=== PATIENT | male | born 1970 | race Hispanic/Latino ===

== ENCOUNTER 2017-05-25 06:38 | Emergency (ER) | payer OTHER, SELFPAY ==
[2017-05-25 06:40] VITALS: BP 146/82; PULSE 82; RESP 17; TEMP 36.5; O2SAT 97; BMI 33.8
--- NOTE | 2017-05-25 06:51 | ED.VISSUMM ---
- ER Visit Summary Date of Service: 05/25/17 Chief Complaint: Gout flare up right foot History of Present Illness: The patient is a 46 M 3 of the gout and hypertension. Patient states today he is developed atraumatic pain to his right foot primarily in the MTP joint of his right great toe. Prior history of gout in that area. Denies any trauma. Denies any fever. Denies any other complaints. Physical Examination: Well-appearing middle-age male. Vital signs are stable afebrile. He is in no acute distress. He does not look septic or toxic. HEENT exam unremarkable. Neck nontender no lymphadenopathy. Lungs clear to auscultation bilaterally. Heart regular rate and rhythm no murmur. Abdomen soft nontender. Extremities he is moving all 4. Neurovascular intact. Specifically his right hip, knee and ankle are nontender without swelling and normal range of motion. His right foot at the right great toe metatarsophalangeal joint he is tenderness and mild swelling. There is no signs of infection at this time. There is no lymphangitic streaking. The right foot is neurovascular intact with a strong DP pulse. There are no signs of trauma or puncture wound. No gross bony deformities. Test Results: None Emergency Department Course and Treatment: Patient will be treated as a acute gout flareup with prednisone 40 mg a day. He will be given his first dose in the ER. He did not want anything stronger for pain. Treatment Plan: Prednisone daily 40 mg a day for 10 days or stop when pain resolved. Disposition: Discharged Impression: Acute right great toe pain secondary to acute gout flare up This note was generated with [employer] dictation software. It may contain incorrect words, spelling, and punctuation that were not noted in review of the chart prior to signing ED Disposition - Plan for ED Patient: Chief Complaint: Lower Extremity Injury Referrals: Eddie Hughes [Primary Care Provider] -
--- NOTE | 2017-05-25 06:54 | ED.DEP ---
ED Disposition - Plan for ED Patient: Disposition: Home or Assisted Living Chief Complaint: Lower Extremity Injury Instructions: ED Arthritis Gout Prescriptions: Prednisone [Deltasone] 40 mg PO DAILY 10 Days tab Referrals: Eddie Hughes [Primary Care Provider] - 1 Week if not improving
== END 2017-05-25 07:02 | disposition home or self-care (01) ==
PROVIDERS: Emergency Provider Emergency Medicine
DX: M79.674 Pain in right toe(s) (principal); M10.9 Gout, unspecified; I10 Essential (primary) hypertension; Z79.899 Other long term (current) drug therapy
CPT/HCPCS: 99283

== ENCOUNTER 2017-07-31 17:50 | Inpatient (IN) | payer OTHER, SELFPAY ==
[2017-07-31] VITALS (17 sets, daily range): BP systolic 97–135; BP diastolic 56–75; PULSE 76–97; RESP 14–25; TEMP 36.2–36.7; O2SAT 94–98; BMI 33.6; BMI 33.7; BMI 34.1
--- NOTE | 2017-07-31 18:00 | EKG12_ITS ---
Test Reason : CP Blood Pressure : / mmHG Vent. Rate : 078 BPM Atrial Rate : 078 BPM P-R Int : 122 ms QRS Dur : 128 ms QT Int : 386 ms P-R-T Axes : 045 -14 005 degrees QTc Int : 440 ms Normal sinus rhythm Right bundle branch block Abnormal ECG Confirmed by MAIK ABAD, ZAY ([id number]), assistant film editor CASEY PEDERSON ([id number]) on 08/06/2017 1:42:24 PM Referred By: BARRERA/SHILA Confirmed By:ZAY PLEITEZ MD
[2017-07-31] MEDS: Aspirin 81 MG TAB.CHEW 324 MG PO (18:13)
--- NOTE | 2017-07-31 18:15 | RAD_ITS ---
STUDY: X-RAY CHEST REASON FOR EXAM: Male, 47 years old. Chest pain, neck pain. TECHNIQUE: AP portable upright chest COMPARISON: 06/29/2013 FINDINGS: There is mild background hyperlucency in particular at the apices of the lungs that may reflect the presence of underlying COPD/emphysema. Correlate smoking history. The lungs are otherwise clear. Normal cardiomediastinal silhouette, howard and pleural margins. No acute osseous or upper abdominal process. RAD/Chest 1 View (Portable) IMPRESSION: No acute cardiopulmonary process. Electronically Signed: Jasbir Verdugo, at 18:49 EDT Tel , Service support ,
[2017-07-31 18:20] LABS: Absolute Neutrophil Count 2.7 X10^3/uL (2.0-7.7); Basophil# 0.04 X10^3/uL; Basophil% 0.7 % (0-1); Eosinophil# 0.73 X10^3/uL; Eosinophils% 12.4 % (0-5); Hematocrit 41.6 % (40-54); Hemoglobin 14.4 g/dl (13.0-16.5); Lymphocyte % 32.1 % (19-41); Mean Corp Hgb Conc 34.6 g/gl (32-36); Mean Corpuscular Hgb 30.4 pg (27.0-32.0); Mean Corpuscular Volume 87.9 fL (80-94); Mean Platelet Vol. 9.6 fl (6.2-12.0); Monocyte# 0.55 X10^3/uL; Monocyte% 9.3 % (0-10); Neutrophil # 2.68 X10^3/uL (2.7-7.7); Neutrophil % 45.3 % (47-70); Platelet Count 219 K/mm3 (150-450); RBC Distribution Width CV 13.2 % (11.6-14.6); RBC Distribution Width SD 42.2 fl (35.1-43.9); Red Blood Count 4.73 M/mm3 (4.6-6.2); White Blood Count 5.9 K/mm3 (4.4-11.0)
[2017-07-31 18:21] LABS: POSITIVE COUNT NO; POSITIVE DIFFERENTIAL NO; POSITIVE MORPHOLOGY NO
[2017-07-31 18:39] LABS: Anion Gap 8 (5-15); BUN 16 mg/dL (7-18); BUN/Creat Ratio 15.2 RATIO (10-20); Calcium,Total 8.4 mg/dL (8.5-10.1); Chloride 105 mmol/L (98-107); Creatinine, Serum 1.05 mg/dL (0.70-1.30); EST Glomerular Filtration Rate 81 mL/min (>60); Est Glom Filt Rate - Afr Amer 98 mL/min (>60); Estimated Creatinine Clearance 91.73 ml/min; Glucose 119 mg/dL (74-106); Potassium 3.6 mmol/L (3.5-5.1); Sodium Level 138 mmol/L (136-145)
--- NOTE | 2017-07-31 18:58 | EKG12_ITS ---
Test Reason : REPEAT Blood Pressure : / mmHG Vent. Rate : 083 BPM Atrial Rate : 083 BPM P-R Int : 128 ms QRS Dur : 132 ms QT Int : 402 ms P-R-T Axes : 045 -19 002 degrees QTc Int : 472 ms Normal sinus rhythm Right bundle branch block Abnormal ECG Confirmed by MAIK ABAD, ZAY ([id number]), editor publications CASEY PEDERSON ([id number]) on 08/06/2017 1:42:43 PM Referred By: SHILA Confirmed By:ZAY PLEITEZ MD
--- NOTE | 2017-07-31 18:59 | PCM.HP.STD ---
Problem List (1) Non-STEMI (non-ST elevated myocardial infarction) Status: Acute (2) Obesity (BMI 30.0-34.9) Status: Chronic (3) HTN (hypertension) Status: Chronic Qualifiers: Hypertension type: essential hypertension Qualified Code(s): I10 - Essential (primary) hypertension History of Present Illness Date of Admission: 07/31/17 Chief Complaint: Chest pain The patient is a 47 y/o F w/ PMHx: HTN, Obesity, Gout, Chronic Back Pain, Former Tobacco use who presents to the [facility] ED on 07/31/17 with onset of substernal and midsternal squeezing chest pain with no radiation with associated dyspnea without any nausea, emesis or diaphoresis starting approximately 3:45 in the morning prior to leaving for work at that time rated as a 10 out of 10 with continued discomfort during the day although this steadily lessened but continued and upon ED presentation rated 3 out of 10. Following nitroglycerin series patient noted 1 out of 10 discomfort. In the ED workup included afebrile, heart rate 94, BP 112/56, 97% on room air, unremarkable CBC, BMP with glucose 119, troponin V 0.9, EKG with right bundle branch block, inverted T waves in V3-V4, ST depression V3-V5 with no evidence of elevation, chest x-ray unremarkable. In the ED patient administered Brilinta loading, nitroglycerin sublingual several rounds and eventually transitioned to nitroglycerin drip, aspirin therapy 324 mg p.o. ?1, heparin bolus and drip initiated. Dr. Mcqueen cardiology consulted per ED with plans for a.m. cardiac catheterization. Past Medical History Past Medical History (Chronic Problems): Chronic Problems Obesity (BMI 30.0-34.9) (Chronic) HTN (hypertension) (Chronic) Allergies No Known Allergies Allergy (Verified 07/31/17 17:53) Home Medications: Ambulatory Orders Medication Instructions Recorded Lisinopril/Hydrochlorothiazide 1 tablet PO DAILY 06/13/14 [Zestoretic 12/19.5 Tablet] Allopurinol [Zyloprim] 100 mg PO DAILYCM 11/20/14 Cyclobenzaprine [Flexeril] 10 mg PO TID PRN #20 tab 03/04/17 Surgical History: - - Diverticulitis intervention with resection but unclear region, right knee arthroscopic surgery. Psychiatric History: No pertinent psych hx Lives: Spouse/ Significant Other, With Family Smoking Status: Former smoker - Patient notes quitting tobacco 15 years prior. Tobacco Use: Non-smoker Alcohol: None Drugs: None - *Family History Maternal History Items: Heart Disease Paternal History Items: Diabetes Review of Systems Constitutional: Reports: Fatigue. Denies: Chills, Fever, Weight Change HEENT: Denies: Head Aches, Sinus Congestion, Sinus Drainage Cardiovascular: Reports: Chest Pain, Chest Tightness. Denies: Palpitations Respiratory: Reports: Shortness of Breath, Shortness of breath at rest, Shortness of breath upon exertion. Denies: Cough, Sputum production Gastrointestinal: Denies: Abdominal Pain, Nausea, Vomiting Genitourinary: Denies: Dysuria Musculoskeletal: Reports: Back Pain. Denies: Joint Pain, Joint Tenderness Skin: Denies: Rash, Wounds Neurological: Denies: Numbness, Tingling, Focal weakness Psychiatric: Denies: Anxiety, Depression, Homicidal Ideations, Suicidal Ideations Hematologic/ Lymphatic: Denies: Easy Bruising, Easy Bleeding VTE Information - Inpt Only VTE Present on Admission: No VTE Mechan Device Prophylaxis: SCD's VTE Pharm Prophylaxis ordered?: Yes Patient Problems: Active and Suspected Problems Non-STEMI (non-ST elevated myocardial infarction) (Acute) Subjective: Seated upright in the ED bed, no acute distress, notes currently chest pain has improved and is 1 out of 10. Objective: Physical Examination: General: awake, alert, oriented x 3 and cooperative, seated upright in the ED bed in no apparent distress. Skin: normal color, turgor, no icterus, cyanosis. HEENT: AT/NC, EOMI, PERRLA, MMM, no carotid bruits or JVD noted. Lungs: CTA bilaterally, moderate effort, mild decrease BL bases, no rales, ronchi or wheezing. Heart: Regular rate and rhythm; no gallop, rub audible. Abdomen: soft, obese, NTTP, ND, normal BS, no HSM. Extremities: no cyanosis, clubbing, or edema. Neurological: patient awake, alert, oriented x 3; cognitive function intact; pupils equally reactive to light and accomodation; cranial nerves II-XII grossly normal, moving all 4 extremities, no focal deficits, strength mildly globally decreased secondary to acute presentation. Psychiatric: affect appears normal, no acute evidence of depressive or anxiety feelings. - Physical Exam Vital Signs Temp Pulse Resp BP Pulse Ox 97.1 F L 94 16 112/56 L 97 07/31/17 17:52 07/31/17 18:31 07/31/17 17:52 07/31/17 18:31 07/31/17 18:06 Oxygen Delivery Method Room Air Weight: 234 lb 9.149 oz Body Mass Index (BMI) 33.6 Laboratory Tests Past 24 Hrs 07/31/17 07/31/17 18:02 18:02 WBC 5.9 RBC 4.73 Hgb 14.4 Hct 41.6 MCV 87.9 MCH 30.4 MCHC 34.6 RDW 13.2 RDW Differential 42.2 Plt Count 219 MPV 9.6 Immature Gran % (Auto) 0.200 Neut % (Auto) 45.3 L Lymph % (Auto) 32.1 Roosevelt % (Auto) 9.3 Eos % (Auto) 12.4 H Baso % (Auto) 0.7 Absolute Neuts (auto) 2.7 Absolute Lymphs (auto) 1.90 Total Counted Not Reportable Sodium 138 Potassium 3.6 Chloride 105 Carbon Dioxide 25.0 Anion Gap 8 BUN 16 Creatinine 1.05 Estim Creat Clear Calc 91.73 Est GFR (MDRD) Af Amer 98 Est GFR (MDRD) Non-Af 81 BUN/Creatinine Ratio 15.2 Glucose 119 H Calcium 8.4 L Troponin I 5.900 H* Assessment/Plan Active and Suspected Problems Non-STEMI (non-ST elevated myocardial infarction) (Acute) The patient is a 47 y/o F w/ PMHx: HTN, Obesity, Gout, Chronic Back Pain, Former Tobacco use who presents to the [facility] ED on 07/31/17 with onset of substernal and midsternal squeezing chest pain with no radiation with associated dyspnea without any nausea, emesis or diaphoresis starting approximately 3:45 in the morning prior to leaving for work at that time rated as a 10 out of 10 with continued discomfort during the day although this steadily lessened but continued and upon ED presentation rated 3 out of 10. (1) Chest Pain w/ Acute NSTEMI: EKG in ED w/ right bundle branch block, inverted T waves in V3 and V4, ST depression in V3 through V5, no elevations noted with no comparison, CXR w/ no acute findings. Trop elevated, 5.9. Will admit to ICU, maintain on a monitored bed, continue serial cardiac enzymes and EKGs. Obtain magnesium level upon admission. Continue NG drip and heparin drip w/ bolus administered in the ED. Brillinta bolus administered in the ED. Continue medical management w/ asa, add low dose BB, add high dose statin w/ AM FLP. Cardiology consulted, plan for cardiac catheterization. Maintain NPO after midnight. ASA, NG, morphine. (2) Hyperglycemia: Admission glucose 119, hemoglobin A1c pending. (3) Hypertension: Continue home regimen including lisinopril, HIDA chlorothiazide, add low-dose Coreg, as noted maintained on nitroglycerin drip thus may need to hold oral agents if necessary, PRN hydralazine. (4) Obesity: Weight loss and lifestyle changes encouraged, nutrition consulted for education and teaching. (5) Chronic back discomfort: Patient notes he had been taking muscle relaxants prior but has not been using these recently. 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 (6) Gout: Continue home allopurinol regimen. (7) DVT prophylaxis: SCDs, heparin drip is noted. Code Visit Inpatient E&M: 88180 Init Hosp L3
--- NOTE | 2017-07-31 18:59 | ED.VISSUMM ---
- ER Visit Summary Date of Service: 07/31/17 Chief Complaint: Chest pain History of Present Illness: The patient is a 47 M no cardiac history but a prior history of hypertension and gout. Patient has no cardiac history. He is a non-smoker. He states this morning is getting ready for work he had nonexertional chest tightness. He described it as a squeezing. It has been there all day. Also associated shortness of breath. No history of DVT or PE. No significant risk factors. No hemoptysis. This is not pleuritic. He has had no leg pain or swelling. Physical Examination: Middle-aged male vital signs are stable afebrile. Pulse ox 97% no hypoxia. HEENT exam unremarkable. Neck nontender no JVD. Lungs clear to auscultation bilaterally. Heart regular rate and rhythm no murmur. Rate about 80. Chest wall does have mild reproducible tenderness but is not exactly the same pain as he is having. Abdomen soft nontender. Normal bowel sounds no peritoneal signs. Moving all 4 extremities. Neurovascular intact. Equal symmetrical radial pulse. Neurologic exam normal. Test Results: Chest x-ray no acute abnormality normal cardiac silhouette read by myself the radiologist. EKG sinus rhythm rate is 78 with a right bundle branch block. No old EKG available comparison. He does have inverted T waves in V3 [address] depression. No ST elevation. CBC normal. BMP normal. Troponin V 0.9 consistent with a non-ST elevation NE. Emergency Department Course and Treatment: Chest pain was concerning. He underwent a cardiac workup and has what appears to be a non-ST elevation NE. I spoke to Dr. Manuel Mcqueen of interventional cardiology and Dr. Linder the hospitalist. Patient will be started on heparin bolus and drip. Nitro drip. And p.o. Brilinta. He had already received aspirin in the ER and sublingual nitroglycerin which did improve his pain. A repeat EKG will be obtained. Treatment Plan: Anticoagulation and admission to the ICU. If the patient gets worse he may go to the [facility] sooner but the plan will be to do a cardiac catheterization on him in the morning. Disposition: Admission Impression: Chest pain consistent with a non-ST elevation NE. History of hypertension. Critical care time 30 minutes. This note was generated with [employer] software. It may contain incorrect words, spelling, and punctuation that were not noted in review of the chart prior to signing ED Disposition - Plan for ED Patient: Chief Complaint: Chest Pain Referrals: Eddie Hughes [Primary Care Provider] -
[2017-07-31] MEDS: TICAGRELOR 90 MG TABLET 180 MG PO (19:02)
--- NOTE | 2017-07-31 19:05 | ED.DCSUM_ITS ---
- ER Visit Summary Date of Service: 07/31/17 Chief Complaint: Chest pain History of Present Illness: The patient is a 47 M no cardiac history but a prior history of hypertension and gout. Patient has no cardiac history. He is a non-smoker. He states this morning is getting ready for work he had nonexertional chest tightness. He described it as a squeezing. It has been there all day. Also associated shortness of breath. No history of DVT or PE. No significant risk factors. No hemoptysis. This is not pleuritic. He has had no leg pain or swelling. Physical Examination: Middle-aged male vital signs are stable afebrile. Pulse ox 97% no hypoxia. HEENT exam unremarkable. Neck nontender no JVD. Lungs clear to auscultation bilaterally. Heart regular rate and rhythm no murmur. Rate about 80. Chest wall does have mild reproducible tenderness but is not exactly the same pain as he is having. Abdomen soft nontender. Normal bowel sounds no peritoneal signs. Moving all 4 extremities. Neurovascular intact. Equal symmetrical radial pulse. Neurologic exam normal. Test Results: Chest x-ray no acute abnormality normal cardiac silhouette read by myself the radiologist. EKG sinus rhythm rate is 78 with a right bundle branch block. No old EKG available comparison. He does have inverted T waves in V3 [address] depression. No ST elevation. CBC normal. BMP normal. Troponin V 0.9 consistent with a non-ST elevation KS. Emergency Department Course and Treatment: Chest pain was concerning. He underwent a cardiac workup and has what appears to be a non-ST elevation [place]. I spoke to Dr. Manuel Mcqueen of interventional cardiology and Dr. Linder the hospitalist. Patient will be started on heparin bolus and drip. Nitro drip. And p.o. Brilinta. He had already received aspirin in the ER and sublingual nitroglycerin which did improve his pain. A repeat EKG will be obtained. Treatment Plan: Anticoagulation and admission to the ICU. If the patient gets worse he may go to the [facility] sooner but the plan will be to do a cardiac catheterization on him in the morning. Disposition: Admission Impression: Chest pain consistent with a non-ST elevation KS. History of hypertension. Critical care time 30 minutes. This note was generated with [employer] software. It may contain incorrect words, spelling, and punctuation that were not noted in review of the chart prior to signing ED Disposition - Plan for ED Patient: Chief Complaint: Chest Pain Referrals: Eddei Hughes [Primary Care Provider] -
[2017-07-31] MEDS: HEPARIN/D5w 25,000 UNITS 25,000 UNITS/250 ML IV.SOLN. 15 UNITS IV (19:40)
[2017-07-31] MEDS: Heparin Injection (Vial) 5,000 UNIT/ML VIAL 8000 UNIT IV (20:54)
[2017-07-31] MEDS: CHLORHEXIDINE GLUC 2% CLOTH 1 EACH TOWELETTE TOPICAL (22:00)
[2017-07-31] MEDS: Carvedilol 3.125 MG TABLET PO (22:07)
[2017-07-31] MEDS: 0.9% Normal Saline 1,000 ML 125 ML IV (22:07)
[2017-07-31] MEDS: 0.9% NaCl Peripheral Flush Adult/Peds IV (22:07)
[2017-07-31] MEDS: Atorvastatin Calcium 80 MG Tablet PO (22:07)
[2017-07-31] MEDS: Famotidine 20 MG Tablet PO (22:07)
[2017-07-31 22:13] LABS: M R Staph aureus DNA By PCR Negative (Negative); Probe Check PASS; Specimen Processing Control PASS
[2017-07-31 22:41] LABS: Hemoglobin A1c 5.8 % (4.2-6.3)
[2017-08-01] VITALS (32 sets, daily range): BP systolic 98–150; BP diastolic 7–89; PULSE 68–85; RESP 12–23; TEMP 36.6–36.9; O2SAT 94–99
[2017-08-01] MEDS: 0.9% NaCl Peripheral Flush Adult/Peds IV ×4 (01:30→14:13)
[2017-08-01 01:54] LABS: International Normalized Ratio 1.1; Partial Thromboplast Time 109.1 Seconds (24.1-36.2); Prothrombin Time (Protime)PT. 13.7 SECONDS (11.7-14.9)
[2017-08-01 04:17] LABS: Hematocrit 36.8 % (40-54); Hemoglobin 12.8 g/dl (13.0-16.5); Mean Corp Hgb Conc 34.8 g/gl (32-36); Mean Corpuscular Volume 89.1 fL (80-94); Mean Platelet Vol. 9.7 fl (6.2-12.0); Platelet Count 187 K/mm3 (150-450); RBC Distribution Width CV 13.2 % (11.6-14.6); RBC Distribution Width SD 42.7 fl (35.1-43.9); Red Blood Count 4.13 M/mm3 (4.6-6.2)
[2017-08-01 04:22] LABS: Scan Indicated on CBC? Y/N NO
[2017-08-01 04:30] LABS: Anion Gap 8 (5-15); BUN 14 mg/dL (7-18); BUN/Creat Ratio 15.5 RATIO (10-20); Calcium,Total 7.5 mg/dL (8.5-10.1); Chloride 109 mmol/L (98-107); Cholesterol 135 mg/dL (200); EST Glomerular Filtration Rate 97 mL/min (>60); Est Glom Filt Rate - Afr Amer 117 mL/min (>60); Estimated Creatinine Clearance 107.02 ml/min; Glucose 106 mg/dL (74-106); High Density Lipoprotein 32 mg/dL; Potassium 3.7 mmol/L (3.5-5.1); Sodium Level 142 mmol/L (136-145); Triglycerides 168 mg/dL; Very Low Density Lipoprotein 34 mg/dL (5-40)
--- NOTE | 2017-08-01 05:55 | EKG12_ITS ---
Test Reason : AM EKG Blood Pressure : / mmHG Vent. Rate : 079 BPM Atrial Rate : 079 BPM P-R Int : 132 ms QRS Dur : 126 ms QT Int : 396 ms P-R-T Axes : 053 -11 -53 degrees QTc Int : 454 ms Normal sinus rhythm with sinus arrhythmia Right bundle branch block T wave abnormality, consider lateral ischemia Abnormal ECG Confirmed by MAIK ABAD, ZAY ([id number]), school photograph editor CASEY PEDERSON ([id number]) on 08/28/2017 11:43:23 AM Referred By: LOAN Confirmed By:ZAY PLEITEZ MD
[2017-08-01] MEDS: 0.9% Normal Saline 1,000 ML 125 ML IV (06:02)
[2017-08-01] MEDS: Aspirin 81 MG TAB.CHEW PO (06:02)
[2017-08-01] MEDS: CHLORHEXIDINE GLUC 2% CLOTH 1 EACH TOWELETTE TOPICAL (06:02)
--- NOTE | 2017-08-01 09:23 | CASEMGMT ---
RN CM Assessment completed, see link. DC Plan: home on discharge. Pasquale SCHNEIDERN RN ACM
[2017-08-01 09:48] LABS: Partial Thromboplast Time 54.9 Seconds (24.1-36.2)
[2017-08-01] MEDS: TICAGRELOR 90 MG TABLET PO (11:29)
--- NOTE | 2017-08-01 11:34 | CON.PCM_ITS ---
Problem List (1) Non-STEMI (non-ST elevated myocardial infarction) Status: Acute Reason for Consult Date of Consultation: 08/01/17 History of Present Illness: The patient is a 47 year old M with past medical history significant for hypertension and gout. He presented to the emergency room with complaints of chest pain that started yesterday. This was located in anterior chest. No radiation to the arm neck or jaw. Positive association with dyspnea. No nausea or vomiting or diaphoresis. In the emergency room, he was given nitroglycerin. That resolved his pain. His workup came back with elevated troponin ruling him in for non-ST elevation myocardial infarction. Patient denies any previous cardiac history. Denies any history of angina either at rest or with exertion prior to this episode. No orthopnea or PND. No palpitations. No ankle edema [] Past Medical History Allergies/Adverse Reactions: Allergies No Known Allergies Allergy (Verified 07/31/17 17:53) Home Medications: Ambulatory Orders Medication Instructions Recorded Lisinopril/Hydrochlorothiazide 1 tablet PO DAILY 06/13/14 [Zestoretic 10/12.5 Tablet] Allopurinol [Zyloprim] 100 mg PO DAILYCM 11/20/14 Cyclobenzaprine [Flexeril] 10 mg PO TID PRN #20 tab 03/04/17 Past Medical History (Chronic Problems): Chronic Problems Obesity (BMI 30.0-34.9) (Chronic) HTN (hypertension) (Chronic) Surgical History: - - Diverticulitis intervention with resection but unclear region, right knee arthroscopic surgery. Psychiatric History: No pertinent psych hx - *Family History Paternal History Items: Diabetes Maternal History Items: Heart Disease Lives: Spouse/ Significant Other, With Family Smoking Status: Former smoker - Patient notes quitting tobacco 15 years prior. Tobacco Use: Non-smoker Alcohol: None Drugs: None Review of Systems - Review of Systems General: Denies: Fever, Chills, Weight Loss HEENT: Denies: Head Aches Cardiovascular: Reports: Chest Discomfort at Rest, Shortness of Breath. Denies : Orthopnea, PND, Peripheral Edema, Palpitations, Near Syncope, Syncope Respiratory: Denies: Cough, Hemoptysis Gastrointestinal: Denies: Abdominal Discomfort, Jaundice, Nausea, Emesis, Hematemesis, Melena Muscoloskeletal: Reports: - - History of gout Neurological: Denies: History of TIA, History of CVA Endocrine: Denies: Heat Intolerance, Cold Intolerance, Unexplained Weight Loss Hematologic/ Lymphatic: Denies: Anemia, Easy Brusing, Easy Bleeding Subjectve: Comfortable. No apparent distress Objective: Vital Signs Temp Pulse Resp BP Pulse Ox 98.0 F 76 16 120/53 L 98 08/01/17 07:00 08/01/17 10:00 08/01/17 10:00 08/01/17 10:00 08/01/17 10:00 Oxygen Delivery Method Room Air Weight: 107.7 kg Body Mass Index (BMI) 34.1 Intake and Output for Last 24 Hours 07/30/17 07/31/17 08/01/17 23:59 23:59 23:59 Intake Total 1682 / 1682 Output Total 500 / 500 Balance 1182 / 1182 General: Awake, Alert, Oriented x 3, No Acute Distress HEENT: Atraumatic, Normocephalic Oral: Moist Mucosa Neck: Supple, No JVD Lungs: Clear to auscultation Cardiovascular: Regular Rhythm, Normal S1, Normal S2, No Murmurs, No Rubs Vascular: No Carotid Bruits Abdomen: Bowel Sounds Present, Soft Extremities: No edema Neurological: No Focal Motor or Sensory Deficit Psych/Mental Status: Appropriate 07/31/17 22:05: Magnesium 2.0 07/31/17 22:05: Hemoglobin A1c 5.8 07/31/17 22:05: Troponin I 5.600 H* 08/01/17 01:30: Troponin I 5.160 H* 08/01/17 01:30: APTT 109.1 H* 08/01/17 01:30: PT 13.7, INR 1.1 08/01/17 04:00: WBC 5.0, RBC 4.13 L, Hgb 12.8 L, Hct 36.8 L, MCV 89.1, MCH 31.0 , MCHC 34.8, RDW 13.2, RDW Differential 42.7, Plt Count 187, MPV 9.7 08/01/17 04:00: Sodium 142, Potassium 3.7, Chloride 109 H, Carbon Dioxide 25.0, Anion Gap 8, BUN 14, Creatinine 0.90, Est GFR (MDRD) Af Amer 117, Est GFR (MDRD ) Non-Af 97, BUN/Creatinine Ratio 15.5, Glucose 106, Calcium 7.5 L, Triglycerides 168, Cholesterol 135, LDL Cholesterol 69, VLDL Cholesterol 34, HDL Cholesterol 32 L 08/01/17 08:15: APTT Cancelled 08/01/17 09:00: APTT Cancelled 08/01/17 09:30: APTT 54.9 H Rhythm: Normal sinus rhythm EKG: Normal sinus rhythm. Right bundle branch block. T-wave inversions across anterior precordial leads suggestive of ischemia ECHO: Stress Test: Cardiac Cath: PCI: CT Surgery: Holter monitor: EPS: PPM: CXR: Chest CT Scan: Assessment/Plan 1. Non-ST elevation myocardial infarction. She was offered cardiac catheterization with coronary angiography and possible revascularization. Risks benefits and alternatives were explained. He understands these and wishes to proceed 2. Continue aspirin and Brilinta 3. Lipid management as per internal medicine 4. Hypertension 5. History of gout 6. Further recommendations will follow results of cardiac catheterization
--- NOTE | 2017-08-01 13:04 | CT_ITS ---
STUDY: CTA CHEST REASON FOR EXAM: Male, 47 years old. Chest pain. Elevated troponin. RADIATION DOSAGE (If Supplied By Facility): CTDIvol = ( 18.19 ) mGy, DLP = ( 624.91 ) mGycm TECHNIQUE: The examination was performed with the intravenous administration of 75 ml of Isovue 370 contrast material. Post-processing of the angiographic images was performed, with multiplanar reformation and 3D reconstruction. Individualized dose optimization techniques were used for this CT. COMPARISON: X-ray chest 07/31/2017 FINDINGS: Supraclavicular: Normal. Body wall soft tissues: Normal. Osseous structures: No acute process. Upper abdomen: There is evidence of hepatic steatosis. Limited evaluation. No acute upper abdominal process. Lungs: Mild dependent atelectasis, otherwise normal. Normal airways. Mediastinum: Normal esophagus. Several lymph nodes are present in the mediastinum subcarinal, and in the hwoard bilaterally. The largest in the right hilum is approximately 11 mm. The largest subcarinal short axis XI mm. The largest in the left hilum short axis XII mm. These are nonspecific. Heart: No significant cardiomegaly. No pericardial effusion. Mild coronary cusp secretions are present. The right and left coronary arteries each emerge from the appropriate coronary sinus with right coronary dominance to the PDA. No appendage thrombus. Grossly normal chamber morphology. Aorta: Normal. Pulmonary arteries: Nondilated. No large central pulmonary embolus. Peripheral evaluation is satisfactory through the segmental divisions and into the majority of the proximal subsegmental divisions with no convincing evidence of acute peripheral pulmonary embolus. CT/CTA Chest W/WO Contrast IMPRESSION: There is no evidence of acute pulmonary embolus. No other acute cardiopulmonary process is evident. Several borderline large lymph nodes are present in the mediastinum and howard, chronicity uncertain, nonspecific. There is evidence of hepatic steatosis. Electronically Signed: Jasbir Verdugo, at 14:04 EDT Tel , Service support ,
--- NOTE | 2017-08-01 13:15 | ECHOD_ITS ---
Reason For Study: NSTEMI Procedure This was a 2D Doppler, Color Flow transthoracic echocardiogram. The exam was of fair technical quality due to body habitus. Exam performed portable in ICU/CCU. Left Ventricle Normal LV size. Left ventricular systolic function is normal. The estimated ejection fraction is 60 %. There is evidence of diastolic dysfunction. No regional wall motion abnormalities noted. Right Ventricle Normal RV size. Normal systolic function. Atria Normal left atrium. Normal right atrium. No doppler evidence for ASD. Mitral Valve There is no mitral annular calcification. Normal mitral valve. Trivial mitral valve insufficiency. Tricuspid Valve Normal tricuspid valve. Mild tricuspid valve insufficiency. Right ventricular systolic pressure estimated to be 34 mmHg. Aortic Valve Trisinus/trileaflet aortic valve. Normal aortic valve. Pulmonic Valve The pulmonic valve is not well visualized. Trivial pulmonic valve insufficiency. Great Vessels Normal sized aortic root. Pericardium/Pleural No pericardial effusion. MMode/2D Measurements & Calculations LVIDd: 5.0 cm IVSd: 1.1 cm Ao root diam: 2.8 cm LVIDs: 3.3 cm LVPWd: 1.1 cm RVDd: 4.2 cm FS: 33.9 % LAV(MOD-bp): 51.7 ml LA A4 area: 18.8 cm2 RA A4 area: 12.1 cm2 LAV(MOD-bp) Indexed: 23.2 ml/m2 LAV(MOD-sp2): 46.6 ml LAV(MOD-sp4): 54.2 ml Doppler Measurements & Calculations MV E max timothy: 93.1 cm/sec Lat Peak E' Timothy: 10.1 cm/sec Med Peak E' Timothy: 9.8 cm/sec MV A max timothy: 72.9 cm/sec E/E' lat: 9.2 E/E' med: 9.5 MV E/A: 1.3 Ao V2 max: 168.5 cm/sec LV V1 max: 134.3 cm/sec PA V2 max: 112.7 cm/sec Ao max P.4 mmHg LV V1 max P.2 mmHg Ao V2 mean: 103.4 cm/sec Ao mean P.9 mmHg Ao V2 VTI: 28.7 cm TR max timothy: 277.4 cm/sec TR max P.8 mmHg Interpretation Summary Left ventricular systolic function is normal. The estimated ejection fraction is 60 %. Trivial mitral valve insufficiency. Mild tricuspid valve insufficiency. Trivial pulmonic valve insufficiency. Right ventricular systolic pressure estimated to be 34 mmHg. There is evidence of diastolic dysfunction. Ordering Physician: Godwin Hall Referring Physician: Eddie Hughes Performed By: Kimi Ly, QUAN, RVT
--- NOTE | 2017-08-01 13:22 | CL.D_ITS ---
Patient Name: ANA CAIN Study Date: 08/01/2017 Performing: Godwin Hall MD Ht: 70 inches 178 cm : 1970 Wt: 238.4 lbs 108 kg Age: 47 Gender: male BSA: 2.25 PROCEDURE(S) PERFORMED [id number] CLINICAL PROFILE AND INDICATIONS Heart Failure: None CAD Presentations: Non-STEMI. Symptom onset Date/Time: 05/03/2017 CONCLUSIONS 30% Mid LAD HERMELINDA III flow all major epicardial vessels LVEF 55% Consider vasospastic angina RECOMMENDATIONS Medical therapy Risk factor modification DESCRIPTION OF PROCEDURE The patient arrived to the procedure lab. The risks and benefits of the procedure as well as a full d escription of our services here and current unavailability of surgical backup were fully explained to the patient and/or their significant other prior to the catheterization. The Timeout was completed, verifying the correct patient and procedure. The patient's procedural site was prepped and draped in the usual fashion. Local anesthetic was given subcutaneously to right radial region with Lidocaine 2% . Using a modified Seldinger technique, arterial access was obtained via the right radial artery, a 6 Fr sheath was inserted. Left Coronary Artery selective angiography was performed in multiple views u sing a 6 Fr. 4.0 [place] catheter. Right Coronary Artery selective angiography was then performed in mu ltiple views using a 6 Fr. 3DRC (Jaylen) catheter. Left Ventriculography was performed in SOLARES proje ction using a 5 Fr. Pigtail catheter. LV to AO pullback pressures were then recorded.The arterial she ath was pulled and a TR Band was applied for hemostasis 13cc air CORONARY ANGIOGRAPHY DOMINANCE: Right Dominant LEFT HEART ASSESSMENT Left Ventricular Ejection Fraction: by LV Gram 55 % LVEDP: 20 mmHg LEFT MAIN: Angiographically normal, Angiographically normal LEFT ANTERIOR DECENDING ARTERY: MID LAD: 30% luminal irregularities RIGHT CORONARY ARTERY: Angiographically normal COMPLICATIONS No Complications PROCEDURE MEDICATIONS Fentanyl 50 mcg IV Fentanyl 50 mcg IV Versed 2 mg IV Oxygen: 2 L/min via nasal cannula Heparin given IA 08/01/2017 12:42:14 Nitro glycerin 25mg / 250ml D5W @ 20 mcg/min IV continued from ICU 08/01/2017 11:51:56 Nitro glycerin 25mg / 250ml D5W @ 10 mcg/min decreased rate 08/01/2017 12:06:54 Nitro glycerin 25mg / 250ml D5W @ discontinued 08/01/2017 12:39:33 Verapamil 2.5mg, Ntg 100mcgs, 2000 units of Heparin given IA 08/01/2017 12:42:14 IV Bolus: .9 NaCl 500 ml total 08/01/2017 12:50:49 IV Fluids: .9 NaCl increased to WO ml/hr 08/01/2017 12:50:36 SUMMARY OF HEMODYNAMIC DATA Time AIR REST ECG 11:48:57 AO 95/69 (81) SA 12:43:46 AO 109/70 (89) 12:53:35 LV 115/-3, 21 12:59:43 LV 113/0, 20 12:59:49 LVp 104/14, 22 13:00:55 AOp 97/63 (78) 13:01:00 Signed By Godwin Hall MD On 08/01/2017 13:22:15 Godwin Hall MD
--- NOTE | 2017-08-01 13:30 | PCM.PN.BLA ---
Progress Note Cardiac catheterization done. Coronary angiography revealed only mild disease in the mid left anterior descending artery. HERMELINDA-3 flow was noted in all epicardial vessels. LV systolic function overall normal. Ejection fraction 55%. Patient had elevated troponin. Check CT scan of the chest to rule out PE. Also check 2D echocardiogram with Doppler. If CT scan is negative for PE, then will suspect a vasospastic angina. Start on amlodipine. Stop patient's lisinopril/hydrochlorothiazide
--- NOTE | 2017-08-01 13:34 | PN_ITS ---
Progress Note Cardiac catheterization done. Coronary angiography revealed only mild disease in the mid left anterior descending artery. HERMELINDA-3 flow was noted in all epicardial vessels. LV systolic function overall normal. Ejection fraction 55% . Patient had elevated troponin. Check CT scan of the chest to rule out PE. Also check 2D echocardiogram with Doppler. If CT scan is negative for PE, then will suspect a vasospastic angina. Start on amlodipine. Stop patient's lisinopril/hydrochlorothiazide
[2017-08-01] MEDS: Famotidine 20 MG Tablet PO ×2 (14:06→22:29)
[2017-08-01] MEDS: Allopurinol 100 MG Tablet PO (14:06)
[2017-08-01] MEDS: 0.9% Normal Saline 1,000 ML 100 ML IV (14:12)
--- NOTE | 2017-08-01 15:03 | PCM.PROGNOTE ---
Patient Problems: Active and Suspected Problems Non-STEMI (non-ST elevated myocardial infarction) (Acute) Subjective: He was seen and examined today, I talked with Dr. Cason - the director of home health services today about his care. Patient's catheterization today showed a 30% occlusion in the LAD, a CTA of the chest was obtained which showed no evidence of pulmonary embolism. Cardiology feels the patient should remain on Plavix and aspirin as well as a statin and Norvasc, they recommended that the lisinopril and hydrochlorothiazide be discontinued. The diagnosis is probably vasospastic angina. I went over this with the patient and his family who were present in the room today. Echocardiogram on the patient is pending today - Physical Exam General: Alert, Oriented x3, Cooperative, No apparent distress, Well developed, Well nourished HEENT: Atraumatic, PERRLA, EOMI, Normocephalic Oral: Moist Mucosa Neck: Supple, No JVD, Trachea Midline, Thyroid Normal Size and Texture Lungs: Clear to auscultation, Normal air movement, No rhonchi, No wheeze, No rales Cardiovascular: Regular rate, Regular Rhythm, Normal S1, Normal S2, No murmurs, No Ectopic Activity, PMI Normal, No rub noted, No Gallop Abdomen: Bowel Sounds Present, Soft, Non Tender, Non-Distended, No hernias noted Extremities: No clubbing, No cyanosis, No edema, Capillary Refill Less than 3 Seconds Skin: No rashes, No breakdown Musculoskeletal: No Tenderness to Palpation of Joints or Extremities, No Muscle Wasting Neurological: Cranial nerves II-XII grossly intact, Neuro grossly intact, Muscle tone normal, Sensory exam intact to light touch and pain, Coordination normal Psych/Mental Status: Normal Affect, Appropriate, Alert and oriented to time, place, person, mood and affect Vital Signs Temp Pulse Resp BP Pulse Ox 98.5 F 78 16 135/85 H 98 08/01/17 14:45 08/01/17 14:45 08/01/17 14:45 08/01/17 14:45 08/01/17 14:45 Oxygen Delivery Method Room Air Weight: 107.7 kg Body Mass Index (BMI) 34.1 Intake and Output for Last 24 Hours 07/30/17 07/31/17 08/01/17 23:59 23:59 23:59 Intake Total 1682 / 1682 Output Total 500 / 500 Balance 1182 / 1182 Laboratory Tests Past 24 Hrs 07/31/17 07/31/17 07/31/17 20:30 22:05 22:05 WBC RBC Hgb Hct MCV MCH MCHC RDW RDW Differential Plt Count MPV PT INR APTT Sodium Potassium Chloride Carbon Dioxide Anion Gap BUN Creatinine Estim Creat Clear Calc Est GFR (MDRD) Af Amer Est GFR (MDRD) Non-Af BUN/Creatinine Ratio Glucose Hemoglobin A1c 5.8 Calcium Magnesium 2.0 Troponin I Triglycerides Cholesterol LDL Cholesterol VLDL Cholesterol HDL Cholesterol MRSA (PCR) Negative 07/31/17 08/01/17 08/01/17 22:05 01:30 01:30 WBC RBC Hgb Hct MCV MCH MCHC RDW RDW Differential Plt Count MPV PT INR APTT 109.1 H* Sodium Potassium Chloride Carbon Dioxide Anion Gap BUN Creatinine Estim Creat Clear Calc Est GFR (MDRD) Af Amer Est GFR (MDRD) Non-Af BUN/Creatinine Ratio Glucose Hemoglobin A1c Calcium Magnesium Troponin I 5.600 H* 5.160 H* Triglycerides Cholesterol LDL Cholesterol VLDL Cholesterol HDL Cholesterol MRSA (PCR) 08/01/17 08/01/17 08/01/17 01:30 04:00 04:00 WBC 5.0 RBC 4.13 L Hgb 12.8 L Hct 36.8 L MCV 89.1 MCH 31.0 MCHC 34.8 RDW 13.2 RDW Differential 42.7 Plt Count 187 MPV 9.7 PT 13.7 INR 1.1 APTT Sodium 142 Potassium 3.7 Chloride 109 H Carbon Dioxide 25.0 Anion Gap 8 BUN 14 Creatinine 0.90 Estim Creat Clear Calc 107.02 Est GFR (MDRD) Af Amer 117 Est GFR (MDRD) Non-Af 97 BUN/Creatinine Ratio 15.5 Glucose 106 Hemoglobin A1c Calcium 7.5 L Magnesium Troponin I Triglycerides 168 Cholesterol 135 LDL Cholesterol 69 VLDL Cholesterol 34 HDL Cholesterol 32 L MRSA (PCR) 08/01/17 08/01/17 08/01/17 08:15 09:00 09:30 WBC RBC Hgb Hct MCV MCH MCHC RDW RDW Differential Plt Count MPV PT INR APTT Cancelled Cancelled 54.9 H Sodium Potassium Chloride Carbon Dioxide Anion Gap BUN Creatinine Estim Creat Clear Calc Est GFR (MDRD) Af Amer Est GFR (MDRD) Non-Af BUN/Creatinine Ratio Glucose Hemoglobin A1c Calcium Magnesium Troponin I Triglycerides Cholesterol LDL Cholesterol VLDL Cholesterol HDL Cholesterol MRSA (PCR) Medical Necessity - Tobacco Use Smoking Status: Former smoker - Patient notes quitting tobacco 15 years prior. 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 Code Visit Inpatient E&M: 02693 Subs Hosp L2
--- NOTE | 2017-08-01 15:11 | PN_ITS ---
Patient Problems: Active and Suspected Problems Non-STEMI (non-ST elevated myocardial infarction) (Acute) Subjective: He was seen and examined today, I talked with Dr. Cason - the denture packer today about his care. Patient's catheterization today showed a 30 % occlusion in the LAD, a CTA of the chest was obtained which showed no evidence of pulmonary embolism. Cardiology feels the patient should remain on Plavix and aspirin as well as a statin and Norvasc, they recommended that the lisinopril and hydrochlorothiazide be discontinued. The diagnosis is probably vasospastic angina. I went over this with the patient and his family who were present in the room today. Echocardiogram on the patient is pending today - Physical Exam General: Alert, Oriented x3, Cooperative, No apparent distress, Well developed, Well nourished HEENT: Atraumatic, PERRLA, EOMI, Normocephalic Oral: Moist Mucosa Neck: Supple, No JVD, Trachea Midline, Thyroid Normal Size and Texture Lungs: Clear to auscultation, Normal air movement, No rhonchi, No wheeze, No rales Cardiovascular: Regular rate, Regular Rhythm, Normal S1, Normal S2, No murmurs, No Ectopic Activity, PMI Normal, No rub noted, No Gallop Abdomen: Bowel Sounds Present, Soft, Non Tender, Non-Distended, No hernias noted Extremities: No clubbing, No cyanosis, No edema, Capillary Refill Less than 3 Seconds Skin: No rashes, No breakdown Musculoskeletal: No Tenderness to Palpation of Joints or Extremities, No Muscle Wasting Neurological: Cranial nerves II-XII grossly intact, Neuro grossly intact, Muscle tone normal, Sensory exam intact to light touch and pain, Coordination normal Psych/Mental Status: Normal Affect, Appropriate, Alert and oriented to time, place, person, mood and affect Vital Signs Temp Pulse Resp BP Pulse Ox 98.5 F 78 16 135/85 H 98 08/01/17 14:45 08/01/17 14:45 08/01/17 14:45 08/01/17 14:45 08/01/17 14:45 Oxygen Delivery Method Room Air Weight: 107.7 kg Body Mass Index (BMI) 34.1 Intake and Output for Last 24 Hours 07/30/17 07/31/17 08/01/17 23:59 23:59 23:59 Intake Total 1682 / 1682 Output Total 500 / 500 Balance 1182 / 1182 Laboratory Tests Past 24 Hrs 07/31/17 07/31/17 07/31/17 20:30 22:05 22:05 WBC RBC Hgb Hct MCV MCH MCHC RDW RDW Differential Plt Count MPV PT INR APTT Sodium Potassium Chloride Carbon Dioxide Anion Gap BUN Creatinine Estim Creat Clear Calc Est GFR (MDRD) Af Amer Est GFR (MDRD) Non-Af BUN/Creatinine Ratio Glucose Hemoglobin A1c 5.8 Calcium Magnesium 2.0 Troponin I Triglycerides Cholesterol LDL Cholesterol VLDL Cholesterol HDL Cholesterol MRSA (PCR) Negative 07/31/17 08/01/17 08/01/17 22:05 01:30 01:30 WBC RBC Hgb Hct MCV MCH MCHC RDW RDW Differential Plt Count MPV PT INR APTT 109.1 H* Sodium Potassium Chloride Carbon Dioxide Anion Gap BUN Creatinine Estim Creat Clear Calc Est GFR (MDRD) Af Amer Est GFR (MDRD) Non-Af BUN/Creatinine Ratio Glucose Hemoglobin A1c Calcium Magnesium Troponin I 5.600 H* 5.160 H* Triglycerides Cholesterol LDL Cholesterol VLDL Cholesterol HDL Cholesterol MRSA (PCR) 08/01/17 08/01/17 08/01/17 01:30 04:00 04:00 WBC 5.0 RBC 4.13 L Hgb 12.8 L Hct 36.8 L MCV 89.1 MCH 31.0 MCHC 34.8 RDW 13.2 RDW Differential 42.7 Plt Count 187 MPV 9.7 PT 13.7 INR 1.1 APTT Sodium 142 Potassium 3.7 Chloride 109 H Carbon Dioxide 25.0 Anion Gap 8 BUN 14 Creatinine 0.90 Estim Creat Clear Calc 107.02 Est GFR (MDRD) Af Amer 117 Est GFR (MDRD) Non-Af 97 BUN/Creatinine Ratio 15.5 Glucose 106 Hemoglobin A1c Calcium 7.5 L Magnesium Troponin I Triglycerides 168 Cholesterol 135 LDL Cholesterol 69 VLDL Cholesterol 34 HDL Cholesterol 32 L MRSA (PCR) 08/01/17 08/01/17 08/01/17 08:15 09:00 09:30 WBC RBC Hgb Hct MCV MCH MCHC RDW RDW Differential Plt Count MPV PT INR APTT Cancelled Cancelled 54.9 H Sodium Potassium Chloride Carbon Dioxide Anion Gap BUN Creatinine Estim Creat Clear Calc Est GFR (MDRD) Af Amer Est GFR (MDRD) Non-Af BUN/Creatinine Ratio Glucose Hemoglobin A1c Calcium Magnesium Troponin I Triglycerides Cholesterol LDL Cholesterol VLDL Cholesterol HDL Cholesterol MRSA (PCR) Medical Necessity - Tobacco Use Smoking Status: Former smoker - Patient notes quitting tobacco 15 years prior. 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 Code Visit Inpatient E&M: 29220 Subs Hosp L2
[2017-08-01] MEDS: Atorvastatin Calcium 80 MG Tablet PO (22:29)
[2017-08-02 02:12] VITALS: BP 119/81; PULSE 73; RESP 18; TEMP 36.8; O2SAT 96
[2017-08-02 03:00] VITALS: PULSE 69
[2017-08-02 06:19] LABS: Hematocrit 41.3 % (40-54); Hemoglobin 14.2 g/dl (13.0-16.5); Mean Corp Hgb Conc 34.4 g/gl (32-36); Mean Corpuscular Hgb 30.7 pg (27.0-32.0); Mean Corpuscular Volume 89.2 fL (80-94); Mean Platelet Vol. 10.1 fl (6.2-12.0); Platelet Count 205 K/mm3 (150-450); RBC Distribution Width CV 13.3 % (11.6-14.6); Red Blood Count 4.63 M/mm3 (4.6-6.2); White Blood Count 5.3 K/mm3 (4.4-11.0)
[2017-08-02 06:22] LABS: Scan Indicated on CBC? Y/N NO
[2017-08-02 06:36] LABS: Anion Gap 5 (5-15); BUN 11 mg/dL (7-18); BUN/Creat Ratio 11.8 RATIO (10-20); Calcium,Total 8.3 mg/dL (8.5-10.1); Chloride 112 mmol/L (98-107); Creatinine, Serum 0.94 mg/dL (0.70-1.30); EST Glomerular Filtration Rate 93 mL/min (>60); Est Glom Filt Rate - Afr Amer 112 mL/min (>60); Estimated Creatinine Clearance 102.47 ml/min; Glucose 97 mg/dL (74-106); Potassium 4.1 mmol/L (3.5-5.1); Sodium Level 140 mmol/L (136-145)
[2017-08-02 06:44] VITALS: BP 118/72; PULSE 59; RESP 18; TEMP 36.6; O2SAT 98
[2017-08-02 07:42] VITALS: PULSE 69
[2017-08-02 07:53] VITALS: O2SAT 97
--- NOTE | 2017-08-02 09:15 | PCM.DC ---
- Discharge Diagnoses Current Active Problems: Current Active and Chronic Problems Obesity (BMI 30.0-34.9) (Chronic) Non-STEMI (non-ST elevated myocardial infarction) (Acute) You will use the following diet at home:: Calorie/Carbohydrate Controlled (specify 1200, 1400, etc), Cardiac Discharge Activity: - - Follow post-cath instructions. Call your doctor if your incision/area has: Continuous Slow Oozing, Sudden Increased Bleeding, Increased Pain/ Swelling, Increased Redness, Foul Smelling Discharge, Swelling at the incision site Call your doctor if you observe: Shortness of breath, Dizziness, Fainting spells, Chest pain, Increased palpitations (irregular heartbeat) Additional Instructions: Your chest pain was suspected to be due to vasospastic angina. You will need to call [facility] on 08/05/17 to schedule an appointment for follow-up with one of the weed eradicator. Their number is [phone]. Allergies/Adverse Reactions: Allergies No Known Allergies Allergy (Verified 07/31/17 17:53) Medications to take at Discharge Allopurinol [Zyloprim] 100 mg PO DAILYCM 11/20/14 Cyclobenzaprine [Flexeril] 10 mg PO TID PRN #20 tab 03/04/17 Amlodipine [Norvasc] 5 mg PO DAILY #30 tab 08/02/17 Aspirin [Aspirin, Baby] 81 mg PO DAILY@0800 #30 tab.chew 08/02/17 Atorvastatin Calcium [Lipitor] 80 mg PO QHS #30 tab 08/02/17 Clopidogrel Bisulfate [Plavix] 75 mg PO DAILY #30 tab 08/02/17 Isosorbide Mononitrate [Imdur] 30 mg PO DAILY #30 tab 08/02/17 The following prescriptions were given: Amlodipine [Norvasc] 5 mg PO DAILY #30 tab Aspirin [Aspirin, Baby] 81 mg PO DAILY@0800 #30 tab.chew Atorvastatin Calcium [Lipitor] 80 mg PO QHS #30 tab Clopidogrel Bisulfate [Plavix] 75 mg PO DAILY #30 tab Isosorbide Mononitrate [Imdur] 30 mg PO DAILY #30 tab Primary Care Physician: Eddie Hughes [Primary Care Provider] - Please follow up with your Primary Care Physician in: 1 Week Please Follow Up With: [facility] When: Call Friday for an appointment in 1-2 Weeks. Proposed Discharge Date: 08/02/17
--- NOTE | 2017-08-02 09:19 | DCINST_ITS ---
- Discharge Diagnoses Current Active Problems: Current Active and Chronic Problems Obesity (BMI 30.0-34.9) (Chronic) Non-STEMI (non-ST elevated myocardial infarction) (Acute) You will use the following diet at home:: Calorie/Carbohydrate Controlled ( specify 1200, 1400, etc), Cardiac Discharge Activity: - - Follow post-cath instructions. Call your doctor if your incision/area has: Continuous Slow Oozing, Sudden Increased Bleeding, Increased Pain/ Swelling, Increased Redness, Foul Smelling Discharge, Swelling at the incision site Call your doctor if you observe: Shortness of breath, Dizziness, Fainting spells , Chest pain, Increased palpitations (irregular heartbeat) Additional Instructions: Your chest pain was suspected to be due to vasospastic angina. You will need to call [facility] on 08/05/17 to schedule an appointment for follow-up with one of the licensed audiologist. Their number is [phone]. Allergies/Adverse Reactions: Allergies No Known Allergies Allergy (Verified 07/31/17 17:53) Medications to take at Discharge Allopurinol [Zyloprim] 100 mg PO DAILYCM 11/20/14 Cyclobenzaprine [Flexeril] 10 mg PO TID PRN #20 tab 03/04/17 Amlodipine [Norvasc] 5 mg PO DAILY #30 tab 08/02/17 Aspirin [Aspirin, Baby] 81 mg PO DAILY@0800 #30 tab.chew 08/02/17 Atorvastatin Calcium [Lipitor] 80 mg PO QHS #30 tab 08/02/17 Clopidogrel Bisulfate [Plavix] 75 mg PO DAILY #30 tab 08/02/17 Isosorbide Mononitrate [Imdur] 30 mg PO DAILY #30 tab 08/02/17 The following prescriptions were given: Amlodipine [Norvasc] 5 mg PO DAILY #30 tab Aspirin [Aspirin, Baby] 81 mg PO DAILY@0800 #30 tab.chew Atorvastatin Calcium [Lipitor] 80 mg PO QHS #30 tab Clopidogrel Bisulfate [Plavix] 75 mg PO DAILY #30 tab Isosorbide Mononitrate [Imdur] 30 mg PO DAILY #30 tab Primary Care Physician: Eddie Hughes [Primary Care Provider] - Please follow up with your Primary Care Physician in: 1 Week Please Follow Up With: [facility] When: Call Friday for an appointment in 1-2 Weeks. Proposed Discharge Date: 08/02/17
--- NOTE | 2017-08-02 09:20 | PCM.DC.SUM ---
Discharge Date and Diagnosis Date of Admission: 07/31/17 Date of Discharge: 08/02/17 - Primary Discharge Diagnosis Active and Suspected Problems 1. Non-STEMI 2. Vasospastic angina 3. Nonocclusive coronary artery disease 4. Fatty liver 5. Hypertension - Secondary Discharge Diagnosis Chronic Problems Obesity (BMI 30.0-34.9) (Chronic) HTN (hypertension) (Chronic) Hospital Course and Treatment Imaging Results: Diagnostic Data Chest X-Ray 07/31/17 18:15 IMPRESSION: No acute cardiopulmonary process. Electronically Signed: Jasbir Lucina, at 18:49 EDT Tel , Service support , Chest CTA 08/01/17 13:04 IMPRESSION: There is no evidence of acute pulmonary embolus. No other acute cardiopulmonary process is evident. Several borderline large lymph nodes are present in the mediastinum and howard, chronicity uncertain, nonspecific. There is evidence of hepatic steatosis. Electronically Signed: Jasbir Verdugo, at 14:04 EDT Tel , Service support , Dr. Hall- Cardiology Operations: None Procedures: 2-D Echocardiogram, Cardiac catheterization Summary of Care Provided: The patient is a 47 year old M admitted 07/31/2017 due to chest pain. He has a past medical history of hypertension, gout, obesity, chronic back pain, former tobacco use. Patient found to have non-STEMI. Cardiology consulted. Chest x-ray unremarkable. Patient underwent cardiac catheterization 08/01/2017 which showed nonocclusive coronary disease with 30% mid LAD stenosis. He will continue aspirin, Plavix, statin, Norvasc, Imdur at discharge. His home lisinopril/HCTZ was discontinued. CTA of chest was obtained which showed no evidence of pulmonary embolism. Cardiology suspecting vasospastic angina. Echocardiogram showed an ejection fraction of 60%, RVSP estimated to be 34 mmHg, evidence of diastolic dysfunction. Chest CTA did note evidence of hepatic steatosis. Weight loss was recommended. Patient has a family history of type 2 diabetes. Hemoglobin A1c was checked which was 5.8%. General: Alert, Oriented x3, Cooperative, No apparent distress HEENT: Atraumatic, PERRLA, EOMI, Normocephalic Oral: Moist Mucosa Neck: Supple, No JVD, Trachea Midline, Thyroid Normal Size and Texture Lungs: Clear to auscultation, Normal air movement Cardiovascular: Regular rate, Regular Rhythm, Normal S1, Normal S2, No murmurs Abdomen: Bowel Sounds Present, Soft, Non Tender, Non-Distended, No hernias noted Extremities: No clubbing, No cyanosis, No edema, Capillary Refill Less than 3 Seconds Skin: No rashes, No breakdown Musculoskeletal: No Tenderness to Palpation of Joints or Extremities, No Muscle Wasting Neurological: Cranial nerves II-XII grossly intact, Neuro grossly intact Psych/Mental Status: Normal Affect, Appropriate Patient seen exam prior to discharge. Physical assessment as noted above. Patient denies further chest pain. He is stable for discharge home with follow-up with primary care physician in 1 week and cardiology in 1-2 weeks. This patient was seen by BERNA Penn under the supervision of Dr. Linder. Discharge Diet: Low fat/ Low Cholesterol, 1800 Calorie Control Diet, Carb Control Diet Discharge Activity: - - Follow post-cath instructions. Call your doctor if your incision/area has: Continuous Slow Oozing, Sudden Increased Bleeding, Increased Pain/ Swelling, Increased Redness, Foul Smelling Discharge, Swelling at the incision site Call your doctor if you observe: Shortness of breath, Dizziness, Fainting spells, Chest pain, Increased palpitations (irregular heartbeat) Home Medications: Medications to take at Discharge Allopurinol [Zyloprim] 100 mg PO DAILYCM 11/20/14 Cyclobenzaprine [Flexeril] 10 mg PO TID PRN #20 tab 03/04/17 Amlodipine [Norvasc] 5 mg PO DAILY #30 tab 08/02/17 Aspirin [Aspirin, Baby] 81 mg PO DAILY@0800 #30 tab.chew 08/02/17 Atorvastatin Calcium [Lipitor] 80 mg PO QHS #30 tab 08/02/17 Clopidogrel Bisulfate [Plavix] 75 mg PO DAILY #30 tab 08/02/17 Isosorbide Mononitrate [Imdur] 30 mg PO DAILY #30 tab 08/02/17 Following Prescrptions Were Given to Patient: Amlodipine [Norvasc] 5 mg PO DAILY #30 tab Aspirin [Aspirin, Baby] 81 mg PO DAILY@0800 #30 tab.chew Atorvastatin Calcium [Lipitor] 80 mg PO QHS #30 tab Clopidogrel Bisulfate [Plavix] 75 mg PO DAILY #30 tab Isosorbide Mononitrate [Imdur] 30 mg PO DAILY #30 tab Primary Care Physician: Eddie Hughes [Primary Care Provider] - Please follow up with your Primary Care Physician in: 1 Week Please Follow Up With: [facility] When: Call Friday for an appointment in 1-2 Weeks. Disposition: Home Minutes spent on discharge:: 35 Patient Condition:: Stable Medical Necessity - Tobacco Use Smoking Status: Former smoker - Patient notes quitting tobacco 15 years prior. Tobacco Use: Non-smoker Meaningful Use Info Meaningful Use Diagnoses (Choose all that apply): None applicable
[2017-08-02 09:27] VITALS: BP 137/75; PULSE 72; RESP 15; TEMP 36.8; O2SAT 99
--- NOTE | 2017-08-02 09:27 | DS.PCM_ITS ---
Discharge Date and Diagnosis Date of Admission: 07/31/17 Date of Discharge: 08/02/17 - Primary Discharge Diagnosis Active and Suspected Problems 1. Non-STEMI 2. Vasospastic angina 3. Nonocclusive coronary artery disease 4. Fatty liver 5. Hypertension - Secondary Discharge Diagnosis Chronic Problems Obesity (BMI 30.0-34.9) (Chronic) HTN (hypertension) (Chronic) Hospital Course and Treatment Imaging Results: Diagnostic Data Chest X-Ray 07/31/17 18:15 IMPRESSION: No acute cardiopulmonary process. Electronically Signed: Jasbir Lucina, at 18:49 EDT Tel , Service support , Chest CTA 08/01/17 13:04 IMPRESSION: There is no evidence of acute pulmonary embolus. No other acute cardiopulmonary process is evident. Several borderline large lymph nodes are present in the mediastinum and howard, chronicity uncertain, nonspecific. There is evidence of hepatic steatosis. Electronically Signed: Jasbir Verdugo, at 14:04 EDT Tel , Service support , Dr. Hall- Cardiology Operations: None Procedures: 2-D Echocardiogram, Cardiac catheterization Summary of Care Provided: The patient is a 47 year old M admitted 07/31/2017 due to chest pain. He has a past medical history of hypertension, gout, obesity, chronic back pain, former tobacco use. Patient found to have non-STEMI. Cardiology consulted. Chest x- ray unremarkable. Patient underwent cardiac catheterization 08/01/2017 which showed nonocclusive coronary disease with 30% mid LAD stenosis. He will continue aspirin, Plavix, statin, Norvasc, Imdur at discharge. His home lisinopril/HCTZ was discontinued. CTA of chest was obtained which showed no evidence of pulmonary embolism. Cardiology suspecting vasospastic angina. Echocardiogram showed an ejection fraction of 60%, RVSP estimated to be 34 mmHg , evidence of diastolic dysfunction. Chest CTA did note evidence of hepatic steatosis. Weight loss was recommended. Patient has a family history of type 2 diabetes. Hemoglobin A1c was checked which was 5.8%. General: Alert, Oriented x3, Cooperative, No apparent distress HEENT: Atraumatic, PERRLA, EOMI, Normocephalic Oral: Moist Mucosa Neck: Supple, No JVD, Trachea Midline, Thyroid Normal Size and Texture Lungs: Clear to auscultation, Normal air movement Cardiovascular: Regular rate, Regular Rhythm, Normal S1, Normal S2, No murmurs Abdomen: Bowel Sounds Present, Soft, Non Tender, Non-Distended, No hernias noted Extremities: No clubbing, No cyanosis, No edema, Capillary Refill Less than 3 Seconds Skin: No rashes, No breakdown Musculoskeletal: No Tenderness to Palpation of Joints or Extremities, No Muscle Wasting Neurological: Cranial nerves II-XII grossly intact, Neuro grossly intact Psych/Mental Status: Normal Affect, Appropriate Patient seen exam prior to discharge. Physical assessment as noted above. Patient denies further chest pain. He is stable for discharge home with follow- up with primary care physician in 1 week and cardiology in 1-2 weeks. This patient was seen by BERNA Penn under the supervision of Dr. Linder. Discharge Diet: Low fat/ Low Cholesterol, 1800 Calorie Control Diet, Carb Control Diet Discharge Activity: - - Follow post-cath instructions. Call your doctor if your incision/area has: Continuous Slow Oozing, Sudden Increased Bleeding, Increased Pain/ Swelling, Increased Redness, Foul Smelling Discharge, Swelling at the incision site Call your doctor if you observe: Shortness of breath, Dizziness, Fainting spells , Chest pain, Increased palpitations (irregular heartbeat) Home Medications: Medications to take at Discharge Allopurinol [Zyloprim] 100 mg PO DAILYCM 11/20/14 Cyclobenzaprine [Flexeril] 10 mg PO TID PRN #20 tab 03/04/17 Amlodipine [Norvasc] 5 mg PO DAILY #30 tab 08/02/17 Aspirin [Aspirin, Baby] 81 mg PO DAILY@0800 #30 tab.chew 08/02/17 Atorvastatin Calcium [Lipitor] 80 mg PO QHS #30 tab 08/02/17 Clopidogrel Bisulfate [Plavix] 75 mg PO DAILY #30 tab 08/02/17 Isosorbide Mononitrate [Imdur] 30 mg PO DAILY #30 tab 08/02/17 Following Prescrptions Were Given to Patient: Amlodipine [Norvasc] 5 mg PO DAILY #30 tab Aspirin [Aspirin, Baby] 81 mg PO DAILY@0800 #30 tab.chew Atorvastatin Calcium [Lipitor] 80 mg PO QHS #30 tab Clopidogrel Bisulfate [Plavix] 75 mg PO DAILY #30 tab Isosorbide Mononitrate [Imdur] 30 mg PO DAILY #30 tab Primary Care Physician: Eddie Hughes [Primary Care Provider] - Please follow up with your Primary Care Physician in: 1 Week Please Follow Up With: [facility] When: Call Friday for an appointment in 1-2 Weeks. Disposition: Home Minutes spent on discharge:: 35 Patient Condition:: Stable Medical Necessity - Tobacco Use Smoking Status: Former smoker - Patient notes quitting tobacco 15 years prior. Tobacco Use: Non-smoker Meaningful Use Info Meaningful Use Diagnoses (Choose all that apply): None applicable
[2017-08-02] MEDS: Allopurinol 100 MG Tablet PO (09:45)
[2017-08-02] MEDS: Isosorbide Mononitrate 30 MG Tablet PO (09:45)
[2017-08-02] MEDS: Aspirin 81 MG TAB.CHEW PO (09:45)
[2017-08-02] MEDS: amLODIPine 5 MG Tablet PO (09:45)
[2017-08-02] MEDS: Famotidine 20 MG Tablet PO (09:45)
[2017-08-02] MEDS: Clopidogrel Bisulfate 75 MG Tablet PO (09:46)
== END 2017-08-02 10:15 | disposition home or self-care (01) | DRG 282 ==
LOC: ED 18:36 → ICU 19:15 → PCU 08-01 19:01
PROVIDERS: Internal Medicine; Internal Medicine Cardiovascular Disease; Admitting Provider Family Medicine; Emergency Provider Emergency Medicine; Visit Provider Family Medicine
DX: I21.4 Non-ST elevation (NSTEMI) myocardial infarction (principal); I25.119 Atherosclerotic heart disease of native coronary artery with unspecified angina pectoris; R73.9 Hyperglycemia, unspecified; E66.9 Obesity, unspecified; Z68.33 Body mass index [BMI] 33.0-33.9, adult; Z71.3 Dietary counseling and surveillance; M10.9 Gout, unspecified; I10 Essential (primary) hypertension; K76.0 Fatty (change of) liver, not elsewhere classified; G89.29 Other chronic pain; Z87.891 Personal history of nicotine dependence
CPT/HCPCS: 36415; 71045; 71275; 80048; 80061; 83036; 83735; 84484; 85025; 85027; 85610; 85730; 87641; 93005; 93306; 93458; 97802; 99152; 99153; 99285; J7030; J7040; Q9967; A4216; C1769; C1894

== ENCOUNTER 2017-11-14 00:50 | Emergency (ER) | payer OTHER, SELFPAY ==
[2017-11-14 00:51] VITALS: BP 144/95; PULSE 70; RESP 18; TEMP 35.9; O2SAT 95; BMI 33.7
--- NOTE | 2017-11-14 01:08 | ED.VISSUMM ---
- ER Visit Summary Date of Service: 11/14/17 Chief Complaint: [Left foot pain History of Present Illness: The patient is a 47 M [presents the emergency department complaint of pain in his left foot that started yesterday. Patient denies any trauma. Patient's had similar episodes in the past related to gout flares. Patient does take allopurinol but states he still gets 1 or 2 flares a year. Patient does normally see a oil heater operator for this. Patient's not had any fevers or recent illness.] Physical Examination: [Left foot-patient has tenderness over the second through the fourth MTP joints. There is no erythema or warmth. No soft tissue swelling noted. No ecchymosis or bruising. He is neurovascular intact.] Test Results: [None indicated] Emergency Department Course and Treatment: [Patient was started on prednisone and he will be given a prescription for [place] for pain] Treatment Plan: [Prednisone and [place] for pain.] Disposition: Discharged home in stable condition. Patient advised to follow-up with his oil heater operator within next 5-7 days. [] Impression: [Left foot pain-gouty flare] This note was generated with [employer] dictation software. It may contain incorrect words, spelling, and punctuation that were not noted in review of the chart prior to signing ED Disposition - Plan for ED Patient: Chief Complaint: Lower Extremity Injury Referrals: Eddie Hughes [Primary Care Provider] -
--- NOTE | 2017-11-14 01:09 | ED.DEP ---
ED Disposition - Plan for ED Patient: Chief Complaint: Lower Extremity Injury Instructions: ED Arthritis Gout Prescriptions: Hydrocodone Bitart/Apap 5-325 [[place] 5MG-325MG] 1 tab PO Q4H PRN PRN 2 Days #10 tab PRN Reason: Pain Prednisone [Deltasone] 20 mg PO BID #10 tab Referrals: Eddie Hughes [Primary Care Provider] - Additional Instructions: See your patrol deputy sheriff in 5-7 days
[2017-11-14] MEDS: HYDROcodone Bitartrate/Apap 5/325 Tablet PO (01:26)
[2017-11-14] MEDS: predniSONE 20 MG Tablet 40 MG PO (01:26)
[2017-11-14 01:27] VITALS: PULSE 78; RESP 18
== END 2017-11-14 01:28 | disposition home or self-care (01) ==
PROVIDERS: Emergency Provider Emergency Medicine
DX: M25.572 Pain in left ankle and joints of left foot (principal); M10.9 Gout, unspecified; I25.10 Atherosclerotic heart disease of native coronary artery without angina pectoris; Z87.19 Personal history of other diseases of the digestive system; Z90.49 Acquired absence of other specified parts of digestive tract; Z79.82 Long term (current) use of aspirin; Z79.899 Other long term (current) drug therapy
CPT/HCPCS: 99283

== ENCOUNTER → 2018-02-19 06:55 | Outpatient (CLI) | payer OTHER, SELFPAY ==
[2018-02-19 09:34] LABS: Albumin, Serum 3.7 g/dL (3.2-5.0); Protein, Total 6.9 g/dL (6.4-8.2)
[2018-02-19 09:35] LABS: AST(SGOT) 26 U/L (15-37); Alanine Aminotransfer ALT/SGPT 42 U/L (16-61); Alkaline Phosphatase 79 U/L (45-117); Bilirubin, Direct 0.26 mg/dL (0.00-0.30); Cholesterol 103 mg/dL (200); Globulin 3.2 g/dL (2.2-4.2); High Density Lipoprotein 38 mg/dL; Triglycerides 122 mg/dL; Very Low Density Lipoprotein 24 mg/dL (5-40)
--- OUTSIDE RECORDS SUMMARY | 2018-04-07 00:24 | XMS RPT_ITS ---
:1970 Author Organization OHIP Support Name Relationship Address Phone QUACA Unavailable [address] + [place] [address] OSBALDO CAIN Unavailable [address] + [place] [address] QUACA Unavailable [address] + [place] [address] OSBALDO CAIN Unavailable [address] + [place] [address] QUACA Unavailable [address] + [place] [address] OSBALDO CAIN Unavailable [address] [phone] [place] [address] QUACA Unavailable [address] + [place] [address] OSBALDO CAIN Unavailable [address] + [place] [address] QUACA Unavailable [address] + [place] [address] ROXANA CAININE Unavailable [address] + [place] [address] QUACA Unavailable [address] + [place] [address] PAYTON OSBALDO Unavailable [address] + [place] [address] QUACA Unavailable [address] + [place] [address] ROXANA CAININE Unavailable [address] + [place] [address] QUACA Unavailable [address] + [place] [address] CAIN, OSBALDO Unavailable [address] + [place] [address] QUACA Unavailable [address] + [place] [address] CAIN, OSBALDO Unavailable [address] + [place] [address] QUACA Unavailable [address] + [place] [address] CAIN, OSBALDO Unavailable [address] + [place] [address] QUACA Unavailable [address] + [place] [address] CAIN, OSBALDO Unavailable [address] + [place] [address] Care Team Providers Name Role Phone Jesus, Walton Attending Unavailable Jesus, Walton Referring Unavailable Saul, Eddie Primary Care Unavailable Mynor Deng Attending Unavailable Saul, Eddie Primary Care Unavailable Saul, Eddie Primary Care Unavailable White, Adina Admitting Unavailable White, Adina Attending Unavailable Philip Mcqueen Consulting Unavailable White, Adina Admitting Unavailable White, Adina Attending Unavailable Saul, Eddie Primary Care Unavailable White, Adina Consulting Unavailable White, Adina Admitting Unavailable Godwin Hall Attending Unavailable Saul, Eddie Primary Care Unavailable Philip Mcqueen Consulting Unavailable Terjona, Chucho Consulting Unavailable White, Adina Admitting Unavailable Chucho العراقي Attending Unavailable Saul, Eddie Primary Care Unavailable Philip Mcqueen Consulting Unavailable Terjamilahky, Chucho Consulting Unavailable White, Adina Admitting Unavailable White, Adina Attending Unavailable Saul, Eddie Primary Care Unavailable Philip Mcqueen Consulting Unavailable White, Adina Consulting Unavailable Jesus, Edis Attending Unavailable Saul, Eddie Referring Unavailable Saul, Eddie Primary Care Unavailable Araseli Dill Attending Unavailable Toi Pleitez Attending Unavailable White, Adina Referring Unavailable Saul, Eddie Primary Care Unavailable Ungur, Remus Attending Unavailable Ungur, Remus Referring Unavailable PROBLEMS PROBLEMS DATE TYPE CONDITION / CODE ATTENDING STATUS SOURCE Unknown E78.00 - Pure Jesus, Walton Active [facility] 9 hypercholesterolemia, Community unspecified / Hospital E78.00(ICD-10) Repository Unknown M10.9 - Gout, unspecified Ungur, Remus Active [facility] / M10.9(ICD-10) [facility] Repository Unknown E78.0 - Pure Jesus, Walton Active [facility] 8 hypercholesterolemia / Community E78.0(ICD-10) Hospital Repository Unknown I25.10 - Atherosclerotic Jesus, Walton Active [facility] 8 heart disease of [facility] coronary artery without Hospital angina pectoris / Repository I25.10(ICD-10) Unknown I45.10 - Unspecified Jesus, Edis Active [facility] 8 right bundle-branch block [facility] / I45.10(ICD-10) Hospital Repository Unknown R94.31 - Abnormal [place], Active [facility] 8 electrocardiogram [ECG] [facility] [EKG] / R94.31(ICD-10) Hospital Repository Unknown I21.4 - Non-ST elevation [place], Active [facility] 8 (NSTEMI) myocardial [facility] infarction / Hospital I21.4(ICD-10) Repository Unknown I25.119 - Atherosclerotic [place], Active [facility] 8 heart disease of unga [facility] coronary artery with Hospital unspecified angina Repository pectoris / I25.119(ICD-10) Unknown I10 - Essential (primary) [place], Active [facility] 8 hypertension / [facility] I10(ICD-10) Hospital Repository PROCEDURES PROCEDURES No Procedure Records FoundRESULTS RESULTS LIVER PROFILE Collected: 02/19/2018 Status: F Source: [facility] 7:00 AM [facility] REPOSITORY TYPE CODE TESTS RESULT OUT OF RANGE REFERENCE UNITS LAB L501.1500 6.4-8.2 g/dL Normal T PROT 6.9 LAB L501.1800 3.2-5.0 g/dL Normal ALB 3.7 LAB L501.1950 2.2-4.2 g/dL Normal GLOB 3.2 LAB L501.4100 15-37 U/L Normal AST 26 LAB L501.4305 45-117 U/L Normal ALK P 79 LAB L501.4405 16-61 U/L Normal ALT 42 LAB L501.4600 0.20-1.00 mg/dL High T BILI 1.20 LAB L501.4700 0.00-0.30 mg/dL Normal D BILI 0.26 Performed By: #### L500.3400, L500.4100 #### [facility] [address] [place], [address] LIPID PROFILE Collected: 02/19/2018 Status: F Source: [place] 7:00 AM [facility] REPOSITORY TYPE CODE TESTS RESULT OUT OF RANGE REFERENCE UNITS LAB L501.4900 200 mg/dL Normal CHOL 103 Result Comment: <200 mg/dL Desirable 200-240 mg/dL Borderline >240 mg/dL High Risk LAB L501.5000 mg/dL Normal TRIG 122 Result Comment: The drugs N-Acetylcysteine and Metamizole may falsely depress this assay. Serum Triglycerides Reference Interval Normal <150 mg/dL Borderline high 150 - 199 mg/dL High 200 - 499 mg/dL Very High > or = 500 mg/dL LAB L501.6400 mg/dL Low HDL 38 Result Comment: The drugs N-Acetylcysteine and Metamizole may falsely depress this assay. Reference Range HDL <40 mg/dL Low HDL Cholesterol HDL >or= 60 mg/dL High HDL Cholesterol LAB L501.6500 0-130 mg/dL Normal LDL 41 LAB L501.6600 5-40 mg/dL Normal VLDL 24 Performed By: #### L500.3400, L500.4100 #### [facility] [address] [place], [address] DISCHARGE INSTRUCTION Observed: 11/14/2017 Status: F Source: [place] 1:12 AM [facility] REPOSITORY [facility] Medical Records Department [address] [place] [address] Discharge Instruction 11/14/17 0109 MR#: [id number] Acct: [id number] Name: CAINDEVONTE Rep #: [id number] : 1970 47 From: Zofia Blackmon DO PCP: Eddie Hughes Status: REG ER ED Disposition - Plan for ED Patient: Chief Complaint: Lower Extremity Injury Instructions: ED Arthritis Gout Prescriptions: Hydrocodone Bitart/Apap 5-325 [Dalton 5MG-325MG] 1 tab PO Q4H PRN PRN 2 Days #10 tab PRN Reason: Pain Prednisone [Deltasone] 20 mg PO BID #10 tab Referrals: Eddie Hughes [Primary Care Provider] - Additional Instructions: See your engineer station mainline in 5-7 days What to do if you have Problems For any increased pain, shortness of breath, bleeding, nausea or vomiting, chest pain, or any unexpected problems, contact your Primary Care Provider. Call [facility] ([phone]) or report to the closest Emergency Room. Call 911 if necessary. 11/14/17 0112 <Electronically signed by Zofia Blackmon DO> Date Zofia Blackmon DO Cosigner Signature (If Indicated): Date CC: Eddie Hughes EMERGENCY DEPARTMENT Observed: 11/14/2017 Status: F Source: [place] SUMMARY 1:09 AM [facility] REPOSITORY [facility] Medical Records Department [address] [place] [address] Emergency Department Summary 11/14/17 0108 MR#: [id number] Acct: [id number] Name: DEVONTE CAIN Rep #: [id number] : 1970 47 From: Zofia Blackmon DO PCP: Eddie Hughes Status: REG ER - ER Visit Summary Date of Service: 11/14/17 Chief Complaint: [Left foot pain History of Present Illness: The patient is a 47 M [presents the emergency department complaint of pain in his left foot that started yesterday. Patient denies any trauma. Patient's had similar episodes in the past related to gout flares. Patient does take allopurinol but states he still gets 1 or 2 flares a year. Patient does normally see a engineer station mainline for this. Patient's not had any fevers or recent illness.] Physical Examination: [Left foot-patient has tenderness over the second through the fourth MTP joints. There is no erythema or warmth. No soft tissue swelling noted. No ecchymosis or bruising. He is neurovascular intact.] Test Results: [None indicated] Emergency Department Course and Treatment: [Patient was started on prednisone and he will be given a prescription for Dalton for pain] Treatment Plan: [Prednisone and Dalton for pain.] Disposition: Discharged home in stable condition. Patient advised to follow-up with his engineer station mainline within next 5-7 days. [] Impression: [Left foot pain-gouty flare] This note was generated with [employer] software. It may contain incorrect words, spelling, and punctuation that were not noted in review of the chart prior to signing ED Disposition - Plan for ED Patient: Chief Complaint: Lower Extremity Injury Referrals: Eddie Hughes [Primary Care Provider] - What to do if you have Problems For any increased pain, shortness of breath, bleeding, nausea or vomiting, chest pain, or any unexpected problems, contact your Primary Care Provider. Call [facility] ([phone]) or report to the closest Emergency Room. Call 911 if necessary. 11/14/17 0109 <Electronically signed by Zofia Blackmon DO> Date Zofia Blackmon DO Cosigner Signature (If Indicated): Date CC: Eddie Hughes 12 LEAD ELECTROCARDIOGRAM Observed: 08/28/2017 Status: F Source: [place] 11:43 AM [facility] REPOSITORY [facility] Cardiovascular Services [address] [place] [address] 12 Lead EKG 08/01/17 0451 MR#: [id number] Acct: [id number] Name: DEVONTE CAIN Rep #: [id number] : 1970 47 From: Toi Pleitez MD Attending Dr: Adina Linder Status: DIS IN Ordering Dr: Adina Linder Date: 08/01/17 Location: [facility] Sex: M H Admitted: 07/31/17 Test Reason : AM EKG Blood Pressure : / mmHG Vent. Rate : 079 BPM Atrial Rate : 079 BPM P-R Int : 132 ms QRS Dur : 126 ms QT Int : 396 ms P-R-T Axes : 053 -11 -53 degrees QTc Int : 454 ms Normal sinus rhythm with sinus arrhythmia Right bundle branch block T wave abnormality, consider lateral ischemia Abnormal ECG Confirmed by TOI PLEITEZ MD ([id number]), clinical editor CASEY PEDERSON ([id number]) on 08/28/2017 11:43:23 AM Referred By: LOAN Confirmed By:TOI PLEITEZ MD 08/28/17 1143 Date Toi Pleitez MD CC: Eddie Linder Signed CARDIOLOGY VISIT Observed: 08/20/2017 Status: F Source: [place] REPORT 3:16 PM [facility] REPOSITORY [facility] [address] [place] [address]. [address] [place] [address] OFFICE VISIT Date of Service: 08/20/17 MR#: [id number] Acct: [id number] Name: DEVONTE CAIN Rep #: [id number] : 1970 Provider: Edis Lee MD Age/Sex: 47/M Location: [facility] Status: Signed HPI HPI Chief Complaint: Follow-up posthospitalization. Details: DEVONTE CAIN, is a 47 M who presents to the office today for a posthospitalization follow-up. He is returning for follow-up visit after he presented on 07/31/2017 with substernal mid substernal squeezing chest discomfort with no radiation associated with dyspnea and nausea. He was on his way to work when this happened. An EKG which was done demonstrated inverted T waves in V3 and V4 and V5 with no ST elevation. His troponins were noted to be abnormal at 5.6 with an EKG demonstrating a right bundle branch block. He underwent a cardiac catheterization which demonstrated approximately 30% stenosis in the mid left anterior descending artery. The rest of the vessels did not demonstrate any significant stenosis ejection fraction was 55-60%. Medical therapy was recommended it was felt that this was likely secondary to vasospastic angina. He does not use any tobacco products currently. Since discharge she has had no neck arm or jaw discomfort suggest angina. His physical exam demonstrates clear lung resendez regular rate and rhythm and no pedal edema. 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 Allergies No Known Allergies Allergy (Verified 08/20/17 14:48) Medications Allopurinol [Zyloprim] 100 mg PO DAILYCM 11/20/14 [History Confirmed 07/31/17] Cyclobenzaprine [Flexeril] 10 mg PO TID PRN #20 tab 03/04/17 [Rx Confirmed 07/31/17] amlodipine 5 mg tablet 5 mg PO DAILY #30 tab 08/20/17 [Rx Confirmed 08/20/17] aspirin 81 mg chewable tablet 81 mg PO DAILY@0800 #30 tab.chew 08/20/17 [Rx Confirmed 08/20/17] atorvastatin 80 mg tablet 80 mg PO QHS #30 tab 08/20/17 [Rx Confirmed 08/20/17] clopidogrel 75 mg tablet 75 mg PO DAILY #30 tab 08/20/17 [Rx Confirmed 08/20/17] isosorbide mononitrate ER 30 mg tablet,extended release 24 hr 30 mg PO DAILY #30 tab 08/20/17 [Rx Confirmed 08/20/17] [facility] Medical History Nonocclusive coronary atherosclerosis of unga coronary artery (Chronic) Right bundle branch block (Chronic) Vasospastic angina (Acute) Hypertension (Chronic) Obesity (BMI 30.0-34.9) (Chronic) Non-STEMI (non-ST elevated myocardial infarction) (Acute) Chronic back pain (Chronic) Diverticulitis (Chronic) Fatty liver (Chronic) Gout (Chronic) Surgical History History of bowel resection (Chronic) History of left heart catheterization (Chronic 08/01/17) Family History Mother Heart disease Myocardial infarction [place] at age 35 Social History Smoking Status: Former smoker ROS Const Const: Negative for fatigue, weakness, difficulty sleeping, frequent falls, headache(s) or excessive sweating Eyes Eyes: Negative for loss of peripheral vision, transient loss of vision, blurry vision or double vision ENT ENT: Negative for headache(s), dizziness, Nosebleed/epistaxis or balance problems Cardio Chest Pain: No Edema: None Muscle aches with walking: None Resp Respiratory: Negative for SOB with activity, SOB at rest, SOB orthopnea\SOB lying down or paroxysmal nocturnal dyspnea GI GI: Negative nausea or heartburn : Negative for hematuria Musc Musc: Negative for muscle aches/ myalgia, muscle weakness, joint pain or balance problems Skin Skin: Negative non-healing lesions, unusual bruising or rash Neuro Neuro: Negative for weakness, frequent falls, blurry vision, headache(s), dizziness, lightheadedness, orthostatic symptoms or double vision [place] Hematologic/Lymphatic: Negative for easy bruising Endo Endo: Negative for fatigue, excessive sweating or increased thirst/drinking Psych Psych: Negative for anxiety or depression Allergy Allergy/Immunology: Negative for hives, Negative for rash Cardiology Exam Const Appearance: cooperative, healthy appearing, well developed, well groomed and no acute distress Nutritional Appearance: well nourished and average body habitus Orientation: alert, awake and oriented x3 Head Head: normal to inspection, normocephalic and atraumatic Ears: hearing grossly normal bilaterally and external ears normal Nose: external nose normal, nasal mucous membranes and turbinates normal, nares normal, septum normal, no nasal discharge Face and Sinus: face symmetric Mouth: oral mucosae normal, tongue normal, oropharynx normal and moist mucous membranes Teeth and gingiva: dentition normal Throat: posterior oropharynx normal, tonsils normal and uvula midline Eyes General: appearance normal, both eyes and all related structures Eyelids: eyelids normal Conjunctivae: conjunctivae normal Pupils: PERRL, normal by confrontation and accommodation normal EOM: EOM intact bilaterally Neck Neck: normal visual inspection, trachea midline and no JVD JVD: +5 Carotids: normal carotid upstroke and bounding pulses Chest Chest inspection: normal inspection of the chest, symmetric chest movement and normal respiratory effort Auscultation: Bilateral: Clear to Auscultation Cardio Palpation: normal PMI Rate: regular rate Rhythm: regular rhythm Heart sounds: S1 normal, S2 normal and normal, physiologic split S2; negative rub, gallop or murmur GI GI: normal to inspection, soft, no hepatosplenomegaly and bowel sounds present Neuro General: alert, awake, oriented x3, no focal sensory deficit, gait normal and moves all extremities Skin Skin: no rashes or lesions noted Extremities Pulses: Normal: Right Femoral Pulse, Left Femoral Pulse, Right Dorsalis Pedis Pulse, Left Dorsalis Pedis Pulse, Right Posterior Tibial Pulse, Left Posterior Tibial Pulse, Right Radial Pulse, Left Radial Pulse Lower Extremity Edema: None: Bilateral Musculoskel Musculoskeletal: No joint tenderness Psych Psychological: normal affect Assessment AND Plan 1. Nonocclusive coronary atherosclerosis of unga coronary artery I25.10 Plan He does have a history of coronary artery disease with nonocclusive atherosclerosis. He did sustain a non-ST elevation myocardial infarction likely secondary to plaque rupture. It is possible that there is a vasospastic component. I recommend that he continue on the current medical therapy for at least 6 months and then after that the isosorbide as well as the clopidogrel can be discontinued. He will continue with aspirin as well as a high intensity statin though. His left ventricular ejection fraction is noted to be normal and I would not suggest making any other changes. 2. Pure hypercholesterolemia E78.00; E78.0 Plan He does have evidence of low HDL based on his recent blood work with a total cholesterol 1 and 35 LDL of 69 and HDL of 32. He will continue on the high intensity statin for plaque stabilization. Orders Orders: 3. Right bundle branch block I45.10 Plan He does have a history of a right bundle branch block and we will continue monitoring the above for now. Thank you for allowing me to participate in the care of your patient. 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) Coding Level of Care Code Off vis,est,level 4 Diagnoses Nonocclusive coronary atherosclerosis of unga coronary artery I25.10 Pure hypercholesterolemia E78.00; E78.0 Hyperlipidemia type: pure hypercholesterolemia Right bundle branch block I45.10 Coding Level of Care Code Off vis,est,level 4 Diagnoses Nonocclusive coronary atherosclerosis of unga coronary artery I25.10 Pure hypercholesterolemia E78.00; E78.0 Hyperlipidemia type: pure hypercholesterolemia Right bundle branch block I45.10 08/20/17 1516 <Electronically signed by Edis Lee MD> Date Edis Lee MD Cosigner Signature: Date (if applicable) CC: Eddie Hughes 12 LEAD ELECTROCARDIOGRAM Observed: 08/06/2017 Status: F Source: [place] 1:43 PM [facility] REPOSITORY [facility] Cardiovascular Services [address] [place] [address] 12 Lead EKG 07/31/17 1905 MR#: [id number] Acct: [id number] Name: DEVONTE CAIN Rep #: [id number] : 1970 47 From: Toi Pleitez MD Attending Dr: Adina Linder Status: DIS IN Ordering Dr: Mynor Deng MD Date: 07/31/17 Location: [facility] Sex: M H Admitted: 07/31/17 Test Reason : REPEAT Blood Pressure : / mmHG Vent. Rate : 083 BPM Atrial Rate : 083 BPM P-R Int : 128 ms QRS Dur : 132 ms QT Int : 402 ms P-R-T Axes : 045 -19 002 degrees QTc Int : 472 ms Normal sinus rhythm Right bundle branch block Abnormal ECG Confirmed by MAIK ABAD, TOI ([id number]), clinical editor CASEY PEDERSON ([id number]) on 08/06/2017 1:42:43 PM Referred By: SHILA Confirmed By:TOI PLEITEZ MD 08/06/17 1342 Date Toi Pleitez MD CC: Eddie Hughes; Adina Linder; Mynor Deng MD Signed 12 LEAD ELECTROCARDIOGRAM Observed: 08/06/2017 Status: F Source: [place] 1:42 PM [facility] Cardiovascular Services [address] [place] [address] 12 Lead EKG 07/31/17 1757 MR#: [id number] Acct: [id number] Name: DEVONTE CAIN Rep #: [id number] : 1970 47 From: Toi Pleitez MD Attending Dr: Adina Linder Status: DIS IN Ordering Dr: Mynor Deng MD Date: 07/31/17 Location: [facility] Sex: M H Admitted: 07/31/17 Test Reason : CP Blood Pressure : / mmHG Vent. Rate : 078 BPM Atrial Rate : 078 BPM P-R Int : 122 ms QRS Dur : 128 ms QT Int : 386 ms P-R-T Axes : 045 -14 005 degrees QTc Int : 440 ms Normal sinus rhythm Right bundle branch block Abnormal ECG Confirmed by MAIK ABAD, TOI ([id number]), clinical editor CASEY PEDERSON ([id number]) on 08/06/2017 1:42:24 PM Referred By: BARRERA/SHILA Confirmed By:TOI PLEITEZ MD 08/06/17 1342 Date Toi Pleitez MD CC: Eddie Hughes; Adina Linder; Mynor Deng MD Signed DISCHARGE SUMMARY Observed: 08/02/2017 Status: F Source: [place] 11:24 AM [facility] Medical Records Department [address] [place] [address] Discharge Summary 08/02/17 0920 MR#: [id number] Acct: [id number] Name: DEVONTE CAIN Rep #: [id number] : 1970 47 From: Giovana CORONEL PCP: Eddie Hughes Status: DIS IN Y [id number] ADDENDUM by Adina Linder on 08/02/17 at 1124 Code Visit ATTENDING PHYSICIAN DISCHARGE NOTE: I have seen and examined the patient independently and agree with the assessment, plan, history per Giovana Townsend as noted. Discharge Diagnoses: (1) Chest Pain w/ Acute NSTEMI w/ Vasospastic Angina and Non- occlusive CAD (2) Hyperglycemia, likely stress response, hemoglobin A1c 5.8% (3) Hypertension, Uncontrolled (4) Obesity (5) Chronic back discomfort (6) Gout (7) Fatty Liver Discharge Summary: The patient is a 47 y/o F w/ PMHx: HTN, Obesity, Gout, Chronic Back Pain, Former Tobacco use who presented to the [facility] ED on 07/31/17 with onset of substernal and midsternal squeezing chest pain with no radiation with associated dyspnea without any nausea, emesis or diaphoresis starting approximately 3:45 in the morning prior to leaving for work at that time rated as a 10 out of 10 with continued discomfort during the day although this steadily lessened but continued and upon ED presentation rated 3 out of 10. Following nitroglycerin series patient noted 1 out of 10 discomfort. In the ED workup included afebrile, heart rate 94, BP 112/56, 97% on room air, unremarkable CBC, BMP with glucose 119, troponin V 0.9, EKG with right bundle branch block, inverted T waves in V3-V4, ST depression V3-V5 with no evidence of elevation, chest x-ray unremarkable. In the ED patient administered Brilinta loading, nitroglycerin sublingual several rounds and eventually transitioned to nitroglycerin drip, aspirin therapy 324 mg p.o. 1, heparin bolus and drip initiated. Dr. Mcqueen cardiology consulted per ED with plans for a.m. cardiac catheterization. Patient underwent cardiac catheterization 08/01/2017 which showed nonocclusive coronary disease with 30% mid LAD stenosis. He was maintained on aspirin, Plavix, statin, Norvasc, Imdur with discontinuation of his home lisinopril/HCTZ. CTPA obtained per cardiology recommendation with no acute evidence of PE. ECHO w/ 60%, RVSP estimated to be 34 mmHg, evidence of diastolic dysfunction. Given this findings, Cardiology suspected vasospastic angina. Hemoglobin A1c was obtained during the admission, 5.8%. Patient discharged to home in stable condition with recommended PCP and Cardiology follow-up. Discharge Time: > 35 Minutes DAY OF DISCHARGE PROGRESS NOTE: Subjective: Patient without acute event overnight per self and nursing report. Patient denies fever, chills, nausea, emesis, abdominal pain, chest pain or dyspnea. Patient agreeable to discharge to home. Patient will be discharged with follow- up with primary care physician within 3-5 days in addition to Cardiology. Objective: T 98.3, HR 72, BP 137/75, RR 15, 99% on RA. Physical Examination: General: awake, alert, oriented x 3 and cooperative, seated upright in the bed, NAD. HEENT: AT/NC, EOMI, PERRLA, MMM. Lungs: CTA bilaterally, moderate effort, mild decrease BL bases, no rales, ronchi or wheezing; Heart: Regular rate and rhythm; no gallop, rub audible. Psychiatric: affect appears normal, no acute evidence of depressive or anxiety feelings. Assessment and Plan: Please see hospital summary above. Inpatient E AND M: [id number] Disch Hosp 08/02/17 1124 <Electronically signed by Adina Linder > Date Adina Linder cc: BERNA Townsend; Eddie Hughes; Adina Linder; Eddie Hughes MD * Signed Discharge Date and Diagnosis Date of Admission: 07/31/17 Date of Discharge: 08/02/17 - Primary Discharge Diagnosis Active and Suspected Problems 1. Non-STEMI 2. Vasospastic angina 3. Nonocclusive coronary artery disease 4. Fatty liver 5. Hypertension - Secondary Discharge Diagnosis Chronic Problems Obesity (BMI 30.0-34.9) (Chronic) HTN (hypertension) (Chronic) Hospital Course and Treatment Imaging Results: Diagnostic Data Chest X-Ray 07/31/17 18:15 IMPRESSION: No acute cardiopulmonary process. Electronically Signed: Jasbir Verdugo, at 18:49 EDT Tel , Service support , Chest CTA 08/01/17 13:04 IMPRESSION: There is no evidence of acute pulmonary embolus. No other acute cardiopulmonary process is evident. Several borderline large lymph nodes are present in the mediastinum and howard, chronicity uncertain, nonspecific. There is evidence of hepatic steatosis. Electronically Signed: Jasbir Verdugo, at 14:04 EDT Tel , Service support , Dr. Hall- Cardiology Operations: None Procedures: 2-D Echocardiogram, Cardiac catheterization Summary of Care Provided: The patient is a 47 year old M admitted 07/31/2017 due to chest pain. He has a past medical history of hypertension, gout, obesity, chronic back pain, former tobacco use. Patient found to have non-STEMI. Cardiology consulted. Chest x-ray unremarkable. Patient underwent cardiac catheterization 08/01/2017 which showed nonocclusive coronary disease with 30% mid LAD stenosis. He will continue aspirin, Plavix, statin, Norvasc, Imdur at discharge. His home lisinopril/HCTZ was discontinued. CTA of chest was obtained which showed no evidence of pulmonary embolism. Cardiology suspecting vasospastic angina. Echocardiogram showed an ejection fraction of 60%, RVSP estimated to be 34 mmHg, evidence of diastolic dysfunction. Chest CTA did note evidence of hepatic steatosis. Weight loss was recommended. Patient has a family history of type 2 diabetes. Hemoglobin A1c was checked which was 5.8%. General: Alert, Oriented x3, Cooperative, No apparent distress HEENT: Atraumatic, PERRLA, EOMI, Normocephalic Oral: Moist Mucosa Neck: Supple, No JVD, Trachea Midline, Thyroid Normal Size and Texture Lungs: Clear to auscultation, Normal air movement Cardiovascular: Regular rate, Regular Rhythm, Normal S1, Normal S2, No murmurs Abdomen: Bowel Sounds Present, Soft, Non Tender, Non-Distended, No hernias noted Extremities: No clubbing, No cyanosis, No edema, Capillary Refill Less than 3 Seconds Skin: No rashes, No breakdown Musculoskeletal: No Tenderness to Palpation of Joints or Extremities, No Muscle Wasting Neurological: Cranial nerves II-XII grossly intact, Neuro grossly intact Psych/Mental Status: Normal Affect, Appropriate Patient seen exam prior to discharge. Physical assessment as noted above. Patient denies further chest pain. He is stable for discharge home with follow-up with primary care physician in 1 week and cardiology in 1-2 weeks. This patient was seen by BERNA Penn under the supervision of Dr. Linder. Discharge Diet: Low fat/ Low Cholesterol, 1800 Calorie Control Diet, Carb Control Diet Discharge Activity: - - Follow post-cath instructions. Call your doctor if your incision/area has: Continuous Slow Oozing, Sudden Increased Bleeding, Increased Pain/ Swelling, Increased Redness, Foul Smelling Discharge, Swelling at the incision site Call your doctor if you observe: Shortness of breath, Dizziness, Fainting spells, Chest pain, Increased palpitations (irregular heartbeat) Home Medications: Medications to take at Discharge Allopurinol [Zyloprim] 100 mg PO DAILYCM 11/20/14 Cyclobenzaprine [Flexeril] 10 mg PO TID PRN #20 tab 03/04/17 Amlodipine [Norvasc] 5 mg PO DAILY #30 tab 08/02/17 Aspirin [Aspirin, Baby] 81 mg PO DAILY@0800 #30 tab.chew 08/02/17 Atorvastatin Calcium [Lipitor] 80 mg PO QHS #30 tab 08/02/17 Clopidogrel Bisulfate [Plavix] 75 mg PO DAILY #30 tab 08/02/17 Isosorbide Mononitrate [Imdur] 30 mg PO DAILY #30 tab 08/02/17 Following Prescrptions Were Given to Patient: Amlodipine [Norvasc] 5 mg PO DAILY #30 tab Aspirin [Aspirin, Baby] 81 mg PO DAILY@0800 #30 tab.chew Atorvastatin Calcium [Lipitor] 80 mg PO QHS #30 tab Clopidogrel Bisulfate [Plavix] 75 mg PO DAILY #30 tab Isosorbide Mononitrate [Imdur] 30 mg PO DAILY #30 tab Primary Care Physician: Eddie Hughes [Primary Care Provider] - Please follow up with your Primary Care Physician in: 1 Week Please Follow Up With: [facility] When: Call Friday for an appointment in 1-2 Weeks. Disposition: Home Minutes spent on discharge:: 35 Patient Condition:: Stable Medical Necessity - Tobacco Use Smoking Status: Former smoker - Patient notes quitting tobacco 15 years prior. Tobacco Use: Non-smoker Meaningful Use Info Meaningful Use Diagnoses (Choose all that apply): None applicable 08/02/17927 <Electronically signed by Giovana CORONEL> Date Giovana CORONEL 08/02/171118<Electronically signed by Adina Linder > Cosigner Signature (if applicable): Date Adina Linder CC: BERNA Townsend; Eddie Hughes; Adina Linder; Eddie Hughes MD Signed DISCHARGE INSTRUCTION Observed: 08/02/2017 Status: F Source: [place] 9:20 AM [facility] REPOSITORY [facility] Medical Records Department [address] [place] [address] Instructions for Home/Discharge Instructions 08/02/17 0915 MR#: [id number] Acct: [id number] Name: DEVONTE CAIN Rep #: [id number] : 1970 47 From: Giovana CORONEL PCP: Eddie Hughes Status: ADM IN - Discharge Diagnoses Current Active Problems: Current Active and Chronic Problems Obesity (BMI 30.0-34.9) (Chronic) Non-STEMI (non-ST elevated myocardial infarction) (Acute) You will use the following diet at home:: Calorie/Carbohydrate Controlled (specify 1200, 1400, etc), Cardiac Discharge Activity: - - Follow post-cath instructions. Call your doctor if your incision/area has: Continuous Slow Oozing, Sudden Increased Bleeding, Increased Pain/ Swelling, Increased Redness, Foul Smelling Discharge, Swelling at the incision site Call your doctor if you observe: Shortness of breath, Dizziness, Fainting spells, Chest pain, Increased palpitations (irregular heartbeat) Additional Instructions: Your chest pain was suspected to be due to vasospastic angina. You will need to call [facility] on 08/05/17 to schedule an appointment for follow-up with one of the first coat sander. Their number is [phone]. Allergies/Adverse Reactions: Allergies No Known Allergies Allergy (Verified 07/31/17 17:53) Medications to take at Discharge Allopurinol [Zyloprim] 100 mg PO DAILYCM 11/20/14 Cyclobenzaprine [Flexeril] 10 mg PO TID PRN #20 tab 03/04/17 Amlodipine [Norvasc] 5 mg PO DAILY #30 tab 08/02/17 Aspirin [Aspirin, Baby] 81 mg PO DAILY@0800 #30 tab.chew 08/02/17 Atorvastatin Calcium [Lipitor] 80 mg PO QHS #30 tab 08/02/17 Clopidogrel Bisulfate [Plavix] 75 mg PO DAILY #30 tab 08/02/17 Isosorbide Mononitrate [Imdur] 30 mg PO DAILY #30 tab 08/02/17 The following prescriptions were given: Amlodipine [Norvasc] 5 mg PO DAILY #30 tab Aspirin [Aspirin, Baby] 81 mg PO DAILY@0800 #30 tab.chew Atorvastatin Calcium [Lipitor] 80 mg PO QHS #30 tab Clopidogrel Bisulfate [Plavix] 75 mg PO DAILY #30 tab Isosorbide Mononitrate [Imdur] 30 mg PO DAILY #30 tab Primary Care Physician: Eddie Hughes [Primary Care Provider] - Please follow up with your Primary Care Physician in: 1 Week Please Follow Up With: [facility] When: Call Friday for an appointment in 1-2 Weeks. Proposed Discharge Date: 08/02/17 08/02/17919 <Electronically signed by Giovana CORONEL> Date Giovana CORONEL CC: Eddie Hughes; Philip Mcqueen MD CBC-COMPLETE BLOOD CNT Collected: 08/02/2017 Status: F Source: [place] NO DIFF 5:24 AM [facility] REPOSITORY TYPE CODE TESTS RESULT OUT OF RANGE REFERENCE UNITS LAB L100.1000 4.4-11.0 K/mm3 Normal WBC 5.3 LAB L100.1200 4.6-6.2 M/mm3 Normal RBC 4.63 LAB L100.1300 13.0-16.5 g/dl Normal HGB 14.2 LAB L100.1400 40-54 % Normal HCT 41.3 LAB L100.1500 80-94 fL Normal MCV 89.2 LAB L100.1600 27.0-32.0 pg Normal MCH 30.7 LAB L100.1700 32-36 g/gl Normal MCHC 34.4 LAB L100.1810 11.6-14.6 % Normal RDW CV 13.3 LAB L100.1820 35.1-43.9 fl Normal RDW SD 43.0 LAB L100.1900 150-450 K/mm3 Normal PLT 205 LAB L100.2000 6.2-12.0 fl Normal MPV 10.1 Performed By: #### L100.0500 #### [facility] [address] [facility] [place], [address] BASIC METABOLIC Collected: 08/02/2017 Status: F Source: [place] PROFILE (BMP) 5:24 AM [facility] REPOSITORY TYPE CODE TESTS RESULT OUT OF RANGE REFERENCE UNITS LAB L501.0100 74-106 mg/dL Normal GLU 97 Result Comment: Please note revised GLUCOSE reference range effective 2017. LAB L501.1000 7-18 mg/dL Normal BUN 11 LAB L501.1100 0.70-1.30 mg/dL Normal CREAT,SERUM 0.94 Result Comment: The validity of the calculated GFR AND GFRAA in patients over 70 years has not been determined. Clinical correlation is essential. LAB L501.1110 >60 mL/min Normal EST GFR 93 Result Comment: Non- GFR Calc LAB L501.1115 >60 mL/min Normal EST GFR - AA 112 Result Comment: GFR Calc LAB L501.1255 ml/min Normal Estimated CRCL 102.47 LAB L501.1300 10-20 RATIO BUN/CRE Normal 11.8 LAB L501.2200 8.5-10 mg/dL Low .1 CA 8.3 LAB L501.5300 136-14 mmol/L 5 NA Normal 140 LAB L501.5600 3.5-5. mmol/L 1 K Normal 4.1 LAB L501.5900 98-107 mmol/L High CL 112 LAB L501.6100 21.0-3 mmol/L 2.0 CO2 Normal 23.0 LAB L501.6200 5-15 GAP Normal 5 Performed By: #### L500.2500 #### [facility] [address] [place], [address] ECHOCARDIOGRAM COMPLETE Observed: 08/01/2017 Status: F Source: [place] 5:24 PM [facility] REPOSITORY [facility] Cardiovascular Services [address] [place] [address] Echo Complete 08/01/17 1504 MR#: [id number] Acct: [id number] Name: DEVONTE CAIN Rep #: [id number] : 1970 47 From: Toi Pleitez MD Attending Dr: Chucho العراقي DO Status: ADM IN Ordering Dr: Godwin Hall MD Date: 08/01/17 Location: ICU Sex: M H Admitted: 07/31/17 Reason For Study: NSTEMI Procedure This was a 2D Doppler, Color Flow transthoracic echocardiogram. The exam was of fair technical quality due to body habitus. Exam performed portable in ICU/CCU. Left Ventricle Normal LV size. Left ventricular systolic function is normal. The estimated ejection fraction is 60 %. There is evidence of diastolic dysfunction. No regional wall motion abnormalities noted. Right Ventricle Normal RV size. Normal systolic function. Atria Normal left atrium. Normal right atrium. No doppler evidence for ASD. Mitral Valve There is no mitral annular calcification. Normal mitral valve. Trivial mitral valve insufficiency. Tricuspid Valve Normal tricuspid valve. Mild tricuspid valve insufficiency. Right ventricular systolic pressure estimated to be 34 mmHg. Aortic Valve Trisinus/trileaflet aortic valve. Normal aortic valve. Pulmonic Valve The pulmonic valve is not well visualized. Trivial pulmonic valve insufficiency. Great Vessels Normal sized aortic root. Pericardium/Pleural No pericardial effusion. MMode/2D Measurements AND Calculations LVIDd: 5.0 cm IVSd: 1.1 cm Ao root diam: 2.8 cm LVIDs: 3.3 cm LVPWd: 1.1 cm RVDd: 4.2 cm FS: 33.9 % LAV(MOD-bp): 51.7 ml LA A4 area: 18.8 cm2 RA A4 area: 12.1 cm2 LAV(MOD-bp) Indexed: 23.2 ml/m2 LAV(MOD-sp2): 46.6 ml LAV(MOD-sp4): 54.2 ml Doppler Measurements AND Calculations MV E max timothy: 93.1 cm/sec Lat Peak E' Timothy: 10.1 cm/sec Med Peak E' Timothy: 9.8 cm/sec MV A max timothy: 72.9 cm/sec E/E' lat: 9.2 E/E' med: 9.5 MV E/A: 1.3 Ao V2 max: 168.5 cm/sec LV V1 max: 134.3 cm/sec PA V2 max: 112.7 cm/sec Ao max P.4 mmHg LV V1 max P.2 mmHg Ao V2 mean: 103.4 cm/sec Ao mean P.9 mmHg Ao V2 VTI: 28.7 cm TR max timothy: 277.4 cm/sec TR max P.8 mmHg Interpretation Summary Left ventricular systolic function is normal. The estimated ejection fraction is 60 %. Trivial mitral valve insufficiency. Mild tricuspid valve insufficiency. Trivial pulmonic valve insufficiency. Right ventricular systolic pressure estimated to be 34 mmHg. There is evidence of diastolic dysfunction. Ordering Physician: Godwin Hall Referring Physician: Eddie Hughes Performed By: Kimi Ly, RDCS, RVT 08/01/17 1724 Date Toi Pleitez MD CC: Eddie Hughes; Godwin Hall MD; Chucho العراقي DO Date Dictated: 08/01/17 1504 Date Transcribed: 08/01/171723 Credit Administration Officer: Signed CTA CHEST W/WO Observed: 08/01/2017 Status: F Source: [place] CONTRAST 1:06 PM [facility] REPOSITORY [facility] Imaging Services [address] [place] [address] CTA Chest W/WO Contrast MR#: [id number] Acct: [id number] Name: DEVONTE CAIN Rep #: [id number] : 1970 M 47 From: Jasbir Verdugo MD PCP: Eddie Hughes Status: ADM IN Study: CTA Chest W/WO Contrast Date of Exam: 08/01/17 Exam# [id number] Ordering Dr: Godwin Hall MD STUDY: CTA CHEST REASON FOR EXAM: Male, 47 years old. Chest pain. Elevated troponin. RADIATION DOSAGE (If Supplied By Facility): CTDIvol = ( 18.19 ) mGy, DLP = ( 624.91 ) mGycm TECHNIQUE: The examination was performed with the intravenous administration of 75 ml of Isovue 370 contrast material. Post-processing of the angiographic images was performed, with multiplanar reformation and 3D reconstruction. Individualized dose optimization techniques were used for this CT. COMPARISON: X-ray chest 07/31/2017 FINDINGS: Supraclavicular: Normal. Body wall soft tissues: Normal. Osseous structures: No acute process. Upper abdomen: There is evidence of hepatic steatosis. Limited evaluation. No acute upper abdominal process. Lungs: Mild dependent atelectasis, otherwise normal. Normal airways. Mediastinum: Normal esophagus. Several lymph nodes are present in the mediastinum subcarinal, and in the howard bilaterally. The largest in the right hilum is approximately 11 mm. The largest subcarinal short axis XI mm. The largest in the left hilum short axis XII mm. These are nonspecific. Heart: No significant cardiomegaly. No pericardial effusion. Mild coronary cusp secretions are present. The right and left coronary arteries each emerge from the appropriate coronary sinus with right coronary dominance to the PDA. No appendage thrombus. Grossly normal chamber morphology. Aorta: Normal. Pulmonary arteries: Nondilated. No large central pulmonary embolus. Peripheral evaluation is satisfactory through the segmental divisions and into the majority of the proximal subsegmental divisions with no convincing evidence of acute peripheral pulmonary embolus. CT/CTA Chest W/WO Contrast IMPRESSION: There is no evidence of acute pulmonary embolus. No other acute cardiopulmonary process is evident. Several borderline large lymph nodes are present in the mediastinum and howard, chronicity uncertain, nonspecific. There is evidence of hepatic steatosis. Electronically Signed: Jasbir Verdugo, at 14:04 EDT Tel , Service support , CC: Eddie Hughes; Godwin Hall MD Credit Administration Officer: Signed CONSULTATION Observed: 08/01/2017 Status: F Source: [place] 11:42 AM [facility] Medical Records Department [address] [place] [id number] Consultation 08/01/17 1126 MR#: [id number] Acct: [id number] Name: DEVONTE CAIN Rep #: [id number] : 1970 47 From: Godwin Hall MD PCP: Eddie Hughes Status: ADM IN Y Location: ICU [id number] Problem List (1) Non-STEMI (non-ST elevated myocardial infarction) Status: Acute Reason for Consult Date of Consultation: 08/01/17 History of Present Illness: The patient is a 47 year old M with past medical history significant for hypertension and gout. He presented to the emergency room with complaints of chest pain that started yesterday. This was located in anterior chest. No radiation to the arm neck or jaw. Positive association with dyspnea. No nausea or vomiting or diaphoresis. In the emergency room, he was given nitroglycerin. That resolved his pain. His workup came back with elevated troponin ruling him in for non-ST elevation myocardial infarction. Patient denies any previous cardiac history. Denies any history of angina either at rest or with exertion prior to this episode. No orthopnea or PND. No palpitations. No ankle edema [] Past Medical History Allergies/Adverse Reactions: Allergies No Known Allergies Allergy (Verified 07/31/17 17:53) Home Medications: Ambulatory Orders Medication Instructions Recorded Lisinopril/Hydrochlorothiazide 1 tablet PO DAILY 06/13/14 Past Medical History (Chronic Problems): Chronic Problems Obesity (BMI 30.0-34.9) (Chronic) HTN (hypertension) (Chronic) Surgical History: - - Diverticulitis intervention with resection but unclear region, right knee arthroscopic surgery. Psychiatric History: No pertinent psych hx - *Family History Paternal History Items: Diabetes Maternal History Items: Heart Disease Lives: Spouse/ Significant Other, With Family Smoking Status: Former smoker - Patient notes quitting tobacco 15 years prior. Tobacco Use: Non-smoker Alcohol: None Drugs: None Review of Systems - Review of Systems General: Denies: Fever, Chills, Weight Loss HEENT: Denies: Head Aches Cardiovascular: Reports: Chest Discomfort at Rest, Shortness of Breath. Denies: Orthopnea, PND, Peripheral Edema, Palpitations, Near Syncope, Syncope Respiratory: Denies: Cough, Hemoptysis Gastrointestinal: Denies: Abdominal Discomfort, Jaundice, Nausea, Emesis, Hematemesis, Melena Muscoloskeletal: Reports: - - History of gout Neurological: Denies: History of TIA, History of CVA Endocrine: Denies: Heat Intolerance, Cold Intolerance, Unexplained Weight Loss Hematologic/ Lymphatic: Denies: Anemia, Easy Brusing, Easy Bleeding Subjectve: Comfortable. No apparent distress Objective: Vital Signs Temp Pulse Resp BP Pulse Ox 98.0 F 76 16 120/53 L 98 08/01/17 07:00 08/01/17 10:00 08/01/17 10:00 08/01/17 10:00 08/01/17 10:00 Oxygen Delivery Method Room Air Weight: 107.7 kg Body Mass Index (BMI) 34.1 Intake and Output for Last 24 Hours Intake Total 1682 / 1682 Output Total 500 / 500 Balance 1182 / 1182 General: Awake, Alert, Oriented x 3, No Acute Distress HEENT: Atraumatic, Normocephalic Oral: Moist Mucosa Neck: Supple, No JVD Lungs: Clear to auscultation Cardiovascular: Regular Rhythm, Normal S1, Normal S2, No Murmurs, No Rubs Vascular: No Carotid Bruits Abdomen: Bowel Sounds Present, Soft Extremities: No edema Neurological: No Focal Motor or Sensory Deficit Psych/Mental Status: Appropriate 07/31/17 22:05: Magnesium 2.0 07/31/17 22:05: Hemoglobin A1c 5.8 07/31/17 22:05: Troponin I 5.600 H* 08/01/17 01:30: Troponin I 5.160 H* 08/01/17 01:30: APTT 109.1 H* 08/01/17 01:30: PT 13.7, INR 1.1 08/01/17 04:00: WBC 5.0, RBC 4.13 L, Hgb 12.8 L, Hct 36.8 L, MCV 89.1, MCH 31.0, MCHC 34.8, RDW 13.2, RDW Differential 42.7, Plt Count 187, MPV 9.7 08/01/17 04:00: Sodium 142, Potassium 3.7, Chloride 109 H, Carbon Dioxide 25.0, Anion Gap 8, BUN 14, Creatinine 0.90, Est GFR (MDRD) Af Amer 117, Est GFR (MDRD) Non-Af 97, BUN/Creatinine Ratio 15.5, Glucose 106, Calcium 7.5 L, Triglycerides 168, Cholesterol 135, LDL Cholesterol 69, VLDL Cholesterol 34, HDL Cholesterol 32 L 08/01/17 08:15: APTT Cancelled 08/01/17 09:00: APTT Cancelled 08/01/17 09:30: APTT 54.9 H Rhythm: Normal sinus rhythm EKG: Normal sinus rhythm. Right bundle branch block. T-wave inversions across anterior precordial leads suggestive of ischemia ECHO: Stress Test: Cardiac Cath: PCI: CT Surgery: Holter monitor: EPS: PPM: CXR: Chest CT Scan: Assessment/Plan 1. Non-ST elevation myocardial infarction. She was offered cardiac catheterization with coronary angiography and possible revascularization. Risks benefits and alternatives were explained. He understands these and wishes to proceed 2. Continue aspirin and Brilinta 3. Lipid management as per internal medicine 4. Hypertension 5. History of gout 6. Further recommendations will follow results of cardiac catheterization 08/01/17 1142 <Electronically signed by Godwin Hall MD> Date Godwin Hall MD Cosigner Signature (if applicable): Date CC: Eddie Hughes; Philip Mcqueen MD Signed PARTIAL THROMBOPLAST Collected: 08/01/2017 Status: F Source: [place] TIME 9:30 AM [facility] REPOSITORY TYPE CODE TESTS RESULT OUT OF REFERENCE UNITS RANGE LAB L300.4310 24.1-36.2 Seconds High PTT 54.9 Performed By: #### L300.4310 #### [facility] [address] [place], [address] CBC-COMPLETE BLOOD CNT Collected: 08/01/2017 Status: F Source: [place] NO DIFF 4:00 AM [facility] REPOSITORY TYPE CODE TESTS RESULT OUT OF RANGE REFERENCE UNITS LAB L100.1000 4.4-11.0 K/mm3 Normal WBC 5.0 LAB L100.1200 4.6-6.2 M/mm3 Low RBC 4.13 LAB L100.1300 13.0-16.5 g/dl Low HGB 12.8 LAB L100.1400 40-54 % Low HCT 36.8 LAB L100.1500 80-94 fL Normal MCV 89.1 LAB L100.1600 27.0-32.0 pg Normal MCH 31.0 LAB L100.1700 32-36 g/gl Normal MCHC 34.8 LAB L100.1810 11.6-14.6 % Normal RDW CV 13.2 LAB L100.1820 35.1-43.9 fl Normal RDW SD 42.7 LAB L100.1900 150-450 K/mm3 Normal PLT 187 LAB L100.2000 6.2-12.0 fl Normal MPV 9.7 Performed By: #### L100.0500 #### [facility] [address] [place], [address] BASIC METABOLIC Collected: 08/01/2017 Status: F Source: [place] PROFILE (BMP) 4:00 AM [facility] REPOSITORY TYPE CODE TESTS RESULT OUT OF RANGE REFERENCE UNITS LAB L501.0100 74-106 mg/dL Normal GLU 106 Result Comment: Fasting Glucose result from 100 to 125 mg/dL suggests IMPAIRED HOMEOSTASIS per A.D.A. criteria. Please note revised GLUCOSE reference range effective 2017. LAB L501.1000 7-18 mg/dL Normal BUN 14 LAB L501.1100 0.70-1.30 mg/dL Normal CREAT,SERUM 0.90 Result Comment: The validity of the calculated GFR AND GFRAA in patients over 70 years has not been determined. Clinical correlation is essential. LAB L501.1110 >60 mL/min Normal EST GFR 97 Result Comment: Non- GFR Calc LAB L501.1115 >60 mL/min Normal EST GFR - AA 117 Result Comment: GFR Calc LAB L501.1255 ml/min Normal Estimated CRCL 107.02 LAB L501.1300 10-20 RATIO BUN/CRE Normal 15.5 LAB L501.2200 8.5-10 mg/dL Low .1 CA 7.5 LAB L501.5300 136-14 mmol/L 5 NA Normal 142 LAB L501.5600 3.5-5. mmol/L 1 K Normal 3.7 LAB L501.5900 98-107 mmol/L High CL 109 LAB L501.6100 21.0-3 mmol/L 2.0 CO2 Normal 25.0 LAB L501.6200 5-15 GAP Normal 8 Performed By: #### L500.2500, L500.4100 #### [facility] [address] [place], [place], [address] LIPID PROFILE Collected: 08/01/2017 Status: F Source: [place] 4:00 AM [facility] REPOSITORY TYPE CODE TESTS RESULT OUT OF RANGE REFERENCE UNITS LAB L501.4900 200 mg/dL Normal CHOL 135 Result Comment: <200 mg/dL Desirable 200-240 mg/dL Borderline >240 mg/dL High Risk LAB L501.5000 mg/dL Normal TRIG 168 Result Comment: The drugs N-Acetylcysteine and Metamizole may falsely depress this assay. Serum Triglycerides Reference Interval Normal <150 mg/dL Borderline high 150 - 199 mg/dL High 200 - 499 mg/dL Very High > or = 500 mg/dL LAB L501.6400 mg/dL Low HDL 32 Result Comment: The drugs N-Acetylcysteine and Metamizole may falsely depress this assay. Reference Range HDL <40 mg/dL Low HDL Cholesterol HDL >or= 60 mg/dL High HDL Cholesterol LAB L501.6500 0-130 mg/dL Normal LDL 69 LAB L501.6600 5-40 mg/dL Normal VLDL 34 Performed By: #### L500.2500, L500.4100 #### [facility] [address] [place], [place], [address] PARTIAL THROMBOPLAST Collected: 08/01/2017 Status: F Source: [place] TIME 1:30 AM [facility] REPOSITORY TYPE CODE TESTS RESULT OUT OF REFERENCE UNITS RANGE LAB L300.4310 24.1-36.2 Seconds High alert PTT 109.1 Result Comment: CRITICAL VALUE VERIFIED. CALLED TO ANGELO MOLINA 08/01/17 0154 Deborah Stephenson. RESULTS READ BACK BY SAME . Performed By: #### L300.4310 #### [facility] [address] [address] [place], [place], [address] PROTHROMBIN TIME W/INR Collected: 08/01/2017 Status: F Source: [place] 1:30 AM [facility] REPOSITORY TYPE CODE TESTS RESULT OUT OF RANGE REFERENCE UNITS LAB L300.4150 11.7-14.9 SECONDS Normal PROTIME 13.7 LAB L300.4200 Normal INR 1.1 Performed By: #### L300.3900 #### [facility] [address] [place], [address] TROPONIN-I Collected: 08/01/2017 Status: F Source: [place] 1:30 AM [facility] REPOSITORY Order Comment: 'TROP' Serial specimen #1, #2 or #3: 3 'TROP' Serial specimen #1, #2, #3, or #4: 3 TYPE CODE TESTS RESULT OUT OF RANGE REFERENCE UNITS LAB L501.4010 <0.045 ng/mL High alert 5.160 TROPONIN-I Result Comment: Critical Result(s) Called at: 02:20:31 08/01/2017 by: REINIER LANG TO [facility] ICU TROPONIN-I EXPECTED VALUES <0.045 Negative 0.045 - 0.590 Consistent with Cardiac Damage > OR = 0.600 Critical Value Not every elevated troponin is indicative of [place]. These values should be used with clinical judgement in examining the patient's clinical picture for diagnosis. To establish a diagnosis of KY versus myocardial injury, there must be a demonstrated rise and/or fall in the troponin values, in addition to ischemic symptoms, EKG changes, new regional wall motion abnormality, and/or angiographical evidence. PLEASE NOTE: REFERENCE RANGES EDITED 17 Performed By: #### L501.4010 #### [facility] [address] [facility], [address] EMERGENCY DEPARTMENT Observed: 07/31/2017 Status: F Source: [place] SUMMARY 11:01 PM [facility] REPOSITORY [facility] Medical Records Department [address] [place] [id number] Emergency Department Summary 07/31/17 1859 MR#: [id number] Acct: [id number] Name: DEVONTE CAIN Rep #: [id number] : 1970 47 From: Mynor Deng MD PCP: Eddie Hughes Status: ADM IN - ER Visit Summary Date of Service: 07/31/17 Chief Complaint: Chest pain History of Present Illness: The patient is a 47 M no cardiac history but a prior history of hypertension and gout. Patient has no cardiac history. He is a non-smoker. He states this morning is getting ready for work he had nonexertional chest tightness. He described it as a squeezing. It has been there all day. Also associated shortness of breath. No history of DVT or PE. No significant risk factors. No hemoptysis. This is not pleuritic. He has had no leg pain or swelling. Physical Examination: Middle-aged male vital signs are stable afebrile. Pulse ox 97% no hypoxia. HEENT exam unremarkable. Neck nontender no JVD. Lungs clear to auscultation bilaterally. Heart regular rate and rhythm no murmur. Rate about 80. Chest wall does have mild reproducible tenderness but is not exactly the same pain as he is having. Abdomen soft nontender. Normal bowel sounds no peritoneal signs. Moving all 4 extremities. Neurovascular intact. Equal symmetrical radial pulse. Neurologic exam normal. Test Results: Chest x-ray no acute abnormality normal cardiac silhouette read by myself the radiologist. EKG sinus rhythm rate is 78 with a right bundle branch block. No old EKG available comparison. He does have inverted T waves in V3 [address] depression. No ST elevation. CBC normal. BMP normal. Troponin V 0.9 consistent with a non-ST elevation KY. Emergency Department Course and Treatment: Chest pain was concerning. He underwent a cardiac workup and has what appears to be a non-ST elevation KY. I spoke to Dr. Manuel Mcqueen of interventional cardiology and Dr. Linder the hospitalist. Patient will be started on heparin bolus and drip. Nitro drip. And p.o. Brilinta. He had already received aspirin in the ER and sublingual nitroglycerin which did improve his pain. A repeat EKG will be obtained. Treatment Plan: Anticoagulation and admission to the ICU. If the patient gets worse [facility] but the plan will be to do a cardiac catheterization on him in the morning. Disposition: Admission Impression: Chest pain consistent with a non-ST elevation KY. History of hypertension. Critical care time 30 minutes. This note was generated with CipherMax dictation software. It may contain incorrect words, spelling, and punctuation that were not noted in review of the chart prior to signing ED Disposition - Plan for ED Patient: Chief Complaint: Chest Pain Referrals: Eddie Hughes [Primary Care Provider] - What to do if you have Problems For any increased pain, shortness of breath, bleeding, nausea or vomiting, chest pain, or any unexpected problems, contact your Primary Care Provider. Call [facility] ([phone]) or report to the closest Emergency Room. Call 911 if necessary. 07/31/17 0145 <Electronically signed by Mynor Deng MD> Date Mynor Ramirez Signature (If Indicated): Date CC: Eddie Hughes MAGNESIUM Collected: 07/31/2017 Status: F Source: [place] 10:05 [facility] REPOSITORY TYPE CODE TESTS RESULT OUT OF RANGE REFERENCE UNITS LAB L501.5200 1.6-2.6 mg/dL Normal MG 2.0 Result Comment: Slight Hemolysis, Result may be falsely increased. Performed By: #### L501.5200 #### [facility] [address] [place], [address] HEMOGLOBIN A1C Collected: 07/31/2017 Status: F Source: [place] 10:05 [facility] REPOSITORY TYPE CODE TESTS RESULT OUT OF RANGE REFERENCE UNITS LAB L501.9985 4.2-6.3 % Normal HGB A1C 5.8 Performed By: #### L501.9985 #### [facility] [address] [place], [address] TROPONIN-I Collected: 07/31/2017 Status: F Source: [place] 10:05 [facility] REPOSITORY Order Comment: 'TROP' Serial specimen #1, #2 or #3: 2 'TROP' Serial specimen #1, #2, #3, or #4: 2 TYPE CODE TESTS RESULT OUT OF RANGE REFERENCE UNITS LAB L501.4010 <0.045 ng/mL High alert 5.600 TROPONIN-I Result Comment: CALLED [facility] ICU WITH CRITICAL CTNI BY [facility] 07-31- AT 2247PM READ BACK BY SAME TROPONIN-I EXPECTED VALUES <0.045 Negative 0.045 - 0.590 Consistent with Cardiac Damage > OR = 0.600 Critical Value Not every elevated troponin is indicative of [place]. These values should be used with clinical judgement in examining the patient's clinical picture for diagnosis. To establish a diagnosis of [place] versus myocardial injury, there must be a demonstrated rise and/or fall in the troponin values, in addition to ischemic symptoms, EKG changes, new regional wall motion abnormality, and/or angiographical evidence. PLEASE NOTE: REFERENCE RANGES EDITED 17 Performed By: #### L501.4010 #### [facility] [address] [place], [address] M R STAPH AUREUS Collected: 07/31/2017 Status: F Source: [place] DNA BY PCR 8:30 PM [facility] REPOSITORY TYPE CODE TESTS RESULT OUT OF RANGE REFERENCE UNITS LAB L8200.1100 Negative Normal MRSA Negative RESULT Performed By: #### L8200.1000 #### [facility] [address] [place], [address] HISTORY AND PHYSICAL Observed: 07/31/2017 Status: F Source: [place] EXAM 7:27 PM [facility] REPOSITORY [facility] Medical Records Department [address] [place] [address] History and Physical 07/31/17 1859 MR#: [id number] Acct: [id number] Name: DEVONTE CAIN Rep #: [id number] : 1970 47 From: Adina Linder PCP: Eddie Hughes Status: ADM IN Y Location: ICU [id number] Problem List (1) Non-STEMI (non-ST elevated myocardial infarction) Status: Acute (2) Obesity (BMI 30.0-34.9) Status: Chronic (3) HTN (hypertension) Status: Chronic Qualifiers: Hypertension type: essential hypertension Qualified Code(s): I10 - Essential (primary) hypertension History of Present Illness Date of Admission: 07/31/17 Chief Complaint: Chest pain The patient is a 47 y/o F w/ PMHx: HTN, Obesity, Gout, Chronic Back Pain, Former Tobacco use who presents to the [facility] ED on 07/31/17 with onset of substernal and midsternal squeezing chest pain with no radiation with associated dyspnea without any nausea, emesis or diaphoresis starting approximately 3:45 in the morning prior to leaving for work at that time rated as a 10 out of 10 with continued discomfort during the day although this steadily lessened but continued and upon ED presentation rated 3 out of 10. Following nitroglycerin series patient noted 1 out of 10 discomfort. In the ED workup included afebrile, heart rate 94, BP 112/56, 97% on room air, unremarkable CBC, BMP with glucose 119, troponin V 0.9, EKG with right bundle branch block, inverted T waves in V3-V4, ST depression V3- V5 with no evidence of elevation, chest x-ray unremarkable. In the ED patient administered Brilinta loading, nitroglycerin sublingual several rounds and eventually transitioned to nitroglycerin drip, aspirin therapy 324 mg p.o. 1, heparin bolus and drip initiated. Dr. Mcqueen cardiology consulted per ED with plans for a.m. cardiac catheterization. Past Medical History Past Medical History (Chronic Problems): Chronic Problems Obesity (BMI 30.0-34.9) (Chronic) HTN (hypertension) (Chronic) Allergies No Known Allergies Allergy (Verified 07/31/17 17:53) Home Medications: Ambulatory Orders Medication Instructions Recorded Lisinopril/Hydrochlorothiazide 1 tablet PO DAILY 06/13/14 Surgical History: - - Diverticulitis intervention with resection but unclear region, right knee arthroscopic surgery. Psychiatric History: No pertinent psych hx Lives: Spouse/ Significant Other, With Family Smoking Status: Former smoker - Patient notes quitting tobacco 15 years prior. Tobacco Use: Non-smoker Alcohol: None Drugs: None - *Family History Maternal History Items: Heart Disease Paternal History Items: Diabetes Review of Systems Constitutional: Reports: Fatigue. Denies: Chills, Fever, Weight Change HEENT: Denies: Head Aches, Sinus Congestion, Sinus Drainage Cardiovascular: Reports: Chest Pain, Chest Tightness. Denies: Palpitations Respiratory: Reports: Shortness of Breath, Shortness of breath at rest, Shortness of breath upon exertion. Denies: Cough, Sputum production Gastrointestinal: Denies: Abdominal Pain, Nausea, Vomiting Genitourinary: Denies: Dysuria Musculoskeletal: Reports: Back Pain. Denies: Joint Pain, Joint Tenderness Skin: Denies: Rash, Wounds Neurological: Denies: Numbness, Tingling, Focal weakness Psychiatric: Denies: Anxiety, Depression, Homicidal Ideations, Suicidal Ideations Hematologic/ Lymphatic: Denies: Easy Bruising, Easy Bleeding VTE Information - Inpt Only VTE Present on Admission: No VTE Mechan Device Prophylaxis: SCD's VTE Pharm Prophylaxis ordered?: Yes Patient Problems: Active and Suspected Problems Non-STEMI (non-ST elevated myocardial infarction) (Acute) Subjective: Seated upright in the ED bed, no acute distress, notes currently chest pain has improved and is 1 out of 10. Objective: Physical Examination: General: awake, alert, oriented x 3 and cooperative, seated upright in the ED bed in no apparent distress. Skin: normal color, turgor, no icterus, cyanosis. HEENT: AT/NC, EOMI, PERRLA, MMM, no carotid bruits or JVD noted. Lungs: CTA bilaterally, moderate effort, mild decrease BL bases, no rales, ronchi or wheezing. Heart: Regular rate and rhythm; no gallop, rub audible. Abdomen: soft, obese, NTTP, ND, normal BS, no HSM. Extremities: no cyanosis, clubbing, or edema. Neurological: patient awake, alert, oriented x 3; cognitive function intact; pupils equally reactive to light and accomodation; cranial nerves II-XII grossly normal, moving all 4 extremities, no focal deficits, strength mildly globally decreased secondary to acute presentation. Psychiatric: affect appears normal, no acute evidence of depressive or anxiety feelings. - Physical Exam Vital Signs Temp Pulse Resp BP Pulse Ox 97.1 F L 94 16 112/56 L 97 07/31/17 17:52 07/31/17 18:31 07/31/17 17:52 07/31/17 18:31 07/31/17 18:06 Oxygen Delivery Method Room Air Weight: 234 lb 9.149 oz Body Mass Index (BMI) 33.6 Laboratory Tests Past 24 Hrs WBC 5.9 RBC 4.73 Hgb 14.4 Hct 41.6 MCV 87.9 MCH 30.4 MCHC 34.6 RDW 13.2 RDW Differential 42.2 Assessment/Plan Active and Suspected Problems Non-STEMI (non-ST elevated myocardial infarction) (Acute) The patient is a 47 y/o F w/ PMHx: HTN, Obesity, Gout, Chronic Back Pain, Former Tobacco use who presents to the [facility] ED on 07/31/17 with onset of substernal and midsternal squeezing chest pain with no radiation with associated dyspnea without any nausea, emesis or diaphoresis starting approximately 3:45 in the morning prior to leaving for work at that time rated as a 10 out of 10 with continued discomfort during the day although this steadily lessened but continued and upon ED presentation rated 3 out of 10. (1) Chest Pain w/ Acute NSTEMI: EKG in ED w/ right bundle branch block, inverted T waves in V3 and V4, ST depression in V3 through V5, no elevations noted with no comparison, CXR w/ no acute findings. Trop elevated, 5.9. Will admit to ICU, maintain on a monitored bed, continue serial cardiac enzymes and EKGs. Obtain magnesium level upon admission. Continue NG drip and heparin drip w/ bolus administered in the ED. Brillinta bolus administered in the ED. Continue medical management w/ asa, add low dose BB, add high dose statin w/ AM FLP. Cardiology consulted, plan for cardiac catheterization. Maintain NPO after midnight. ASA, NG, morphine. (2) Hyperglycemia: Admission glucose 119, hemoglobin A1c pending. (3) Hypertension: Continue home regimen including lisinopril, HIDA chlorothiazide, add low-dose Coreg, as noted maintained on nitroglycerin drip thus may need to hold oral agents if necessary, PRN hydralazine. (4) Obesity: Weight loss and lifestyle changes encouraged, nutrition consulted for education and teaching. (5) Chronic back discomfort: Patient notes he had been taking muscle relaxants prior but has not been using these recently. 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 (6) Gout: Continue home allopurinol regimen. (7) DVT prophylaxis: SCDs, heparin drip is noted. Code Visit Inpatient E AND M: 38255 Init Hosp L3 07/31/171926 <Electronically signed by Adina Linder > Date Adina Linder Cosigner Signature: Date (if applicable) CC: Eddie Hughes; Adina Linder Signed CBC W/DIFF, AUTOMATED Collected: 07/31/2017 Status: F Source: [place] 6:02 PM [facility] REPOSITORY TYPE CODE TESTS RESULT OUT OF RANGE REFERENCE UNITS LAB L100.1000 4.4-11.0 K/mm3 Normal WBC 5.9 LAB L100.1200 4.6-6.2 M/mm3 Normal RBC 4.73 LAB L100.1300 13.0-16.5 g/dl Normal HGB 14.4 LAB L100.1400 40-54 % Normal HCT 41.6 LAB L100.1500 80-94 fL Normal MCV 87.9 LAB L100.1600 27.0-32.0 pg Normal MCH 30.4 LAB L100.1700 32-36 g/gl Normal MCHC 34.6 LAB L100.1810 11.6-14.6 % Normal RDW CV 13.2 LAB L100.1820 35.1-43.9 fl Normal RDW SD 42.2 LAB L100.1900 150-450 K/mm3 Normal PLT 219 LAB L100.2000 6.2-12.0 fl Normal MPV 9.6 LAB L100.2100 47-70 % Low NEUT% 45.3 LAB L100.2200 19-41 % Normal LY% 32.1 LAB L100.2300 0-10 % Normal MONO% 9.3 LAB L100.2400 0-5 % High EO% 12.4 LAB L100.2500 0-1 % Normal BASO% 0.7 LAB L100.2550 0.0-0.9 % Normal IM GRAN % 0.200 Result Comment: IG% - Immature Granulocytes (promyelocytes, myelocytes and metamyelocytes) > 1% indicates that a LEFT SHIFT is Present. LAB L100.2620 2.0-7.7 X10 3/uL Normal Absolute Neut 2.7 LAB L100.2720 0.83-4.51 X10 3/ul Normal Absolute Lymph 1.90 Performed By: #### L100.0100 #### [facility] [address] [place], [place], [id number] BASIC METABOLIC Collected: 07/31/2017 Status: F Source: [place] PROFILE (BMP) 6:02 PM [facility] REPOSITORY TYPE CODE TESTS RESULT OUT OF RANGE REFERENCE UNITS LAB L501.0100 74-106 mg/dL High GLU 119 Result Comment: Fasting Glucose result from 100 to 125 mg/dL suggests IMPAIRED HOMEOSTASIS per A.D.A. criteria. Please note revised GLUCOSE reference range effective 2017. LAB L501.1000 7-18 mg/dL Normal BUN 16 LAB L501.1100 0.70-1.30 mg/dL Normal CREAT,SERUM 1.05 Result Comment: The validity of the calculated GFR AND GFRAA in patients over 70 years has not been determined. Clinical correlation is essential. LAB L501.1110 >60 mL/min Normal EST GFR 81 Result Comment: Non- GFR Calc LAB L501.1115 >60 mL/min Normal EST GFR - AA 98 Result Comment: GFR Calc LAB L501.1255 ml/min Normal Estimated CRCL 91.73 LAB L501.1300 10-20 RATIO Normal BUN/CRE 15.2 LAB L501.2200 8.5-10 mg/dL Low .1 CA 8.4 LAB L501.5300 136-14 mmol/L Normal 5 NA 138 Result Comment: CALLED [facility] WITH CRITICAL CTNI BY [facility] 07-31-17 AT 1839PM READ BACK BY SAME LAB L501.5600 3.5-5.1 mmol/L Normal K 3.6 Result Comment: Slight Hemolysis, Result may be falsely increased. LAB L501.5900 98-107 mmol/L Normal CL 105 LAB L501.6100 21.0-32.0 mmol/L Normal CO2 25.0 LAB L501.6200 5-15 Normal 8 GAP Performed By: #### L500.2500, L501.4010 #### [facility] [place], [address] TROPONIN-I Collected: 07/31/2017 Status: F Source: [place] 6:02 PM [facility] REPOSITORY TYPE CODE TESTS RESULT OUT OF RANGE REFERENCE UNITS LAB L501.4010 <0.045 ng/mL High alert 5.900 TROPONIN-I Result Comment: TROPONIN-I EXPECTED VALUES <0.045 Negative 0.045 - 0.590 Consistent with Cardiac Damage > OR = 0.600 Critical Value Not every elevated troponin is indicative of [place]. These values should be used with clinical judgement in examining the patient's clinical picture for diagnosis. To establish a diagnosis of [place] versus myocardial injury, there must be a demonstrated rise and/or fall in the troponin values, in addition to ischemic symptoms, EKG changes, new regional wall motion abnormality, and/or angiographical evidence. PLEASE NOTE: REFERENCE RANGES EDITED 17 Performed By: #### L500.2500, L501.4010 #### [facility] [address] [place], [address] CHEST 1 VIEW Observed: 07/31/2017 Status: F Source: [place] (PORTABLE) 6:01 PM [facility] REPOSITORY [facility] Imaging Services [address] [place] [address] Chest 1 View (Portable) MR#: [id number] Acct: [id number] Name: DEVONTE CAIN Rep #: [id number] : 1970 M 47 From: Jasbir Verdugo MD PCP: Eddie Hughes Status: REG ER Study: Chest 1 View (Portable) Date of Exam: 07/31/17 Exam# [id number] Ordering Dr: Mynor Deng MD STUDY: X-RAY CHEST REASON FOR EXAM: Male, 47 years old. Chest pain, neck pain. TECHNIQUE: AP portable upright chest COMPARISON: 06/29/2013 FINDINGS: There is mild background hyperlucency in particular at the apices of the lungs that may reflect the presence of underlying COPD/emphysema. Correlate smoking history. The lungs are otherwise clear. Normal cardiomediastinal silhouette, howard and pleural margins. No acute osseous or upper abdominal process. RAD/Chest 1 View (Portable) IMPRESSION: No acute cardiopulmonary process. Electronically Signed: Jasbir Verdugo, at 18:49 EDT Tel , Service support , CC: Eddie Hughes; Mynor Deng MD Credit Administration Officer: Signed EMERGENCY DEPARTMENT Observed: 05/25/2017 Status: F Source: [place] SUMMARY 6:59 AM [facility] REPOSITORY [facility] Medical Records Department [address] [place] [address] Emergency Department Summary 05/25/17 0651 MR#: [id number] Acct: [id number] Name: DEVONTE CAIN Rep #: [id number] : 1970 46 From: Mynor Deng MD PCP: Eddie Hughes Status: REG ER - ER Visit Summary Date of Service: 05/25/17 Chief Complaint: Gout flare up right foot History of Present Illness: The patient is a 46 M 3 of the gout and hypertension. Patient states today he is developed atraumatic pain to his right foot primarily in the MTP joint of his right great toe. Prior history of gout in that area. Denies any trauma. Denies any fever. Denies any other complaints. Physical Examination: Well-appearing middle-age male. Vital signs are stable afebrile. He is in no acute distress. He does not look septic or toxic. HEENT exam unremarkable. Neck nontender no lymphadenopathy. Lungs clear to auscultation bilaterally. Heart regular rate and rhythm no murmur. Abdomen soft nontender. Extremities he is moving all 4. Neurovascular intact. Specifically his right hip, knee and ankle are nontender without swelling and normal range of motion. His right foot at the right great toe metatarsophalangeal joint he is tenderness and mild swelling. There is no signs of infection at this time. There is no lymphangitic streaking. The right foot is neurovascular intact with a strong DP pulse. There are no signs of trauma or puncture wound. No gross bony deformities. Test Results: None Emergency Department Course and Treatment: Patient will be treated as a acute gout flareup with prednisone 40 mg a day. He will be given his first dose in the ER. He did not want anything stronger for pain. Treatment Plan: Prednisone daily 40 mg a day for 10 days or stop when pain resolved. Disposition: Discharged Impression: Acute right great toe pain secondary to acute gout flare up This note was generated with CipherMax dictation software. It may contain incorrect words, spelling, and punctuation that were not noted in review of the chart prior to signing ED Disposition - Plan for ED Patient: Chief Complaint: Lower Extremity Injury Referrals: Eddie Hughes [Primary Care Provider] - What to do if you have Problems For any increased pain, shortness of breath, bleeding, nausea or vomiting, chest pain, or any unexpected problems, contact your Primary Care Provider. Call [facility] ([phone]) or report to the closest Emergency Room. Call 911 if necessary. 05/25/17658 <Electronically signed by Mynor Deng MD> Date Mynor Deng MD Cosigner Signature (If Indicated): Date CC: Eddie Hughes DISCHARGE INSTRUCTION Observed: 05/25/2017 Status: F Source: [place] 6:59 AM [facility] REPOSITORY [facility] Medical Records Department [address] [place] [address] Discharge Instruction 05/25/17653 MR#: [id number] Acct: [id number] Name: PAYTONDEVONTE Rep #: [id number] : 1970 46 From: Mynor Deng MD PCP: Eddie Hughes Status: REG ER ED Disposition - Plan for ED Patient: Disposition: Home or Assisted Living Chief Complaint: Lower Extremity Injury Instructions: ED Arthritis Gout Prescriptions: Prednisone [Deltasone] 40 mg PO DAILY 10 Days tab Referrals: Eddie Hughes [Primary Care Provider] - 1 Week if not improving What to do if you have Problems For any increased pain, shortness of breath, bleeding, nausea or vomiting, chest pain, or any unexpected problems, contact your Primary Care Provider. Call [facility] ([phone]) or report to the closest Emergency Room. Call 911 if necessary. 05/25/17658 <Electronically signed by Mynor Deng MD> Date Mynor Deng MD Cosigner Signature (If Indicated): Date CC: Eddie Saul ALLERGIES ALLERGIES DATE TYPE / CODE NAME / CODE REACTION SEVERITY SOURCE 11/14/2017 Drug No Known Unknown [facility] Allergy/4160 Allergies/F00 [facility] [address](SNOMED 1152699(RXNOR Repository CT) M) ENCOUNTERS ENCOUNTERS ADMIT/DISCHARGE ACCOUNT ADMITTING ENCOUNTER LOCATION SOURCE NUMBER CLASS 02/19/2018 [id number] Ambulatory [facility] ing:LAB Repository 11/14/2017/ [id number] Emergency [facility] ing:ED Repository 08/20/2017/ [id number] Ambulatory BMSBuilding:B [facility] 8 9 [facility] Repository 08/19/2017 [id number] Ambulatory BMSBuilding:B [facility] 6 [facility] Repository 08/01/2017/ [id number] Ambulatory BMSBuilding:W [facility] 8 9 [facility] Repository 07/31/2017/ [id number] White, Adina Inpatient Y[facility]any Y[facility] 8 2 [facility] ing:PCURoom: Repository [id number]: 1 07/31/2017 [id number] White, Adina Ambulatory BMSBuilding:B [facility] 8 [facility] Repository 07/31/2017 [id number] White Adina Ambulatory BMSBuilding:W [facility] 6 [facility] Repository 07/31/2017 [id number] White, Adina Ambulatory BMSBuilding:B Yovany 4 [place].[facility] Repository 07/31/2017 [id number] White, Adina Ambulatory BMSBuilding:B Yovany 8 MS.[facility] Repository 05/25/2017/ [id number] Emergency Dozier Dozier [facility] ing:ED Repository PAYERS PAYERS ENCOUNTER GUARANTOR PAYER SUBSCRIBER SOURCE 02/19/2018 DEVONTE Buhcanan Primary DEVONTE Pedroza [id number] SONAM Insurance:[facility] JACK: [facility]: [id number] Medical Center [address]Uko: [id number] Repository e Date:2018-02-19P.O. (HP) ALEXEI HUYNH MD [id number]: 02/19/2018 Secondary NOT GIVENUNK Dozier Insurance:SELF PAY [facility] Number: Effective Repository Date:2018-02-19 11/14/2017 DEVONTE Buchanan Primary DEVONTE Pedroza [id number] [place] P[place] TORRESDOB: Community LNAPT [facility] Number: [id number] Medical Center [address]Mfj: [id number] Repository Date:2017-11-14P.O. () ALEXEI HUYNH MD [id number]: 11/14/2017 Secondary NOT GIVENUNK Yovany Insurance:SELF PAY [facility] Number: Effective Repository Date:2017-11-14 08/20/2017 DEVONTE Buchanan Primary DEVONTE Pedroza [id number] [place] Insurance[place] P[place] TORRESDOB: Community LNAPT [facility] Number: [id number] Medical Center [address]Pqp: [id number] Repository Date:2017-08-06P.O. () ALEXEI HUYNH MD [id number]: 08/20/2017 Secondary NOT GIVENUNK Yovany Insurance:SELF PAY [facility] Number: Effective Repository Date:2017-08-20 08/19/2017 DEVONTE Buchanan Yovany [id number] [place] Insurance[place] P[place] TORRESDOB: Community LNAPT [facility] Number: [id number] Medical Center [address]Neq: [id number] Repository Date:12P.O. (HP) ALEXEI HUYNH MD [id number]: 08/19/2017 Secondary NOT GIVENUNK Yovany Insurance:SELF PAY [facility] Number: Effective Repository Date:2017-08-19 08/01/2017 DEVONTE Buchanan Primary DEVONTE Pedroza [id number] [place] Insurance:[place] PPO TORRESDOB: Community LNAPT [facility] Number: [id number] Medical Center [address]Noa: [id number] Repository Date:2017-07-31P.O. () BOX MD LINO [address]WL: 08/01/2017 Secondary NOT GIVENUNK Yovany Insurance:SELF PAY [facility] Number: Effective Repository Date:2017-08-01 07/31/2017 DEVONTE Pedroza [id number] [place] Insurance[place] P[place] TORRESDOB: Community LNAPT [facility] Number: [id number] Medical Center [address]Xqb: [id number] Repository Date:2017-07-31P.O. () BOX MD LINO [address]84[address]KF: 07/31/2017 Secondary NOT GIVENUNK Dozier Insurance:SELF PAY [facility] Number: Effective Repository Date:2017-07-31 07/31/2017 DEVONTE Buchanan Primary DEVONTE Pedroza [id number] [place] PPO TORRESDOB: Community LNAPT [facility] Number: [id number] Medical Center [address]Jwk: [id number] Repository Date:2017-07-31[address]. () [address] RUSLAN [address]BN: 07/31/2017 Secondary NOT GIVENUNK Dozier Insurance:SELF PAY [facility] Number: Effective Repository Date:2017-07-31 07/31/2017 DEVONTE Hernandezoster [id number] [place] Insurance[place] PPO TORRESDOB: Community LNAPT [facility] Number: [id number] Medical Center [address]Bvr: [id number] Repository Date:2017-07-31P.O. (HP) ALEXEI HUYNH MD [id number]: 07/31/2017 Secondary NOT GIVENUNK Dozier Insurance:SELF [facility] Effective Repository Date:2017-07-31 07/31/2017 DEVONTE Buchanan Primary DEVONTE Pedroza [id number] [place] Insurance:[place] PPO TORRESDOB: Community LNAPT [facility] Number: [id number] Medical Center [address]Vrx: [id number] Repository Date:2017-07-31P.O. (HP) ALEXEI HUYNH MD [id number]: 07/31/2017 Secondary NOT GIVENUNK Dozier Insurance:SELF PAY [facility] Number: Effective Repository Date:2017-07-31 07/31/2017 DEVONTE Buchanan Primary DEVONTE Pedroza [id number] [place] Insurance:[place] PPO TORRESDOB: Community LNAPT [facility] Number: [id number] Medical Center [address]Seb: [id number] Repository Date:2017-07-31P.O. () ALEXEI HUYNH MD [id number]: 07/31/2017 Secondary NOT GIVENUNK Dozier Insurance:SELF PAY [facility] Number: Effective Repository Date:2017-07-31 05/25/2017 Devonte Buchanan Primary Devonte Hernandezoster [id number] [place] Insurance:[place] PPO TorresDOB: [facility] Number: [id number], [place] [id number] Repository [address]Aym: [phone]) Date:2017-05-25P.O. [phone] (HP) ALEXEI HUYNH MD [id number]: 05/25/2017 Secondary NOT GIVENUNK Dozier Insurance:SELF PAY [facility] Number: Effective Repository Date:2017-05-25
== END ==
PROVIDERS: Referring Provider Internal Medicine Cardiovascular Disease; Visit Provider Internal Medicine Cardiovascular Disease
DX: E78.00 Pure hypercholesterolemia, unspecified (principal)
CPT/HCPCS: 36415; 80061; 80076

== ENCOUNTER 2018-08-27 02:09 | Emergency (ER) | payer OTHER, SELFPAY ==
[2018-04-17 12:23] VITALS: BMI 35.9
[2018-08-27 02:10] VITALS: BP 153/94; PULSE 71; RESP 16; TEMP 36.4; O2SAT 97; BMI 35.0
--- NOTE | 2018-08-27 02:22 | ED.VIS.GEN ---
History of Present Illness Chief Complaint: Lower Extremity Injury Informant: Patient Narrative: She stated for the last few days he is noticed he has had some water on his left knee with soreness. Comes in for further evaluation. Thinks he did it doing sit ups. Current severity is mild. No home treatment. Worse with movement. Relieved with rest. 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 Smoking Status: Never smoker Alcohol: None Drugs: None - Family History Paternal Family History: Family History (Last Reviewed 04/17/18 @ 13:11 by Edis Lee MD) Mother Heart disease Myocardial infarction Family History: Reports: Diabetes Maternal Family History: Family History (Last Reviewed 04/17/18 @ 13:11 by Edis Lee MD) Mother Heart disease Myocardial infarction Family History: Reports: Heart Disease Review of Systems General: Denies: Chills, Fever, Sweats Eyes: Denies: Visual changes - bilaterally, Diplopia ENT: Denies: Rhinorrhea, Sore throat Cardiovascular: Denies: Chest pain, Palpitations Respiratory: Denies: Dyspnea, Cough, Dyspnea on exertion Gastrointestinal: Denies: Abdominal pain, Nausea, Vomiting, Diarrhea, Melena, Hematochezia Genitourinary: Denies: Dysuria, Hematuria, Frequency Musculoskeletal: Reports: Extremity Pain. Denies: Back pain Skin: Denies: Rash, Wounds Neurological: Denies: Headache, Weakness, Numbness Physical Exam Vital Signs/Narrative: Vital Signs Temp Pulse Resp BP Pulse Ox 08/27/18 02:10 97.6 F L 71 16 153/94 H 97 General: Well nourished, Well developed, No Acute Distress Head: Normocephalic, Atraumatic Eyes: Perrl, EOMI ENT: Moist mucous membranes, No rhinorrhea Neck: Supple, Nontender Cardiovascular: Regular rate, Regular rhythm, No murmurs Respiratory: No distress, CTA bilaterally, Chest nontender Abdomen: Soft, Nontender, Nondistended, Normal bowel sounds Back: Nontender, Normal Inspection Extremities: No edema, - - Patient has a prepatellar bursitis with inflammation. No redness. Mild fluid in the bursa. Mild tenderness. Negative for: Nontender Skin: Normal color, No rash Neurological: Alert, Oriented x3, Cranial nerves II-XII grossly intact, Normal Strength, Normal Sensation Psychological: Normal affect, Normal Mood Diagnostic/Tx/Re-eval - Medical Decision Making Patient has a prepatellar bursitis. I do not feel is infected. Given ibuprofen and Fabian bandage. Will be given a prescription for meloxicam and will ice and follow-up as an outpatient ED Disposition - Plan for ED Patient: Disposition: Home or Assisted Living Diagnosis: Prepatellar bursitis Instructions: Bursitis Prescriptions: Meloxicam 15 mg PO DAILY #14 tab Prescription Printed Referrals: Eddie Hughes [Primary Care Provider] - Brent Vargas MD [STAFF PHYSICIAN] -
[2018-08-27] MEDS: Ibuprofen 400 MG Tablet 800 MG PO (02:26)
== END 2018-08-27 02:38 | disposition home or self-care (01) ==
LOC: ED 02:35
PROVIDERS: Emergency Provider Emergency Medicine
DX: M70.42 Prepatellar bursitis, left knee (principal); Y93.9 Activity, unspecified; I10 Essential (primary) hypertension; E78.5 Hyperlipidemia, unspecified; I25.118 Atherosclerotic heart disease of native coronary artery with other forms of angina pectoris; E66.9 Obesity, unspecified; I45.10 Unspecified right bundle-branch block; I25.2 Old myocardial infarction; Z87.19 Personal history of other diseases of the digestive system; Z79.82 Long term (current) use of aspirin; Z79.899 Other long term (current) drug therapy
CPT/HCPCS: 99283

== ENCOUNTER → 2018-08-28 | Outpatient (CLI) | payer OTHER, SELFPAY ==
[2018-08-27 02:10] VITALS: BMI 35.0
== END | disposition home or self-care (01) ==
LOC: LABSPEC 16:04
PROVIDERS: Referring Provider Physician Assistant Surgical; Visit Provider Physician Assistant Surgical
DX: Z00.00 Encounter for general adult medical examination without abnormal findings (principal)

== ENCOUNTER → 2018-09-26 | Outpatient (CLI) | payer OTHER, SELFPAY ==
[2018-08-27 02:10] VITALS: BMI 35.0
[2018-09-26 08:03] LABS: Color, Urine Yellow (Yellow); Glucose, Dipstick Normal (Normal); Ketone-Dipstick Negative (Negative); Leukocyte Esterase-Dipstick Negative /ul (Negative); Nitrite-Dipstick Negative (Negative); Occult Blood-Urine Negative /ul (Negative); Protein-Dipstick Negative (Negative); Urine Bilirubin Dipstick Negative (Negative); Urine Clarity Clear (Clear); Urine Urobilinogen Normal (Normal)
[2018-09-26 08:06] LABS: Absolute Neutrophil Count 1.7 X10^3/uL (2.0-7.7); Basophil# 0.06 X10^3/uL; Basophil% 1.5 % (0-1); Eosinophil# 0.27 X10^3/uL; Eosinophils% 6.7 % (0-5); Lymphocyte % 37.3 % (19-41); Mean Corp Hgb Conc 34.1 g/dL (32-36); Mean Corpuscular Hgb 30.1 pg (27.0-32.0); Mean Corpuscular Volume 88.4 fL (80-94); Mean Platelet Vol. 9.8 fl (6.2-12.0); Monocyte# 0.45 X10^3/uL; Monocyte% 11.2 % (0-10); NRBC Flagged by Analyzer 0 % (0-5); Neutrophil # 1.72 X10^3/uL (2.7-7.7); Neutrophil % 42.8 % (47-70); Platelet Count 244 K/mm3 (150-450); RBC Distribution Width CV 13.1 % (11.6-14.6); RBC Distribution Width SD 42.4 fl (35.1-43.9); Red Blood Count 4.98 M/mm3 (4.6-6.2)
[2018-09-26 08:43] LABS: ALB/GLOB Ratio 1.2 RATIO (0.9-2.4); AST(SGOT) 21 U/L (15-37); Alanine Aminotransfer ALT/SGPT 38 U/L (16-61); Albumin, Serum 3.8 g/dL (3.2-5.0); Alkaline Phosphatase 85 U/L (45-117); Anion Gap 5 (5-15); BUN 12 mg/dL (7-18); BUN/Creat Ratio 10.7 RATIO (10-20); Bilirubin, Direct 0.24 mg/dL (0.00-0.30); Calcium,Total 8.6 mg/dL (8.5-10.1); Chloride 106 mmol/L (98-107); Cholesterol 103 mg/dL (200); Creatinine, Serum 1.12 mg/dL (0.70-1.30); EST Glomerular Filtration Rate 75 mL/min (>60); Est Glom Filt Rate - Afr Amer 91 mL/min (>60); Globulin 3.1 g/dL (2.2-4.2); Glucose 102 mg/dL (74-106); High Density Lipoprotein 36 mg/dL; Potassium 3.8 mmol/L (3.5-5.1); Protein, Total 6.9 g/dL (6.4-8.2); Sodium Level 138 mmol/L (136-145); Triglycerides 109 mg/dL; Very Low Density Lipoprotein 22 mg/dL (5-40)
== END | disposition home or self-care (01) ==
PROVIDERS: Internal Medicine Cardiovascular Disease; Referring Provider Family Medicine; Visit Provider Family Medicine
DX: Z00.00 Encounter for general adult medical examination without abnormal findings (principal); I25.10 Atherosclerotic heart disease of native coronary artery without angina pectoris; I10 Essential (primary) hypertension
CPT/HCPCS: 36415; 80053; 80061; 81002; 82248; 85025

== ENCOUNTER → 2019-03-27 07:56 | Outpatient (CLI) | payer OTHER, SELFPAY ==
[2019-03-27 08:51] LABS: AST(SGOT) 22 U/L (15-37); Alanine Aminotransfer ALT/SGPT 46 U/L (16-61); Albumin, Serum 4.3 g/dL (3.2-5.0); Alkaline Phosphatase 90 U/L (45-117); Bilirubin, Direct 0.24 mg/dL (0.00-0.30); Cholesterol 121 mg/dL (200); Globulin 3.6 g/dL (2.2-4.2); High Density Lipoprotein 41 mg/dL; Protein, Total 7.9 g/dL (6.4-8.2); Triglycerides 128 mg/dL; Very Low Density Lipoprotein 26 mg/dL (5-40)
== END ==
PROVIDERS: Referring Provider Family Medicine; Visit Provider Family Medicine
DX: E78.5 Hyperlipidemia, unspecified (principal)
CPT/HCPCS: 36415; 80061; 80076

== ENCOUNTER → 2019-10-09 07:07 | Outpatient (CLI) | payer OTHER, SELFPAY ==
[2019-04-22 09:39] VITALS: BMI 36.4
[2019-10-09 08:16] LABS: Absolute Lymphocyte Count 1.23 X10^3/uL (0.83-4.51); Absolute Neutrophil Count 1.3 X10^3/uL (2.0-7.7); Basophil# 0.05 X10^3/uL; Basophil% 1.5 % (0-1); Eosinophil# 0.21 X10^3/uL; Eosinophils% 6.3 % (0-5); Hemoglobin 13.8 g/dL (13.0-16.5); Lymphocyte # 1.23 X10^3/ul (4.0); Lymphocyte % 36.7 % (19-41); Mean Corp Hgb Conc 32.9 g/dL (32-36); Mean Corpuscular Hgb 30.3 pg (27.0-32.0); Mean Corpuscular Volume 92.3 fL (80-94); Mean Platelet Vol. 9.8 fl (6.2-12.0); Monocyte# 0.55 X10^3/uL; Monocyte% 16.4 % (0-10); NRBC Flagged by Analyzer 0 % (0-5); Neutrophil # 1.29 X10^3/uL (2.7-7.7); Neutrophil % 38.5 % (47-70); Platelet Count 240 K/mm3 (150-450); RBC Distribution Width CV 12.6 % (11.6-14.6); RBC Distribution Width SD 42.3 fl (35.1-43.9); Red Blood Count 4.55 M/mm3 (4.6-6.2); White Blood Count 3.4 K/mm3 (4.4-11.0)
[2019-10-09 08:22] LABS: Color, Urine Yellow (Yellow); Glucose, Dipstick Normal (Normal); Ketone-Dipstick Negative (Negative); Leukocyte Esterase-Dipstick Negative /ul (Negative); Nitrite-Dipstick Negative (Negative); Occult Blood-Urine Negative /ul (Negative); Protein-Dipstick Negative (Negative); Specific Gravity, Urine 1.015 (1.002-1.030); Urine Bilirubin Dipstick Negative (Negative); Urine Clarity Clear (Clear); Urine Urobilinogen 1 mg/dl (Normal)
[2019-10-09 09:21] LABS: AST(SGOT) 27 U/L (15-37); Alanine Aminotransfer ALT/SGPT 49 U/L (16-61); Albumin, Serum 3.7 g/dL (3.2-5.0); Alkaline Phosphatase 104 U/L (45-117); Anion Gap 3 (5-15); BUN 14 mg/dL (7-18); BUN/Creat Ratio 12.4 RATIO (10-20); Calcium,Total 8.2 mg/dL (8.5-10.1); Chloride 109 mmol/L (98-107); Cholesterol 96 mg/dL (200); Creatinine, Serum 1.13 mg/dL (0.70-1.30); EST Glomerular Filtration Rate 74 mL/min (>60); Est Glom Filt Rate - Afr Amer 89 mL/min (>60); Globulin 3.6 g/dL (2.2-4.2); Glucose 105 mg/dL (74-106); High Density Lipoprotein 32 mg/dL; Potassium 4.5 mmol/L (3.5-5.1); Protein, Total 7.3 g/dL (6.4-8.2); Sodium Level 140 mmol/L (136-145); Triglycerides 111 mg/dL; Very Low Density Lipoprotein 22 mg/dL (5-40)
== END ==
PROVIDERS: Referring Provider Family Medicine; Visit Provider Family Medicine
DX: Z00.00 Encounter for general adult medical examination without abnormal findings (principal); E78.5 Hyperlipidemia, unspecified; I10 Essential (primary) hypertension
CPT/HCPCS: 36415; 80053; 80061; 81002; 85025

== ENCOUNTER → 2020-04-29 06:58 | Outpatient (CLI) | payer OTHER, SELFPAY ==
[2020-04-25 07:50] VITALS: BMI 36.7
[2020-04-29 09:02] LABS: AST(SGOT) 23 U/L (15-37); Alanine Aminotransfer ALT/SGPT 43 U/L (16-61); Albumin, Serum 3.9 g/dL (3.2-5.0); Alkaline Phosphatase 88 U/L (45-117); Bilirubin, Direct 0.19 mg/dL (0.00-0.30); Cholesterol 117 mg/dL (200); Globulin 3.7 g/dL (2.2-4.2); High Density Lipoprotein 43 mg/dL; Protein, Total 7.6 g/dL (6.4-8.2); Triglycerides 116 mg/dL; Very Low Density Lipoprotein 23 mg/dL (5-40)
== END ==
PROVIDERS: Referring Provider Internal Medicine Cardiovascular Disease; Visit Provider Internal Medicine Cardiovascular Disease
DX: E78.00 Pure hypercholesterolemia, unspecified (principal)
CPT/HCPCS: 36415; 80061; 80076

== ENCOUNTER 2020-07-21 04:35 | Emergency (ER) | payer OTHER, SELFPAY ==
[2020-04-25 07:50] VITALS: BMI 36.7
[2020-07-21 04:36] VITALS: BP 138/81; PULSE 112; RESP 20; TEMP 37.3; O2SAT 97; BMI 37.1
[2020-07-21 04:38] VITALS: BP 138/81; PULSE 112; RESP 20; TEMP 37.3; O2SAT 97
[2020-07-21 04:42] VITALS: O2SAT 97
--- NOTE | 2020-07-21 05:28 | EDS_ITS ---
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 Tonight he coughed up a small amount of blood. He is healthy except for history of a non-STEMI, he is a non-smoker, he has had no contact with anyone that he knows of with Covid, but he has never had it and he has not been vaccinated. No known sick contacts lately. He denies dyspnea. He feels very fatigued. ROS ROS ED Constitutional Constitutional ED: Reports fatigue and malaise; Denies chills or fever(s) Eyes Eyes: Denies change in vision or diplopia ENT ENT ED: Denies rhinorrhea or sore throat Cardiovascular Cardiovascular: Denies palpitations Respiratory/Chest Respiratory/Chest: Denies dyspnea Gastrointestinal Gastrointestinal: Denies abdominal pain, diarrhea, nausea or vomiting Genitourinary Genitourinary ED: Denies dysuria or hematuria Musculoskeletal Musculoskeletal: Denies back pain or neck pain Integumentary Denies abscess or rash Neurologic Neurologic: Denies headache(s), paresthesias or weakness Psychiatric Psychiatric: Denies anxiety or suicidal thoughts [facility] Medical History (Updated 07/21/20 @ 06:[address] Travis Castellon MD) Chronic back pain Diverticulitis Essential (primary) hypertension Fatty liver Gout Hyperlipidemia Non-STEMI (non-ST elevated myocardial infarction) (07/31/17) Nonocclusive coronary atherosclerosis of [place] coronary artery Obesity (BMI 30.0-34.9) Right bundle branch block Vasospastic angina Home Medications allopurinol 100 mg PO DAILYCM 11/20/14 [History Last Taken 07/31/17] aspirin 81 mg chewable tablet 81 mg PO DAILY@0800 #90 tab 04/22/19 [Rx Last Taken Unknown] amlodipine 5 mg tablet 5 mg PO DAILY #90 tab 04/25/20 [Rx Last Taken Unknown] atorvastatin 80 mg tablet 80 mg PO QHS #90 tab 04/25/20 [Rx Last Taken Unknown] lisinopril 10 mg tablet 10 mg PO DAILY #90 tab 04/25/20 [Rx Last Taken Unknown] Allergy/AdvReac Type Severity Reaction Status Date / Time No Known Allergies Allergy Verified 07/21/20 04:39 Family History Mother Heart disease Myocardial infarction [place] at age 35 Surgical History History of bowel resection History of left heart catheterization (08/01/17) Social History Smoking Status: Never smoker EXAM Physical Exam Const Vital Signs: 07/21/20 04:36 07/21/20 04:38 07/21/20 04:42 Temperature 99.2 F H 99.2 F H Temperature Source Oral Oral Pulse Rate 112 H 112 H Respiratory Rate 20 H 20 H Respiratory Effort Normal Blood Pressure 138/81 H 138/81 H Blood Pressure Mean 100 100 Pulse Ox 97 97 07/21/20 06:05 Temperature 99.2 F H Temperature Source Oral Pulse Rate 112 H Respiratory Rate 20 H Respiratory Effort Blood Pressure 138/81 H Blood Pressure Mean 100 Pulse Ox 97 Positive well nourished and well developed General Appearance ED: well developed and NAD HEENT Reports moist mucous membranes normocephalic and atraumatic Eyes PERRL and EOMs intact bilaterally Neck full ROM and supple Resp normal respiratory effort and clear to auscultation bilaterally Cardio regular rate, regular rhythm and no murmurs Rate: tachycardic GI non-tender and non-distended Auscultation: normoactive bowel sounds Palpation: soft Back/Spine no CVA tenderness General Back: other FROM Extremity normal to inspection and no calf tenderness General Extremety ED: Negative for edema, pulses abnormal or tenderness General Extremity: Negative for edema or pulses abnormal Neuro oriented x3, CN's II-XII intact bilaterally and no sensory deficits noted Sensorium / Orientation: awake and alert Motor Exam: strength 5/5 throughout Skin no rashes or lesions noted and no wounds MDM MDM MDM Narrative Medical decision making narrative: Patient's influenza is negative and his rapid COVID-19 test returned positive. This is consistent with his history, and likely a true positive. He is not hypoxemic, and at this time does not meet criteria for admission or outpatient oxygen treatment but since his BMI is 37, he does potentially meet criteria for outpatient monoclonal antibody infusion. He was advised to isolate, and he was referred to the outpatient infusion clinic. Radiography Chest X-Ray - ED: 1 View, Read by ED Physician and - (Bibasilar interstitial infiltrates) Diagnostic Testing: Radiology Impression Chest X-Ray 07/21/20 05:45 IMPRESSION: Limited nearly nondiagnostic study with artifact. Nonspecific interstitial prominence. Electronically Signed: Arpita Goldberg MD at 6:16 EDT Tel , Service support , Discharge Plan Triage Chief Complaint: Cough ED Provider: Travis Castellon Dx/Rx/DC Orders Clinical Impression: COVID-19 Instructions: Coronavirus Disease 2019 (COVID-19): Caring for Yourself or Others, ED - COVID Monoclonal AB Infusion ... Prescriptions: No Action aspirin 81 mg tablet,chewable 81 mg PO DAILY@0800 Qty: 90 RF: 5 amlodipine 5 mg tablet 5 mg PO DAILY Qty: 90 RF: 5 atorvastatin 80 mg tablet 80 mg PO QHS Qty: 90 RF: 5 lisinopril 10 mg tablet 10 mg PO DAILY Qty: 90 RF: 3 allopurinol 100 MG tablet 100 mg PO DAILYCM RF: 0 Other Ambulatory Orders: COVID: Outpatient Monoclonal Antibody Referral (Routine) Location: None Selected Ordered By: Dr. Travis Castellon Primary Care Provider: Eddie Hughes Referrals: Eddie Hughes [Primary Care Provider] - Activity Restrictions/Additional Instructions: Try to get a pulse oximeter to monitor your oxygen levels at home and make sure that they stay at or above 90%. If they drop below this and you are feeling short of breath, return to the ER. Disposition Disposition: Home, self care Discharge Date/Time: 07/21/20 06:43
--- NOTE | 2020-07-21 05:45 | RAD_ITS ---
STUDY: X-RAY CHEST REASON FOR EXAM: Male, 50 years old. Cough TECHNIQUE: Single AP portable view of the chest. The study is limited. There is a grainy artifactual appearance of the chest. COMPARISON: None. FINDINGS: Allowing for the artifact interstitial markings are mildly prominent. There is no demonstrated pleural abnormality. Normal size heart. Normal mediastinum and howard. Normal visualized pulmonary arteries. Normal visualized aortic arch and descending thoracic aorta. Normal visualized thoracic spine. Normal visualized ribs, clavicles, and shoulders. There is no demonstrated abnormality of the visualized soft tissue structures of the upper abdomen. RAD/Chest 1 View (Portable) IMPRESSION: Limited nearly nondiagnostic study with artifact. Nonspecific interstitial prominence. Electronically Signed: Arpita Goldberg MD at 6:16 EDT Tel , Service support ,
[2020-07-21 06:05] VITALS: BP 138/81; PULSE 112; RESP 20; TEMP 37.3; O2SAT 97
== END 2020-07-21 06:43 | disposition home or self-care (01) ==
PROVIDERS: Emergency Provider Emergency Medicine
DX: U07.1 COVID-19 (principal); I25.2 Old myocardial infarction; G89.29 Other chronic pain; I10 Essential (primary) hypertension; K76.0 Fatty (change of) liver, not elsewhere classified; M10.9 Gout, unspecified; E78.5 Hyperlipidemia, unspecified; E66.9 Obesity, unspecified; Z68.37 Body mass index [BMI] 37.0-37.9, adult; I45.10 Unspecified right bundle-branch block; I25.111 Atherosclerotic heart disease of native coronary artery with angina pectoris with documented spasm; Z87.19 Personal history of other diseases of the digestive system; Z79.82 Long term (current) use of aspirin; Z79.899 Other long term (current) drug therapy
CPT/HCPCS: 71045; 87426; 87804; 99282

== ENCOUNTER 2020-07-25 18:15 | Inpatient (IN) | payer OTHER, SELFPAY ==
[2020-07-25] VITALS (16 sets, daily range): BP systolic 103–155; BP diastolic 58–98; PULSE 70–118; RESP 12–41; TEMP 36–38.3; O2SAT 71–98; BMI 34.4; BMI 35.2
--- NOTE | 2020-07-25 18:52 | EKG12_ITS ---
Test Reason : DYSRHYTHMIA Blood Pressure : / mmHG Vent. Rate : 105 BPM Atrial Rate : 105 BPM P-R Int : 120 ms QRS Dur : 134 ms QT Int : 340 ms P-R-T Axes : 045 030 017 degrees QTc Int : 449 ms Sinus tachycardia Right bundle branch block Abnormal ECG Confirmed by HEATHER ABAD, KEYANA ([id number]), publication editor LEONARDO VIDAL ([id number]) on 07/28/2020 11:33:37 A M Referred By: CL Confirmed By:MICHAEL ROMERO MD
[2020-07-25] MEDS: Ipratropium/Albuterol Sulfate 3 ML AMPUL.NEB INHALATION (18:58)
[2020-07-25] MEDS: Ketorolac 15 MG/ML Vial IV (18:58)
--- NOTE | 2020-07-25 19:03 | ED.RN ---
PT COMES BACK FROM TRIAGE WITH SPO2 SAT 77 ON ROOM AIR. PT SATTING 80 ON 10L NC. 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 PT PLACED ON NONREBREATHER AT 15L NC AND MD AT BEDSIDE. IV INITIATED. PT PLACED ON BI-PAP AND MOVED TO TRAUMA ROOM 2. FAMILY AT BEDSIDE UPDATED ON CARE. PT A+0X3.
[2020-07-25 19:14] LABS: Absolute Neutrophil Count 4.2 X10^3/uL (2.0-7.7); Basophil# 0.02 X10^3/uL; Basophil% 0.4 % (0-1); Hematocrit 43.4 % (40-54); Hemoglobin 14.6 g/dL (13.0-16.5); Lymphocyte % 11.5 % (19-41); Mean Corp Hgb Conc 33.6 g/dL (32-36); Mean Corpuscular Volume 89.3 fL (80-94); Mean Platelet Vol. 9.6 fl (6.2-12.0); Monocyte% 7.6 % (0-10); NRBC Flagged by Analyzer 0 % (0-5); Neutrophil # 4.18 X10^3/uL (2.7-7.7); Neutrophil % 79.7 % (47-70); POSITIVE DIFFERENTIAL YES; Platelet Count 268 K/mm3 (150-450); RBC Distribution Width CV 12.3 % (11.6-14.6); RBC Distribution Width SD 40.5 fl (35.1-43.9); Red Blood Count 4.86 M/mm3 (4.6-6.2); White Blood Count 5.2 K/mm3 (4.4-11.0)
[2020-07-25] MEDS: dexAMETHasone 4 MG/ML Vial 6 MG IV (19:16)
[2020-07-25 19:19] LABS: Differential Indicated SCAN CRITERIA MET
--- NOTE | 2020-07-25 19:28 | RAD_ITS ---
STUDY: X-RAY CHEST REASON FOR EXAM: Male, 50 years old. cough TECHNIQUE: Single AP portable view of the chest. COMPARISON: 07/21/2020. FINDINGS: No pleural effusion. Mild hazy opacities bilaterally, suspicious for pneumonia. Normal size heart. Normal mediastinum and howard. Normal visualized pulmonary arteries. Normal visualized aortic arch and descending thoracic aorta. Normal visualized thoracic spine. Normal visualized ribs, clavicles, and shoulders. There is no demonstrated abnormality of the visualized soft tissue structures of the upper abdomen. RAD/Chest 1 View (Portable) IMPRESSION: Bilateral hazy opacities suspicious for pneumonia. Consider typical and atypical etiologies such as Covid19 pneumonia. Electronically Signed: Polly Salmeron MD at 19:59 EDT Tel , Service support ,
[2020-07-25 19:30] LABS: ALB/GLOB Ratio 0.7 RATIO (0.9-2.4); AST(SGOT) 46 U/L (15-37); Alanine Aminotransfer ALT/SGPT 61 U/L (16-61); Albumin, Serum 3.2 g/dL (3.2-5.0); Alkaline Phosphatase 121 U/L (45-117); Anion Gap 5 (5-15); BUN 16 mg/dL (7-18); BUN/Creat Ratio 12.7 RATIO (10-20); Calcium,Total 8.2 mg/dL (8.5-10.1); Chloride 101 mmol/L (98-107); Creatinine, Serum 1.26 mg/dL (0.70-1.30); EST Glomerular Filtration Rate 65 mL/min (>60); Est Glom Filt Rate - Afr Amer 79 mL/min (>60); Estimated Creatinine Clearance 74.03 ml/min; Globulin 4.4 g/dL (2.2-4.2); Glucose 133 mg/dL (74-106); Lactic Acid 1.4 mmol/L (0.4-1.9); Protein, Total 7.6 g/dL (6.4-8.2); Sodium Level 133 mmol/L (136-145)
[2020-07-25 19:36] LABS: Base Excess -1 mmol/L (-2 to +2); Bicarbonate 22.5 mmol/L (22-26); Blood Gas Specimen Type ART; FI02 90; O2 Delivery Device BiPAP; PO2 62 mmHG (75-100); SITE R Brach; SO2 93 % (95-99); Total Carbon Dioxide 24 mmol/L; pH 7.46 (7.35-7.45)
[2020-07-25 19:37] LABS: D-Dimer Quantitative (DVT/PE) 0.94 FEU/ug/m (0.27-0.49)
--- NOTE | 2020-07-25 19:54 | CT_ITS ---
STUDY: CTA CHEST REASON FOR EXAM: Male, 50 years old. dyspnea RADIATION DOSAGE (If Supplied By Facility): CTDIvol = ( 10.29 ) mGy, DLP = ( 455.45 ) mGycm TECHNIQUE: The examination was performed with the intravenous administration of IV 100mL Isovue-370. Post-processing of the angiographic images was performed, with multiplanar reformation and 3D reconstruction. Individualized dose optimization techniques were used for this CT. COMPARISON: 08/01/2017. FINDINGS: Heart size and pericardium are unremarkable. The aorta is normal in caliber. No aneurysm or dissection. There is no mediastinal mass. Mild mediastinal and bilateral hilar adenopathy. There is no evidence of pulmonary embolus. There is no pleural effusion. Moderate to severe bilateral airspace disease, greatest in the right upper lobe and bilateral lung bases. Ground glass opacities greatest in the upper lobes. Visualized abdomen is unremarkable. There is no osseous abnormality. CT/CTA Chest W/WO Contrast IMPRESSION: 1. No pulmonary embolism or arterial dissection. 2. Multilobar airspace disease and groundglass opacities. Consider typical and atypical etiologies. Findings are nonspecific but imaging features may be seen with Covid19 pneumonia. 3. Mild mediastinal and hilar adenopathy, likely reactive. Electronically Signed: Polly Salmeron MD at 22:49 EDT Tel , Service support ,
[2020-07-25 19:56] LABS: Differential Comment SCANNED
--- NOTE | 2020-07-25 20:22 | HP.PCM.HOS_ITS ---
HPI - General HPI Narrative The patient is a 50 y/o M w/ PMHx: Non-occlusive CAD s/p NSTEMI 2018, HTN, Obesity, Chronic back discomfort, Fatty liver, Gout, Former Tobacco use who presents to the [facility] ED on 07/25/20 with history of onset malaise, fatigue, chills, nausea, occasional emesis (more clear mucus), diarrhea without abdominal pain or cramping, cough and dyspnea starting on 07/16/20 which has steadily worsened prompting ED evaluation. He lives with his and two older children, one of whom has asthma and has had a mild cough now on prednisone therapy. He denies any high fevers, bodyaches, headaches, congestion, sore throat or alteration to sense of taste and smell. Work-up in the ED included T100 0.9, heart rate 117, BP 143/58, respiratory rate 28, 71% on room air initially transitioned to 6 L noted to be 82% eventually transitioned to BiPAP 90% on 90% FiO2, improvement with most recent vital signs included T 99.2, heart rate 95, BP 119/69, respiratory rate 32, 95% on 80% FiO2 BiPAP, CBC with WC 5.2, hemoglobin 14.6, platelet 268 with lymphopenia, D-dimer 0.94, ABG with pH 7.46, O2 saturation 93%, PCO2 32, PO2 62, performed on BiPAP, sodium 133, glucose 133, total bilirubin 1.20, AST/LT 46/61, alk phos 121, troponin less than 0.015, chest x-ray with bilateral hazy opacities, recent SARS Covid rapid antigen + , blood culture x2 pending per ED. in the ED patient ministered Toradol 50 mg IV x1, DuoNeb therapy as well as Decadron 6 mg IV x1, EKG w/ sinus tachycardia with RBBB. Given elevated dimer and acute presentation CTPA ordered per ED physician and pending upon evaluation of patient. [facility] Medical History (Updated 07/25/20 @ 20:[address] Adina Linder MD) Chronic back pain Diverticulitis Essential (primary) hypertension Fatty liver Gout Hyperlipidemia Non-STEMI (non-ST elevated myocardial infarction) (07/31/17) Nonocclusive coronary atherosclerosis of [place] coronary artery Obesity (BMI 30.0-34.9) Right bundle branch block Vasospastic angina Home Medications allopurinol 100 mg PO DAILYCM 11/20/14 [History Last Taken 07/31/17] aspirin 81 mg chewable tablet 81 mg PO DAILY@0800 #90 tab 04/22/19 [Rx Last Taken Unknown] amlodipine 5 mg tablet 5 mg PO DAILY #90 tab 04/25/20 [Rx Last Taken Unknown] atorvastatin 80 mg tablet 80 mg PO QHS #90 tab 04/25/20 [Rx Last Taken Unknown] lisinopril 10 mg tablet 10 mg PO DAILY #90 tab 04/25/20 [Rx Last Taken Unknown] Allergy/AdvReac Type Severity Reaction Status Date / Time No Known Allergies Allergy Verified 07/21/20 04:39 Family History (Updated 07/25/20 @ 20:[address] Adina Linder MD) Mother Heart disease Myocardial infarction [place] at age 35 Father Diabetes Surgical History History of bowel resection History of left heart catheterization (08/01/17) Social History (Updated 07/25/20 @ 20:[address] Adina Linder MD) household members: spouse Smoking Status: Former smoker how long ago did patient quit smoking: Patient quit cigarette tobacco you approximately 17 years prior. alcohol intake: never substance use type: does not use ROS ROS Narrative Admission Review of Systems: CONSTITUTIONAL: No weight loss, + fever, chills, weakness or fatigue. HEENT: Eyes: No visual loss, blurred vision, double vision or yellow sclerae. Ears, Nose, Throat: No hearing loss, sneezing, congestion, runny nose or sore throat. SKIN: No rash or itching, lesions, wounds. CARDIOVASCULAR: No chest pain, chest pressure or chest discomfort, palpitations, edema, orthopnea, syncopal events. RESPIRATORY: + shortness of breath, cough without marked sputum, No wheezing, hemoptysis. GASTROINTESTINAL: + anorexia, nausea, vomiting, diarrhea, No abdominal pain, melena, BRBPR. GENITOURINARY: No dysuria, frequency, urgency or retention. NEUROLOGICAL: No headache, dizziness, syncope, paralysis, ataxia, numbness or tingling in the extremities, focal weakness, change in bowel or bladder control, seizure. MUSCULOSKELETAL: + muscle, back pain, joint pain or stiffness. HEMATOLOGIC: No anemia, bleeding or bruising. LYMPHATICS: No enlarged nodes. No history of splenectomy. PSYCHIATRIC: No history of depression or anxiety. ENDOCRINOLOGIC: No reports of sweating, cold or heat intolerance. No polyuria or polydipsia. ALLERGIES: No history of asthma, hives, eczema or rhinitis. Vital Signs Vital Signs Vital Signs: 07/25/20 18:18 07/25/20 18:21 07/25/20 18:53 Temperature 100.9 F H 100.9 F H Temperature Source Temporal Temporal Pulse Rate 117 H 118 H 103 H Respiratory Rate 28 H 30 H 28 H Respiratory Effort Respiratory Pattern Blood Pressure 143/58 H 143/58 H 155/98 H Blood Pressure Mean 86 86 117 Pulse Ox 71 82 98 Oxygen Delivery Method Room Air Nasal Cannula Bi-pap Oxygen Flow Rate (L/min) 6 Fraction of Inspired Oxygen (FIO2) 90 07/25/20 19:02 07/25/20 19:16 07/25/20 19:20 Temperature 99.5 F H Temperature Source Temporal Pulse Rate 105 H 106 H Respiratory Rate 34 H 32 H Respiratory Effort Short of Breath Labored Accessory Muscle Use Retracting Respiratory Pattern Tachypnea Blood Pressure 149/72 H 149/72 H Blood Pressure Mean 97 97 Pulse Ox 95 93 Oxygen Delivery Method Bi-pap Bi-pap Oxygen Flow Rate (L/min) Fraction of Inspired Oxygen (FIO2) 80 80 07/25/20 19:44 07/25/20 20:13 Temperature 99.5 F H 99.2 F H Temperature Source Temporal Temporal Pulse Rate 97 95 Respiratory Rate 26 H 32 H Respiratory Effort Respiratory Pattern Blood Pressure 149/72 H 119/69 Blood Pressure Mean 97 85 Pulse Ox 95 95 Oxygen Delivery Method Bi-pap Bi-pap Oxygen Flow Rate (L/min) Fraction of Inspired Oxygen (FIO2) 80 Physical Exam Narrative Physical Examination: General: awake, alert, oriented x 3 and cooperative, seated upright in the ED bed, BiPAP in place, evident respiratory distress with increased work of breathing, accessory muscle usage, although improved since initial ED presentation. Skin: normal color, turgor, no icterus, cyanosis. HEENT: AT/NC, EOMI, PERRLA, dry MM, BiPAP in place is noted, no carotid bruits or JVD noted. Lungs: Diminished throughout, increased work of breathing accessory muscle usage, improved since initial ED presentation, BiPAP in place, no rales, ronchi or wheezing. Heart: Tachycardic with regular rhythm; no gallop, rub audible. Abdomen: soft, obese, NTTP, ND, distant mildly hyperactive BS, no HSM. Extremities: no cyanosis, clubbing, or edema. Neurological: patient awake, alert, oriented x 3, cognitive function intact despite acute presentation, improving; pupils equally reactive to light and accommodation, cranial nerves II-XII grossly normal, moving all 4 extremities, no focal deficits, strength severely global decrease secondary to acute presentation. Psychiatric: affect appears ill-appearing, fatigued, respiratory distress is noted although improving, no acute evidence of depressive or anxiety feelings. Lab / Micro Data Result Diagrams: 07/25/20 18:40 07/25/20 18:40 Labs: Laboratory Results - last 24 hr 07/25/20 07/25/20 07/25/20 18:40 18:40 18:40 WBC 5.2 RBC 4.86 Hgb 14.6 Hct 43.4 MCV 89.3 MCH 30.0 MCHC 33.6 RDW Std Deviation 40.5 RDW Coeff of Coleman 12.3 Plt Count 268 MPV 9.6 Immature Gran % (Auto) 0.800 Neut % (Auto) 79.7 H Lymph % (Auto) 11.5 L [place] % (Auto) 7.6 Eos % (Auto) 0.0 Baso % (Auto) 0.4 Absolute Neuts (auto) 4.2 Absolute Lymphs (auto) 0.60 L Nucleated RBC % 0 Differential Comment SCANNED D-Dimer Quant (PE/DVT) 0.94 H* Sodium 133 L Potassium 4.0 Chloride 101 Carbon Dioxide 27.0 Anion Gap 5 BUN 16 Creatinine 1.26 Estim Creat Clear Calc 74.03 Est GFR (MDRD) Af Amer 79 Est GFR (MDRD) Non-Af 65 BUN/Creatinine Ratio 12.7 Glucose 133 H Lactic Acid Calcium 8.2 L Total Bilirubin 1.20 H AST 46 H ALT 61 Alkaline Phosphatase 121 H Troponin I < 0.015 Total Protein 7.6 Albumin 3.2 Globulin 4.4 H Albumin/Globulin Ratio 0.7 L 07/25/20 18:40 WBC RBC Hgb Hct MCV MCH MCHC RDW Std Deviation RDW Coeff of [place] Plt Count MPV Immature Gran % (Auto) Neut % (Auto) Lymph % (Auto) [place] % (Auto) Eos % (Auto) Baso % (Auto) Absolute Neuts (auto) Absolute Lymphs (auto) Nucleated RBC % Differential Comment D-Dimer Quant (PE/DVT) Sodium Potassium Chloride Carbon Dioxide Anion Gap BUN Creatinine Estim Creat Clear Calc Est GFR (MDRD) Af Amer Est GFR (MDRD) Non-Af BUN/Creatinine Ratio Glucose Lactic Acid 1.4 Calcium Total Bilirubin AST ALT Alkaline Phosphatase Troponin I Total Protein Albumin Globulin Albumin/Globulin Ratio ABG Data ABG results: ABG 07/25/20 19:28 Specimen Type ART Sample Site R Brach pH 7.46 H Bicarbonate Actual 22.5 Total CO2 24 Base Excess -1 O2 Saturation 93 L O2 % 90 ABG pCO2 32.0 L ABG pO2 62 L Caesar Test N/A O2 Delivery Device BiPAP Clinical Comments Bipap 14 Radiology Impression Chest X-Ray 07/25/20 19:28 IMPRESSION: Bilateral hazy opacities suspicious for pneumonia. Consider typical and atypical etiologies such as Covid19 pneumonia. Electronically Signed: Polly Salmeron MD at 19:59 EDT Tel , Service support , Assessment & Plan Assessment/Plan (1) Acute respiratory failure with hypoxia: (2) Pneumonia due to COVID-19 virus: (3) Sepsis: QUALIFIERS: Sepsis type: sepsis due to unspecified organism Sepsis acute organ dysfunction status: unspecified Qualified Code(s): A41.9 - Sepsis, unspecified organism PLAN: The patient is a 50 y/o M w/ PMHx: Non-occlusive CAD s/p NSTEMI 2018, HTN, Obesity, Chronic back discomfort, Fatty liver, Gout, Former Tobacco use who presents to the [facility] ED on 07/25/20 with history of onset malaise, fatigue, chills, nausea, occasional emesis (more clear mucus), diarrhea without abdominal pain or cramping, cough and dyspnea starting on 07/16/20 which has jaime adily worsened prompting ED evaluation. 1. Acute Sepsis secondary to Acute Hypoxic Respiratory Failure secondary to Acute Bilateral Pneumonia secondary to Acute Viral Syndrome, COVID-19: Will admit to the ICU COVID unit, will maintain on BIPAP currently with transition to airvo as able and NC oxygen with wean as tolerated to room air, PRN albuterol inhaler, HOB, IS parameters w/ pending sputum cultures, respiratory viral panel and urine antigens, procalcitonin, CRP, CPK, Ferritin, LDH and BNP, will await CTPA ordered per ED, continue supportive care including q 2 hour turning including prone given no prone bed availability and judicious hydration, closely monitor for worsening status for ARDS and multiorgan failure, will consult Infectious disease, will initiate and continue IV decadron x 10 doses, given presentation will also initiate IV remdesivir but defer to discretion of Infectious disease. 2. Elevated LFTs: Patient with total bilirubin 1.20, AST/ALT 46/61, alk phos 121, likely secondary to acute presentation #1, continue trend CMP 3. Hyperglycemia: Admission glucose 133, likely stress response, hemoglobin A1c requested to be cautious. 4. CAD: Patient with history of prior NSTEMI, nonocclusive disease on cardiac catheterization, continue aspirin, statin, lisinopril, amlodipine regimen. Not on beta-marcos therapy. 5. Hypertension: Continue home regimen including lisinopril, amlodipine with hold parameters as needed, PRN hydralazine. 6. Hyperlipidemia: We will continue patient home statin regimen. 7. Obesity: Weight loss and lifestyle changes encouraged. 8. Gout: We will continue patient home allopurinol regimen. 9. DVT prophylaxis: SCDs, Lovenox pending CTPA and if evidence PE will transition to therapeutic regimen. 10. CODE status: Patient does not have healthcare power of title attorney nor living will in place. present for discussions, given acute presentation and respiratory failure with Covid pneumonia, discussed CODE status at length including difference between FULL code, DNR-CCA and DNR-CC status. Following discussions about the differences in these status, requested Full Code status. Patient amenable to airvo and BIPAP usage. Advanced Care Planning Face to Face Time: 16 minutes. Visit Charges Inpatient E&M: 43170 Init Hosp L3 Procedures Hospitalists Procedures: 04389 Advncd Care Plan 30 Min
--- NOTE | 2020-07-25 20:59 | EDS_ITS ---
HPI History of Present Illness Chief Complaint: Shortness of Breath Narrative Narrative: 50-year-old male presents with concern for shortness of breath. Was diagnosed with coronavirus 4 days ago. Started feeling poorly this morning. States that he was very tired and cannot catch his breath. It progressively worsened throughout the day. Denies any chest pain. Admits to fever and cough. Admits to myalgias and weakness. States he has had a dry cough. [facility] Medical History (Updated 07/25/20 @ 21:[address] Emery Saucedo DO) Chronic back pain Diverticulitis Essential (primary) hypertension Fatty liver Gout Hyperlipidemia Non-STEMI (non-ST elevated myocardial infarction) (07/31/17) Nonocclusive coronary atherosclerosis of [place] coronary artery Obesity (BMI 30.0-34.9) Right bundle branch block Vasospastic angina Home Medications allopurinol 100 mg PO DAILYCM 11/20/14 [History Last Taken 07/31/17] aspirin 81 mg chewable tablet 81 mg PO DAILY@0800 #90 tab 04/22/19 [Rx Last Taken Unknown] amlodipine 5 mg tablet 5 mg PO DAILY #90 tab 04/25/20 [Rx Last Taken Unknown] atorvastatin 80 mg tablet 80 mg PO QHS #90 tab 04/25/20 [Rx Last Taken Unknown] lisinopril 10 mg tablet 10 mg PO DAILY #90 tab 04/25/20 [Rx Last Taken Unknown] Allergy/AdvReac Type Severity Reaction Status Date / Time No Known Allergies Allergy Verified 07/21/20 04:39 Family History Mother Heart disease Myocardial infarction [place] at age 35 Father Diabetes Surgical History History of bowel resection History of left heart catheterization (08/01/17) Social History household members: spouse Smoking Status: Former smoker how long ago did patient quit smoking: Patient quit cigarette tobacco you approximately 17 years prior. alcohol intake: never substance use type: does not use ROS ROS ED Constitutional Constitutional ED: Reports fever(s) and sweats; Denies chills Eyes Eyes: Denies blurry vision, change in vision or diplopia ENT ENT ED: Denies rhinorrhea or sore throat Cardiovascular Cardiovascular: Denies chest pain, orthopnea, palpitations or racing heartbeat Respiratory/Chest Respiratory/Chest: Reports cough, dyspnea and dyspnea on exertion; Denies orthopnea or sputum Gastrointestinal Gastrointestinal: Denies abdominal pain, constipation, diarrhea, melena, nausea or vomiting Genitourinary Genitourinary ED: Denies dysuria, hematuria or urinary frequency Musculoskeletal Musculoskeletal: Reports myalgias; Denies arthralgias or neck pain Integumentary Denies rash Neurologic Neurologic: Reports weakness; Denies headache(s) or paresthesias Psychiatric Psychiatric: Denies anxiety or depression Hematologic/Lymphatic Hematologic/Lymphatic: Denies easy bleeding or easy bruising Allergic/Immunologic Allergic/Immunologic ED: Denies mouth swelling or tongue swelling EXAM Physical Exam Const Vital Signs: 07/25/20 18:18 07/25/20 18:21 07/25/20 18:53 Temperature 100.9 F H 100.9 F H Temperature Source Temporal Temporal Pulse Rate 117 H 118 H 103 H Respiratory Rate 28 H 30 H 28 H Respiratory Effort Respiratory Pattern Blood Pressure 143/58 H 143/58 H 155/98 H Blood Pressure Mean 86 86 117 Pulse Ox 71 82 98 Oxygen Delivery Method Room Air Nasal Cannula Bi-pap Oxygen Flow Rate (L/min) 6 Fraction of Inspired Oxygen (FIO2) 90 07/25/20 19:02 07/25/20 19:16 07/25/20 19:20 Temperature 99.5 F H Temperature Source Temporal Pulse Rate 105 H 106 H Respiratory Rate 34 H 32 H Respiratory Effort Short of Breath Labored Accessory Muscle Use Retracting Respiratory Pattern Tachypnea Blood Pressure 149/72 H 149/72 H Blood Pressure Mean 97 97 Pulse Ox 95 93 Oxygen Delivery Method Bi-pap Bi-pap Oxygen Flow Rate (L/min) Fraction of Inspired Oxygen (FIO2) 80 80 07/25/20 19:44 07/25/20 20:13 Temperature 99.5 F H 99.2 F H Temperature Source Temporal Temporal Pulse Rate 97 95 Respiratory Rate 26 H 32 H Respiratory Effort Respiratory Pattern Blood Pressure 149/72 H 119/69 Blood Pressure Mean 97 85 Pulse Ox 95 95 Oxygen Delivery Method Bi-pap Bi-pap Oxygen Flow Rate (L/min) Fraction of Inspired Oxygen (FIO2) 80 Positive well nourished and well developed General Appearance ED: well developed HEENT Reports TM's clear and moist mucous membranes normocephalic and atraumatic Tympanic Membrane ED: Yes TM's clear Eyes PERRL and EOMs intact bilaterally Neck no lymphadenopathy, supple and no JVD Chest Wall inspection of chest normal Resp Resp Narrative: Moderate respiratory distress with coarse breath sounds bilaterally. Cardio S1 normal heart sound, S2 normal heart sound and no murmurs Rate: tachycardic Peripheral Pulses: pulses 2+ throughout GI soft to palpation, non-tender and non-distended Back/Spine no CVA tenderness and no thoracic nor lumbar tenderness Extremity normal to inspection General Extremety ED: Negative for edema or tenderness General Extremity: Negative for edema Neuro oriented x3, CN's II-XII intact bilaterally and no sensory deficits noted Sensorium / Orientation: alert Motor Exam: strength 5/5 throughout Psych mental status grossly normal Skin no rashes or lesions noted Rashes: no rashes MDM MDM MDM Narrative Medical decision making narrative: Patient in moderate respiratory distress upon arrival. 75% on pulse oximetry and my nonrebreather. Patient was transported to a critical care room and placed on BiPAP which did improve his saturations as well as mentation. ABG initially shows hypoxemia. Patient states he is feeling much improved. Chest x-ray shows bilateral hazy opacities. Interpreted by myself. Radiology concurs. Patient does have an elevated D-dimer and CTA will be done. He was given DuoNeb, Decadron. Patient is known coronavirus positive will be admitted for further treatment and evaluation. Admitted to the ICU in stable condition. Lab Data Attestation: I reviewed the patient's lab results. Labs: Laboratory Results - last 24 hr 07/25/20 07/25/20 07/25/20 18:40 18:40 18:40 WBC 5.2 RBC 4.86 Hgb 14.6 Hct 43.4 MCV 89.3 MCH 30.0 MCHC 33.6 RDW Std Deviation 40.5 RDW Coeff of [place] 12.3 Plt Count 268 MPV 9.6 Immature Gran % (Auto) 0.800 Neut % (Auto) 79.7 H Lymph % (Auto) 11.5 L [place] % (Auto) 7.6 Eos % (Auto) 0.0 Baso % (Auto) 0.4 Absolute Neuts (auto) 4.2 Absolute Lymphs (auto) 0.60 L Nucleated RBC % 0 Differential Comment SCANNED D-Dimer Quant (PE/DVT) 0.94 H* Sodium 133 L Potassium 4.0 Chloride 101 Carbon Dioxide 27.0 Anion Gap 5 BUN 16 Creatinine 1.26 Estim Creat Clear Calc 74.03 Est GFR (MDRD) Af Amer 79 Est GFR (MDRD) Non-Af 65 BUN/Creatinine Ratio 12.7 Glucose 133 H Lactic Acid Calcium 8.2 L Total Bilirubin 1.20 H AST 46 H ALT 61 Alkaline Phosphatase 121 H Troponin I < 0.015 Total Protein 7.6 Albumin 3.2 Globulin 4.4 H Albumin/Globulin Ratio 0.7 L 07/25/20 18:40 WBC RBC Hgb Hct MCV MCH MCHC RDW Std Deviation RDW Coeff of [place] Plt Count MPV Immature Gran % (Auto) Neut % (Auto) Lymph % (Auto) [place] % (Auto) Eos % (Auto) Baso % (Auto) Absolute Neuts (auto) Absolute Lymphs (auto) Nucleated RBC % Differential Comment D-Dimer Quant (PE/DVT) Sodium Potassium Chloride Carbon Dioxide Anion Gap BUN Creatinine Estim Creat Clear Calc Est GFR (MDRD) Af Amer Est GFR (MDRD) Non-Af BUN/Creatinine Ratio Glucose Lactic Acid 1.4 Calcium Total Bilirubin AST ALT Alkaline Phosphatase Troponin I Total Protein Albumin Globulin Albumin/Globulin Ratio ABG Data ABG results: ABG 07/25/20 19:28 Specimen Type ART Sample Site R Brach pH 7.46 H Bicarbonate Actual 22.5 Total CO2 24 Base Excess -1 O2 Saturation 93 L O2 % 90 ABG pCO2 32.0 L ABG pO2 62 L Caesar Test N/A O2 Delivery Device BiPAP Clinical Comments Bipap 14 Radiography Chest X-Ray - ED: 1 View, Read by ED Physician and Read by Radiologist Diagnostic Testing: Radiology Impression Chest X-Ray 07/25/20 19:28 IMPRESSION: Bilateral hazy opacities suspicious for pneumonia. Consider typical and atypical etiologies such as Covid19 pneumonia. Electronically Signed: Polly Salmeron MD at 19:59 EDT Tel , Service support , Rhythm Strip Rhythm Strip: Sinus Tach Rate: 105 Ectopy: None EKG Initial EKG: Attestation: I personally reviewed and interpreted this EKG as follows: Interpretation: Sinus Tachycardia and RBBB Comments: 105 bpm. MO interval 120 ms. QTC of [address] changes. Critical Care Time Critical Care Time: Yes Critical care time (excluding procedures): 30-74 minutes (42 minutes), Discussing w/Consultants, Arranging Admission or Transfer and Performing Direct Patient Care at Bedside Discharge Plan Triage Chief Complaint: Shortness of Breath ED Provider: Emery Saucedo Dx/Rx/DC Orders Clinical Impression: COVID-19, Right bundle branch block, Essential (primary) hypertension, Acute respiratory failure with hypoxia, Pneumonia due to COVID-19 virus, Sepsis Primary Care Provider: Eddie Hughes Disposition Disposition: Acute Care Hospital [facility]
[2020-07-25 21:16] LABS: BNP,B-Type NATRIURETIC PEPTIDE 25.7 pg/mL (0-100)
--- NOTE | 2020-07-25 21:16 | NURSING ---
Dr Saucedo aware of pos sepsis but dt covid we are not doing fluids. Report called to ICU and they are aware we need to stop for cta on our way to floor
[2020-07-25 21:25] LABS: Ferritin 759 ng/mL (26-388); LDH 416 U/L (87-241); Magnesium 2.3 mg/dL (1.6-2.6); Phosphorus 2.3 mg/dL (2.5-4.9)
[2020-07-25] MEDS: Atorvastatin Calcium 80 MG Tablet PO (23:52)
[2020-07-25] MEDS: Famotidine 20 MG Tablet PO (23:52)
[2020-07-25] MEDS: Enoxaparin 30 MG/0.3 ML Syringe SC (23:53)
[2020-07-25] MEDS: 0.9% Normal Saline 1,000 ML 100 ML IV (23:54)
[2020-07-25] MEDS: 0.9% Saline Lock 10 ML Syringe IV (23:54)
[2020-07-26] VITALS (31 sets, daily range): BP systolic 98–139; BP diastolic 52–72; PULSE 59–80; RESP 12–44; TEMP 36.1–36.8; O2SAT 89–96
[2020-07-26 04:08] LABS: Absolute Lymphocyte Count 0.41 X10^3/uL (0.83-4.51); Absolute Neutrophil Count 4.6 X10^3/uL (2.0-7.7); Basophil# 0.01 X10^3/uL; Basophil% 0.2 % (0-1); Hematocrit 41.2 % (40-54); Hemoglobin 13.8 g/dL (13.0-16.5); Lymphocyte # 0.41 X10^3/ul (0.83-4.51); Mean Corp Hgb Conc 33.5 g/dL (32-36); Mean Corpuscular Hgb 30.3 pg (27.0-32.0); Mean Corpuscular Volume 90.4 fL (80-94); Mean Platelet Vol. 10.4 fl (6.2-12.0); Monocyte# 0.12 X10^3/uL; Monocyte% 2.3 % (0-10); NRBC Flagged by Analyzer 0 % (0-5); Neutrophil # 4.57 X10^3/uL (2.7-7.7); Neutrophil % 88.7 % (47-70); POSITIVE DIFFERENTIAL YES; Platelet Count 266 K/mm3 (150-450); RBC Distribution Width CV 12.6 % (11.6-14.6); RBC Distribution Width SD 41.6 fl (35.1-43.9); Red Blood Count 4.56 M/mm3 (4.6-6.2); White Blood Count 5.2 K/mm3 (4.4-11.0)
[2020-07-26 04:10] LABS: Differential Indicated SCAN CRITERIA MET
[2020-07-26 04:41] LABS: ALB/GLOB Ratio 0.6 RATIO (0.9-2.4); AST(SGOT) 58 U/L (15-37); Alanine Aminotransfer ALT/SGPT 63 U/L (16-61); Albumin, Serum 2.8 g/dL (3.2-5.0); Alkaline Phosphatase 118 U/L (45-117); Anion Gap 5 (5-15); BUN 19 mg/dL (7-18); Chloride 102 mmol/L (98-107); Creatinine, Serum 1.19 mg/dL (0.70-1.30); EST Glomerular Filtration Rate 69 mL/min (>60); Est Glom Filt Rate - Afr Amer 84 mL/min (>60); Estimated Creatinine Clearance 78.38 ml/min; Globulin 4.4 g/dL (2.2-4.2); Glucose 143 mg/dL (74-106); Potassium 5.1 mmol/L (3.5-5.1); Protein, Total 7.2 g/dL (6.4-8.2); Sodium Level 134 mmol/L (136-145)
--- NOTE | 2020-07-26 05:45 | EX.PCM.CONCC ---
Assessment & Plan Assessment/Plan (1) Acute respiratory failure with hypoxia: (2) COVID-19: PLAN: RECOMMENDATIONS: 1. Continue patient on AVAPS and wean FiO2 to maintain oxygen saturations at or above 90%. 2. Continue remdesivir. Monitor liver and renal function. 3. Continue Decadron to complete 10-day treatment course. 4. Continue Lovenox as ordered. IMPRESSIONS: 1. Acute hypoxemic respiratory failure secondary to COVID-19 pneumonia The patient presented to the hospital with Covid symptoms of approximately 1.5 weeks duration. He does have extensive bilateral groundglass infiltrates on CTA chest. We will plan to continue current supportive measures including noninvasive positive pressure ventilatory support, with a goal to wean FiO2 to maintain oxygen saturations at or above 90%. The patient will be continued on remdesivir. Liver and renal function will be monitored. Continue Decadron to complete 10-day treatment course. Continue Lovenox as ordered. The patient is amenable to intubation, if needed. 2. History of coronary artery disease/hypertension/hyperlipidemia/obesity Complicates care, management, recovery and prognosis. Continue home medications as indicated. TIME: 36 minutes of critical care time, independent of procedures, was spent addressing the patient's acute hypoxemic respiratory failure, COVID-19 pneumonia, review of all data and collaboration with the care team. ([id number]) HPI Consult Data Date of Consult: 07/26/20 HPI Narrative Reason for Consultation: Acute hypoxemic respiratory failure secondary to COVID-19 pneumonia HPI Narrative: The patient is a 50-year-old male, with a history as outlined below, who presented to the emergency department on July 25 with complaints of shortness of breath. The patient had just been evaluated in the emergency department on July 21 with similar complaints and was subsequently found to be positive for coronavirus. The patient was not hypoxemic at that time and did not require inpatient admission. In total, the patient's symptoms have been present now for approximately 1.5 weeks. He denies any loss of taste or smell. He does report the presence of a nonproductive cough. The patient has not yet received his coronavirus vaccination. On presentation to the emergency department, the patient was noted to be febrile tachycardic and tachypneic. Initial laboratory evaluation revealed a normal white blood cell count. Chemistry profile was unremarkable. D-dimer was noted to be 0.94. Lactate was within normal limits. Total bilirubin was increased to 1.2. Procalcitonin was noted to be 0.10. CTA chest revealed no evidence for pulmonary embolism. Bilateral ground glass opacities were noted. The patient eventually had to be started on BiPAP. In addition, he was started on remdesivir and Decadron. The patient was subsequently admitted to the medical intensive care unit for further management. [facility] Medical History Chronic back pain Diverticulitis Essential (primary) hypertension Fatty liver Gout Hyperlipidemia Non-STEMI (non-ST elevated myocardial infarction) (07/31/17) Nonocclusive coronary atherosclerosis of [place] coronary artery Obesity (BMI 30.0-34.9) Right bundle branch block Vasospastic angina Home Medications allopurinol 100 mg PO DAILYCM 11/20/14 [History Last Taken 07/31/17] aspirin 81 mg chewable tablet 81 mg PO DAILY@0800 #90 tab 04/22/19 [Rx Last Taken Unknown] amlodipine 5 mg tablet 5 mg PO DAILY #90 tab 04/25/20 [Rx Last Taken Unknown] atorvastatin 80 mg tablet 80 mg PO QHS #90 tab 04/25/20 [Rx Last Taken Unknown] lisinopril 10 mg tablet 10 mg PO DAILY #90 tab 04/25/20 [Rx Last Taken Unknown] Allergy/AdvReac Type Severity Reaction Status Date / Time No Known Allergies Allergy Verified 07/21/20 04:39 Family History Mother Heart disease Myocardial infarction [place] at age 35 Father Diabetes Surgical History History of bowel resection History of left heart catheterization (08/01/17) Social History household members: spouse Smoking Status: Former smoker how long ago did patient quit smoking: Patient quit cigarette tobacco you approximately 17 years prior. alcohol intake: never substance use type: does not use ROS Constitutional Constitutional: Reports chills, fatigue and fever(s) Eyes Eyes: Denies blurry vision or change in vision ENT HEENT: Denies dizziness, dysphagia, headache(s) or loss taste/smell Cardiovascular Cardiovascular: Denies chest pain or dyspnea Respiratory/Chest Respiratory/Chest: Reports cough and dyspnea; Denies chest tightness Gastrointestinal Gastrointestinal: Denies abdominal pain Genitourinary Genitourinary: Denies difficulty urinating or dysuria Musculoskeletal Musculoskeletal: Denies arthralgias Integumentary Integumentary: Denies lesions, rash or skin ulcer Neurologic Neurologic: Denies abnormal gait, abnormal speech or confusion Psychiatric Psychiatric: Denies anxiety or depression Endocrine Endocrinology: Reports fatigue; Denies polydipsia or polyuria Hematologic/Lymphatic Hematologic/Lymphatic: Denies easy bleeding or easy bruising Physical Exam Const alert and no apparent distress Constitutional Narrative: BiPAP mask currently in place. General Appearance: cooperative HEENT normocephalic and head/scalp atraumatic Eyes PERRL and EOMs intact bilaterally Chest inspection of chest normal Resp Auscultation: diminished lung sounds; Negative for rales, rhonchi or wheezes Cardio regular rate and regular rhythm GI normal to inspection, nondistended, normoactive bowel sounds Extremity no clubbing, cyanosis or edema Skin no rashes or lesions noted Neuro moves all extremities and no focal motor deficits Psych cooperative and affect normal Lab / Micro Data Result Diagrams: 07/26/20 03:40 07/26/20 03:40 Labs: Laboratory Results - last 24 hr 07/25/20 07/25/20 07/25/20 18:40 18:40 18:40 WBC 5.2 RBC 4.86 Hgb 14.6 Hct 43.4 MCV 89.3 MCH 30.0 MCHC 33.6 RDW Std Deviation 40.5 RDW Coeff of Coleman 12.3 Plt Count 268 MPV 9.6 Immature Gran % (Auto) 0.800 Neut % (Auto) 79.7 H Lymph % (Auto) 11.5 L [place] % (Auto) 7.6 Eos % (Auto) 0.0 Baso % (Auto) 0.4 Absolute Neuts (auto) 4.2 Absolute Lymphs (auto) 0.60 L Nucleated RBC % 0 Differential Comment SCANNED D-Dimer Quant (PE/DVT) 0.94 H* Sodium 133 L Potassium 4.0 Chloride 101 Carbon Dioxide 27.0 Anion Gap 5 BUN 16 Creatinine 1.26 Estim Creat Clear Calc 74.03 Est GFR (MDRD) Af Amer 79 Est GFR (MDRD) Non-Af 65 BUN/Creatinine Ratio 12.7 Glucose 133 H Lactic Acid Calcium 8.2 L Phosphorus Magnesium Ferritin Total Bilirubin 1.20 H AST 46 H ALT 61 Alkaline Phosphatase 121 H Lactate Dehydrogenase Troponin I < 0.015 C-React Prot Ext Range B-Natriuretic Peptide Total Protein 7.6 Albumin 3.2 Globulin 4.4 H Albumin/Globulin Ratio 0.7 L Procalcitonin 07/25/20 07/25/20 07/25/20 18:40 18:40 18:40 WBC RBC Hgb Hct MCV MCH MCHC RDW Std Deviation RDW Coeff of [place] Plt Count MPV Immature Gran % (Auto) Neut % (Auto) Lymph % (Auto) [place] % (Auto) Eos % (Auto) Baso % (Auto) Absolute Neuts (auto) Absolute Lymphs (auto) Nucleated RBC % Differential Comment D-Dimer Quant (PE/DVT) Sodium Potassium Chloride Carbon Dioxide Anion Gap BUN Creatinine Estim Creat Clear Calc Est GFR (MDRD) Af Amer Est GFR (MDRD) Non-Af BUN/Creatinine Ratio Glucose Lactic Acid 1.4 Calcium Phosphorus 2.3 L Magnesium 2.3 Ferritin 759 H Total Bilirubin AST ALT Alkaline Phosphatase Lactate Dehydrogenase 416 H Troponin I C-React Prot Ext Range 109.00 H B-Natriuretic Peptide 25.7 Total Protein Albumin Globulin Albumin/Globulin Ratio Procalcitonin 07/25/20 07/26/20 07/26/20 18:40 03:40 03:40 WBC 5.2 RBC 4.56 L Hgb 13.8 Hct 41.2 MCV 90.4 MCH 30.3 MCHC 33.5 RDW Std Deviation 41.6 RDW Coeff of [place] 12.6 Plt Count 266 MPV 10.4 Immature Gran % (Auto) 0.800 Neut % (Auto) 88.7 H Lymph % (Auto) 8.0 L [place] % (Auto) 2.3 Eos % (Auto) 0.0 Baso % (Auto) 0.2 Absolute Neuts (auto) 4.6 Absolute Lymphs (auto) 0.41 L Nucleated RBC % 0 Differential Comment D-Dimer Quant (PE/DVT) Sodium 134 L Potassium 5.1 Chloride 102 Carbon Dioxide 27.0 Anion Gap 5 BUN 19 H Creatinine 1.19 Estim Creat Clear Calc 78.38 Est GFR (MDRD) Af Amer 84 Est GFR (MDRD) Non-Af 69 BUN/Creatinine Ratio 16.0 Glucose 143 H Lactic Acid Calcium 8.0 L Phosphorus Magnesium Ferritin Total Bilirubin 1.00 AST 58 H ALT 63 H Alkaline Phosphatase 118 H Lactate Dehydrogenase Troponin I C-React Prot Ext Range B-Natriuretic Peptide Total Protein 7.2 Albumin 2.8 L Globulin 4.4 H Albumin/Globulin Ratio 0.6 L Procalcitonin 0.10 H Micro: Microbiology 07/26/20 03:40 Legionella Antigen - Final Urine, Clean Catch Streptococcus pneumoniae Antigen (M - Final 07/25/20 21:51 Respiratory Panel (PCR) - Final Mucosa - Nasopharyngeal ABG Data ABG results: ABG 07/25/20 19:28 Specimen Type ART Sample Site R Brach pH 7.46 H Bicarbonate Actual 22.5 Total CO2 24 Base Excess -1 O2 Saturation 93 L O2 % 90 ABG pCO2 32.0 L ABG pO2 62 L Caesar Test N/A O2 Delivery Device BiPAP Clinical Comments Bipap 14 Rhythm Strip Rhythm Strip: Sinus Tach Rate: 105 Ectopy: None Radiology Impression Chest X-Ray 07/25/20 19:28 IMPRESSION: Bilateral hazy opacities suspicious for pneumonia. Consider typical and atypical etiologies such as Covid19 pneumonia. Electronically Signed: Polly Salmeron MD at 19:59 EDT Tel , Service support , Chest CTA 07/25/20 19:54 IMPRESSION: 1. No pulmonary embolism or arterial dissection. 2. Multilobar airspace disease and groundglass opacities. Consider typical and atypical etiologies. Findings are nonspecific but imaging features may be seen with Covid19 pneumonia. 3. Mild mediastinal and hilar adenopathy, likely reactive. Electronically Signed: Polly Salmeron MD at 22:49 EDT Tel , Service support , Charges/Coding Procedures Hospitalists Procedures: [id number] Critial Care 1st Hr
--- NOTE | 2020-07-26 07:22 | PCM.PN.HOSP ---
Subjective Subjective Patient is a 50 male diagnosed with COVID-19 on 07/21/2020 presented to the emergency department on 07/24/2020 with increasing shortness of breath. An assessment of acute hypoxic respiratory failure secondary to SARS-CoV-2 pneumonia admitted to the intensive care unit for further management Objective Data Objective Data Vital Signs: Vital Signs Temp Pulse Resp BP Pulse Ox 97.0 F L 71 34 H 130/67 H 92 07/26/20 03:00 07/26/20 07:00 07/26/20 07:00 07/26/20 07:00 07/26/20 07:00 Oxygen Flow Rate (L/min) 6 Oxygen Delivery Method Bi-pap Weight: 111.5 kg Body Mass Index (BMI) 35.2 Intake & Output: Intake and Output for Last 24 Hours 07/24/20 07/25/20 07/26/20 23:59 23:59 23:59 Intake Total 270 / 270 Output Total 250 / 250 Balance Lab / Micro Data Result Diagrams: 07/26/20 03:40 07/26/20 03:40 Micro: Microbiology 07/26/20 03:40 Urine, Clean Catch Legionella Antigen - Final 07/26/20 03:40 Urine, Clean Catch Streptococcus pneumoniae Antigen (M - Final 07/25/20 21:51 Mucosa - Nasopharyngeal Respiratory Panel (PCR) - Final ABG Data ABG results: ABG 07/25/20 19:28 Specimen Type ART Sample Site R Brach pH 7.46 H Bicarbonate Actual 22.5 Total CO2 24 Base Excess -1 O2 Saturation 93 L O2 % 90 ABG pCO2 32.0 L ABG pO2 62 L Caesar Test N/A O2 Delivery Device BiPAP Clinical Comments Bipap 14 Radiography Diagnostic Testing: Radiology Impression Chest X-Ray 07/25/20 19:28 IMPRESSION: Bilateral hazy opacities suspicious for pneumonia. Consider typical and atypical etiologies such as Covid19 pneumonia. Electronically Signed: Polly Salmeron MD at 19:59 EDT Tel , Service support , Chest CTA 07/25/20 19:54 IMPRESSION: 1. No pulmonary embolism or arterial dissection. 2. Multilobar airspace disease and groundglass opacities. Consider typical and atypical etiologies. Findings are nonspecific but imaging features may be seen with Covid19 pneumonia. 3. Mild mediastinal and hilar adenopathy, likely reactive. Electronically Signed: Polly Salmeron MD at 22:49 EDT Tel , Service support , Rhythm Strip Rhythm Strip: Sinus Tach Rate: 105 Ectopy: None Physical Exam Narrative GENERAL: cooperative; on airvo HEENT: Atraumatic; EYES; Anicteric, Normal Conjunctiva NECK; supple, normal thyroid, RESPIRATORY: Diminished to auscultation CARDIOVASCULAR: Regular S1 S2, GI: soft, normoactive bowel sounds, : No Renal angle tenderness; EXTREMITIES: No edema, no clubbing, MUSCULOSKELETAL: no muscle waisting NEURO: Awake; no lateralizing signs. SKIN: No Rash PSYCH; Flat affect Assessment & Plan Assessment/Plan (1) Sepsis: QUALIFIERS: Sepsis acute organ dysfunction status: unspecified Sepsis type: sepsis due to unspecified organism Qualified Code(s): A41.9 - Sepsis, unspecified organism (2) Pneumonia due to COVID-19 virus: (3) Acute respiratory failure with hypoxia: (4) Hyperlipidemia: (5) Essential (primary) hypertension: PLAN: Patient is a 50 male diagnosed with COVID-19 on 07/21/2020 presented to the emergency department on 07/24/2020 with increasing shortness of breath. An assessment of acute hypoxic respiratory failure secondary to SARS-CoV-2 pneumonia admitted to the intensive care unit for further management 1. Acute hypoxic respiratory failure ?Secondary to SARS-CoV-2 pneumonia; on Airvo 2. Sepsis secondary to SARS-CoV-2 pneumonia - on decadron 3. Hypertension - Blood pressure controlled, home medications continued with dose adjustment as needed 4. Dyslipidemia -Patient is on statin therapy, continued at home dose 5. Morbid obesity - With a BMI of 35.3 patient was counseled on weight reduction 6. Coronary artery disease ?Previous history of non-STEMI currently on medical therapy left heart catheterization did not demonstrate any lesion amenable for PCI 7. Gout ?Patient is on allopurinol 8. DVT Prophylaxis - Lovenox Visit Charges Inpatient E&M: [id number] [facility] L3
[2020-07-26 08:13] LABS: Hemoglobin A1c 5.7 % (3.8-5.6)
[2020-07-26] MEDS: Allopurinol 100 MG Tablet PO (08:34)
[2020-07-26] MEDS: Aspirin 81 MG TAB.CHEW PO (08:35)
[2020-07-26] MEDS: dexAMETHasone 10 MG/ML Vial 6 MG IV (08:36)
[2020-07-26] MEDS: Famotidine 20 MG Tablet PO ×2 (08:36→20:09)
[2020-07-26] MEDS: amLODIPine 5 MG Tablet PO (08:36)
[2020-07-26] MEDS: Lisinopril 10 MG Tablet PO (08:36)
[2020-07-26] MEDS: Enoxaparin 30 MG/0.3 ML Syringe SC ×2 (08:36→20:09)
[2020-07-26] MEDS: 0.9% Saline Lock 10 ML Syringe IV (10:47)
--- NOTE | 2020-07-26 10:54 | CASEMGMT ---
Addendum entered by Samantha Woodward 07/26/20 11:04: Pt screened with [facility] Palliative Care Screening Tool for strata 3, pt did not meet criteria. Original Note: BERT CAMACHO ASSESSMENT +COVID-19. Tested 07/21/20 @ [facility] ED. BERT CAMACHO placed call to pt's room for initial transition planning/care coordination assessment. BERT CAMACHO introduced self and role at [facility]. Pt voices understanding and consents to assessment at this time. Pt is A/O at this time and answers all questions appropriately. Care providers, pharmacy, and demographics verified/updated at this time. PCP:Dr Hughes Specialists: None Preferred Pharmacy: [facility] Retail pharmacy Insurance: [place] [employer] Prescription Benefit: Pt states he is not sure. Living Will/HPOA: States does not have LW or HCPOA . Interested in more information--Provided information to return as an OP to complete once he is out of quarantine. Pt voices understanding. LNOK: , [employer] [facility] Arrangements: Lives w/his and 2 adult children. Independent. He states they have not had any COVID symptoms. Transportation: Pt states drives self and states no transportation concerns at this time. also drives. DME: Denies using any DME and denies needs. Pt currently on Airvo. He does not have home O2. Reviewed list of DME providers consistent with the patient's preferred geographic region and medical needs. Pt states [employer]. HHC/SNF: No history of either. No needs identified. Pt wishes to return home and states has no concerns with going home at time of discharge. CM to follow for home oxygen needs and any discharge planning/needs. Pt voices no concerns/needs at this time. Advised pt to ask for CM if any questions/concerns/needs arise. Voices understanding. PLAN: Home. CM to follow for any O2 needs @ d/c. PT/OT evals pending Fer JJ RN, CM
--- NOTE | 2020-07-26 14:35 | CHAPLAIN ---
Type of Pastoral Visit ___ Initial Visit ___ Follow-up Visit ___ On-call Visit ___ General Patient Visit ___ Spiritual Assessment ___ Family Conference ___ Bereavement ___ Rapid Response ___ Code Blue ___ Other (describe below) Pastoral Care Referral From ___ Patient ___ Family ___ Nurse ___ Physician ___ Reconciliation Clerk ___ Skin Fitter ___ Other (describe below) Sacrament/Intervention ___ Active listening ___ Anointing ___ Evangelical ___ Bereavement ___ Communion ___ Rimma exploration ___ ___ Life review ___ Prayer ___ Reconciliation ___ Sacrament of Sick ___ Supportive presence ___ Wedding ___ Other (describe below) Pastoral Comments unable to see or talk to patient due to isolation and pt is on bi-pap machine
--- NOTE | 2020-07-26 16:49 | CON.PCM.ID_ITS ---
Assessment & Plan Assessment/Plan (1) Acute respiratory failure with hypoxia: (2) COVID-19: PLAN: Sx started 07/16. Quarantine for 20 days, ending 08/05/20. 's test is pending. Plan on 10 days of dex, on remdesivir. CT neg for PE, on bid lovenox with mildly elevated d-dimer. Recommended vaccination once he is past this acute illness but he is firmly against it, will not specify any reason for it. Will follow, thank you HPI Consult Data Date of Consult: 07/26/20 HPI Narrative HPI Narrative: ANA CAIN, is a 50 M who presented with sx starting 07/16 with cough, SOB, not feeling well. No one sick at home. He is unvaccinated. No fever, no chills, no headache, no aches, no n/v/d, no change in taste or smell. Came to ED 07/21, tested (+), came back with worsened hypoxia, admitted on dex and remdesivir, feeling better today. Full ROS performed and neg except as noted above. is asymptomatic, test pending. [facility] Medical History Chronic back pain Diverticulitis Essential (primary) hypertension Fatty liver Gout Hyperlipidemia Non-STEMI (non-ST elevated myocardial infarction) (07/31/17) Nonocclusive coronary atherosclerosis of [place] coronary artery Obesity (BMI 30.0-34.9) Right bundle branch block Vasospastic angina Home Medications allopurinol 100 mg PO DAILYCM 11/20/14 [History Last Taken 07/31/17] aspirin 81 mg chewable tablet 81 mg PO DAILY@0800 #90 tab 04/22/19 [Rx Last Ta juju Unknown] amlodipine 5 mg tablet 5 mg PO DAILY #90 tab 04/25/20 [Rx Last Taken Unknown] atorvastatin 80 mg tablet 80 mg PO QHS #90 tab 04/25/20 [Rx Last Taken Unknown] lisinopril 10 mg tablet 10 mg PO DAILY #90 tab 04/25/20 [Rx Last Taken Unknown] Allergy/AdvReac Type Severity Reaction Status Date / Time No Known Allergies Allergy Verified 07/21/20 04:39 Family History Mother Heart disease Myocardial infarction CT at age 35 Father Diabetes Surgical History History of bowel resection History of left heart catheterization (08/01/17) Social History household members: spouse Smoking Status: Former smoker how long ago did patient quit smoking: Patient quit cigarette tobacco you approximately 17 years prior. alcohol intake: never substance use type: does not use Physical Exam Const alert, oriented x3 and no apparent distress General Appearance: cooperative Neck supple and No nodes Resp Auscultation: diminished lung sounds Cardio regular rate and regular rhythm GI normal to inspection, nondistended, normoactive bowel sounds Extremity no clubbing, cyanosis or edema Skin no rashes or lesions noted Neuro CN's II-XII intact bilaterally Lab / Micro Data Result Diagrams: 07/26/20 03:40 07/26/20 03:40 Labs: Laboratory Results - last 24 hr 07/25/20 07/25/20 07/25/20 18:40 18:40 18:40 WBC 5.2 RBC 4.86 Hgb 14.6 Hct 43.4 MCV 89.3 MCH 30.0 MCHC 33.6 RDW Std Deviation 40.5 RDW Coeff of Coleman 12.3 Plt Count 268 MPV 9.6 Immature Gran % (Auto) 0.800 Neut % (Auto) 79.7 H Lymph % (Auto) 11.5 L [place] % (Auto) 7.6 Eos % (Auto) 0.0 Baso % (Auto) 0.4 Absolute Neuts (auto) 4.2 Absolute Lymphs (auto) 0.60 L Nucleated RBC % 0 Differential Comment SCANNED D-Dimer Quant (PE/DVT) 0.94 H* Sodium 133 L Potassium 4.0 Chloride 101 Carbon Dioxide 27.0 Anion Gap 5 BUN 16 Creatinine 1.26 Estim Creat Clear Calc 74.03 Est GFR (MDRD) Af Amer 79 Est GFR (MDRD) Non-Af 65 BUN/Creatinine Ratio 12.7 Glucose 133 H Hemoglobin A1c Lactic Acid Calcium 8.2 L Phosphorus Magnesium Ferritin Total Bilirubin 1.20 H AST 46 H ALT 61 Alkaline Phosphatase 121 H Lactate Dehydrogenase Troponin I < 0.015 C-React Prot Ext Range B-Natriuretic Peptide Total Protein 7.6 Albumin 3.2 Globulin 4.4 H Albumin/Globulin Ratio 0.7 L Procalcitonin 07/25/20 07/25/20 07/25/20 18:40 18:40 18:40 WBC RBC Hgb Hct MCV MCH MCHC RDW Std Deviation RDW Coeff of [place] Plt Count MPV Immature Gran % (Auto) Neut % (Auto) Lymph % (Auto) [place] % (Auto) Eos % (Auto) Baso % (Auto) Absolute Neuts (auto) Absolute Lymphs (auto) Nucleated RBC % Differential Comment D-Dimer Quant (PE/DVT) Sodium Potassium Chloride Carbon Dioxide Anion Gap BUN Creatinine Estim Creat Clear Calc Est GFR (MDRD) Af Amer Est GFR (MDRD) Non-Af BUN/Creatinine Ratio Glucose Hemoglobin A1c Lactic Acid 1.4 Calcium Phosphorus 2.3 L Magnesium 2.3 Ferritin 759 H Total Bilirubin AST ALT Alkaline Phosphatase Lactate Dehydrogenase 416 H Troponin I C-React Prot Ext Range 109.00 H B-Natriuretic Peptide 25.7 Total Protein Albumin Globulin Albumin/Globulin Ratio Procalcitonin 07/25/20 07/26/20 07/26/20 18:40 03:40 03:40 WBC 5.2 RBC 4.56 L Hgb 13.8 Hct 41.2 MCV 90.4 MCH 30.3 MCHC 33.5 RDW Std Deviation 41.6 RDW Coeff of [place] 12.6 Plt Count 266 MPV 10.4 Immature Gran % (Auto) 0.800 Neut % (Auto) 88.7 H Lymph % (Auto) 8.0 L [place] % (Auto) 2.3 Eos % (Auto) 0.0 Baso % (Auto) 0.2 Absolute Neuts (auto) 4.6 Absolute Lymphs (auto) 0.41 L Nucleated RBC % 0 Differential Comment D-Dimer Quant (PE/DVT) Sodium 134 L Potassium 5.1 Chloride 102 Carbon Dioxide 27.0 Anion Gap 5 BUN 19 H Creatinine 1.19 Estim Creat Clear Calc 78.38 Est GFR (MDRD) Af Amer 84 Est GFR (MDRD) Non-Af 69 BUN/Creatinine Ratio 16.0 Glucose 143 H Hemoglobin A1c Lactic Acid Calcium 8.0 L Phosphorus Magnesium Ferritin Total Bilirubin 1.00 AST 58 H ALT 63 H Alkaline Phosphatase 118 H Lactate Dehydrogenase Troponin I C-React Prot Ext Range B-Natriuretic Peptide Total Protein 7.2 Albumin 2.8 L Globulin 4.4 H Albumin/Globulin Ratio 0.6 L Procalcitonin 0.10 H 07/26/20 03:40 WBC RBC Hgb Hct MCV MCH MCHC RDW Std Deviation RDW Coeff of [place] Plt Count MPV Immature Gran % (Auto) Neut % (Auto) Lymph % (Auto) [place] % (Auto) Eos % (Auto) Baso % (Auto) Absolute Neuts (auto) Absolute Lymphs (auto) Nucleated RBC % Differential Comment D-Dimer Quant (PE/DVT) Sodium Potassium Chloride Carbon Dioxide Anion Gap BUN Creatinine Estim Creat Clear Calc Est GFR (MDRD) Af Amer Est GFR (MDRD) Non-Af BUN/Creatinine Ratio Glucose Hemoglobin A1c 5.7 H Lactic Acid Calcium Phosphorus Magnesium Ferritin Total Bilirubin AST ALT Alkaline Phosphatase Lactate Dehydrogenase Troponin I C-React Prot Ext Range B-Natriuretic Peptide Total Protein Albumin Globulin Albumin/Globulin Ratio Procalcitonin Micro: Microbiology 07/26/20 03:40 Legionella Antigen - Final Urine, Clean Catch Streptococcus pneumoniae Antigen (M - Final 07/25/20 21:51 Respiratory Panel (PCR) - Final Mucosa - Nasopharyngeal ABG Data ABG results: ABG 07/25/20 19:28 Specimen Type ART Sample Site R Brach pH 7.46 H Bicarbonate Actual 22.5 Total CO2 24 Base Excess -1 O2 Saturation 93 L O2 % 90 ABG pCO2 32.0 L ABG pO2 62 L Caesar Test N/A O2 Delivery Device BiPAP Clinical Comments Bipap 14 Rhythm Strip Rhythm Strip: Sinus Tach Rate: 105 Ectopy: None Radiology Impression Chest X-Ray 07/25/20 19:28 IMPRESSION: Bilateral hazy opacities suspicious for pneumonia. Consider typical and atypical etiologies such as Covid19 pneumonia. Electronically Signed: Polly Salmeron MD at 19:59 EDT Tel , Service support , Chest CTA 07/25/20 19:54 IMPRESSION: 1. No pulmonary embolism or arterial dissection. 2. Multilobar airspace disease and groundglass opacities. Consider typical and atypical etiologies. Findings are nonspecific but imaging features may be seen with Covid19 pneumonia. 3. Mild mediastinal and hilar adenopathy, likely reactive. Electronically Signed: Polly Salmeron MD at 22:49 EDT Tel , Service support ,
[2020-07-26] MEDS: Atorvastatin Calcium 80 MG Tablet PO (20:09)
[2020-07-27] VITALS (34 sets, daily range): BP systolic 99–135; BP diastolic 38–73; PULSE 55–71; RESP 12–40; TEMP 36.3–37; O2SAT 88–96
[2020-07-27 04:54] LABS: Hematocrit 40.5 % (40-54); Hemoglobin 13.6 g/dL (13.0-16.5); Mean Corp Hgb Conc 33.6 g/dL (32-36); Mean Corpuscular Hgb 30.3 pg (27.0-32.0); Mean Corpuscular Volume 90.2 fL (80-94); Mean Platelet Vol. 9.8 fl (6.2-12.0); Platelet Count 356 K/mm3 (150-450); RBC Distribution Width CV 12.7 % (11.6-14.6); RBC Distribution Width SD 42.1 fl (35.1-43.9); Red Blood Count 4.49 M/mm3 (4.6-6.2); White Blood Count 12.6 K/mm3 (4.4-11.0)
[2020-07-27 05:29] LABS: ALB/GLOB Ratio 0.7 RATIO (0.9-2.4); AST(SGOT) 42 U/L (15-37); Alanine Aminotransfer ALT/SGPT 69 U/L (16-61); Albumin, Serum 2.8 g/dL (3.2-5.0); Alkaline Phosphatase 115 U/L (45-117); Anion Gap 7 (5-15); BUN 28 mg/dL (7-18); BUN/Creat Ratio 26.9 RATIO (10-20); Calcium,Total 8.2 mg/dL (8.5-10.1); Chloride 105 mmol/L (98-107); Creatinine, Serum 1.04 mg/dL (0.70-1.30); EST Glomerular Filtration Rate 81 mL/min (>60); Est Glom Filt Rate - Afr Amer 98 mL/min (>60); Estimated Creatinine Clearance 89.69 ml/min; Globulin 4.1 g/dL (2.2-4.2); Glucose 122 mg/dL (74-106); Potassium 4.7 mmol/L (3.5-5.1); Protein, Total 6.9 g/dL (6.4-8.2); Sodium Level 137 mmol/L (136-145)
--- NOTE | 2020-07-27 05:38 | PCM.PN.INT ---
Assessment & Plan Assessment/Plan (1) Acute respiratory failure with hypoxia: (2) COVID-19: PLAN: RECOMMENDATIONS: 1. Continue patient on AVAPS and wean FiO2 to maintain oxygen saturations at or above 90%. 2. Attempt to transition the patient from AVAPS to Airvo heated high flow, as tolerated. 3. Continue remdesivir. Monitor liver and renal function. 4. Continue Decadron to complete 10-day treatment course. 5. Continue Lovenox as ordered. IMPRESSIONS: 1. Acute hypoxemic respiratory failure secondary to COVID-19 pneumonia The patient presented to the hospital with Covid symptoms of approximately 1.5 weeks duration. He does have extensive bilateral groundglass infiltrates on CTA chest. We will plan to continue current supportive measures including noninvasive positive pressure ventilatory support, with a goal to wean FiO2 to maintain oxygen saturations at or above 90%. The patient will be continued on remdesivir. Liver and renal function will be monitored. Continue Decadron to complete 10-day treatment course. Continue Lovenox as ordered. The patient is amenable to intubation, if needed. 2. History of coronary artery disease/hypertension/hyperlipidemia/obesity Complicates care, management, recovery and prognosis. Continue home medications as indicated. TIME: 34 minutes of critical care time, independent of procedures, was spent addressing the patient's acute hypoxemic respiratory failure, COVID-19 pneumonia, review of all data and collaboration with the care team. ([id number]) Subjective Subjective The patient was seen and examined at the bedside this morning. Events from the last 24 hours have been reviewed. The patient is currently afebrile, hemodynamically stable and maintaining appropriate oxygen saturations on AVAPS with an FiO2 requirement of 65%. Despite this, the patient remains tachypneic. No overnight changes were noted by the nursing staff. Attempt to wean the patient to heated high flow nasal cannula yesterday was largely unsuccessful. Liver and renal function are stable. The patient remains on remdesivir, Decadron and twice daily Lovenox. Objective Data Objective Data The patient's most recent lab work, culture data and imaging studies have all been personally reviewed. Rapid coronavirus antigen testing was positive on July 21. Vital Signs: Vital Signs Temp Pulse Resp BP Pulse Ox 97.9 F 60 32 H 106/58 L 95 07/27/20 00:00 07/27/20 03:52 07/27/20 03:52 07/27/20 02:00 07/27/20 03:52 Oxygen Flow Rate (L/min) 50 Oxygen Delivery Method Bi-pap Weight: 244 lb 0.827 oz Body Mass Index (BMI) 35.2 Intake & Output: Intake and Output for Last 24 Hours 07/25/20 07/26/20 07/27/20 23:59 23:59 23:59 Intake Total 1870 / 1870 250 / 250 Output Total 1150 / 1150 275 / 275 Balance 720 / 720 -25 / -25 Lab / Micro Data Attestation: I reviewed the patient's lab results. Result Diagrams: 07/27/20 04:40 07/27/20 04:40 Labs: Laboratory Results - last 24 hr 07/26/20 07/27/20 07/27/20 03:40 04:40 04:40 WBC 12.6 H RBC 4.49 L Hgb 13.6 Hct 40.5 MCV 90.2 MCH 30.3 MCHC 33.6 RDW Std Deviation 42.1 RDW Coeff of Coleman 12.7 Plt Count 356 MPV 9.8 Sodium 137 Potassium 4.7 Chloride 105 Carbon Dioxide 25.0 Anion Gap 7 BUN 28 H Creatinine 1.04 Estim Creat Clear Calc 89.69 Est GFR (MDRD) Af Amer 98 Est GFR (MDRD) Non-Af 81 BUN/Creatinine Ratio 26.9 H Glucose 122 H Hemoglobin A1c 5.7 H Calcium 8.2 L Total Bilirubin 0.90 AST 42 H ALT 69 H Alkaline Phosphatase 115 Total Protein 6.9 Albumin 2.8 L Globulin 4.1 Albumin/Globulin Ratio 0.7 L Micro: Microbiology 07/26/20 03:40 Urine, Clean Catch Legionella Antigen - Final 07/26/20 03:40 Urine, Clean Catch Streptococcus pneumoniae Antigen (M - Final 07/25/20 21:51 Mucosa - Nasopharyngeal Respiratory Panel (PCR) - Final Rhythm Strip Rhythm Strip: Sinus Tach Rate: 105 Ectopy: None Physical Exam Const alert and no apparent distress General Appearance: cooperative HEENT normocephalic, head/scalp atraumatic and moist oral mucous membranes Eyes PERRL, EOMs intact bilaterally and conjunctivae normal Neck supple General: trachea midline Chest inspection of chest normal Resp Effort and Inspection: tachypneic Auscultation: diminished lung sounds; Negative for rales, rhonchi or wheezes Cardio regular rate and regular rhythm GI normal to inspection, nondistended, normoactive bowel sounds Extremity no clubbing, cyanosis or edema Skin no rashes or lesions noted Neuro oriented x3, moves all extremities and no focal motor deficits Psych cooperative and affect normal Appearance: well kempt Charges/Coding Procedures Hospitalists Procedures: 09456 Critial Care 1st Hr
--- NOTE | 2020-07-27 07:14 | PCM.PN.HOSP ---
Subjective Subjective Patient seen remains in ICU still on high flow oxygen. Objective Data Objective Data Vital Signs: Vital Signs Temp Pulse Resp BP Pulse Ox 98.1 F 58 L 25 H 121/61 H 95 07/27/20 04:00 07/27/20 06:00 07/27/20 06:00 07/27/20 06:00 07/27/20 06:00 Oxygen Flow Rate (L/min) 50 Oxygen Delivery Method Bi-pap Weight: 110.7 kg Body Mass Index (BMI) 35.2 Intake & Output: Intake and Output for Last 24 Hours 07/25/20 07/26/20 07/27/20 23:59 23:59 23:59 Intake Total 1870 / 1870 250 / 250 Output Total 1150 / 1150 575 / 575 Balance 720 / 720 -325 / -325 Lab / Micro Data Result Diagrams: 07/27/20 04:40 07/27/20 04:40 Labs: Laboratory Results - last 24 hr 07/26/20 07/27/20 07/27/20 03:40 04:40 04:40 WBC 12.6 H RBC 4.49 L Hgb 13.6 Hct 40.5 MCV 90.2 MCH 30.3 MCHC 33.6 RDW Std Deviation 42.1 RDW Coeff of Coleman 12.7 Plt Count 356 MPV 9.8 Sodium 137 Potassium 4.7 Chloride 105 Carbon Dioxide 25.0 Anion Gap 7 BUN 28 H Creatinine 1.04 Estim Creat Clear Calc 89.69 Est GFR (MDRD) Af Amer 98 Est GFR (MDRD) Non-Af 81 BUN/Creatinine Ratio 26.9 H Glucose 122 H Hemoglobin A1c 5.7 H Calcium 8.2 L Total Bilirubin 0.90 AST 42 H ALT 69 H Alkaline Phosphatase 115 Total Protein 6.9 Albumin 2.8 L Globulin 4.1 Albumin/Globulin Ratio 0.7 L Micro: Microbiology 07/26/20 03:40 Urine, Clean Catch Legionella Antigen - Final 07/26/20 03:40 Urine, Clean Catch Streptococcus pneumoniae Antigen (M - Final 07/25/20 21:51 Mucosa - Nasopharyngeal Respiratory Panel (PCR) - Final Rhythm Strip Rhythm Strip: Sinus Tach Rate: 105 Ectopy: None Physical Exam Narrative GENERAL: cooperative; on airvo HEENT: Atraumatic; EYES; Anicteric, Normal Conjunctiva NECK; supple, normal thyroid, RESPIRATORY: Diminished to auscultation CARDIOVASCULAR: Regular S1 S2, GI: soft, normoactive bowel sounds, : No Renal angle tenderness; EXTREMITIES: No edema, no clubbing, MUSCULOSKELETAL: no muscle waisting NEURO: Awake; no lateralizing signs. SKIN: No Rash PSYCH; Flat affect Assessment & Plan Assessment/Plan (1) Sepsis: QUALIFIERS: Sepsis acute organ dysfunction status: unspecified Sepsis type: sepsis due to unspecified organism Qualified Code(s): A41.9 - Sepsis, unspecified organism (2) Pneumonia due to COVID-19 virus: (3) Acute respiratory failure with hypoxia: (4) Hyperlipidemia: (5) Essential (primary) hypertension: PLAN: Patient is a 50 male diagnosed with COVID-19 on 07/21/2020 presented to the emergency department on 07/24/2020 with increasing shortness of breath. An assessment of acute hypoxic respiratory failure secondary to SARS-CoV-2 pneumonia admitted to the intensive care unit for further management 1. Acute hypoxic respiratory failure ?Secondary to SARS-CoV-2 pneumonia; on Airvo -07/27/2020; patient remains on high flow oxygen in addition to his remdesivir as well as Decadron 2. Sepsis secondary to SARS-CoV-2 pneumonia - on decadron 3. Hypertension - Blood pressure controlled, home medications continued with dose adjustment as needed 4. Dyslipidemia -Patient is on statin therapy, continued at home dose 5. Morbid obesity - With a BMI of 35.3 patient was counseled on weight reduction 6. Coronary artery disease ?Previous history of non-STEMI currently on medical therapy left heart catheterization did not demonstrate any lesion amenable for PCI 7. Gout ?Patient is on allopurinol 8. DVT Prophylaxis - Lovenox Visit Charges Inpatient E&M: 45176 Subs Hosp L2
[2020-07-27] MEDS: dexAMETHasone 10 MG/ML Vial 6 MG IV (10:36)
[2020-07-27] MEDS: Allopurinol 100 MG Tablet PO (10:36)
[2020-07-27] MEDS: Lisinopril 10 MG Tablet PO (10:36)
[2020-07-27] MEDS: Famotidine 20 MG Tablet PO ×2 (10:36→20:49)
[2020-07-27] MEDS: amLODIPine 5 MG Tablet PO (10:36)
[2020-07-27] MEDS: Enoxaparin 30 MG/0.3 ML Syringe SC ×2 (10:36→20:50)
[2020-07-27] MEDS: Aspirin 81 MG TAB.CHEW PO (10:36)
[2020-07-27] MEDS: Atorvastatin Calcium 80 MG Tablet PO (20:49)
[2020-07-28] VITALS (29 sets, daily range): BP systolic 109–141; BP diastolic 56–75; PULSE 57–90; RESP 12–38; TEMP 36.3–36.7; O2SAT 90–98
[2020-07-28 04:05] LABS: Hematocrit 40.3 % (40-54); Hemoglobin 13.7 g/dL (13.0-16.5); Mean Corpuscular Hgb 30.8 pg (27.0-32.0); Mean Corpuscular Volume 90.6 fL (80-94); Mean Platelet Vol. 9.8 fl (6.2-12.0); Platelet Count 422 K/mm3 (150-450); RBC Distribution Width CV 12.8 % (11.6-14.6); RBC Distribution Width SD 42.5 fl (35.1-43.9); Red Blood Count 4.45 M/mm3 (4.6-6.2); White Blood Count 12.2 K/mm3 (4.4-11.0)
[2020-07-28 04:24] LABS: ALB/GLOB Ratio 0.8 RATIO (0.9-2.4); AST(SGOT) 32 U/L (15-37); Alanine Aminotransfer ALT/SGPT 62 U/L (16-61); Albumin, Serum 2.9 g/dL (3.2-5.0); Alkaline Phosphatase 107 U/L (45-117); Anion Gap 7 (5-15); BUN 28 mg/dL (7-18); BUN/Creat Ratio 29.4 RATIO (10-20); Chloride 107 mmol/L (98-107); Creatinine, Serum 0.95 mg/dL (0.70-1.30); EST Glomerular Filtration Rate 90 mL/min (>60); Est Glom Filt Rate - Afr Amer 109 mL/min (>60); Estimated Creatinine Clearance 98.19 ml/min; Globulin 3.8 g/dL (2.2-4.2); Glucose 110 mg/dL (74-106); Potassium 4.6 mmol/L (3.5-5.1); Protein, Total 6.7 g/dL (6.4-8.2); Sodium Level 139 mmol/L (136-145)
--- NOTE | 2020-07-28 06:05 | PCM.PN.INT ---
Assessment & Plan Assessment/Plan (1) Acute respiratory failure with hypoxia: (2) COVID-19: PLAN: RECOMMENDATIONS: 1. Continue heated high flow oxygen throughout the day and BiPAP support at night as tolerated. 2. Continue remdesivir. Monitor liver and renal function. 3. Continue Decadron to complete 10-day treatment course. 4. Continue Lovenox as ordered. IMPRESSIONS: 1. Acute hypoxemic respiratory failure secondary to COVID-19 pneumonia The patient presented to the hospital with Covid symptoms of approximately 1.5 weeks duration. He does have extensive bilateral groundglass infiltrates on CTA chest. The patient has been requiring BiPAP, but has been able to be transitioned to heated high flow throughout the day. Plan to continue the aforementioned with a goal to wean FiO2 to maintain oxygen saturations at or above 90%. The patient will be continued on remdesivir. Liver and renal function will be monitored. Continue Decadron to complete 10-day treatment course. Continue Lovenox as ordered. Low threshold for intubation with any further decline in respiratory status. 2. History of coronary artery disease/hypertension/hyperlipidemia/obesity Complicates care, management, recovery and prognosis. Continue home medications as indicated. This note was generated with [employer] dictation software. It may contain incorrect words, spelling, and punctuation that were not noted in checking the note before signing. Subjective Subjective The patient was seen and examined at the bedside this morning. Events from the last 24 hours have been reviewed. The patient is currently afebrile, hemodynamically stable and maintaining appropriate oxygen saturations on BIPAP with an FiO2 requirement of 60%. The patient was able to be maintained on heated high flow throughout the day yesterday and was transitioned to BiPAP for overnight support. Nursing staff does report that the patient has been having diarrhea. Liver and renal function are stable. The patient remains on remdesivir, Decadron and twice daily Lovenox. Objective Data Objective Data The patient's most recent lab work, culture data and imaging studies have all been personally reviewed. Rapid coronavirus antigen testing was positive on July 21. Vital Signs: Vital Signs Temp Pulse Resp BP Pulse Ox 97.4 F L 57 L 24 H 119/65 90 07/28/20 04:00 07/28/20 05:00 07/28/20 05:00 07/28/20 05:00 07/28/20 05:00 Oxygen Flow Rate (L/min) 50 Oxygen Delivery Method Bi-pap Weight: 239 lb 10.279 oz Body Mass Index (BMI) 35.2 Intake & Output: Intake and Output for Last 24 Hours 07/26/20 07/27/20 07/28/20 23:59 23:59 23:59 Intake Total 1870 / 1870 250 / 250 250 / 250 Output Total 1150 / 1150 1625 / 1825 420 / 420 Balance 720 / 720 -1375 / -1575 -170 / -170 Lab / Micro Data Attestation: I reviewed the patient's lab results. Result Diagrams: 07/28/20 03:40 07/28/20 03:40 Labs: Laboratory Results - last 24 hr 07/28/20 07/28/20 03:40 03:40 WBC 12.2 H RBC 4.45 L Hgb 13.7 Hct 40.3 MCV 90.6 MCH 30.8 MCHC 34.0 RDW Std Deviation 42.5 RDW Coeff of Coleman 12.8 Plt Count 422 MPV 9.8 Sodium 139 Potassium 4.6 Chloride 107 Carbon Dioxide 25.0 Anion Gap 7 BUN 28 H Creatinine 0.95 Estim Creat Clear Calc 98.19 Est GFR (MDRD) Af Amer 109 Est GFR (MDRD) Non-Af 90 BUN/Creatinine Ratio 29.4 H Glucose 110 H Calcium 8.0 L Total Bilirubin 1.00 AST 32 ALT 62 H Alkaline Phosphatase 107 Total Protein 6.7 Albumin 2.9 L Globulin 3.8 Albumin/Globulin Ratio 0.8 L Micro: Microbiology 07/26/20 03:40 Urine, Clean Catch Legionella Antigen - Final 07/26/20 03:40 Urine, Clean Catch Streptococcus pneumoniae Antigen (M - Final 07/25/20 21:51 Mucosa - Nasopharyngeal Respiratory Panel (PCR) - Final Rhythm Strip Rhythm Strip: Sinus Tach Rate: 105 Ectopy: None Physical Exam Const alert and oriented x3 Constitutional Narrative: BiPAP mask currently in place. General Appearance: cooperative HEENT normocephalic, head/scalp atraumatic and moist oral mucous membranes Eyes PERRL, EOMs intact bilaterally and conjunctivae normal Neck supple General: trachea midline Resp Effort and Inspection: tachypneic Auscultation: diminished lung sounds; Negative for rales, rhonchi or wheezes Cardio S1 normal heart sound and S2 normal heart sound Rate: bradycardia Heart Sounds: Negative for murmur GI normal to inspection, nondistended, normoactive bowel sounds Extremity no clubbing, cyanosis or edema Skin no rashes or lesions noted Neuro oriented x3, moves all extremities and no focal motor deficits Psych cooperative and affect normal Appearance: well kempt Charges/Coding Visit Charges Inpatient E&M: 05211 Subs Hosp L3
--- NOTE | 2020-07-28 07:42 | PN.HOSP_ITS ---
Subjective Subjective Patient seen remains in ICU alternating between AVAPS and Airvo Objective Data Objective Data Vital Signs: Vital Signs Temp Pulse Resp BP Pulse Ox 97.4 F L 64 21 H 115/67 94 07/28/20 04:00 07/28/20 07:00 07/28/20 07:00 07/28/20 07:00 07/28/20 07:00 Oxygen Flow Rate (L/min) 50 Oxygen Delivery Method Bi-pap Weight: 108.7 kg Body Mass Index (BMI) 35.2 Intake & Output: Intake and Output for Last 24 Hours 07/26/20 07/27/20 07/28/20 23:59 23:59 23:59 Intake Total 1870 / 1870 250 / 250 250 / 250 Output Total 1150 / 1150 1625 / 1825 620 / 620 Balance 720 / 720 -1375 / -1575 -370 / -370 Lab / Micro Data Result Diagrams: 07/28/20 03:40 07/28/20 03:40 Labs: Laboratory Results - last 24 hr 07/28/20 07/28/20 03:40 03:40 WBC 12.2 H RBC 4.45 L Hgb 13.7 Hct 40.3 MCV 90.6 MCH 30.8 MCHC 34.0 RDW Std Deviation 42.5 RDW Coeff of Coleman 12.8 Plt Count 422 MPV 9.8 Sodium 139 Potassium 4.6 Chloride 107 Carbon Dioxide 25.0 Anion Gap 7 BUN 28 H Creatinine 0.95 Estim Creat Clear Calc 98.19 Est GFR (MDRD) Af Amer 109 Est GFR (MDRD) Non-Af 90 BUN/Creatinine Ratio 29.4 H Glucose 110 H Calcium 8.0 L Total Bilirubin 1.00 AST 32 ALT 62 H Alkaline Phosphatase 107 Total Protein 6.7 Albumin 2.9 L Globulin 3.8 Albumin/Globulin Ratio 0.8 L Micro: Microbiology 07/26/20 03:40 Urine, Clean Catch Legionella Antigen - Final 07/26/20 03:40 Urine, Clean Catch Streptococcus pneumoniae Antigen (M - Final 07/25/20 21:51 Mucosa - Nasopharyngeal Respiratory Panel (PCR) - Final Rhythm Strip Rhythm Strip: Sinus Tach Rate: 105 Ectopy: None Physical Exam Narrative GENERAL: cooperative; on airvo HEENT: Atraumatic; EYES; Anicteric, Normal Conjunctiva NECK; supple, normal thyroid, RESPIRATORY: Diminished to auscultation CARDIOVASCULAR: Regular S1 S2, GI: soft, normoactive bowel sounds, : No Renal angle tenderness; EXTREMITIES: No edema, no clubbing, MUSCULOSKELETAL: no muscle waisting NEURO: Awake; no lateralizing signs. SKIN: No Rash PSYCH; Flat affect Assessment & Plan Assessment/Plan (1) Sepsis: QUALIFIERS: Sepsis acute organ dysfunction status: unspecified Sepsis type: sepsis due to unspecified organism Qualified Code(s): A41.9 - Sep sis, unspecified organism (2) Pneumonia due to COVID-19 virus: (3) Acute respiratory failure with hypoxia: (4) Hyperlipidemia: (5) Essential (primary) hypertension: PLAN: Patient is a 50 male diagnosed with COVID-19 on 07/21/2020 presented to the emergency department on 07/24/2020 with increasing shortness of breath. An assessment of acute hypoxic respiratory failure secondary to SARS-CoV-2 pneumonia admitted to the intensive care unit for further management 1. Acute hypoxic respiratory failure ?Secondary to SARS-CoV-2 pneumonia; on Airvo -07/27/2020; patient remains on high flow oxygen in addition to his remdesivir as well as Decadron ?07/28/2020 Patient seen remains in ICU alternating between AVAPS and Airvo 2. Sepsis secondary to SARS-CoV-2 pneumonia - on decadron 3. Hypertension - Blood pressure controlled, home medications continued with dose adjustment as needed 4. Dyslipidemia -Patient is on statin therapy, continued at home dose 5. Morbid obesity - With a BMI of 35.3 patient was counseled on weight reduction 6. Coronary artery disease ?Previous history of non-STEMI currently on medical therapy left heart catheterization did not demonstrate any lesion amenable for PCI 7. Gout ?Patient is on allopurinol 8. DVT Prophylaxis - Lovenox
[2020-07-28] MEDS: Allopurinol 100 MG Tablet PO (09:29)
[2020-07-28] MEDS: amLODIPine 5 MG Tablet PO (09:29)
[2020-07-28] MEDS: Enoxaparin 30 MG/0.3 ML Syringe SC ×2 (09:29→19:58)
[2020-07-28] MEDS: dexAMETHasone 10 MG/ML Vial 6 MG IV (09:29)
[2020-07-28] MEDS: Famotidine 20 MG Tablet PO ×2 (09:30→19:58)
[2020-07-28] MEDS: Aspirin 81 MG TAB.CHEW PO (09:30)
[2020-07-28] MEDS: Lisinopril 10 MG Tablet PO (09:30)
[2020-07-28] MEDS: Linezolid 600 MG Tablet PO ×2 (16:58→19:58)
[2020-07-28] MEDS: guaiFENesin 10 ML UDC (200MG/10ML) PO (19:58)
[2020-07-28] MEDS: Atorvastatin Calcium 80 MG Tablet PO (19:58)
[2020-07-28] MEDS: MELATONIN 3 MG TABLET PO (19:58)
--- NOTE | 2020-07-28 23:08 | CPS ---
Pt refuses bipap at this time, per RN
[2020-07-29] VITALS (35 sets, daily range): BP systolic 103–140; BP diastolic 48–86; PULSE 63–105; RESP 12–36; TEMP 21.1–36.6; O2SAT 90–100
[2020-07-29] MEDS: guaiFENesin 10 ML UDC (200MG/10ML) PO (04:22)
[2020-07-29 05:02] LABS: Hematocrit 42.1 % (40-54); Hemoglobin 14.3 g/dL (13.0-16.5); Mean Corpuscular Hgb 30.6 pg (27.0-32.0); Mean Platelet Vol. 9.6 fl (6.2-12.0); Platelet Count 484 K/mm3 (150-450); RBC Distribution Width CV 12.8 % (11.6-14.6); RBC Distribution Width SD 42.1 fl (35.1-43.9); Red Blood Count 4.68 M/mm3 (4.6-6.2); White Blood Count 9.9 K/mm3 (4.4-11.0)
[2020-07-29 05:28] LABS: ALB/GLOB Ratio 0.7 RATIO (0.9-2.4); AST(SGOT) 35 U/L (15-37); Alanine Aminotransfer ALT/SGPT 68 U/L (16-61); Albumin, Serum 2.9 g/dL (3.2-5.0); Alkaline Phosphatase 110 U/L (45-117); Anion Gap 7 (5-15); BUN 22 mg/dL (7-18); BUN/Creat Ratio 21.6 RATIO (10-20); Calcium,Total 8.1 mg/dL (8.5-10.1); Chloride 106 mmol/L (98-107); Creatinine, Serum 1.02 mg/dL (0.70-1.30); EST Glomerular Filtration Rate 83 mL/min (>60); Est Glom Filt Rate - Afr Amer 100 mL/min (>60); Estimated Creatinine Clearance 91.45 ml/min; Globulin 4.1 g/dL (2.2-4.2); Glucose 110 mg/dL (74-106); Potassium 4.3 mmol/L (3.5-5.1); Sodium Level 137 mmol/L (136-145)
--- NOTE | 2020-07-29 07:08 | PN.HOSP_ITS ---
Subjective Subjective Patient sputum culture so far positive for Nocardia like organism as well as staph aureus Case was discussed with ID patient started on linezolid Objective Data Objective Data Vital Signs: Vital Signs Temp Pulse Resp BP Pulse Ox 97.9 F 93 27 H 140/86 H 92 07/29/20 04:00 07/29/20 07:00 07/29/20 07:00 07/29/20 07:00 07/29/20 07:00 Oxygen Flow Rate (L/min) 50 Oxygen Delivery Method Airvo Weight: 106.9 kg Body Mass Index (BMI) 35.2 Intake & Output: Intake and Output for Last 24 Hours 07/27/20 07/28/20 07/29/20 23:59 23:59 23:59 Intake Total 250 / 250 1040 / 1040 100 / 100 Output Total 1625 / 1825 1420 / 1420 300 / 300 Balance -1375 / -1575 -380 / -380 -200 / -200 Lab / Micro Data Result Diagrams: 07/29/20 04:35 07/29/20 04:35 Labs: Laboratory Results - last 24 hr 07/29/20 07/29/20 04:35 04:35 WBC 9.9 RBC 4.68 Hgb 14.3 Hct 42.1 MCV 90.0 MCH 30.6 MCHC 34.0 RDW Std Deviation 42.1 RDW Coeff of Coleman 12.8 Plt Count 484 H MPV 9.6 Sodium 137 Potassium 4.3 Chloride 106 Carbon Dioxide 24.0 Anion Gap 7 BUN 22 H Creatinine 1.02 Estim Creat Clear Calc 91.45 Est GFR (MDRD) Af Amer 100 Est GFR (MDRD) Non-Af 83 BUN/Creatinine Ratio 21.6 H Glucose 110 H Calcium 8.1 L Total Bilirubin 1.30 H AST 35 ALT 68 H Alkaline Phosphatase 110 Total Protein 7.0 Albumin 2.9 L Globulin 4.1 Albumin/Globulin Ratio 0.7 L Micro: Microbiology 07/27/20 17:00 Sputum, Expectorated/Coughed Gram Stain - Final 07/27/20 17:00 Sputum, Expectorated/Coughed Respiratory Culture - Preliminary Staphylococcus aureus 07/25/20 18:40 Blood Culture (Wb) - Left Wrist Blood Culture - Preliminary No growth in 48 hours. 07/25/20 19:02 Blood Culture (Wb) - Anticubital Left Blood Culture - Preliminary No growth in 48 hours. 07/26/20 03:40 Urine, Clean Catch Legionella Antigen - Final 07/26/20 03:40 Urine, Clean Catch Streptococcus pneumoniae Antigen (M - Final 07/25/20 21:51 Mucosa - Nasopharyngeal Respiratory Panel (PCR) - Final Rhythm Strip Rhythm Strip: Sinus Tach Rate: 105 Ectopy: None Physical Exam Narrative GENERAL: cooperative; on airvo HEENT: Atraumatic; EYES; Anicteric, Normal Conjunctiva NECK; supple, normal thyroid, RESPIRATORY: Diminished to auscultation CARDIOVASCULAR: Regular S1 S2, GI: soft, normoactive bowel sounds, : No Renal angle tenderness; EXTREMITIES: No edema, no clubbing, MUSCULOSKELETAL: no muscle waisting NEURO: Awake; no lateralizing signs. SKIN: No Rash PSYCH; Flat affect Assessment & Plan Assessment/Plan (1) Sepsis: QUALIFIERS: Sepsis acute organ dysfunction status: unspecified Sepsis type: sepsis due to unspecified organism Qualified Code(s): A41.9 - Sepsis, unspecified organism (2) Pneumonia due to COVID-19 virus: (3) Acute respiratory failure with hypoxia: (4) Hyperlipidemia: (5) Essential (primary) hypertension: PLAN: Patient is a 50 male diagnosed with COVID-19 on 07/21/2020 presented to the emergency department on 07/24/2020 with increasing shortness of breath. A n assessment of acute hypoxic respiratory failure secondary to SARS-CoV-2 pneumonia admitted to the intensive care unit for further management 1. Acute hypoxic respiratory failure ?Secondary to SARS-CoV-2 pneumonia; on Airvo -07/27/2020; patient remains on high flow oxygen in addition to his remdesivir as well as Decadron ?07/28/2020 Patient seen remains in ICU alternating between AVAPS and Airvo 2. Sepsis secondary to SARS-CoV-2 pneumonia - on decadron -July 29, 2020; patient has superimposed bacterial infection. Sputum cultures did reveal nocardia-like organism as well as staph aureus. Case discussed with ID Linezolid added to patient's therapy 3. Hypertension - Blood pressure controlled, home medications continued with dose adjustment as needed 4. Dyslipidemia -Patient is on statin therapy, continued at home dose 5. Morbid obesity - With a BMI of 35.3 patient was counseled on weight reduction 6. Coronary artery disease ?Previous history of non-STEMI currently on medical therapy left heart catheterization did not demonstrate any lesion amenable for PCI 7. Gout ?Patient is on allopurinol 8. DVT Prophylaxis - Lovenox Visit Charges Inpatient E&M: 85671 Subs Hosp L2
[2020-07-29] MEDS: Enoxaparin 30 MG/0.3 ML Syringe SC ×2 (08:14→21:14)
[2020-07-29] MEDS: Allopurinol 100 MG Tablet PO (08:15)
[2020-07-29] MEDS: Lisinopril 10 MG Tablet PO (08:15)
[2020-07-29] MEDS: Famotidine 20 MG Tablet PO ×2 (08:15→21:13)
[2020-07-29] MEDS: Linezolid 600 MG Tablet PO ×2 (08:16→21:13)
[2020-07-29] MEDS: amLODIPine 5 MG Tablet PO (08:16)
[2020-07-29] MEDS: Aspirin 81 MG TAB.CHEW PO (08:16)
[2020-07-29] MEDS: dexAMETHasone 10 MG/ML Vial 6 MG IV (08:16)
--- NOTE | 2020-07-29 08:23 | PN.CC_ITS ---
Assessment & Plan Assessment/Plan (1) Acute respiratory failure with hypoxia: (2) COVID-19: PLAN: RECOMMENDATIONS: 1. Continue heated high flow oxygen throughout the day and BiPAP support at night as tolerated. 2. Complete remdesivir. Likely okay to discontinue liver function studies after today 3. Continue Decadron to complete 10-day treatment course. 4. Continue Lovenox as ordered. 5. Clarify culture results IMPRESSIONS: 1. Acute hypoxemic respiratory failure secondary to COVID-19 pneumonia The patient presented to the hospital with Covid symptoms of approximately 1.5 weeks duration. He does have extensive bilateral groundglass infiltrates on CTA chest. The patient has been requiring BiPAP, but has been able to be transitioned to heated high flow throughout the day. Wiley discussion with patient about the potential complications of refusing BiPAP overnight. Plan to continue the aforementioned with a goal to wean FiO2 to maintain oxygen saturations at or above 90%. The patient will be continued on remdesivir. Liver and renal function will be monitored. Continue Decadron to complete 10-day treatment course. Continue Lovenox as ordered. Low threshold for intubation with any further decline in respiratory status. Patient understands of refusal of BiPAP can lead to faster intubation. Patient will be moved to the chair later today. 2. History of coronary artery disease/hypertension/hyperlipidemia/obesity Complicates care, management, recovery and prognosis. Continue home medications as indicated. This note was generated with [employer] dictation software. It may contain incorrect words, spelling, and punctuation that were not noted in checking the note before signing. Subjective Subjective Patient did okay overnight. Nursing reports patient refused BiPAP therapy and was requiring over 90% FiO2 on Airvo to maintain saturations. Patient continues to be marginally motivated. Patient is not reporting any pain. Patient continues to have a cough with minimal exertion and use of incentive spirometer. Objective Data Objective Data Vital Signs: Vital Signs Temp Pulse Resp BP Pulse Ox 36.3 C L 105 H 34 H 131/72 H 91 07/29/20 08:00 07/29/20 08:03 07/29/20 08:03 07/29/20 08:00 07/29/20 08:03 Oxygen Flow Rate (L/min) 55 Oxygen Delivery Method Airvo Weight: 106.9 kg Body Mass Index (BMI) 35.2 Intake & Output: Intake and Output for Last 24 Hours 05/20/21 05/21/21 05/22/21 23:59 23:59 23:59 Intake Total 250 / 250 1040 / 1040 100 / 100 Output Total 1625 / 1825 1420 / 1420 600 / 600 Balance -1375 / -1575 -380 / -380 -500 / -500 Lab / Micro Data Result Diagrams: 07/29/20 04:35 07/29/20 04:35 Labs: Laboratory Results - last 24 hr 07/29/20 07/29/20 04:35 04:35 WBC 9.9 RBC 4.68 Hgb 14.3 Hct 42.1 MCV 90.0 MCH 30.6 MCHC 34.0 RDW Std Deviation 42.1 RDW Coeff of Coleman 12.8 Plt Count 484 H MPV 9.6 Sodium 137 Potassium 4.3 Chloride 106 Carbon Dioxide 24.0 Anion Gap 7 BUN 22 H Creatinine 1.02 Estim Creat Clear Calc 91.45 Est GFR (MDRD) Af Amer 100 Est GFR (MDRD) Non-Af 83 BUN/Creatinine Ratio 21.6 H Glucose 110 H Calcium 8.1 L Total Bilirubin 1.30 H AST 35 ALT 68 H Alkaline Phosphatase 110 Total Protein 7.0 Albumin 2.9 L Globulin 4.1 Albumin/Globulin Ratio 0.7 L Micro: Microbiology 07/27/20 17:00 Sputum, Expectorated/Coughed Gram Stain - Final 07/27/20 17:00 Sputum, Expectorated/Coughed Respiratory Culture - Preliminary Staphylococcus aureus 07/25/20 18:40 Blood Culture (Wb) - Left Wrist Blood Culture - Preliminary No growth in 48 hours. 07/25/20 19:02 Blood Culture (Wb) - Anticubital Left Blood Culture - Preliminary No growth in 48 hours. 07/26/20 03:40 Urine, Clean Catch Legionella Antigen - Final 07/26/20 03:40 Urine, Clean Catch Streptococcus pneumoniae Antigen (M - Final 07/25/20 21:51 Mucosa - Nasopharyngeal Respiratory Panel (PCR) - Final Rhythm Strip Rhythm Strip: Sinus Tach Rate: 105 Ectopy: None Physical Exam Const alert and oriented x3 Constitutional Narrative: Airvo mask currently in place. General Appearance: cooperative HEENT normocephalic, head/scalp atraumatic and moist oral mucous membranes Eyes PERRL, EOMs intact bilaterally and conjunctivae normal Neck supple General: trachea midline Resp Effort and Inspection: tachypneic Auscultation: diminished lung sounds; Negative for rales, rhonchi or wheezes Cardio S1 normal heart sound and S2 normal heart sound Rate: bradycardia Heart Sounds: Negative for murmur GI normal to inspection, nondistended, normoactive bowel sounds Extremity no clubbing, cyanosis or edema Skin no rashes or lesions noted Neuro oriented x3, moves all extremities and no focal motor deficits Psych cooperative and affect normal Appearance: well kempt Charges/Coding Visit Charges Inpatient E&M: 35942 Subs Hosp L3
[2020-07-29] MEDS: 0.9% Saline Lock 10 ML Syringe IV (21:13)
[2020-07-29] MEDS: Atorvastatin Calcium 80 MG Tablet PO (21:13)
[2020-07-30] VITALS (26 sets, daily range): BP systolic 115–141; BP diastolic 57–78; PULSE 61–92; RESP 12–38; TEMP 36.2–37.1; O2SAT 92–100; BMI 33.3
[2020-07-30 04:52] LABS: Hematocrit 41.3 % (40-54); Hemoglobin 13.8 g/dL (13.0-16.5); Mean Corp Hgb Conc 33.4 g/dL (32-36); Mean Corpuscular Hgb 30.3 pg (27.0-32.0); Mean Corpuscular Volume 90.8 fL (80-94); Mean Platelet Vol. 9.2 fl (6.2-12.0); Platelet Count 501 K/mm3 (150-450); RBC Distribution Width CV 12.5 % (11.6-14.6); RBC Distribution Width SD 41.7 fl (35.1-43.9); Red Blood Count 4.55 M/mm3 (4.6-6.2); White Blood Count 16.6 K/mm3 (4.4-11.0)
[2020-07-30 05:09] LABS: ALB/GLOB Ratio 0.6 RATIO (0.9-2.4); AST(SGOT) 27 U/L (15-37); Alanine Aminotransfer ALT/SGPT 64 U/L (16-61); Albumin, Serum 2.8 g/dL (3.2-5.0); Alkaline Phosphatase 108 U/L (45-117); Anion Gap 6 (5-15); BUN 23 mg/dL (7-18); BUN/Creat Ratio 22.1 RATIO (10-20); Calcium,Total 8.2 mg/dL (8.5-10.1); Chloride 106 mmol/L (98-107); Creatinine, Serum 1.04 mg/dL (0.70-1.30); EST Glomerular Filtration Rate 81 mL/min (>60); Est Glom Filt Rate - Afr Amer 98 mL/min (>60); Estimated Creatinine Clearance 89.69 ml/min; Globulin 4.4 g/dL (2.2-4.2); Glucose 120 mg/dL (74-106); Potassium 4.9 mmol/L (3.5-5.1); Protein, Total 7.2 g/dL (6.4-8.2); Sodium Level 137 mmol/L (136-145)
--- NOTE | 2020-07-30 06:29 | PCM.PN.INT ---
Assessment & Plan Assessment/Plan (1) Acute respiratory failure with hypoxia: (2) COVID-19: PLAN: RECOMMENDATIONS: 1. Continue heated high flow oxygen throughout the day and BiPAP support at night as tolerated. 2. Completed remdesivir. Likely okay to discontinue liver function studies after today 3. Continue Decadron to complete 10-day treatment course. 4. Continue Lovenox as ordered. 5. Clarify culture results -lab reporting nocardia may take a week to grow 6. Advance diet as tolerated IMPRESSIONS: 1. Acute hypoxemic respiratory failure secondary to COVID-19 pneumonia The patient presented to the hospital with Covid symptoms of approximately 1.5 weeks duration. He does have extensive bilateral groundglass infiltrates on CTA chest. The patient has been requiring BiPAP, but has been able to be transitioned to heated high flow throughout the day. Wiley discussion with patient about the potential complications of refusing BiPAP overnight. Plan to continue the aforementioned with a goal to wean FiO2 to maintain oxygen saturations at or above 90%. The patient has completed remdesivir. Continue Decadron to complete 10-day treatment course. Continue Lovenox as ordered. Significant improvement over the last 24 hours likely secondary to improved recruitment from patient cooperation. Continue with Decadron. 2. History of coronary artery disease/hypertension/hyperlipidemia/obesity Complicates care, management, recovery and prognosis. Continue home medications as indicated. This note was generated with [employer] dictation software. It may contain incorrect words, spelling, and punctuation that were not noted in checking the note before signing. Subjective Subjective Patient did much better yesterday. Patient was able to get into the chair. Patient did desaturate to 70% and had significant coughing, but over the course of the day was able to improve from 93% FiO2 down to 75% FiO2 on Airvo. Patient did use BiPAP overnight. Patient is denying any pain at this time. Objective Data Objective Data Vital Signs: Vital Signs Temp Pulse Resp BP Pulse Ox 36.7 C 69 26 H 140/62 H 95 07/30/20 00:00 07/30/20 05:00 07/30/20 05:00 07/30/20 05:00 07/30/20 05:00 Oxygen Flow Rate (L/min) 55 Oxygen Delivery Method Bi-pap Weight: 105.3 kg Body Mass Index (BMI) 35.2 Intake & Output: Intake and Output for Last 24 Hours 07/28/20 07/29/20 07/30/20 23:59 23:59 23:59 Intake Total 1040 / 1040 1740 / 1740 Output Total 1420 / 1420 1450 / 1450 Balance -380 / -380 290 / 290 Lab / Micro Data Result Diagrams: 07/30/20 04:30 07/30/20 04:30 Labs: Laboratory Results - last 24 hr 07/30/20 07/30/20 04:30 04:30 WBC 16.6 H RBC 4.55 L Hgb 13.8 Hct 41.3 MCV 90.8 MCH 30.3 MCHC 33.4 RDW Std Deviation 41.7 RDW Coeff of Coleman 12.5 Plt Count 501 H MPV 9.2 Sodium 137 Potassium 4.9 Chloride 106 Carbon Dioxide 25.0 Anion Gap 6 BUN 23 H Creatinine 1.04 Estim Creat Clear Calc 89.69 Est GFR (MDRD) Af Amer 98 Est GFR (MDRD) Non-Af 81 BUN/Creatinine Ratio 22.1 H Glucose 120 H Calcium 8.2 L Total Bilirubin 1.20 H AST 27 ALT 64 H Alkaline Phosphatase 108 Total Protein 7.2 Albumin 2.8 L Globulin 4.4 H Albumin/Globulin Ratio 0.6 L Micro: Microbiology 07/27/20 17:00 Sputum, Expectorated/Coughed Gram Stain - Final 07/27/20 17:00 Sputum, Expectorated/Coughed Respiratory Culture - Preliminary Staphylococcus aureus 07/25/20 18:40 Blood Culture (Wb) - Left Wrist Blood Culture - Preliminary No growth in 48 hours. 07/25/20 19:02 Blood Culture (Wb) - Anticubital Left Blood Culture - Preliminary No growth in 48 hours. 07/26/20 03:40 Urine, Clean Catch Legionella Antigen - Final 07/26/20 03:40 Urine, Clean Catch Streptococcus pneumoniae Antigen (M - Final 07/25/20 21:51 Mucosa - Nasopharyngeal Respiratory Panel (PCR) - Final Rhythm Strip Rhythm Strip: Sinus Tach Rate: 105 Ectopy: None Physical Exam Const alert and oriented x3 Constitutional Narrative: BiPAP mask currently in place. General Appearance: cooperative HEENT normocephalic, head/scalp atraumatic and moist oral mucous membranes Eyes PERRL, EOMs intact bilaterally and conjunctivae normal Neck supple General: trachea midline Resp Effort and Inspection: tachypneic Auscultation: diminished lung sounds; Negative for rales, rhonchi or wheezes Cardio S1 normal heart sound and S2 normal heart sound Rate: bradycardia Heart Sounds: Negative for murmur GI normal to inspection, nondistended, normoactive bowel sounds Extremity no clubbing, cyanosis or edema Skin no rashes or lesions noted Neuro oriented x3, moves all extremities and no focal motor deficits Psych cooperative and affect normal Appearance: well kempt Charges/Coding Visit Charges Inpatient E&M: 85915 Subs Hosp L3
--- NOTE | 2020-07-30 07:10 | PN.HOSP_ITS ---
Subjective Subjective Patient seen in ICU. Tolerated BiPAP during the night. Patient per nursing staff desaturate easily with minimal activity. Did encourage the use of incentive spirometry Objective Data Objective Data Vital Signs: Vital Signs Temp Pulse Resp BP Pulse Ox 98.0 F 69 34 H 140/67 H 96 07/30/20 00:00 07/30/20 07:00 07/30/20 07:00 07/30/20 07:00 07/30/20 07:00 Oxygen Flow Rate (L/min) 55 Oxygen Delivery Method Bi-pap Weight: 105.3 kg Body Mass Index (BMI) 35.2 Intake & Output: Intake and Output for Last 24 Hours 07/28/20 07/29/20 07/30/20 23:59 23:59 23:59 Intake Total 1040 / 1040 1740 / 1740 Output Total 1420 / 1420 1450 / 1450 Balance -380 / -380 290 / 290 Lab / Micro Data Result Diagrams: 07/30/20 04:30 07/30/20 04:30 Labs: Laboratory Results - last 24 hr 07/30/20 07/30/20 04:30 04:30 WBC 16.6 H RBC 4.55 L Hgb 13.8 Hct 41.3 MCV 90.8 MCH 30.3 MCHC 33.4 RDW Std Deviation 41.7 RDW Coeff of Coleman 12.5 Plt Count 501 H MPV 9.2 Sodium 137 Potassium 4.9 Chloride 106 Carbon Dioxide 25.0 Anion Gap 6 BUN 23 H Creatinine 1.04 Estim Creat Clear Calc 89.69 Est GFR (MDRD) Af Amer 98 Est GFR (MDRD) Non-Af 81 BUN/Creatinine Ratio 22.1 H Glucose 120 H Calcium 8.2 L Total Bilirubin 1.20 H AST 27 ALT 64 H Alkaline Phosphatase 108 Total Protein 7.2 Albumin 2.8 L Globulin 4.4 H Albumin/Globulin Ratio 0.6 L Micro: Microbiology 07/27/20 17:00 Sputum, Expectorated/Coughed Gram Stain - Final 07/27/20 17:00 Sputum, Expectorated/Coughed Respiratory Culture - Preliminary Staphylococcus aureus 07/25/20 18:40 Blood Culture (Wb) - Left Wrist Blood Culture - Preliminary No growth in 48 hours. 07/25/20 19:02 Blood Culture (Wb) - Anticubital Left Blood Culture - Preliminary No growth in 48 hours. 07/26/20 03:40 Urine, Clean Catch Legionella Antigen - Final 07/26/20 03:40 Urine, Clean Catch Streptococcus pneumoniae Antigen (M - Final 07/25/20 21:51 Mucosa - Nasopharyngeal Respiratory Panel (PCR) - Final Rhythm Strip Rhythm Strip: Sinus Tach Rate: 105 Ectopy: None Physical Exam Narrative GENERAL: cooperative; on airvo HEENT: Atraumatic; EYES; Anicteric, Normal Conjunctiva NECK; supple, normal thyroid, RESPIRATORY: Diminished to auscultation CARDIOVASCULAR: Regular S1 S2, GI: soft, normoactive bowel sounds, : No Renal angle tenderness; EXTREMITIES: No edema, no clubbing, MUSCULOSKELETAL: no muscle waisting NEURO: Awake; no lateralizing signs. SKIN: No Rash PSYCH; Flat affect Assessment & Plan Assessment/Plan (1) Sepsis: QUALIFIERS: Sepsis acute organ dysfunction status: unspecified Sepsis type: sepsis due to unspecified organism Qualified Code(s): A41.9 - Sepsis, unspecified organism (2) Pneumonia due to COVID-19 virus: (3) Acute respiratory failure with hypoxia: (4) Hyperlipidemia: (5) Essential (primary) hypertension: PLAN: Patient is a 50 male diagnosed with COVID-19 on 07/21/2020 presented to the emergency department on 07/24/2020 with increasing shortness of breath. An assessment of acute hypoxic respiratory failure secondary to SARS-CoV-2 pneumonia admitted to the intensive care unit for further management 1. Acute hypoxic respiratory failure ?Secondary to SARS-CoV-2 pneumonia; on Airvo -07/27/2020; patient remains on high flow oxygen in addition to his remdesivir as well as Decadron ?07/28/2020 Patient seen remains in ICU alternating between AVAPS and Airvo -07/30/2020 Patient seen in ICU. Tolerated BiPAP during the night. Patient per nursing staff desaturate easily with minimal activity. Did encourage the use of incentive spirometry 2. Sepsis secondary to SARS-CoV-2 pneumonia - on decadron -July 29, 2020; patient has superimposed bacterial infection. Sputum cultures did reveal nocardia-like organism as well as staph aureus. Case discussed with ID Linezolid added to patient's therapy 3. Hypertension - Blood pressure controlled, home medications continued with dose adjustment as needed 4. Dyslipidemia -Patient is on statin therapy, continued at home dose 5. Morbid obesity - With a BMI of 35.3 patient was counseled on weight reduction 6. Coronary artery disease ?Previous history of non-STEMI currently on medical therapy left heart c atheterization did not demonstrate any lesion amenable for PCI 7. Gout ?Patient is on allopurinol 8. DVT Prophylaxis - Lovenox Visit Charges Inpatient E&M: 31351 Subs Hosp L2
[2020-07-30] MEDS: Aspirin 81 MG TAB.CHEW PO (09:14)
[2020-07-30] MEDS: Allopurinol 100 MG Tablet PO (09:14)
[2020-07-30] MEDS: Lisinopril 10 MG Tablet PO (09:14)
[2020-07-30] MEDS: Famotidine 20 MG Tablet PO ×2 (09:14→21:05)
[2020-07-30] MEDS: 0.9% Saline Lock 10 ML Syringe IV (09:14)
[2020-07-30] MEDS: Enoxaparin 30 MG/0.3 ML Syringe SC ×2 (09:15→21:05)
[2020-07-30] MEDS: amLODIPine 5 MG Tablet PO (09:15)
[2020-07-30] MEDS: dexAMETHasone 10 MG/ML Vial 6 MG IV (09:15)
[2020-07-30] MEDS: Linezolid 600 MG Tablet PO ×2 (09:16→21:05)
--- NOTE | 2020-07-30 09:45 | PCM.NTREPORT ---
Nutrition Therapy Report - History Current diet / nutrition support order:: regular; ensure clear w/ meals - Anthropometric Measurements Height:: 5 ft 10 in Weight:: 105.3 kg Body Mass Index (BMI):: 33.3 - Relevant Labs Relevant Labs:: WBC 16.6 K/mm3 (4.4-11.0) H 07/30/20 04:30 RBC 4.55 M/mm3 (4.6-6.2) L 07/30/20 04:30 Plt Count 501 K/mm3 (150-450) H 07/30/20 04:30 Neut % (Auto) 88.7 % (47-70) H 07/26/20 03:40 Lymph % (Auto) 8.0 % (19-41) L 07/26/20 03:40 Absolute Lymphs (auto) 0.41 X10^3/uL (0.83-4.51) L 07/26/20 03:40 D-Dimer Quant (PE/DVT) 0.94 FEU/ug/m (0.27-0.49) H* 07/25/20 18:40 Sodium 134 mmol/L (136-145) L 07/26/20 03:40 BUN 23 mg/dL (7-18) H 07/30/20 04:30 BUN/Creatinine Ratio 22.1 RATIO (10-20) H 07/30/20 04:30 Glucose 120 mg/dL (74-106) H 07/30/20 04:30 Hemoglobin A1c 5.7 % (3.8-5.6) H 07/26/20 03:40 Calcium 8.2 mg/dL (8.5-10.1) L 07/30/20 04:30 Phosphorus 2.3 mg/dL (2.5-4.9) L 07/25/20 18:40 Ferritin 759 ng/mL (26-388) H 07/25/20 18:40 Total Bilirubin 1.20 mg/dL (0.20-1.00) H 07/30/20 04:30 AST 42 U/L (15-37) H 07/27/20 04:40 ALT 64 U/L (16-61) H 07/30/20 04:30 Alkaline Phosphatase 118 U/L (45-117) H 07/26/20 03:40 Lactate Dehydrogenase 416 U/L (87-241) H 07/25/20 18:40 C-React Prot Ext Range 109.00 mg/L (0.0-3.0) H 07/25/20 18:40 Albumin 2.8 g/dL (3.2-5.0) L 07/30/20 04:30 Globulin 4.4 g/dL (2.2-4.2) H 07/30/20 04:30 Albumin/Globulin Ratio 0.6 RATIO (0.9-2.4) L 07/30/20 04:30 Procalcitonin 0.10 ng/mL (0.00-0.09) H 07/25/20 18:40 - Assessment Food / Nutrition-Related History:: PO diet advanced yesterday from clear liquids, fair intake reported by nursing staff d/t oxygen status. Nursing states pt is more motivated this date and improving from a resp. standpoint. Noted 5.9kg/5.3% wt loss since admission 07/25/20- significant for acute malnutrition - Nutrition Diagnosis Problem / Etiology / Signs & Symptoms (PES):: severe, acute malnutrition r/t inadequate energy intake d/t COVID-19 as evidenced by unintentional wt loss of 5.9kg/5.3% <1 week, estimated PO intake meeting <50% of nutritional needs x 5 days Evidence of Malnutrition Exists:: Yes Severe Protein Calorie Malnutrition:: Acute Illness - Nutrition Intervention Nutrition Prescription:: 3607-1409 calories/day (22-25 calories/kg IBW). 80-90 g protein/day (0.8g/kg). 2700mL fluid/day (25mL/kg) - Food / Nutrient Delivery Interventions Summary of nutrition intervention:: Will change ONS from Ensure Clear to Ensure Enlive for additional calories/protein if consumed. Nutrition support ordered as / adjusted to:: continue regular diet as tolerated; will change ONS from Ensure Clear to Ensure Enlive. - MNT Monitoring Further MNT monitoring and evaluation required?: Yes MNT Follow-up in:: 3-5 days
[2020-07-30] MEDS: Atorvastatin Calcium 80 MG Tablet PO (21:05)
[2020-07-31] VITALS (16 sets, daily range): BP systolic 113–127; BP diastolic 56–73; PULSE 58–93; RESP 12–35; TEMP 36.2–36.7; O2SAT 91–97
[2020-07-31 05:50] LABS: Anion Gap 8 (5-15); BUN 26 mg/dL (7-18); BUN/Creat Ratio 28.3 RATIO (10-20); Calcium,Total 8.1 mg/dL (8.5-10.1); Chloride 103 mmol/L (98-107); Creatinine, Serum 0.92 mg/dL (0.70-1.30); EST Glomerular Filtration Rate 94 mL/min (>60); Est Glom Filt Rate - Afr Amer 113 mL/min (>60); Estimated Creatinine Clearance 101.39 ml/min; Glucose 118 mg/dL (74-106); Magnesium 2.4 mg/dL (1.6-2.6); Phosphorus 4.1 mg/dL (2.5-4.9); Potassium 4.8 mmol/L (3.5-5.1); Sodium Level 135 mmol/L (136-145)
--- NOTE | 2020-07-31 08:22 | PN.CC_ITS ---
Assessment & Plan Assessment/Plan (1) Acute respiratory failure with hypoxia: (2) COVID-19: PLAN: RECOMMENDATIONS: 1. Continue heated high flow oxygen throughout the day and BiPAP support at night as tolerated. 2. Completed remdesivir. Continue Decadron to complete 10-day treatment co aletha. 3. Possibly attempt nasal cannula later today 4. Continue Lovenox as ordered. 5. Clarify culture results -lab reporting nocardia may take a week to grow 6. Advance diet as tolerated IMPRESSIONS: 1. Acute hypoxemic respiratory failure secondary to COVID-19 pneumonia The patient presented to the hospital with Covid symptoms of approximately 1.5 weeks duration. He does have extensive bilateral groundglass infiltrates on CTA chest. The patient has been requiring BiPAP, but has been able to be transitioned to heated high flow throughout the day. Wiley discussion with patient about the potential complications of refusing BiPAP overnight. Plan to continue the aforementioned with a goal to wean FiO2 to maintain oxygen satur ations at or above 90%. The patient has completed remdesivir. Continue Decadron to complete 10-day treatment course. Continue Lovenox as ordered. Significant improvement over the last 48 hours likely secondary to improved recruitment from patient cooperation. Continue with Decadron. Can discuss discharge planning if patient is able to tolerate 6 L or less with ambulation. 2. History of coronary artery disease/hypertension/hyperlipidemia/obesity Complicates care, management, recovery and prognosis. Continue home medications as indicated. This note was generated with [employer] dictation software. It may contain incorrect words, spelling, and punctuation that were not noted in checking the note before signing. Subjective Subjective Patient did well overnight. No acute issues were reported. Patient subjectively feels improved compared to previous. Patient still coughs with minimal exertion. Objective Data Objective Data Patient much improved on incentive spirometer. Achieved 1500 mL. Vital Signs: Vital Signs Temp Pulse Resp BP Pulse Ox 36.7 C 61 27 H 113/63 95 07/31/20 04:00 07/31/20 07:10 07/31/20 05:19 07/31/20 04:00 07/31/20 05:19 Oxygen Flow Rate (L/min) 55 Oxygen Delivery Method Bi-pap Weight: 106 kg Body Mass Index (BMI) 33.3 Intake & Output: Intake and Output for Last 24 Hours 07/29/20 07/30/2007/31/21 23:59 23:59 23:59 Intake Total 1740 / 1740 900 / 900 150 / 150 Output Total 1450 / 1450 1025 / 1025 325 / 325 Balance 290 / 290 -125 / -125 -175 / -175 Lab / Micro Data Result Diagrams: 07/30/20 04:30 07/31/20 05:10 Labs: Laboratory Results - last 24 hr 07/31/20 05:10 Sodium 135 L Potassium 4.8 Chloride 103 Carbon Dioxide 24.0 Anion Gap 8 BUN 26 H Creatinine 0.92 Estim Creat Clear Calc 101.39 Est GFR (MDRD) Af Amer 113 Est GFR (MDRD) Non-Af 94 BUN/Creatinine Ratio 28.3 H Glucose 118 H Calcium 8.1 L Phosphorus 4.1 Magnesium 2.4 Micro: Microbiology 07/25/20 19:02 Blood Culture (Wb) - Anticubital Left Blood Culture - Final No growth in 5 days. 07/27/20 17:00 Sputum, Expectorated/Coughed Gram Stain - Final 07/27/20 17:00 Sputum, Expectorated/Coughed Respiratory Culture - Final Staphylococcus aureus 07/25/20 18:40 Blood Culture (Wb) - Left Wrist Blood Culture - Final No growth in 5 days. 07/26/20 03:40 Urine, Clean Catch Legionella Antigen - Final 07/26/20 03:40 Urine, Clean Catch Streptococcus pneumoniae Antigen (M - Final 07/25/20 21:51 Mucosa - Nasopharyngeal Respiratory Panel (PCR) - Final Rhythm Strip Rhythm Strip: Sinus Tach Rate: 105 Ectopy: None Physical Exam Const alert and oriented x3 Constitutional Narrative: BiPAP mask currently in place. General Appearance: cooperative HEENT normocephalic, head/scalp atraumatic and moist oral mucous membranes Eyes PERRL, EOMs intact bilaterally and conjunctivae normal Neck supple General: trachea midline Resp Effort and Inspection: tachypneic Auscultation: diminished lung sounds; Negative for rales, rhonchi or wheezes Cardio S1 normal heart sound and S2 normal heart sound Rate: bradycardia Heart Sounds: Negative for murmur GI normal to inspection, nondistended, normoactive bowel sounds Extremity no clubbing, cyanosis or edema Skin no rashes or lesions noted Neuro oriented x3, moves all extremities and no focal motor deficits Psych cooperative and affect normal Appearance: well kempt Charges/Coding Visit Charges Inpatient E&M: 77589 Subs Hosp L3
[2020-07-31] MEDS: Enoxaparin 30 MG/0.3 ML Syringe SC ×2 (08:46→20:24)
[2020-07-31] MEDS: Aspirin 81 MG TAB.CHEW PO (08:47)
[2020-07-31] MEDS: Linezolid 600 MG Tablet PO ×2 (08:47→20:23)
[2020-07-31] MEDS: Famotidine 20 MG Tablet PO ×2 (08:47→20:24)
[2020-07-31] MEDS: amLODIPine 5 MG Tablet PO (08:47)
[2020-07-31] MEDS: Lisinopril 10 MG Tablet PO (08:47)
[2020-07-31] MEDS: dexAMETHasone 10 MG/ML Vial 6 MG IV (08:48)
[2020-07-31] MEDS: Allopurinol 100 MG Tablet PO (08:48)
[2020-07-31] MEDS: 0.9% Saline Lock 10 ML Syringe IV (08:48)
--- NOTE | 2020-07-31 12:58 | PN.HOSP_ITS ---
Subjective Subjective Breathing better, oxygen weaned down to nasal canula. Objective Data Objective Data Vital Signs: Vital Signs Temp Pulse Resp BP Pulse Ox 36.2 C L 93 26 H 120/56 L 92 07/31/20 08:00 07/31/20 11:08 07/31/20 08:00 07/31/20 08:00 07/31/20 08:00 Oxygen Flow Rate (L/min) 15 Oxygen Delivery Method Airvo Weight: 106 kg Body Mass Index (BMI) 33.3 Intake & Output: Intake and Output for Last 24 Hours 07/29/20 07/30/20 07/31/20 23:59 23:59 23:59 Intake Total 1740 / 1740 900 / 900 430 / 430 Output Total 1450 / 1450 1025 / 1025 725 / 725 Balance 290 / 290 -125 / -125 -295 / -295 Lab / Micro Data Result Diagrams: 07/30/20 04:30 07/31/20 05:10 Labs: Laboratory Results - last 24 hr 07/31/20 05:10 Sodium 135 L Potassium 4.8 Chloride 103 Carbon Dioxide 24.0 Anion Gap 8 BUN 26 H Creatinine 0.92 Estim Creat Clear Calc 101.39 Est GFR (MDRD) Af Amer 113 Est GFR (MDRD) Non-Af 94 BUN/Creatinine Ratio 28.3 H Glucose 118 H Calcium 8.1 L Phosphorus 4.1 Magnesium 2.4 Micro: Microbiology 07/25/20 19:02 Blood Culture (Wb) - Anticubital Left Blood Culture - Final No growth in 5 days. 07/27/20 17:00 Sputum, Expectorated/Coughed Gram Stain - Final 07/27/20 17:00 Sputum, Expectorated/Coughed Respiratory Culture - Final Staphylococcus aureus 07/25/20 18:40 Blood Culture (Wb) - Left Wrist Blood Culture - Final No growth in 5 days. 07/26/20 03:40 Urine, Clean Catch Legionella Antigen - Final 07/26/20 03:40 Urine, Clean Catch Streptococcus pneumoniae Antigen (M - Final 07/25/20 21:51 Mucosa - Nasopharyngeal Respiratory Panel (PCR) - Final Rhythm Strip Rhythm Strip: Sinus Tach Rate: 105 Ectopy: None Physical Exam Const alert Constitutional Narrative: up in chair on nasal canula. no respiratory distress. HEENT Head and Scalp: normocephalic Resp normal respiratory effort and clear to auscultation bilaterally Cardio regular rate, regular rhythm, S1 normal heart sound and S2 normal heart sound GI normal to inspection, nondistended, normoactive bowel sounds, non-tender and non-distended Assessment & Plan Assessment/Plan (1) Pneumonia due to COVID-19 virus: (2) Acute respiratory failure with hypoxia: (3) Sepsis: QUALIFIERS: Sepsis type: sepsis due to unspecified organism Sepsis acute organ dysfunction status: unspecified Qualified Code(s): A41.9 - Sepsis, unspecified organism PLAN: 1. acute hypoxic respiratory failure * ongoing * 2/2 COVID-19 and MSSA pneumonia * oxygen slowly being weaned down 2. Acute COVID-19 pneumonia * Onset 07/16/2020, continue quarantine through the * dexamethasone through the * completed remdesivir 3. MSSA pneumonia + GPR * on linezolid * ID following * concern GPR are Nocardia-like 4. Sepsis * POA * improving 5. VTE prophylaxis: LMWH Visit Charges Inpatient E&M: 09990 Subs Hosp L2
--- NOTE | 2020-07-31 14:56 | PCM.PN.ID ---
Physical Exam Narrative Feeling better, breathing improved, no fever, minimal sputum Const alert General Appearance: cooperative Resp normal air movement and clear to auscultation bilaterally Auscultation: diminished lung sounds Cardio regular rate and regular rhythm GI normal to inspection, nondistended, normoactive bowel sounds Skin no rashes or lesions noted ID ID: Route of nutrition/ use of supplements: [] Nutritional Intake: [] IV Site: [] Sykes Catheter: [] Assessment & Plan Assessment/Plan (1) Acute respiratory failure with hypoxia: (2) COVID-19: PLAN: Sx started 07/16. Quarantine for 20 days, ending 08/05/20. Plan on 10 days of dex, completed remdesivir. CT neg for PE, on bid lovenox with mildly elevated d-dimer. Recommended vaccination once he is past this acute illness. Sputum with possible nocardia on gram stain, cx with mssa. On linezolid, improving O2. Will follow
[2020-07-31] MEDS: Atorvastatin Calcium 80 MG Tablet PO (20:24)
[2020-08-01] VITALS (20 sets, daily range): BP systolic 100–134; BP diastolic 57–72; PULSE 56–96; RESP 12–28; TEMP 36.1–36.6; O2SAT 93–96
[2020-08-01 04:59] LABS: Absolute Lymphocyte Count 1.29 X10^3/uL (0.83-4.51); Absolute Neutrophil Count 13.9 X10^3/uL (2.0-7.7); Basophil# 0.03 X10^3/uL; Basophil% 0.2 % (0-1); Eosinophil# 0.07 X10^3/uL; Eosinophils% 0.4 % (0-5); Hematocrit 40.5 % (40-54); Hemoglobin 13.7 g/dL (13.0-16.5); Lymphocyte # 1.29 X10^3/ul (0.83-4.51); Lymphocyte % 7.7 % (19-41); Mean Corp Hgb Conc 33.8 g/dL (32-36); Mean Corpuscular Hgb 30.6 pg (27.0-32.0); Mean Corpuscular Volume 90.4 fL (80-94); Mean Platelet Vol. 9.1 fl (6.2-12.0); Monocyte# 1.02 X10^3/uL; Monocyte% 6.1 % (0-10); NRBC Flagged by Analyzer 0 % (0-5); Neutrophil # 13.93 X10^3/uL (2.7-7.7); Neutrophil % 82.6 % (47-70); Platelet Count 578 K/mm3 (150-450); RBC Distribution Width CV 12.4 % (11.6-14.6); RBC Distribution Width SD 41.2 fl (35.1-43.9); Red Blood Count 4.48 M/mm3 (4.6-6.2); White Blood Count 16.8 K/mm3 (4.4-11.0)
[2020-08-01 05:12] LABS: Anion Gap 5 (5-15); BUN 25 mg/dL (7-18); Calcium,Total 8.1 mg/dL (8.5-10.1); Chloride 103 mmol/L (98-107); Creatinine, Serum 1.04 mg/dL (0.70-1.30); EST Glomerular Filtration Rate 81 mL/min (>60); Est Glom Filt Rate - Afr Amer 98 mL/min (>60); Estimated Creatinine Clearance 89.69 ml/min; Glucose 114 mg/dL (74-106); Magnesium 2.3 mg/dL (1.6-2.6); Potassium 4.7 mmol/L (3.5-5.1); Sodium Level 135 mmol/L (136-145)
--- NOTE | 2020-08-01 07:42 | PN.CC_ITS ---
Assessment & Plan Assessment/Plan (1) Acute respiratory failure with hypoxia: (2) COVID-19: PLAN: RECOMMENDATIONS: 1. Continue low flow oxygen throughout the day as tolerated and BiPAP sup port at night. 2. Completed remdesivir. Continue Decadron to complete 10-day treatment course. 3. Increase activity as tolerated 4. Continue Lovenox as ordered. 5. Clarify culture results -lab reporting nocardia may take a week to grow 6. Potential discharge by end of the week if continues to improve IMPRESSIONS: 1. Acute hypoxemic respiratory failure secondary to COVID-19 pneumonia The patient presented to the hospital with Covid symptoms of approximately 1.5 weeks duration. He does have extensive bilateral groundglass infiltrates on CTA chest. The patient has been requiring BiPAP, but has been able to be transitioned to heated high flow throughout the day. Wiley discussion with patient about the potential complications of refusing BiPAP overnight. Plan to continue the aforementioned with a goal to wean FiO2 to maintain oxygen saturations at or above 90%. The patient has completed remdesivir. Continue Decadron to complete 10-day treatment course. Continue Lovenox as ordered. Patient appears to be fully recruited at this time. Anticipate continued oxygen improvement will be at a slower pace moving forward. Continue with Decadron. Can discuss discharge planning if patient is able to tolerate 6 L or less with ambulation. 2. History of coronary artery disease/hypertension/hyperlipidemia/obesity Complicates care, management, recovery and prognosis. Continue home medications as indicated. This note was generated with [employer] dictation software. It may contain incorrect words, spelling, and punctuation that were not noted in checking the note before signing. Subjective Subjective Patient did well overnight. Patient was able to tolerate nasal cannula at 8 L/min yesterday evening. Patient was compliant with BiPAP overnight. Patient continues to report intermittent coughing, but subjectively feels improved. Objective Data Objective Data Vital Signs: Vital Signs Temp Pulse Resp BP Pulse Ox 36.6 C 63 28 H 109/67 94 08/01/20 04:00 08/01/20 04:55 08/01/20 04:55 08/01/20 04:00 08/01/20 04:55 Oxygen Flow Rate (L/min) 8 Oxygen Delivery Method Bi-pap Weight: 107 kg Body Mass Index (BMI) 33.3 Intake & Output: Intake and Output for Last 24 Hours 07/30/20 07/31/20 08/01/20 23:59 23:59 23:59 Intake Total 900 / 900 730 / 730 240 / 240 Output Total 1025 / 1025 1575 / 1575 550 / 550 Balance -125 / -125 -845 / -845 -310 / -310 Lab / Micro Data Result Diagrams: 08/01/20 04:55 08/01/20 04:55 Labs: Laboratory Results - last 24 hr 08/01/20 08/01/20 04:55 04:55 WBC 16.8 H RBC 4.48 L Hgb 13.7 Hct 40.5 MCV 90.4 MCH 30.6 MCHC 33.8 RDW Std Deviation 41.2 RDW Coeff of Coleman 12.4 Plt Count 578 H MPV 9.1 Immature Gran % (Auto) 3.000 H Neut % (Auto) 82.6 H Lymph % (Auto) 7.7 L [place] % (Auto) 6.1 Eos % (Auto) 0.4 Baso % (Auto) 0.2 Absolute Neuts (auto) 13.9 H Absolute Lymphs (auto) 1.29 Nucleated RBC % 0 Sodium 135 L Potassium 4.7 Chloride 103 Carbon Dioxide 27.0 Anion Gap 5 BUN 25 H Creatinine 1.04 Estim Creat Clear Calc 89.69 Est GFR (MDRD) Af Amer 98 Est GFR (MDRD) Non-Af 81 BUN/Creatinine Ratio 24.0 H Glucose 114 H Calcium 8.1 L Phosphorus 4.0 Magnesium 2.3 Micro: Microbiology 07/25/20 19:02 Blood Culture (Wb) - Anticubital Left Blood Culture - Final No growth in 5 days. 07/27/20 17:00 Sputum, Expectorated/Coughed Gram Stain - Final 07/27/20 17:00 Sputum, Expectorated/Coughed Respiratory Culture - Final Staphylococcus aureus 07/25/20 18:40 Blood Culture (Wb) - Left Wrist Blood Culture - Final No growth in 5 days. 07/26/20 03:40 Urine, Clean Catch Legionella Antigen - Final 07/26/20 03:40 Urine, Clean Catch Streptococcus pneumoniae Antigen (M - Final 07/25/20 21:51 Mucosa - Nasopharyngeal Respiratory Panel (PCR) - Final Rhythm Strip Rhythm Strip: Sinus Tach Rate: 105 Ectopy: None Physical Exam Const alert and oriented x3 Constitutional Narrative: BiPAP mask currently in place. General Appearance: cooperative HEENT normocephalic, head/scalp atraumatic and moist oral mucous membranes Eyes PERRL, EOMs intact bilaterally and conjunctivae normal Neck supple General: trachea midline Resp Effort and Inspection: tachypneic Auscultation: diminished lung sounds; Negative for rales, rhonchi or wheezes Cardio S1 normal heart sound and S2 normal heart sound Rate: bradycardia Heart Sounds: Negative for murmur GI normal to inspection, nondistended, normoactive bowel sounds Extremity no clubbing, cyanosis or edema Skin no rashes or lesions noted Neuro oriented x3, moves all extremities and no focal motor deficits Psych cooperative and affect normal Appearance: well kempt Charges/Coding Visit Charges Inpatient E&M: 95415 Subs Hosp L2
[2020-08-01] MEDS: 0.9% Saline Lock 10 ML Syringe IV ×2 (09:04→20:36)
[2020-08-01] MEDS: dexAMETHasone 10 MG/ML Vial 6 MG IV (09:05)
[2020-08-01] MEDS: Allopurinol 100 MG Tablet PO (09:06)
[2020-08-01] MEDS: Aspirin 81 MG TAB.CHEW PO (09:06)
[2020-08-01] MEDS: Lisinopril 10 MG Tablet PO (09:06)
[2020-08-01] MEDS: Linezolid 600 MG Tablet PO ×2 (09:06→20:36)
[2020-08-01] MEDS: Famotidine 20 MG Tablet PO ×2 (09:06→20:36)
[2020-08-01] MEDS: amLODIPine 5 MG Tablet PO (09:06)
[2020-08-01] MEDS: Enoxaparin 30 MG/0.3 ML Syringe SC ×2 (09:07→20:36)
--- NOTE | 2020-08-01 11:21 | PN.HOSP_ITS ---
Subjective Subjective Breathing well. Is coughing but productive of saliva. Objective Data Objective Data Vital Signs: Vital Signs Temp Pulse Resp BP Pulse Ox 36.3 C L 95 22 H 129/60 H 94 08/01/20 10:00 08/01/20 10:00 08/01/20 10:00 08/01/20 10:00 08/01/20 10:00 Oxygen Flow Rate (L/min) 10 Oxygen Delivery Method Nasal Cannula Weight: 107 kg Body Mass Index (BMI) 33.3 Intake & Output: Intake and Output for Last 24 Hours 07/30/20 07/31/20 08/01/20 23:59 23:59 23:59 Intake Total 900 / 900 730 / 730 240 / 240 Output Total 1025 / 1025 1575 / 1575 1100 / 1100 Balance -125 / -125 -845 / -845 -860 / -860 Lab / Micro Data Attestation: I reviewed the patient's lab results. Result Diagrams: 08/01/20 04:55 08/01/20 04:55 Labs: Laboratory Results - last 24 hr 08/01/20 08/01/20 04:55 04:55 WBC 16.8 H RBC 4.48 L Hgb 13.7 Hct 40.5 MCV 90.4 MCH 30.6 MCHC 33.8 RDW Std Deviation 41.2 RDW Coeff of Coleman 12.4 Plt Count 578 H MPV 9.1 Immature Gran % (Auto) 3.000 H Neut % (Auto) 82.6 H Lymph % (Auto) 7.7 L [place] % (Auto) 6.1 Eos % (Auto) 0.4 Baso % (Auto) 0.2 Absolute Neuts (auto) 13.9 H Absolute Lymphs (auto) 1.29 Nucleated RBC % 0 Sodium 135 L Potassium 4.7 Chloride 103 Carbon Dioxide 27.0 Anion Gap 5 BUN 25 H Creatinine 1.04 Estim Creat Clear Calc 89.69 Est GFR (MDRD) Af Amer 98 Est GFR (MDRD) Non-Af 81 BUN/Creatinine Ratio 24.0 H Glucose 114 H Calcium 8.1 L Phosphorus 4.0 Magnesium 2.3 Micro: Microbiology 07/25/20 19:02 Blood Culture (Wb) - Anticubital Left Blood Culture - Final No growth in 5 days. 07/27/20 17:00 Sputum, Expectorated/Coughed Gram Stain - Final 07/27/20 17:00 Sputum, Expectorated/Coughed Respiratory Culture - Final Staphylococcus aureus 07/25/20 18:40 Blood Culture (Wb) - Left Wrist Blood Culture - Final No growth in 5 days. 07/26/20 03:40 Urine, Clean Catch Legionella Antigen - Final 07/26/20 03:40 Urine, Clean Catch Streptococcus pneumoniae Antigen (M - Final 07/25/20 21:51 Mucosa - Nasopharyngeal Respiratory Panel (PCR) - Final Rhythm Strip Rhythm Strip: Sinus Tach Rate: 105 Ectopy: None Physical Exam Const alert Constitutional Narrative: Up in chair. No respiratory distress. No conversational dyspnea. Exam Limitations: no limitations HEENT Head and Scalp: normocephalic Resp normal respiratory effort and clear to auscultation bilaterally Cardio regular rate, regular rhythm, S1 normal heart sound and S2 normal heart sound GI normal to inspection, nondistended, normoactive bowel sounds, non-tender and non-distended Extremity normal to inspection Neuro Sensorium / Orientation: awake and alert Assessment & Plan Assessment/Plan (1) Pneumonia due to COVID-19 virus: (2) Acute respiratory failure with hypoxia: (3) Sepsis: QUALIFIERS: Sepsis type: sepsis due to unspecified organism Sepsis acute organ dysfunction status: unspecified Qualified Code(s): A41.9 - Sepsis, unspecified organism PLAN: 1. acute hypoxic respiratory failure * ongoing * 2/2 COVID-19 and MSSA pneumonia * oxygen slowly being weaned down 2. Acute COVID-19 pneumonia * Onset 07/16/2020, continue quarantine through the * dexamethasone through the * completed remdesivir 3. MSSA pneumonia + GPR * on linezolid * ID following * concern GPR are Nocardia-like 4. Sepsis * POA * improving 5. VTE prophylaxis: LMWH 6. Disposition: Discussed with patient. Advised of to stated slow progress. Anticipate discharge home with oxygen. Visit Charges Inpatient E&M: 74275 Subs Hosp L2
[2020-08-01] MEDS: Atorvastatin Calcium 80 MG Tablet PO (20:36)
[2020-08-02] VITALS (20 sets, daily range): BP systolic 105–138; BP diastolic 56–78; PULSE 56–97; RESP 12–30; TEMP 36–37.2; O2SAT 92–98
[2020-08-02] MEDS: 0.9% Saline Lock 10 ML Syringe IV (05:18)
[2020-08-02 05:22] LABS: Absolute Lymphocyte Count 1.21 X10^3/uL (0.83-4.51); Absolute Neutrophil Count 13.2 X10^3/uL (2.0-7.7); Basophil# 0.04 X10^3/uL; Basophil% 0.2 % (0-1); Eosinophil# 0.09 X10^3/uL; Eosinophils% 0.6 % (0-5); Hematocrit 41.1 % (40-54); Hemoglobin 13.8 g/dL (13.0-16.5); Lymphocyte # 1.21 X10^3/ul (0.83-4.51); Lymphocyte % 7.5 % (19-41); Mean Corp Hgb Conc 33.6 g/dL (32-36); Mean Corpuscular Hgb 30.2 pg (27.0-32.0); Mean Corpuscular Volume 89.9 fL (80-94); Monocyte# 1.17 X10^3/uL; Monocyte% 7.3 % (0-10); NRBC Flagged by Analyzer 0 % (0-5); Neutrophil # 13.15 X10^3/uL (2.7-7.7); Neutrophil % 81.8 % (47-70); Platelet Count 518 K/mm3 (150-450); RBC Distribution Width CV 12.5 % (11.6-14.6); RBC Distribution Width SD 41.1 fl (35.1-43.9); Red Blood Count 4.57 M/mm3 (4.6-6.2); White Blood Count 16.1 K/mm3 (4.4-11.0)
[2020-08-02 05:37] LABS: Anion Gap 6 (5-15); BUN 20 mg/dL (7-18); BUN/Creat Ratio 23.9 RATIO (10-20); Calcium,Total 7.9 mg/dL (8.5-10.1); Chloride 103 mmol/L (98-107); Creatinine, Serum 0.84 mg/dL (0.70-1.30); EST Glomerular Filtration Rate 104 mL/min (>60); Est Glom Filt Rate - Afr Amer 126 mL/min (>60); Estimated Creatinine Clearance 111.04 ml/min; Glucose 108 mg/dL (74-106); Magnesium 2.1 mg/dL (1.6-2.6); Phosphorus 3.5 mg/dL (2.5-4.9); Potassium 4.5 mmol/L (3.5-5.1); Sodium Level 134 mmol/L (136-145)
--- NOTE | 2020-08-02 06:42 | PCM.PN.INT ---
Assessment & Plan Assessment/Plan (1) Acute respiratory failure with hypoxia: (2) COVID-19: PLAN: RECOMMENDATIONS: 1. Continue low flow oxygen throughout the day as tolerated and BiPAP support at night. 2. Completed remdesivir. Continue Decadron to complete 10-day treatment course. 3. Increase activity as tolerated. Will attempt Lasix challenge today 4. Continue Lovenox as ordered. 5. Clarify culture results -lab reporting nocardia may take a week to grow 6. Potential discharge by end of the week if continues to improve IMPRESSIONS: 1. Acute hypoxemic respiratory failure secondary to COVID-19 pneumonia The patient presented to the hospital with Covid symptoms of approximately 1.5 weeks duration. He does have extensive bilateral groundglass infiltrates on CTA chest. The patient has been requiring BiPAP, but has been able to be transitioned to heated high flow throughout the day. Wiley discussion with patient about the potential complications of refusing BiPAP overnight. Plan to continue the aforementioned with a goal to wean FiO2 to maintain oxygen saturations at or above 90%. The patient has completed remdesivir. Continue Decadron to complete 10-day treatment course. Continue Lovenox as ordered. Patient appears to be fully recruited at this time. Anticipate continued oxygen improvement will be at a slower pace moving forward. We will challenge patient with Lasix today. Can discuss discharge planning if patient is able to tolerate 6 L or less with ambulation. 2. History of coronary artery disease/hypertension/hyperlipidemia/obesity Complicates care, management, recovery and prognosis. Continue home medications as indicated. This note was generated with [employer] dictation software. It may contain incorrect words, spelling, and punctuation that were not noted in checking the note before signing. Subjective Subjective Patient did well overnight. Patient's FiO2 has been decreased on his BiPAP and he is tolerating this well. Patient continues to desaturate significantly with ambulation despite 10 L nasal cannula. Patient denies any pain or nausea at this time. Objective Data Objective Data Vital Signs: Vital Signs Temp Pulse Resp BP Pulse Ox 36.1 C L 66 24 H 125/65 H 95 08/02/20 04:00 08/02/20 05:03 08/02/20 05:03 08/02/20 04:00 08/02/20 05:03 Oxygen Flow Rate (L/min) 10 Oxygen Delivery Method Nasal Cannula Weight: 107.6 kg Body Mass Index (BMI) 33.3 Intake & Output: Intake and Output for Last 24 Hours 07/31/20 08/01/20 08/02/20 23:59 23:59 23:59 Intake Total 730 / 730 240 / 240 300 / 300 Output Total 1575 / 1575 1800 / 1800 400 / 400 Balance -845 / -845 -1560 / -1560 -100 / -100 Lab / Micro Data Result Diagrams: 08/02/20 05:15 08/02/20 05:15 Labs: Laboratory Results - last 24 hr 08/02/20 08/02/20 05:15 05:15 WBC 16.1 H RBC 4.57 L Hgb 13.8 Hct 41.1 MCV 89.9 MCH 30.2 MCHC 33.6 RDW Std Deviation 41.1 RDW Coeff of Coleman 12.5 Plt Count 518 H MPV 9.0 Immature Gran % (Auto) 2.600 H Neut % (Auto) 81.8 H Lymph % (Auto) 7.5 L [place] % (Auto) 7.3 Eos % (Auto) 0.6 Baso % (Auto) 0.2 Absolute Neuts (auto) 13.2 H Absolute Lymphs (auto) 1.21 Nucleated RBC % 0 Sodium 134 L Potassium 4.5 Chloride 103 Carbon Dioxide 25.0 Anion Gap 6 BUN 20 H Creatinine 0.84 Estim Creat Clear Calc 111.04 Est GFR (MDRD) Af Amer 126 Est GFR (MDRD) Non-Af 104 BUN/Creatinine Ratio 23.9 H Glucose 108 H Calcium 7.9 L Phosphorus 3.5 Magnesium 2.1 Micro: Microbiology 07/25/20 19:02 Blood Culture (Wb) - Anticubital Left Blood Culture - Final No growth in 5 days. 07/27/20 17:00 Sputum, Expectorated/Coughed Gram Stain - Final 07/27/20 17:00 Sputum, Expectorated/Coughed Respiratory Culture - Final Staphylococcus aureus 07/25/20 18:40 Blood Culture (Wb) - Left Wrist Blood Culture - Final No growth in 5 days. 07/26/20 03:40 Urine, Clean Catch Legionella Antigen - Final 07/26/20 03:40 Urine, Clean Catch Streptococcus pneumoniae Antigen (M - Final 07/25/20 21:51 Mucosa - Nasopharyngeal Respiratory Panel (PCR) - Final Rhythm Strip Rhythm Strip: Sinus Tach Rate: 105 Ectopy: None Physical Exam Const alert and oriented x3 Constitutional Narrative: BiPAP mask currently in place. General Appearance: cooperative HEENT normocephalic, head/scalp atraumatic and moist oral mucous membranes Eyes PERRL, EOMs intact bilaterally and conjunctivae normal Neck supple General: trachea midline Resp Effort and Inspection: tachypneic Auscultation: diminished lung sounds; Negative for rales, rhonchi or wheezes Cardio S1 normal heart sound and S2 normal heart sound Rate: bradycardia Heart Sounds: Negative for murmur GI normal to inspection, nondistended, normoactive bowel sounds Extremity no clubbing, cyanosis or edema Skin no rashes or lesions noted Neuro oriented x3, moves all extremities and no focal motor deficits Psych cooperative and affect normal Appearance: well kempt Charges/Coding Visit Charges Inpatient E&M: 44372 Subs Hosp L2
[2020-08-02] MEDS: Furosemide 20 MG Tablet PO (07:57)
[2020-08-02] MEDS: Enoxaparin 30 MG/0.3 ML Syringe SC ×2 (09:36→20:39)
[2020-08-02] MEDS: amLODIPine 5 MG Tablet PO (09:36)
[2020-08-02] MEDS: Aspirin 81 MG TAB.CHEW PO (09:36)
[2020-08-02] MEDS: Famotidine 20 MG Tablet PO ×2 (09:36→20:39)
[2020-08-02] MEDS: dexAMETHasone 10 MG/ML Vial 6 MG IV (09:36)
[2020-08-02] MEDS: Allopurinol 100 MG Tablet PO (09:36)
[2020-08-02] MEDS: Lisinopril 10 MG Tablet PO (09:36)
[2020-08-02] MEDS: Linezolid 600 MG Tablet PO ×2 (09:36→20:39)
--- NOTE | 2020-08-02 10:47 | CASEMGMT ---
BERT CAMACHO placed call to pt room to make aware that at this point therapy is recommending additional therapy at dc. Discussed outpt therapy with patient. He states currently he is tired and he would like to think about it. BERT CAMACHO to check back with patient to see if agreeable to this. Pt denied further questions/needs.
--- NOTE | 2020-08-02 11:09 | PN.HOSP_ITS ---
Subjective Subjective Coughing fit this AM. Productive phlegm. Objective Data Objective Data Vital Signs: Vital Signs Temp Pulse Resp BP Pulse Ox 37.2 C 71 20 H 138/78 H 93 08/02/20 07:50 08/02/20 07:52 08/02/20 07:50 08/02/20 07:50 08/02/20 07:50 Oxygen Flow Rate (L/min) 10 Oxygen Delivery Method Bi-pap Weight: 107.6 kg Body Mass Index (BMI) 33.3 Intake & Output: Intake and Output for Last 24 Hours 07/31/20 08/01/20 08/02/20 23:59 23:59 23:59 Intake Total 730 / 730 240 / 240 300 / 300 Output Total 1575 / 1575 1800 / 1800 800 / 800 Balance -845 / -845 -1560 / -1560 -500 / -500 Lab / Micro Data Attestation: I reviewed the patient's lab results. Result Diagrams: 08/02/20 05:15 08/02/20 05:15 Labs: Laboratory Results - last 24 hr 08/02/20 08/02/20 05:15 05:15 WBC 16.1 H RBC 4.57 L Hgb 13.8 Hct 41.1 MCV 89.9 MCH 30.2 MCHC 33.6 RDW Std Deviation 41.1 RDW Coeff of Coleman 12.5 Plt Count 518 H MPV 9.0 Immature Gran % (Auto) 2.600 H Neut % (Auto) 81.8 H Lymph % (Auto) 7.5 L [place] % (Auto) 7.3 Eos % (Auto) 0.6 Baso % (Auto) 0.2 Absolute Neuts (auto) 13.2 H Absolute Lymphs (auto) 1.21 Nucleated RBC % 0 Sodium 134 L Potassium 4.5 Chloride 103 Carbon Dioxide 25.0 Anion Gap 6 BUN 20 H Creatinine 0.84 Estim Creat Clear Calc 111.04 Est GFR (MDRD) Af Amer 126 Est GFR (MDRD) Non-Af 104 BUN/Creatinine Ratio 23.9 H Glucose 108 H Calcium 7.9 L Phosphorus 3.5 Magnesium 2.1 Micro: Microbiology 07/25/20 19:02 Blood Culture (Wb) - Anticubital Left Blood Culture - Final No growth in 5 days. 07/27/20 17:00 Sputum, Expectorated/Coughed Gram Stain - Final 07/27/20 17:00 Sputum, Expectorated/Coughed Respiratory Culture - Final Staphylococcus aureus 07/25/20 18:40 Blood Culture (Wb) - Left Wrist Blood Culture - Final No growth in 5 days. 07/26/20 03:40 Urine, Clean Catch Legionella Antigen - Final 07/26/20 03:40 Urine, Clean Catch Streptococcus pneumoniae Antigen (M - Final 07/25/20 21:51 Mucosa - Nasopharyngeal Respiratory Panel (PCR) - Final Rhythm Strip Rhythm Strip: Sinus Tach Rate: 105 Ectopy: None Physical Exam Narrative coughing fit, sat noted to 59%. Place on BiPAP with 100% FiO2, and improved to 90s. Const alert General Appearance: uncooperative Exam Limitations: no limitations Resp normal respiratory effort and clear to auscultation bilaterally Resp Narrative: coarse breath sounds bilaterally. Cardio regular rate, regular rhythm, S1 normal heart sound and S2 normal heart sound GI normal to inspection, nondistended, normoactive bowel sounds, non-tender and non-distended Assessment & Plan Assessment/Plan (1) Pneumonia due to COVID-19 virus: (2) Acute respiratory failure with hypoxia: (3) Sepsis: QUALIFIERS: Sepsis type: sepsis due to unspecified organism Sepsis acute organ dysfunction status: unspecified Qualified Code(s): A41.9 - Sepsis, unspecified organism PLAN: 1. acute hypoxic respiratory failure * ongoing * 2/2 COVID-19 and MSSA pneumonia * oxygen slowly being weaned down * started on furosemide challenge. 2. Acute COVID-19 pneumonia * Onset 07/16/2020, continue quarantine through the * dexamethasone through the * completed remdesivir 3. MSSA pneumonia + GPR * on linezolid * ID following * concern GPR are Nocardia-like 4. Sepsis * POA * improving 5. VTE prophylaxis: LMWH 6. Disposition: Discussed with patient. Advised of to stated slow progress. A nticipate discharge home with oxygen. Visit Charges Inpatient E&M: 95070 Subs Hosp L2
--- NOTE | 2020-08-02 15:24 | PCM.PN.ID ---
Physical Exam Narrative Feeling better, no fever, some sputum, no n/v/d. Const alert and no apparent distress General Appearance: cooperative Resp clear to auscultation bilaterally Auscultation: diminished lung sounds Cardio regular rate and regular rhythm GI normal to inspection, nondistended, normoactive bowel sounds Skin no rashes or lesions noted ID ID: Route of nutrition/ use of supplements: [] Nutritional Intake: [] IV Site: [] Sykes Catheter: [] Assessment & Plan Assessment/Plan (1) Acute respiratory failure with hypoxia: (2) COVID-19: PLAN: Sx started 07/16. Quarantine for 20 days, ending 08/05/20. Plan on 10 days of dex, completed remdesivir. CT neg for PE, on bid lovenox with mildly elevated d-dimer. Recommended vaccination once he is past this acute illness. Sputum with possible nocardia on gram stain, cx with mssa. On linezolid, improving O2. Linezolid has very good empiric nocardia coverage. Will follow
[2020-08-02] MEDS: guaiFENesin 10 ML UDC (200MG/10ML) PO ×2 (17:12→20:39)
[2020-08-02] MEDS: BENZOCAINE/MENTHOL 1 LOZENGE MUCOUS MEM ×2 (17:12→20:39)
[2020-08-02] MEDS: Atorvastatin Calcium 80 MG Tablet PO (20:39)
[2020-08-02] MEDS: MELATONIN 3 MG TABLET PO (20:39)
[2020-08-03] VITALS (21 sets, daily range): BP systolic 106–124; BP diastolic 42–78; PULSE 58–106; RESP 12–28; TEMP 36.4–37.1; O2SAT 90–95
[2020-08-03 04:54] LABS: Absolute Lymphocyte Count 1.54 X10^3/uL (0.83-4.51); Absolute Neutrophil Count 12.3 X10^3/uL (2.0-7.7); Basophil# 0.04 X10^3/uL; Basophil% 0.3 % (0-1); Eosinophil# 0.09 X10^3/uL; Eosinophils% 0.6 % (0-5); Hematocrit 43.7 % (40-54); Hemoglobin 14.4 g/dL (13.0-16.5); Lymphocyte # 1.54 X10^3/ul (0.83-4.51); Lymphocyte % 9.9 % (19-41); Mean Corpuscular Hgb 29.7 pg (27.0-32.0); Mean Corpuscular Volume 90.1 fL (80-94); Mean Platelet Vol. 9.3 fl (6.2-12.0); Monocyte# 1.15 X10^3/uL; Monocyte% 7.4 % (0-10); NRBC Flagged by Analyzer 0 % (0-5); Neutrophil # 12.32 X10^3/uL (2.7-7.7); Neutrophil % 78.9 % (47-70); Platelet Count 552 K/mm3 (150-450); RBC Distribution Width CV 12.4 % (11.6-14.6); RBC Distribution Width SD 41.1 fl (35.1-43.9); Red Blood Count 4.85 M/mm3 (4.6-6.2); White Blood Count 15.6 K/mm3 (4.4-11.0)
[2020-08-03 05:11] LABS: ALB/GLOB Ratio 0.7 RATIO (0.9-2.4); AST(SGOT) 24 U/L (15-37); Alanine Aminotransfer ALT/SGPT 72 U/L (16-61); Albumin, Serum 2.7 g/dL (3.2-5.0); Alkaline Phosphatase 99 U/L (45-117); Anion Gap 6 (5-15); BUN 22 mg/dL (7-18); BUN/Creat Ratio 23.6 RATIO (10-20); Calcium,Total 8.1 mg/dL (8.5-10.1); Chloride 103 mmol/L (98-107); Creatinine, Serum 0.93 mg/dL (0.70-1.30); EST Glomerular Filtration Rate 92 mL/min (>60); Est Glom Filt Rate - Afr Amer 111 mL/min (>60); Glucose 108 mg/dL (74-106); Potassium 4.9 mmol/L (3.5-5.1); Protein, Total 6.7 g/dL (6.4-8.2); Sodium Level 133 mmol/L (136-145)
--- NOTE | 2020-08-03 07:47 | CPS ---
he goes between nasal O2 and BIPAP
--- NOTE | 2020-08-03 07:55 | PN.CC_ITS ---
Assessment & Plan Assessment/Plan (1) Acute respiratory failure with hypoxia: (2) COVID-19: PLAN: RECOMMENDATIONS: 1. Continue low flow oxygen throughout the day as tolerated and BiPAP sup port at night. 2. Completed remdesivir. Continue Decadron to complete 10-day treatment course. 3. Increase activity as tolerated. Will continue Lasix challenge today 4. Continue Lovenox as ordered. 5. Clarify culture results -lab reporting nocardia may take a week to grow 6. Potential discharge by end of the week if continues to improve IMPRESSIONS: 1. Acute hypoxemic respiratory failure secondary to COVID-19 pneumonia The patient presented to the hospital with Covid symptoms of approximately 1.5 weeks duration. He does have extensive bilateral groundglass infiltrates on CTA chest. The patient has been requiring BiPAP, but has been able to be transitioned to heated high flow throughout the day. Wiley discussion with valeri jones about the potential complications of refusing BiPAP overnight. Plan to continue the aforementioned with a goal to wean FiO2 to maintain oxygen saturations at or above 90%. The patient has completed remdesivir. Continue Decadron to complete 10-day treatment course. Continue Lovenox as ordered. Patient appears to be fully recruited at this time. Anticipate continued oxygen improvement will be at a slower pace moving forward. We will continue to challenge patient with Lasix today. Can discuss discharge planning if patient is able to tolerate 6 L or less with ambulation. 2. History of coronary artery disease/hypertension/hyperlipidemia/obesity Complicates care, management, recovery and prognosis. Continue home medications as indicated. This note was generated with [employer] dictation software. It may contain incorrect words, spelling, and punctuation that were not noted in checking the note before signing. Subjective Subjective Patient did well overnight. Patient is still requiring 10 L/min at rest, but does not desaturate as aggressively with ambulation per nursing. Patient with no complaints this morning. Patient did tolerate BiPAP overnight. Objective Data Objective Data Vital Signs: Vital Signs Temp Pulse Resp BP Pulse Ox 36.6 C 65 28 H 116/64 90 08/03/20 04:00 08/03/20 07:44 08/03/20 07:44 08/03/20 04:00 08/03/20 07:47 Oxygen Flow Rate (L/min) 10 Oxygen Delivery Method Nasal Cannula Weight: 107.6 kg Body Mass Index (BMI) 33.3 Intake & Output: Intake and Output for Last 24 Hours 08/01/20 08/02/20 08/03/20 23:59 23:59 23:59 Intake Total 240 / 240 300 / 500 200 / 200 Output Total 1800 / 1800 950 / 1350 650 / 650 Balance -1560 / -1560 -650 / -850 -450 / -450 Lab / Micro Data Result Diagrams: 08/03/20 04:40 08/03/20 04:40 Labs: Laboratory Results - last 24 hr 08/03/20 08/03/20 04:40 04:40 WBC 15.6 H RBC 4.85 Hgb 14.4 Hct 43.7 MCV 90.1 MCH 29.7 MCHC 33.0 RDW Std Deviation 41.1 RDW Coeff of Coleman 12.4 Plt Count 552 H MPV 9.3 Immature Gran % (Auto) 2.900 H Neut % (Auto) 78.9 H Lymph % (Auto) 9.9 L [place] % (Auto) 7.4 Eos % (Auto) 0.6 Baso % (Auto) 0.3 Absolute Neuts (auto) 12.3 H Absolute Lymphs (auto) 1.54 Nucleated RBC % 0 Sodium 133 L Potassium 4.9 Chloride 103 Carbon Dioxide 24.0 Anion Gap 6 BUN 22 H Creatinine 0.93 Estim Creat Clear Calc 100.30 Est GFR (MDRD) Af Amer 111 Est GFR (MDRD) Non-Af 92 BUN/Creatinine Ratio 23.6 H Glucose 108 H Calcium 8.1 L Total Bilirubin 0.90 AST 24 ALT 72 H Alkaline Phosphatase 99 Total Protein 6.7 Albumin 2.7 L Globulin 4.0 Albumin/Globulin Ratio 0.7 L Micro: Microbiology 07/25/20 19:02 Blood Culture (Wb) - Anticubital Left Blood Culture - Final No growth in 5 days. 07/27/20 17:00 Sputum, Expectorated/Coughed Gram Stain - Final 07/27/20 17:00 Sputum, Expectorated/Coughed Respiratory Culture - Final Staphylococcus aureus 07/25/20 18:40 Blood Culture (Wb) - Left Wrist Blood Culture - Final No growth in 5 days. 07/26/20 03:40 Urine, Clean Catch Legionella Antigen - Final 07/26/20 03:40 Urine, Clean Catch Streptococcus pneumoniae Antigen (M - Final 07/25/20 21:51 Mucosa - Nasopharyngeal Respiratory Panel (PCR) - Final Rhythm Strip Rhythm Strip: Sinus Tach Rate: 105 Ectopy: None Physical Exam Const alert and oriented x3 Constitutional Narrative: BiPAP mask currently in place. General Appearance: cooperative HEENT normocephalic, head/scalp atraumatic and moist oral mucous membranes Eyes PERRL, EOMs intact bilaterally and conjunctivae normal Neck supple General: trachea midline Resp Effort and Inspection: tachypneic Auscultation: diminished lung sounds; Negative for rales, rhonchi or wheezes Cardio S1 normal heart sound and S2 normal heart sound Rate: bradycardia Heart Sounds: Negative for murmur GI normal to inspection, nondistended, normoactive bowel sounds Extremity no clubbing, cyanosis or edema Skin no rashes or lesions noted Neuro oriented x3, moves all extremities and no focal motor deficits Psych cooperative and affect normal Appearance: well kempt Charges/Coding Visit Charges Inpatient E&M: 73903 Subs Hosp L2
[2020-08-03] MEDS: Enoxaparin 30 MG/0.3 ML Syringe SC ×2 (08:39→20:52)
[2020-08-03] MEDS: dexAMETHasone 10 MG/ML Vial 6 MG IV (08:39)
[2020-08-03] MEDS: Allopurinol 100 MG Tablet PO (08:40)
[2020-08-03] MEDS: amLODIPine 5 MG Tablet PO (08:40)
[2020-08-03] MEDS: Linezolid 600 MG Tablet PO ×2 (08:40→20:53)
[2020-08-03] MEDS: Famotidine 20 MG Tablet PO ×2 (08:40→20:54)
[2020-08-03] MEDS: Lisinopril 10 MG Tablet PO (08:40)
[2020-08-03] MEDS: Aspirin 81 MG TAB.CHEW PO (08:40)
[2020-08-03] MEDS: Furosemide 20 MG Tablet PO ×2 (08:52→16:37)
--- NOTE | 2020-08-03 11:28 | PN.HOSP_ITS ---
Subjective Subjective Breathing better. Less coughing. Oxygen weaned down to 4 liters. Objective Data Objective Data Vital Signs: Vital Signs Temp Pulse Resp BP Pulse Ox 36.8 C 98 16 118/62 91 08/03/20 10:00 08/03/20 11:12 08/03/20 10:00 08/03/20 10:00 08/03/20 10:00 Oxygen Flow Rate (L/min) 3 Oxygen Delivery Method Nasal Cannula Weight: 107.6 kg Body Mass Index (BMI) 33.3 Intake & Output: Intake and Output for Last 24 Hours 08/01/20 08/02/20 08/03/20 23:59 23:59 23:59 Intake Total 240 / 240 300 / 500 200 / 200 Output Total 1800 / 1800 950 / 1350 650 / 650 Balance -1560 / -1560 -650 / -850 -450 / -450 Lab / Micro Data Result Diagrams: 08/03/20 04:40 08/03/20 04:40 Labs: Laboratory Results - last 24 hr 08/03/20 08/03/20 04:40 04:40 WBC 15.6 H RBC 4.85 Hgb 14.4 Hct 43.7 MCV 90.1 MCH 29.7 MCHC 33.0 RDW Std Deviation 41.1 RDW Coeff of Coleman 12.4 Plt Count 552 H MPV 9.3 Immature Gran % (Auto) 2.900 H Neut % (Auto) 78.9 H Lymph % (Auto) 9.9 L [place] % (Auto) 7.4 Eos % (Auto) 0.6 Baso % (Auto) 0.3 Absolute Neuts (auto) 12.3 H Absolute Lymphs (auto) 1.54 Nucleated RBC % 0 Sodium 133 L Potassium 4.9 Chloride 103 Carbon Dioxide 24.0 Anion Gap 6 BUN 22 H Creatinine 0.93 Estim Creat Clear Calc 100.30 Est GFR (MDRD) Af Amer 111 Est GFR (MDRD) Non-Af 92 BUN/Creatinine Ratio 23.6 H Glucose 108 H Calcium 8.1 L Total Bilirubin 0.90 AST 24 ALT 72 H Alkaline Phosphatase 99 Total Protein 6.7 Albumin 2.7 L Globulin 4.0 Albumin/Globulin Ratio 0.7 L Micro: Microbiology 07/25/20 19:02 Blood Culture (Wb) - Anticubital Left Blood Culture - Final No growth in 5 days. 07/27/20 17:00 Sputum, Expectorated/Coughed Gram Stain - Final 07/27/20 17:00 Sputum, Expectorated/Coughed Respiratory Culture - Final Staphylococcus aureus 07/25/20 18:40 Blood Culture (Wb) - Left Wrist Blood Culture - Final No growth in 5 days. 07/26/20 03:40 Urine, Clean Catch Legionella Antigen - Final 07/26/20 03:40 Urine, Clean Catch Streptococcus pneumoniae Antigen (M - Final 07/25/20 21:51 Mucosa - Nasopharyngeal Respiratory Panel (PCR) - Final Rhythm Strip Rhythm Strip: Sinus Tach Rate: 105 Ectopy: None Physical Exam Const alert HEENT Head and Scalp: normocephalic Neck no lymphadenopathy Resp normal respiratory effort and clear to auscultation bilaterally Cardio regular rate, regular rhythm, S1 normal heart sound and S2 normal heart sound GI normal to inspection, nondistended, normoactive bowel sounds, non-tender and non-distended Assessment & Plan Assessment/Plan (1) Pneumonia due to COVID-19 virus: (2) Acute respiratory failure with hypoxia: (3) Sepsis: QUALIFIERS: Sepsis type: sepsis due to unspecified organism Sepsis acute organ dysfunction status: unspecified Qualified Code(s): A41.9 - Sepsis, unspecified organism PLAN: 1. acute hypoxic respiratory failure * ongoing, improved today * 2/2 COVID-19 and MSSA pneumonia * oxygen slowly being weaned down * started on furosemide challenge. 2. Acute COVID-19 pneumonia * Onset 07/16/2020, continue quarantine through the * dexamethasone through the * completed remdesivir 3. MSSA pneumonia + GPR * on linezolid * ID following * concern GPR are Nocardia-like 4. Sepsis * POA * improving 5. VTE prophylaxis: LMWH 6. Disposition: Discussed with patient. Advised of to stated slow progress. Anticipate discharge home with oxygen. Visit Charges Inpatient E&M: 85757 Subs Hosp L2
[2020-08-03] MEDS: guaiFENesin 10 ML UDC (200MG/10ML) PO (19:50)
[2020-08-03] MEDS: 0.9% Saline Lock 10 ML Syringe IV (20:50)
[2020-08-03] MEDS: Atorvastatin Calcium 80 MG Tablet PO (20:53)
[2020-08-03] MEDS: MELATONIN 3 MG TABLET PO (20:54)
[2020-08-04] VITALS (16 sets, daily range): BP systolic 90–124; BP diastolic 46–63; PULSE 53–101; RESP 12–30; TEMP 36.4–36.9; O2SAT 3–96
[2020-08-04] MEDS: 0.9% Saline Lock 10 ML Syringe IV ×2 (05:16→09:08)
[2020-08-04 05:22] LABS: Absolute Lymphocyte Count 1.74 X10^3/uL (0.83-4.51); Absolute Neutrophil Count 9.7 X10^3/uL (2.0-7.7); Basophil# 0.03 X10^3/uL; Basophil% 0.2 % (0-1); Eosinophil# 0.19 X10^3/uL; Eosinophils% 1.5 % (0-5); Hematocrit 40.2 % (40-54); Hemoglobin 13.7 g/dL (13.0-16.5); Lymphocyte # 1.74 X10^3/ul (0.83-4.51); Lymphocyte % 13.4 % (19-41); Mean Corp Hgb Conc 34.1 g/dL (32-36); Mean Corpuscular Hgb 30.2 pg (27.0-32.0); Mean Corpuscular Volume 88.5 fL (80-94); Mean Platelet Vol. 9.1 fl (6.2-12.0); Monocyte# 1.04 X10^3/uL; NRBC Flagged by Analyzer 0 % (0-5); Neutrophil # 9.74 X10^3/uL (2.7-7.7); Platelet Count 496 K/mm3 (150-450); RBC Distribution Width CV 12.6 % (11.6-14.6); RBC Distribution Width SD 40.8 fl (35.1-43.9); Red Blood Count 4.54 M/mm3 (4.6-6.2)
[2020-08-04 05:40] LABS: ALB/GLOB Ratio 0.7 RATIO (0.9-2.4); AST(SGOT) 13 U/L (15-37); Alanine Aminotransfer ALT/SGPT 54 U/L (16-61); Albumin, Serum 2.6 g/dL (3.2-5.0); Alkaline Phosphatase 85 U/L (45-117); Anion Gap 7 (5-15); BUN 23 mg/dL (7-18); BUN/Creat Ratio 23.1 RATIO (10-20); Calcium,Total 7.8 mg/dL (8.5-10.1); Chloride 102 mmol/L (98-107); Creatinine, Serum 0.99 mg/dL (0.70-1.30); EST Glomerular Filtration Rate 85 mL/min (>60); Est Glom Filt Rate - Afr Amer 103 mL/min (>60); Estimated Creatinine Clearance 94.22 ml/min; Globulin 3.6 g/dL (2.2-4.2); Glucose 104 mg/dL (74-106); Potassium 4.5 mmol/L (3.5-5.1); Protein, Total 6.2 g/dL (6.4-8.2); Sodium Level 134 mmol/L (136-145)
--- NOTE | 2020-08-04 07:40 | PCM.PN.INT ---
Assessment & Plan Assessment/Plan (1) Acute respiratory failure with hypoxia: (2) COVID-19: PLAN: RECOMMENDATIONS: 1. Continue low flow oxygen throughout the day as tolerated 2. Completed remdesivir and Decadron. No steroids needed to discharge 3. Walking oximetry prior to discharge. Anticipate need for supplemental oxygen 4. Follow-up with nurse practitioner 4 weeks after discharge in our office 5. Potential discharge today if able to tolerate 6 L or less with ambulation 6. No Lasix indicated at discharge IMPRESSIONS: 1. Acute hypoxemic respiratory failure secondary to COVID-19 pneumonia The patient presented to the hospital with Covid symptoms of approximately 1.5 weeks duration. He does have extensive bilateral groundglass infiltrates on CTA chest. The patient has been requiring BiPAP, but has been able to be transitioned to heated high flow throughout the day. Patient should complete both his remdesivir and Decadron courses while in the hospital (last Decadron today). Continue Lovenox as ordered. Patient appears to be fully recruited at this time. Anticipate continued oxygen improvement will be at a slower pace moving forward. Can discuss discharge planning if patient is able to tolerate 6 L or less with ambulation. 2. History of coronary artery disease/hypertension/hyperlipidemia/obesity Complicates care, management, recovery and prognosis. Continue home medications as indicated. This note was generated with [employer] dictation software. It may contain incorrect words, spelling, and punctuation that were not noted in checking the note before signing. Subjective Subjective Patient did well overnight. Patient was compliant with BiPAP therapy. During the day, patient has been requiring 3 to 4 L nasal cannula. Patient continues to report an intermittent dry cough, but otherwise feels subjectively improved compared to previous. Patient does not have supplemental oxygen at home at baseline. Objective Data Objective Data Vital Signs: Vital Signs Temp Pulse Resp BP Pulse Ox 36.9 C 61 22 H 124/63 H 93 08/04/20 04:54 08/04/20 05:28 08/04/20 04:54 08/04/20 04:54 08/04/20 04:54 Oxygen Flow Rate (L/min) 3 Oxygen Delivery Method Bi-pap Weight: 107.6 kg Body Mass Index (BMI) 33.3 Intake & Output: Intake and Output for Last 24 Hours 08/02/20 08/03/20 08/04/20 23:59 23:59 23:59 Intake Total 300 / 500 500 / 500 200 / 200 Output Total 950 / 1350 1725 / 1725 500 / 500 Balance -650 / -850 -1225 / -1225 -300 / -300 Lab / Micro Data Result Diagrams: 08/04/20 04:55 08/04/20 04:55 Labs: Laboratory Results - last 24 hr 08/04/20 08/04/20 04:55 04:55 WBC 13.0 H RBC 4.54 L Hgb 13.7 Hct 40.2 MCV 88.5 MCH 30.2 MCHC 34.1 RDW Std Deviation 40.8 RDW Coeff of Coleman 12.6 Plt Count 496 H MPV 9.1 Immature Gran % (Auto) 1.900 H Neut % (Auto) 75.0 H Lymph % (Auto) 13.4 L [place] % (Auto) 8.0 Eos % (Auto) 1.5 Baso % (Auto) 0.2 Absolute Neuts (auto) 9.7 H Absolute Lymphs (auto) 1.74 Nucleated RBC % 0 Sodium 134 L Potassium 4.5 Chloride 102 Carbon Dioxide 25.0 Anion Gap 7 BUN 23 H Creatinine 0.99 Estim Creat Clear Calc 94.22 Est GFR (MDRD) Af Amer 103 Est GFR (MDRD) Non-Af 85 BUN/Creatinine Ratio 23.1 H Glucose 104 Calcium 7.8 L Total Bilirubin 1.00 AST 13 L ALT 54 Alkaline Phosphatase 85 Total Protein 6.2 L Albumin 2.6 L Globulin 3.6 Albumin/Globulin Ratio 0.7 L Micro: Microbiology 07/25/20 19:02 Blood Culture (Wb) - Anticubital Left Blood Culture - Final No growth in 5 days. 07/27/20 17:00 Sputum, Expectorated/Coughed Gram Stain - Final 07/27/20 17:00 Sputum, Expectorated/Coughed Respiratory Culture - Final Staphylococcus aureus 07/25/20 18:40 Blood Culture (Wb) - Left Wrist Blood Culture - Final No growth in 5 days. 07/26/20 03:40 Urine, Clean Catch Legionella Antigen - Final 07/26/20 03:40 Urine, Clean Catch Streptococcus pneumoniae Antigen (M - Final 07/25/20 21:51 Mucosa - Nasopharyngeal Respiratory Panel (PCR) - Final Rhythm Strip Rhythm Strip: Sinus Tach Rate: 105 Ectopy: None Physical Exam Const alert and oriented x3 Constitutional Narrative: BiPAP mask currently in place. General Appearance: cooperative HEENT normocephalic, head/scalp atraumatic and moist oral mucous membranes Eyes PERRL, EOMs intact bilaterally and conjunctivae normal Neck supple General: trachea midline Resp Effort and Inspection: tachypneic Auscultation: diminished lung sounds; Negative for rales, rhonchi or wheezes Cardio S1 normal heart sound and S2 normal heart sound Rate: bradycardia Heart Sounds: Negative for murmur GI normal to inspection, nondistended, normoactive bowel sounds Extremity no clubbing, cyanosis or edema Skin no rashes or lesions noted Neuro oriented x3, moves all extremities and no focal motor deficits Psych cooperative and affect normal Appearance: well kempt Charges/Coding Visit Charges Inpatient E&M: 01018 Subs Hosp L2
[2020-08-04] MEDS: amLODIPine 5 MG Tablet PO (09:08)
[2020-08-04] MEDS: Enoxaparin 30 MG/0.3 ML Syringe SC ×2 (09:08→21:01)
[2020-08-04] MEDS: Aspirin 81 MG TAB.CHEW PO (09:08)
[2020-08-04] MEDS: Linezolid 600 MG Tablet PO (09:08)
[2020-08-04] MEDS: Famotidine 20 MG Tablet PO ×2 (09:08→21:01)
[2020-08-04] MEDS: Allopurinol 100 MG Tablet PO (09:08)
[2020-08-04] MEDS: Lisinopril 10 MG Tablet PO (09:08)
--- NOTE | 2020-08-04 12:40 | PN.HOSP_ITS ---
Subjective Subjective Breathing better. Ambulated and sats dropped down to 70% on 10l NC. Decreased cough. Objective Data Objective Data Vital Signs: Vital Signs Temp Pulse Resp BP Pulse Ox 36.5 C L 94 26 H 102/57 L 94 08/04/20 12:00 08/04/20 12:00 08/04/20 12:00 08/04/20 12:00 08/04/20 12:00 Oxygen Flow Rate (L/min) [ 70 AMBULATING with Oxygen #1] Oxygen Flow Rate (L/min) [At 90 REST with Oxygen] Oxygen Flow Rate (L/min) [At 0 REST on Room Air] Oxygen Flow Rate (L/min) 3 Oxygen Delivery Method Nasal Cannula Weight: 107.6 kg Body Mass Index (BMI) 33.3 Intake & Output: Intake and Output for Last 24 Hours 08/02/20 08/03/20 08/04/20 23:59 23:59 23:59 Intake Total 300 / 500 500 / 500 200 / 200 Output Total 950 / 1350 1725 / 1725 1000 / 1000 Balance -650 / -850 -1225 / -1225 -800 / -800 Lab / Micro Data Attestation: I reviewed the patient's lab results. Result Diagrams: 08/04/20 04:55 08/04/20 04:55 Labs: Laboratory Results - last 24 hr 08/04/20 08/04/20 04:55 04:55 WBC 13.0 H RBC 4.54 L Hgb 13.7 Hct 40.2 MCV 88.5 MCH 30.2 MCHC 34.1 RDW Std Deviation 40.8 RDW Coeff of Coleman 12.6 Plt Count 496 H MPV 9.1 Immature Gran % (Auto) 1.900 H Neut % (Auto) 75.0 H Lymph % (Auto) 13.4 L [place] % (Auto) 8.0 Eos % (Auto) 1.5 Baso % (Auto) 0.2 Absolute Neuts (auto) 9.7 H Absolute Lymphs (auto) 1.74 Nucleated RBC % 0 Sodium 134 L Potassium 4.5 Chloride 102 Carbon Dioxide 25.0 Anion Gap 7 BUN 23 H Creatinine 0.99 Estim Creat Clear Calc 94.22 Est GFR (MDRD) Af Amer 103 Est GFR (MDRD) Non-Af 85 BUN/Creatinine Ratio 23.1 H Glucose 104 Calcium 7.8 L Total Bilirubin 1.00 AST 13 L ALT 54 Alkaline Phosphatase 85 Total Protein 6.2 L Albumin 2.6 L Globulin 3.6 Albumin/Globulin Ratio 0.7 L Micro: Microbiology 07/25/20 19:02 Blood Culture (Wb) - Anticubital Left Blood Culture - Final No growth in 5 days. 07/27/20 17:00 Sputum, Expectorated/Coughed Gram Stain - Final 07/27/20 17:00 Sputum, Expectorated/Coughed Respiratory Culture - Final Staphylococcus aureus 07/25/20 18:40 Blood Culture (Wb) - Left Wrist Blood Culture - Final No growth in 5 days. 07/26/20 03:40 Urine, Clean Catch Legionella Antigen - Final 07/26/20 03:40 Urine, Clean Catch Streptococcus pneumoniae Antigen (M - Final 07/25/20 21:51 Mucosa - Nasopharyngeal Respiratory Panel (PCR) - Final Rhythm Strip Rhythm Strip: Sinus Tach Rate: 105 Ectopy: None Physical Exam Const alert Constitutional Narrative: up in chair. Resp Resp Narrative: coarse breath sounds bilaterally. Cardio regular rate, S1 normal heart sound and S2 normal heart sound Skin no rashes or lesions noted Neuro Sensorium / Orientation: awake and alert Assessment & Plan Assessment/Plan (1) Pneumonia due to COVID-19 virus: (2) Acute respiratory failure with hypoxia: (3) Sepsis: QUALIFIERS: Sepsis type: sepsis due to unspecified organism Sepsis acute organ dysfunction status: unspecified Qualified Code(s): A41.9 - Sepsis, unspecified organism PLAN: 1. acute hypoxic respiratory failure * ongoing, improved today * 2/2 COVID-19 and MSSA pneumonia * oxygen slowly being weaned down * received furosemide challenge on the * not ready for discharge yet as his pulse ox dropped considerably when ambulated on 10l 2. Acute COVID-19 pneumonia * Onset 07/16/2020, continue quarantine through the * dexamethasone through the * completed remdesivir 3. MSSA pneumonia + GPR * on linezolid * ID following * concern GPR are Nocardia-like 4. Sepsis * POA * improving 5. VTE prophylaxis: LMWH 6. Disposition: Discussed with patient. Advised of to stated slow progress. Anticipate discharge home with oxygen. Visit Charges Inpatient E&M: 97189 Subs Hosp L2
[2020-08-04] MEDS: guaiFENesin 10 ML UDC (200MG/10ML) PO ×2 (15:46→21:01)
--- NOTE | 2020-08-04 16:11 | CASEMGMT ---
TC to pt room to see if pt has thought about additional therapy as it is still being recommended at dc. Pt states he would like to do outpt therapy instead of someone coming to his home. TC to Teresa at pt insurance to assist with in network providers at [employer] [facility], Ext. [phone], left message. Green sheet on chart just in case pt were to dc over w/e with O2.
[2020-08-04] MEDS: Atorvastatin Calcium 80 MG Tablet PO (21:01)
[2020-08-05 02:00] VITALS: BP 102/65; PULSE 75; RESP 20; TEMP 36.9; O2SAT 95
[2020-08-05 02:07] VITALS: RESP 20
[2020-08-05] MEDS: 0.9% Saline Lock 10 ML Syringe IV (02:11)
[2020-08-05] MEDS: Ondansetron 4 MG/2 ML Vial IV (02:11)
[2020-08-05 05:48] VITALS: BP 119/64; PULSE 71; RESP 22; TEMP 36.3; O2SAT 93
--- NOTE | 2020-08-05 06:07 | PCM.PN.INT ---
Assessment & Plan Assessment/Plan (1) Acute respiratory failure with hypoxia: (2) COVID-19: PLAN: RECOMMENDATIONS: 1. Continue to wean supplemental oxygen to maintain saturations at or above 90%. 2. Perform walking oximetry study prior to consideration for discharge home. 3. Encourage incentive spirometer use and mobilize patient as tolerated. 4. Will sign off from a critical care perspective. IMPRESSIONS: 1. Acute hypoxemic respiratory failure secondary to COVID-19 pneumonia The patient presented to the hospital with Covid symptoms of approximately 1.5 weeks duration. The patient did have significant bilateral infiltrates noted on CTA chest. Although the patient initially required noninvasive positive pressure ventilatory support, he has been weaned to supplemental oxygen via nasal cannula. The patient has completed treatment courses of both remdesivir and Decadron. He is stable for discharge home if he is able to ambulate while maintaining appropriate saturations on 6 L/min or less of supplemental oxygen. 2. History of coronary artery disease/hypertension/hyperlipidemia/obesity Complicates care, management, recovery and prognosis. Continue home medications as indicated. This note was generated with [employer] dictation software. It may contain incorrect words, spelling, and punctuation that were not noted in checking the note before signing. Subjective Subjective The patient was seen and examined at the bedside this morning. Events from the last 24 hours have been reviewed. The patient is currently afebrile, hemodynamically stable and maintaining appropriate oxygen saturations on 3 L/min via nasal cannula. The patient has already completed his treatment courses of remdesivir and Decadron. Objective Data Objective Data The patient's most recent lab work, culture data and imaging studies have all been personally reviewed. Rapid coronavirus antigen testing was positive on July 21. Vital Signs: Vital Signs Temp Pulse Resp BP Pulse Ox 97.3 F L 71 22 H 119/64 93 08/05/20 05:48 08/05/20 05:48 08/05/20 05:48 08/05/20 05:48 08/05/20 05:48 Oxygen Flow Rate (L/min) [ 70 AMBULATING with Oxygen #1] Oxygen Flow Rate (L/min) [At 90 REST with Oxygen] Oxygen Flow Rate (L/min) [At 0 REST on Room Air] Oxygen Flow Rate (L/min) 3 Oxygen Delivery Method Nasal Cannula Weight: 237 lb 3.478 oz Body Mass Index (BMI) 33.3 Intake & Output: Intake and Output for Last 24 Hours 08/03/20 08/04/20 08/05/20 23:59 23:59 23:59 Intake Total 500 / 500 1180 / 1180 700 / 700 Output Total 1725 / 1725 1350 / 1350 700 / 700 Balance -1225 / -1225 -170 / -170 0 / 0 Lab / Micro Data Attestation: I reviewed the patient's lab results. Result Diagrams: 08/04/20 04:55 08/04/20 04:55 Micro: Microbiology 07/25/20 19:02 Blood Culture (Wb) - Anticubital Left Blood Culture - Final No growth in 5 days. 07/27/20 17:00 Sputum, Expectorated/Coughed Gram Stain - Final 07/27/20 17:00 Sputum, Expectorated/Coughed Respiratory Culture - Final Staphylococcus aureus 07/25/20 18:40 Blood Culture (Wb) - Left Wrist Blood Culture - Final No growth in 5 days. 07/26/20 03:40 Urine, Clean Catch Legionella Antigen - Final 07/26/20 03:40 Urine, Clean Catch Streptococcus pneumoniae Antigen (M - Final 07/25/20 21:51 Mucosa - Nasopharyngeal Respiratory Panel (PCR) - Final Rhythm Strip Rhythm Strip: Sinus Tach Rate: 105 Ectopy: None Physical Exam Const alert and oriented x3 General Appearance: cooperative HEENT normocephalic, head/scalp atraumatic and moist oral mucous membranes Eyes PERRL, EOMs intact bilaterally and conjunctivae normal Neck supple General: trachea midline Resp Auscultation: diminished lung sounds; Negative for rales, rhonchi or wheezes Cardio regular rate, regular rhythm, S1 normal heart sound and S2 normal heart sound Heart Sounds: Negative for murmur GI normal to inspection, nondistended, normoactive bowel sounds Extremity no clubbing, cyanosis or edema Skin no rashes or lesions noted Neuro oriented x3, moves all extremities and no focal motor deficits Psych cooperative and affect normal Appearance: well kempt Charges/Coding Visit Charges Inpatient E&M: 90725 Subs Hosp L2
[2020-08-05] MEDS: Lisinopril 10 MG Tablet PO (08:49)
[2020-08-05] MEDS: Famotidine 20 MG Tablet PO (08:49)
[2020-08-05] MEDS: Enoxaparin 30 MG/0.3 ML Syringe SC (08:50)
[2020-08-05] MEDS: Allopurinol 100 MG Tablet PO (08:50)
[2020-08-05] MEDS: Aspirin 81 MG TAB.CHEW PO (08:50)
[2020-08-05] MEDS: amLODIPine 5 MG Tablet PO (08:50)
[2020-08-05] MEDS: guaiFENesin 10 ML UDC (200MG/10ML) PO (08:54)
[2020-08-05 10:00] VITALS: RESP 20
[2020-08-05 11:15] VITALS: O2SAT 86; O2SAT 89; O2SAT 92; O2SAT 93
--- NOTE | 2020-08-05 11:21 | CASEMGMT ---
BERT CM faxed referral to [facility] at this time as pt qualifies for home O2.
--- NOTE | 2020-08-05 11:29 | PCM.DC ---
Discharge Instructions Diet Discharge Diet: No restrictions Activity Return to work on:: 08/14/20 (You will need to be off of oxygen before returning to work. You may need to have reduced hours.) Dressing / Incision Call your doctor if you observe: Fever of 101 or Higher and Shortness of breath Follow Up Care Test Results: Test results from this visit will be discussed in further detail at your follow-up appointment, if applicable. Discharge Plan Admission Admit Date/Time: 07/25/20 20:42 Attending Provider: Jluis Nascimento Primary Care Provider: Eddie Hughes Consulting Providers: Pranav Bernard ; Surinder Wallace Instructions Patient Instructions: Coronavirus Disease 2019 (COVID-19): Caring for Yourself or Others Additional Instructions / Restrictions: Self isolate for at least 20 days since symptoms began or the first postive COVID-19 test (07/16/2020-08/06/2020) AND at least one day (24 hours) have passed since resolution of fever without the use of fever-reducing agents AND improvement of symptoms (e.g., cough, shortness of breath) When around people in the same room, wear a face mask. Individuals also in the room should wear a mask. If possible, use a different bathroom and bedroom. Perform adequate hand hygiene. Avoid sharing dishes, glasses, etc. Family members with close contact with you and/or postive for COVID-19 should follow these instructions. Discharge Orders/Prescriptions Prescriptions: New Mucinex 1,200 mg tablet extended release 12hr 1,200 mg PO BID Qty: 14 RF: 0 Continued aspirin 81 mg tablet,chewable 81 mg PO DAILY@0800 Qty: 90 RF: 5 amlodipine 5 mg tablet 5 mg PO DAILY Qty: 90 RF: 5 atorvastatin 80 mg tablet 80 mg PO QHS Qty: 90 RF: 5 lisinopril 10 mg tablet 10 mg PO DAILY Qty: 90 RF: 3 allopurinol 100 MG tablet 100 mg PO DAILYCM RF: 0 Referrals / Follow Up: Eddie Hughes [Primary Care Provider] - Within 1 Week Disposition Disposition (needs filled in before D/C Order can be placed): Home, self care
--- NOTE | 2020-08-05 11:51 | PCM.DC.SUM ---
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 Consulting Provider: Pranav Bernard Reason for Consult: Sepsis, Resp failure, COVID PNA EMERGENT Consult: No Notified: Yes Date Notified:: 07/25/20 Time Notified: 20:40 Method of Notification: cortext 07/28/20 15:35 Consult: Infectious Disease Routine Consulting Provider: Surinder Wallace Reason for Consult: Positive sputum culture for staph and nocardia EMERGENT Consult: No Notified: Yes Date Notified:: 07/28/20 Time Notified: 15:36 Method of Notification: Verbal Reason For Visit: SEPSIS, RESPIRATORY FAILURE, COVID PNA Diagnosis Discharge Diagnosis (1) Acute respiratory failure with hypoxia: Status: Acute Code(s): J96.01 - Acute respiratory failure with hypoxia (2) COVID-19: Status: Acute Code(s): U07.1 - COVID-19 Medications at Discharge Home Medications allopurinol 100 mg PO DAILYCM 11/20/14 aspirin 81 mg chewable tablet 81 mg PO DAILY@0800 #90 tab 04/22/19 amlodipine 5 mg tablet 5 mg PO DAILY #90 tab 04/25/20 atorvastatin 80 mg tablet 80 mg PO QHS #90 tab 04/25/20 lisinopril 10 mg tablet 10 mg PO DAILY #90 tab 04/25/20 guaifenesin [Mucinex] 1,200 mg PO BID #14 tab 08/05/20 Hospital Course Operations None Procedures None Summary of Care Provided Minutes Spent on Discharge: 36 Hospital Course: This is a 42-year-old male presents with shortness of breath. Patient started feeling ill on Mother's Day and then presented on 518 with sepsis, acute hypoxic respiratory failure and acute bilateral pneumonia secondary to COVID-19. Patient was initiated on treatment with dexamethasone as well as remdesivir. Patient did have sputum culture that did show methicillin sensitive staph aureus but there is also concern for a nocardia type species. Patient received 7 days of linezolid. Patient's oxygenation was slow to improve but today patient was ambulated in the room and was stable at rest as well as with activity on 3 L nasal cannula. Patient did drop down to 89% on 3 L with ambulation but was doing much better. Patient is unvaccinated. Patient advised that he and his family get vaccinated. Patient states that his is sick but only had some anosmia. Patient does have 2 adult children at home. Advised all of them to become vaccinated. Patient has 1 more day of quarantine. Patient will require oxygen and will need to remain off of work until he can get off of oxygen. 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 I did advise patient when he does return to work that he is can to be very deconditioned and working 10 hours may be prohibitive for him and advised that he, when he does return to work, do so at reduced hours. For the nocardia, spoke with microbiology and they stated that that has to be sent off for histology and with AFBs. Discussed with about recommendations. She he feels that the linezolid patient did receive during his hospitalization which should be sufficient and no additional antibiotics needed. Physical Exam Narrative Ambulate patient in his room and patient dropped down to 89% on 3 L but patient was not having respiratory distress nor any conversational dyspnea during the encounter. HEENT normocephalic Cardio regular rate, regular rhythm, S1 normal heart sound and S2 normal heart sound Neuro Sensorium / Orientation: awake and alert ABG / Lab / Microbiology Data Attestation: I reviewed the patient's lab results. Result Diagrams: 08/04/20 04:55 08/04/20 04:55 Microbiology: Microbiology 07/25/20 19:02 Blood Culture (Wb) - Anticubital Left Blood Culture - Final No growth in 5 days. 07/27/20 17:00 Sputum, Expectorated/Coughed Gram Stain - Final 07/27/20 17:00 Sputum, Expectorated/Coughed Respiratory Culture - Final Staphylococcus aureus 07/25/20 18:40 Blood Culture (Wb) - Left Wrist Blood Culture - Final No growth in 5 days. 07/26/20 03:40 Urine, Clean Catch Legionella Antigen - Final 07/26/20 03:40 Urine, Clean Catch Streptococcus pneumoniae Antigen (M - Final 07/25/20 21:51 Mucosa - Nasopharyngeal Respiratory Panel (PCR) - Final D/C Instructions Discharge Diet: No restrictions Return to work on: 08/14/20 (You will need to be off of oxygen before returning to work. You may need to have reduced hours.) Call your doctor if you observe: Fever of 101 or Higher and Shortness of breath Meaningful Use Info Meaningful Use Diagnoses (Choose all that apply): None applicable Discharge Plan Admission Admit Date/Time: 07/25/20 20:42 Attending Provider: Jluis Nascimento Primary Care Provider: Eddie Hughes Consulting Providers: Pranav Bernard ; Surinder Wallace Instructions Patient Instructions: Coronavirus Disease 2019 (COVID-19): Caring for Yourself or Others Additional Instructions / Restrictions: Self isolate for at least 20 days since symptoms began or the first postive COVID-19 test (07/16/2020-08/06/2020) AND at least one day (24 hours) have passed since resolution of fever without the use of fever-reducing agents AND improvement of symptoms (e.g., cough, shortness of breath) When around people in the same room, wear a face mask. Individuals also in the room should wear a mask. If possible, use a different bathroom and bedroom. Perform adequate hand hygiene. Avoid sharing dishes, glasses, etc. Family members with close contact with you and/or postive for COVID-19 should follow these instructions. Discharge Orders/Prescriptions Prescriptions: New Mucinex 1,200 mg tablet extended release 12hr 1,200 mg PO BID Qty: 14 RF: 0 Continued aspirin 81 mg tablet,chewable 81 mg PO DAILY@0800 Qty: 90 RF: 5 amlodipine 5 mg tablet 5 mg PO DAILY Qty: 90 RF: 5 atorvastatin 80 mg tablet 80 mg PO QHS Qty: 90 RF: 5 lisinopril 10 mg tablet 10 mg PO DAILY Qty: 90 RF: 3 allopurinol 100 MG tablet 100 mg PO DAILYCM RF: 0 Referrals / Follow Up: Eddie Hughes [Primary Care Provider] - Within 1 Week Disposition Disposition (needs filled in before D/C Order can be placed): Home, self care Visit Charges Inpatient E&M: 28466 Disch Hosp
--- NOTE | 2020-08-08 11:58 | CASEMGMT ---
BERT CAMACHO Discharge Follow Up Phone Call: [place]: Kayley Strata: 4 Call Date: 08.08.20 Discharge Date: 08.05.20 Time of Call: 1147 Duration: <1 min Admitting Dx: Fernandoid BERT CAMACHO attempted to complete follow up phone call after recent hospitalization. No answer. Left vm with call back information to return call. 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 She listed the following companies for pt that are in network for outpt therapy: [facility] [phone], [facility] [phone] and [facility] [phone]. Will give these options to patient once able to make contact by phone.
== END 2020-08-05 12:10 | disposition home or self-care (01) | DRG 871 ==
LOC: ED 19:04 → ICU 20:46
PROVIDERS: Internal Medicine Critical Care Medicine; Internal Medicine Infectious Disease; Admitting Provider Family Medicine; Emergency Provider Emergency Medicine
DX: A41.89 Other specified sepsis (principal); U07.1 COVID-19; J96.01 Acute respiratory failure with hypoxia; J12.82 Pneumonia due to coronavirus disease 2019; J15.211 Pneumonia due to Methicillin susceptible Staphylococcus aureus; R73.9 Hyperglycemia, unspecified; E78.5 Hyperlipidemia, unspecified; G89.29 Other chronic pain; I10 Essential (primary) hypertension; I25.2 Old myocardial infarction; I45.10 Unspecified right bundle-branch block; M10.9 Gout, unspecified; K76.0 Fatty (change of) liver, not elsewhere classified; I25.10 Atherosclerotic heart disease of native coronary artery without angina pectoris; E66.01 Morbid (severe) obesity due to excess calories; Z68.34 Body mass index [BMI] 34.0-34.9, adult; Z87.891 Personal history of nicotine dependence; Z79.82 Long term (current) use of aspirin; Z87.19 Personal history of other diseases of the digestive system; Z79.899 Other long term (current) drug therapy
CPT/HCPCS: 36600; 71045; 71275; 80048; 80053; 82728; 82803; 83036; 83605; 83615; 83735; 83880; 84100; 84145; 84484; 85025; 85027; 85379; 86140; 87040; 87070; 87077; 87186; 87205; 87449; 87633; 93005; 94002; 94003; 94640; 94660; 97110; 97116; 97162; 97166; 97530; 99251; 99285; J7030; J7050; Q9967; A4216; G0463; J2405

== ENCOUNTER → 2020-08-12 07:03 | Outpatient (CLI) | payer OTHER, SELFPAY ==
[2020-07-30 09:48] VITALS: BMI 33.3
[2020-08-12 08:02] LABS: Absolute Lymphocyte Count 1.42 X10^3/uL (0.83-4.51); Absolute Neutrophil Count 3.2 X10^3/uL (2.0-7.7); Basophil# 0.06 X10^3/uL; Basophil% 1.1 % (0-1); Eosinophil# 0.29 X10^3/uL; Eosinophils% 5.1 % (0-5); Hematocrit 41.6 % (40-54); Hemoglobin 13.8 g/dL (13.0-16.5); Lymphocyte # 1.42 X10^3/ul (0.83-4.51); Lymphocyte % 24.9 % (19-41); Mean Corp Hgb Conc 33.2 g/dL (32-36); Mean Corpuscular Hgb 30.1 pg (27.0-32.0); Mean Corpuscular Volume 90.6 fL (80-94); Mean Platelet Vol. 9.6 fl (6.2-12.0); Monocyte# 0.68 X10^3/uL; Monocyte% 11.9 % (0-10); NRBC Flagged by Analyzer 0 % (0-5); Neutrophil # 3.21 X10^3/uL (2.7-7.7); Neutrophil % 56.3 % (47-70); Platelet Count 283 K/mm3 (150-450); RBC Distribution Width CV 13.1 % (11.6-14.6); RBC Distribution Width SD 42.9 fl (35.1-43.9); Red Blood Count 4.59 M/mm3 (4.6-6.2); White Blood Count 5.7 K/mm3 (4.4-11.0)
[2020-08-12 08:31] LABS: Anion Gap 5 (5-15); BUN 11 mg/dL (7-18); BUN/Creat Ratio 12.1 RATIO (10-20); Calcium,Total 8.4 mg/dL (8.5-10.1); Chloride 106 mmol/L (98-107); Creatinine, Serum 0.91 mg/dL (0.70-1.30); EST Glomerular Filtration Rate 95 mL/min (>60); Est Glom Filt Rate - Afr Amer 115 mL/min (>60); Glucose 111 mg/dL (74-106); Potassium 4.2 mmol/L (3.5-5.1); Sodium Level 137 mmol/L (136-145)
== END ==
DX: U07.1 COVID-19 (principal)
CPT/HCPCS: 36415; 80048; 85025

== ENCOUNTER 2020-08-29 21:02 | Emergency (ER) | payer OTHER, SELFPAY ==
[2020-07-30 09:48] VITALS: BMI 33.3
[2020-08-29 21:03] VITALS: BP 145/79; PULSE 97; RESP 18; TEMP 36.3; O2SAT 95; BMI 32.3
[2020-08-29] MEDS: predniSONE 20 MG Tablet 60 MG PO (21:50)
[2020-08-29] MEDS: Ketorolac 15 MG/ML Vial IM (21:51)
[2020-08-29] MEDS: Colchicine 0.6 MG TABLET 1.2 MG PO (22:41)
--- NOTE | 2020-08-29 23:06 | EDS_ITS ---
HPI History of Present Illness Chief Complaint: Lower Extremity Injury Informant: patient Narrative Narrative: 50-year-old male presents with concern for left foot pain. History of gout. Consistent with his gout. States that he is usually treated with prednisone. Is on allopurinol. Denies any fever chills. Denies any trauma. [facility] Medical History (Updated 08/29/20 @ 23:[address] Emery Saucedo DO) Chronic back pain Diverticulitis Essential (primary) hypertension Fatty liver Gout Hyperlipidemia Non-STEMI (non-ST elevated myocardial infarction) (07/31/17) Nonocclusive coronary atherosclerosis of [place] coronary artery Obesity (BMI 30.0-34.9) Right bundle branch block Vasospastic angina Home Medications allopurinol 100 mg PO DAILYCM 11/20/14 [History Last Taken 07/31/17] aspirin 81 mg chewable tablet 81 mg PO DAILY@0800 #90 tab 04/22/19 [Rx Last Taken Unknown] amlodipine 5 mg tablet 5 mg PO DAILY #90 tab 04/25/20 [Rx Last Taken Unknown] atorvastatin 80 mg tablet 80 mg PO QHS #90 tab 04/25/20 [Rx Last Taken Unknown] lisinopril 10 mg tablet 10 mg PO DAILY #90 tab 04/25/20 [Rx Last Taken Unknown] guaifenesin [Mucinex] 1,200 mg PO BID #14 tab 08/05/20 [Rx Last Taken Unknown] prednisone 40 mg PO DAILY 5 Days #10 tab 08/29/20 [Rx Last Taken Unknown] Allergy/AdvReac Type Severity Reaction Status Date / Time No Known Allergies Allergy Verified 08/29/20 21:05 Family History Mother Heart disease Myocardial infarction [place] at age 35 Father Diabetes Surgical History History of bowel resection History of left heart catheterization (08/01/17) Social History household members: spouse Smoking Status: Former smoker how long ago did patient quit smoking: Patient quit cigarette tobacco you approximately 17 years prior. alcohol intake: never substance use type: does not use ROS ROS ED Constitutional Constitutional ED: Denies chills, fever(s) or sweats Eyes Eyes: Denies blurry vision, change in vision or diplopia ENT ENT ED: Denies rhinorrhea or sore throat Cardiovascular Cardiovascular: Denies chest pain, orthopnea, palpitations or racing heartbeat Respiratory/Chest Respiratory/Chest: Denies cough, dyspnea, dyspnea on exertion, orthopnea or sputum Gastrointestinal Gastrointestinal: Denies abdominal pain, constipation, diarrhea, melena, nausea or vomiting Genitourinary Genitourinary ED: Denies dysuria, hematuria or urinary frequency Musculoskeletal Musculoskeletal: Reports arthralgias; Denies myalgias or neck pain Integumentary Denies rash Neurologic Neurologic: Denies headache(s), paresthesias or weakness Psychiatric Psychiatric: Denies anxiety or depression Hematologic/Lymphatic Hematologic/Lymphatic: Denies easy bleeding or easy bruising Allergic/Immunologic Allergic/Immunologic ED: Denies mouth swelling or tongue swelling EXAM Physical Exam Const Vital Signs: 08/29/20 21:03 Temperature 97.4 F L Temperature Source Temporal Pulse Rate 97 Respiratory Rate 18 Blood Pressure 145/79 H Blood Pressure Mean 101 Pulse Ox 95 Oxygen Delivery Method Room Air Positive well nourished and well developed General Appearance ED: well developed HEENT normocephalic and atraumatic Eyes PERRL and EOMs intact bilaterally Neck no lymphadenopathy, supple and no JVD Chest Wall inspection of chest normal Resp normal respiratory effort and clear to auscultation bilaterally Cardio regular rate, S1 normal heart sound, S2 normal heart sound and no murmurs Peripheral Pulses: pulses 2+ throughout GI soft to palpation, non-tender and non-distended Back/Spine no CVA tenderness and no thoracic nor lumbar tenderness Extremity normal to inspection Extremity Narrative: Tenderness to palpation on the dorsum of the left foot. Increasing warmth. Mild erythema. Full range of motion. General Extremety ED: Negative for edema General Extremity: Negative for edema Neuro oriented x3, CN's II-XII intact bilaterally and no sensory deficits noted Sensorium / Orientation: alert Motor Exam: strength 5/5 throughout Psych mental status grossly normal Skin no rashes or lesions noted MDM MDM MDM Narrative Medical decision making narrative: Patient appears well nontoxic. Vital signs within normal limits. Patient given colchicine and Toradol as well as prednisone. Feeling much improved on reevaluation. Patient be given prednisone taper for home. Discharged home in stable condition. Discharge Plan Triage Chief Complaint: Lower Extremity Injury ED Provider: Emery Saucedo Dx/Rx/DC Orders Clinical Impression: Gout attack Instructions: ED Gout Prescriptions: New prednisone 20 mg tablet 40 mg PO DAILY 5 Days Qty: 10 RF: 0 No Action aspirin 81 mg tablet,chewable 81 mg PO DAILY@0800 Qty: 90 RF: 5 amlodipine 5 mg tablet 5 mg PO DAILY Qty: 90 RF: 5 atorvastatin 80 mg tablet 80 mg PO QHS Qty: 90 RF: 5 lisinopril 10 mg tablet 10 mg PO DAILY Qty: 90 RF: 3 allopurinol 100 MG tablet 100 mg PO DAILYCM RF: 0 Mucinex 1,200 mg tablet extended release 12hr 1,200 mg PO BID Qty: 14 RF: 0 Primary Care Provider: Eddie Hughes Referrals: Eddie Hughes [Primary Care Provider] - 2 Days Disposition Disposition: Home, Self Care
== END 2020-08-29 23:19 | disposition home or self-care (01) ==
PROVIDERS: Emergency Provider Emergency Medicine
DX: M10.9 Gout, unspecified (principal); I10 Essential (primary) hypertension; E66.9 Obesity, unspecified; Z68.30 Body mass index [BMI] 30.0-30.9, adult; E78.5 Hyperlipidemia, unspecified; G89.29 Other chronic pain; K76.0 Fatty (change of) liver, not elsewhere classified; I25.10 Atherosclerotic heart disease of native coronary artery without angina pectoris; I25.2 Old myocardial infarction; I45.10 Unspecified right bundle-branch block; Z87.19 Personal history of other diseases of the digestive system; Z79.82 Long term (current) use of aspirin; Z79.899 Other long term (current) drug therapy; Z87.891 Personal history of nicotine dependence
CPT/HCPCS: 96372; 99283

== ENCOUNTER → 2020-11-17 | Outpatient (CLI) | payer OTHER, SELFPAY ==
[2020-11-16 18:26] LABS: Mucous, Urine 0 SEEN /hpf (<or=2+)
[2020-11-16 18:45] LABS: Color, Urine Yellow (Yellow); Glucose, Dipstick Normal (Normal); Ketone-Dipstick Negative (Negative); Leukocyte Esterase-Dipstick 100 /ul (Negative); Nitrite-Dipstick Positive (Negative); Occult Blood-Urine 50 /ul (Negative); Protein-Dipstick Negative (Negative); Specific Gravity, Urine 1.015 (1.002-1.030); Urine Bilirubin Dipstick Negative (Negative); Urine Clarity Cloudy (Clear); Urine Urobilinogen Normal (Normal)
[2020-11-16 19:09] LABS: Bacteria 2+ /hpf (None Seen); Squamous Epithelial Cells - UA 0-5 SEEN /hpf (0-5)
[2020-11-16 19:10] LABS: White Blood Cells 25-50 SEEN /hpf (0-5)
[2020-11-16 19:12] LABS: Red Blood Cells-Urine 10-25 SEEN /hpf (0-5)
== END | disposition home or self-care (01) ==
LOC: LABSPEC 08:27
PROVIDERS: Visit Provider Physician Assistant
DX: R30.0 Dysuria (principal)
CPT/HCPCS: 81001; 87077; 87086; 87088; 87186

== ENCOUNTER 2021-03-06 13:40 | Emergency (ER) | payer OTHER, SELFPAY ==
[2021-03-06 13:41] VITALS: BP 179/98; PULSE 87; RESP 18; TEMP 36.1; O2SAT 98; BMI 35.2
--- NOTE | 2021-03-06 13:55 | RAD_ITS ---
STUDY: X-RAY CHEST REASON FOR EXAM: Male, 50 years old. cough TECHNIQUE: AP COMPARISON: 07/25/2020 FINDINGS: Interstitial more than groundglass opacities predominantly in the lung bases are noted although less conspicuous as compared to the prior study. There is no demonstrated pleural abnormality. Normal size heart. Normal mediastinum and howard. Normal visualized pulmonary arteries. Normal visualized aortic arch and descending thoracic aorta. Normal visualized thoracic spine. Normal visualized ribs, clavicles, and shoulders. There is no demonstrated abnormality of the visualized soft tissue structures of the upper abdomen. RAD/Chest PA and Lateral IMPRESSION: Interstitial and groundglass opacities can be sequela of previous colon pneumonia (fibrotic phase) although acute phase pneumonitis also possible. Electronically Signed: Radu Bran MD ([place]) at 14:09 EST , Service support ,
--- NOTE | 2021-03-06 15:54 | EDS_ITS ---
HPI HPI - URI History of Present Illness Chief Complaint: Cough Informant: patient Onset/Context/Timing Onset: Weeks (3) Context: Sudden Onset Timing: Continuous Quality: Cough with green sputum Location: Chest Worsened by: - (Nothing) Relieved by: - (Nothing) Associated Symptoms Associated Symptoms: Positive for Productive Cough; Negative for Nasal Congestion, Headache, Sinus Pressure, Myalgias, Nausea, Vomiting, Diarrhea, Shortness of Breath, Chest Pain and Hemoptysis Narrative Narrative: Patient presents with cough for the past 3 weeks. Patient states he is coughing up some green sputum. Patient admits to a sore throat. Patient denies any fevers or chills. Patient denies any chest pain. Patient denies any shortness of breath. Patient denies any nausea or vomiting. Patient states nothing makes it better nothing makes it worse. Patient states the cough has been constant. Patient denies any rhinorrhea. Patient denies any sick contacts. ROS [facility] ED Constitutional Constitutional ED: Denies chills or fever(s) Eyes Eyes: Denies blurry vision or change in vision ENT ENT ED: Denies rhinorrhea or sore throat Cardiovascular Cardiovascular: Denies chest pain or palpitations Respiratory/Chest Respiratory/Chest: Reports cough; Denies dyspnea Gastrointestinal Gastrointestinal: Denies nausea or vomiting Genitourinary Genitourinary ED: Denies dysuria or hematuria Musculoskeletal Musculoskeletal: Denies back pain or neck pain Integumentary Denies abscess or rash Neurologic Neurologic: Denies headache(s) or weakness Allergic/Immunologic Allergic/Immunologic ED: Denies mouth swelling or urticaria [facility] Medical History (Updated 03/06/21 @ 16:[address] Jluis Gonzalez, DO) Chronic back pain Diverticulitis Essential (primary) hypertension Fatty liver Gout Hyperlipidemia Non-STEMI (non-ST elevated myocardial infarction) (07/31/17) Nonocclusive coronary atherosclerosis of [place] coronary artery Obesity (BMI 30.0-34.9) Right bundle branch block Vasospastic angina Home Medications allopurinol 100 mg PO DAILYCM 11/20/14 [History Last Taken 07/31/17] aspirin 81 mg chewable tablet 81 mg PO DAILY@0800 #90 tab 04/22/19 [Rx Last Taken Unknown] amlodipine 5 mg tablet 5 mg PO DAILY #90 tab 04/25/20 [Rx Last Taken Unknown] atorvastatin 80 mg tablet 80 mg PO QHS #90 tab 04/25/20 [Rx Last Taken Unknown] lisinopril 10 mg tablet 10 mg PO DAILY #90 tab 04/25/20 [Rx Last Taken Unknown] guaifenesin [Mucinex] 1,200 mg PO BID #14 tab 08/05/20 [Rx Last Taken Unknown] prednisone 40 mg PO DAILY 5 Days #10 tab 08/29/20 [Rx Last Taken Unknown] cephalexin 500 mg capsule 500 mg PO TID #30 cap 11/16/20 [Rx Last Taken Unknown] albuterol sulfate [Ventolin HFA] 1 - 2 puff INHALATION Q4H PRN PRN #1 inhaler 03/06/21 [Rx Last Taken Unknown] azithromycin 250 mg PO DAILY #4 tablet 03/06/21 [Rx Last Taken Unknown] Allergy/AdvReac Type Severity Reaction Status Date / Time No Known Allergies Allergy Verified 03/06/21 13:43 Family History Mother Heart disease Myocardial infarction [place] at age 35 Father Diabetes Surgical History History of bowel resection History of left heart catheterization (08/01/17) Social History household members: spouse Smoking Status: Former smoker how long ago did patient quit smoking: Patient quit cigarette tobacco you approximately 17 years prior. alcohol intake: current alcohol intake frequency: a few times a week Alcohol type: wine substance use type: does not use EXAM Physical Exam Const Vital Signs: 03/06/21 13:41 Temperature 97.0 F L Temperature Source Temporal Pulse Rate 87 Respiratory Rate 18 Blood Pressure 179/98 H Blood Pressure Mean 125 Pulse Ox 98 Oxygen Delivery Method Room Air Positive well nourished and well developed General Appearance ED: well developed HEENT Reports moist mucous membranes Neck supple and no JVD Resp normal respiratory effort Auscultation: rhonchi lower bilaterally Cardio regular rate, regular rhythm and no murmurs Rate: regular rate Rhythm: regular rhythm GI normal to inspection, nondistended, normoactive bowel sounds and non-tender Palpation: soft Extremity normal to inspection General Extremety ED: Negative for edema or tenderness General Extremity: Negative for edema Neuro oriented x3, CN's II-XII intact bilaterally and no sensory deficits noted Sensorium / Orientation: alert Motor Exam: strength 5/5 throughout Psych mental status grossly normal Skin no rashes or lesions noted MDM MDM MDM Narrative Medical decision making narrative: PA and lateral chest x-ray was obtained. There are 2 views. On my interpretation, there are bibasilar infiltrates. This could be due to residual effects of prior Covid pneumonia or possible acute pneumonitis. There is no cardiomegaly. Bony thorax is normal. There is no pneumothorax. There is no pleural effusion. Radiologist also interpreted the x-rays and agrees. COVID-19 rapid antigen was obtained and was negative. Patient was advised of his findings. Patient was given a prescription for Zithromax for possible acute pneumonitis. Patient was also given a prescription for an albuterol inhaler. Patient was instructed to follow-up with his primary care physician in 5 to 7 days. Patient understood and was agreeable with the plan. All questions were answered. Radiography Chest X-Ray - ED: 2 View, Read by ED Physician, Read by Radiologist, Right Infiltrate and Left Infiltrate Diagnostic Testing: Clinical Impression(s) from Imaging Studies Chest X-Ray 03/06/21 13:55 IMPRESSION: Interstitial and groundglass opacities can be sequela of previous colon pneumonia (fibrotic phase) although acute phase pneumonitis also possible. Electronically Signed: Radu Bran MD ([place]) at 14:09 EST , Service support , Discharge Plan Triage Chief Complaint: Cough ED Provider: Jluis Gonzalez Dx/Rx/DC Orders Clinical Impression: Pneumonia Instructions: ED Pneumonia (Adult) Prescriptions: New azithromycin [azithromycin] 250 MG tablet 250 mg PO DAILY Qty: 4 RF: 0 albuterol sulfate [Ventolin HFA] 1 INHALER inhaler 1 - 2 puff inhalation Q4H PRN PRN (Reason: Wheezing) Qty: 1 RF: 0 No Action aspirin 81 mg tablet,chewable 81 mg PO DAILY@0800 Qty: 90 RF: 5 amlodipine 5 mg tablet 5 mg PO DAILY Qty: 90 RF: 5 atorvastatin 80 mg tablet 80 mg PO QHS Qty: 90 RF: 5 lisinopril 10 mg tablet 10 mg PO DAILY Qty: 90 RF: 3 cephalexin 500 mg capsule 500 mg PO TID Qty: 30 RF: 0 allopurinol 100 MG tablet 100 mg PO DAILYCM RF: 0 Mucinex 1,200 mg tablet extended release 12hr 1,200 mg PO BID Qty: 14 RF: 0 prednisone 20 mg tablet 40 mg PO DAILY 5 Days Qty: 10 RF: 0 Primary Care Provider: Eddie Hughes Referrals: Eddie Hughes [Primary Care Provider] - 5-7 Days Disposition Disposition: Home, Self Care
[2021-03-06] MEDS: Azithromycin 250 MG Tablet 500 MG PO (17:15)
== END 2021-03-06 17:19 | disposition home or self-care (01) ==
PROVIDERS: Emergency Provider Emergency Medicine
DX: J18.9 Pneumonia, unspecified organism (principal); G89.29 Other chronic pain; K76.0 Fatty (change of) liver, not elsewhere classified; M10.9 Gout, unspecified; I25.2 Old myocardial infarction; E78.5 Hyperlipidemia, unspecified; E66.9 Obesity, unspecified; Z68.35 Body mass index [BMI] 35.0-35.9, adult; I25.10 Atherosclerotic heart disease of native coronary artery without angina pectoris; Z87.19 Personal history of other diseases of the digestive system; Z79.82 Long term (current) use of aspirin; Z79.899 Other long term (current) drug therapy; Z87.891 Personal history of nicotine dependence
CPT/HCPCS: 71046; 87426; 99282; A4216

== ENCOUNTER 2021-04-21 08:10 | Outpatient (CLI) | payer OTHER, SELFPAY ==
[2021-04-21 09:47] LABS: Absolute Lymphocyte Count 1.75 X10^3/uL (0.83-4.51); Absolute Neutrophil Count 2.3 X10^3/uL (2.0-7.7); Basophil# 0.06 X10^3/uL; Basophil% 1.2 % (0-1); Eosinophil# 0.31 X10^3/uL; Eosinophils% 6.3 % (0-5); Hematocrit 42.7 % (40-54); Hemoglobin 14.8 g/dL (13.0-16.5); Lymphocyte # 1.75 X10^3/ul (0.83-4.51); Lymphocyte % 35.5 % (19-41); Mean Corp Hgb Conc 34.7 g/dL (32-36); Mean Corpuscular Hgb 31.6 pg (27.0-32.0); Mean Platelet Vol. 10.1 fl (6.2-12.0); Monocyte# 0.46 X10^3/uL; Monocyte% 9.3 % (0-10); NRBC Flagged by Analyzer 0 % (0-5); Neutrophil # 2.31 X10^3/uL (2.7-7.7); Neutrophil % 46.9 % (47-70); Platelet Count 318 K/mm3 (150-450); RBC Distribution Width CV 13.2 % (11.6-14.6); RBC Distribution Width SD 43.4 fl (35.1-43.9); Red Blood Count 4.69 M/mm3 (4.6-6.2); White Blood Count 4.9 K/mm3 (4.4-11.0)
[2021-04-21 10:07] LABS: ALB/GLOB Ratio 1.2 RATIO (0.9-2.4); AST(SGOT) 25 U/L (15-37); Alanine Aminotransfer ALT/SGPT 49 U/L (16-61); Albumin, Serum 4.1 g/dL (3.2-5.0); Alkaline Phosphatase 89 U/L (45-117); Anion Gap 5 (5-15); BUN 13 mg/dL (7-18); BUN/Creat Ratio 12.7 RATIO (10-20); Calcium,Total 8.5 mg/dL (8.5-10.1); Chloride 107 mmol/L (98-107); Cholesterol 102 mg/dL (200); Creatinine, Serum 1.02 mg/dL (0.70-1.30); EST Glomerular Filtration Rate 83 mL/min (>60); Est Glom Filt Rate - Afr Amer 100 mL/min (>60); Globulin 3.4 g/dL (2.2-4.2); Glucose 89 mg/dL (74-106); High Density Lipoprotein 39 mg/dL; PSA,Total - Annual Screen 1.22 ng/mL (0.00-4.00); Potassium 4.5 mmol/L (3.5-5.1); Protein, Total 7.5 g/dL (6.4-8.2); Sodium Level 140 mmol/L (136-145); Triglycerides 112 mg/dL; Very Low Density Lipoprotein 22 mg/dL (5-40)
== END 2021-04-21 23:59 | disposition home or self-care (01) ==
LOC: LAB 08:12
PROVIDERS: Visit Provider Family Medicine
DX: Z12.5 Encounter for screening for malignant neoplasm of prostate (principal); E78.5 Hyperlipidemia, unspecified; I25.10 Atherosclerotic heart disease of native coronary artery without angina pectoris; I10 Essential (primary) hypertension
CPT/HCPCS: 36415; 80053; 80061; 84153; 85025; G0103

== ENCOUNTER → 2021-10-26 | Outpatient (CLI) | payer OTHER, SELFPAY | END | disposition home or self-care (01) | LOC: SL 19:59 | PROVIDERS: Visit Provider Family Medicine | DX: G47.33 Obstructive sleep apnea (adult) (pediatric) (principal) | CPT/HCPCS: 95810 ==

== ENCOUNTER → 2022-07-20 | Outpatient (CLI) | payer OTHER, SELFPAY ==
[2022-07-20 14:41] LABS: Bacteria 0 SEEN /hpf (None Seen); Mucous, Urine 0 SEEN /hpf (<or=2+); Red Blood Cells-Urine 0 SEEN /hpf (0-5); White Blood Cells 0 SEEN /hpf (0-5)
[2022-07-20 14:47] LABS: Color, Urine Yellow (Yellow); Glucose, Dipstick Normal (Normal); Ketone-Dipstick Negative (Negative); Leukocyte Esterase-Dipstick Negative /ul (Negative); Nitrite-Dipstick Negative (Negative); Occult Blood-Urine Negative /ul (Negative); Protein-Dipstick Negative (Negative); Specific Gravity, Urine 1.015 (1.002-1.030); Urine Bilirubin Dipstick Negative (Negative); Urine Clarity Clear (Clear); Urine Urobilinogen Normal (Normal)
[2022-07-20 15:00] LABS: Squamous Epithelial Cells - UA 0-5 SEEN /hpf (0-5)
== END | disposition home or self-care (01) ==
PROVIDERS: Visit Provider Physician Assistant
DX: R30.0 Dysuria (principal)
CPT/HCPCS: 81001; 87086

== ENCOUNTER → 2023-05-09 | Outpatient (CLI) | payer OTHER, SELFPAY ==
--- OUTSIDE RECORDS SUMMARY | 2023-05-09 20:03 | XMS RPT_ITS | CCD ---
Author Name Unknown Address [address] [place] [address] Organization [facility] Care Team Providers Care [place] [facility] Name Role Phone Daxa Rizzo MD Primary Care Provider DAXA RIZZO Referring Unavailab le DAXA RIZZO Primary Care Unavailab le DAXA RIZZO Referring Unavailab le DAXA RIZZO Primary Care UnavailDaxa Pickard MD Primary Care Provider DAXA RIZZO Attending Unavailab le DAXA RIZZO Primary Care Unavailab le DAXA RIZZO Attending Unavailab le MATTHIAS, DAXA HEARD Primary Care Unavailab le DAXA RIZZO Attending Unavailab treasure RIZZO, DAXA HEARD Primary Care Unavailab le DAXA RIZZO Referring Unavailab le DAXA RIZZO Primary Care Unavailab le Medications Completed/Discontinued Medications Medication Drug Class(es) Dates Sig (Normalized) Sig (Original) [id number] 200 actuat albuterol 0.09 mg/actuat metered dose inhaler (15 sources) beta2-Adrenergic Agonist Start: 04-23-2023 take 2 puff(s) by inhalation every four hours as needed for wheezing albuterol HFA (PROVENTIL HFA, VENTOLIN HFA) 90 mcg/actuation inhaler Inhale 2 Puffs as instructed every 4 hours as needed for wheezing/shortnes s of breath. 18 g 3 04/23/2023 Active Problems Active Problems Problem Classification Problem Date Documented Da te Episodic/Chronic Acute myocardial infarction (11 sources) Myocardial infarction; Translations: [Acute myocardial infarction, unspecified] Onset: 06-04-2018 07-14-2022 Chronic Asthma (12 sources) Asthma; Translations: [Unspecified asthma, uncomplicated] Onset: 12-06-2016 09-20-2021 Chronic Coronary atherosclerosis and other heart disease (12 sources) Coronary atherosclerosis; Translations: [Atherosclerotic heart disease of [place] coronary artery without angina pectoris] Onset: 03-16-2018 09-20-2021 Chronic Disorders of lipid metabolism (15 sources) Hyperlipidemia; Translations: [Hyperlipidemia, unspecified] Onset: 03-18-2019 09-20-2021 Chronic Diverticulosis and diverticulitis (20 sources) Abscess with diverticular disease of colon; Translations: [Diverticulitis of large intestine with perforation and abscess without bleeding] Onset: 05-26-2014 05-26-2014 Chronic Essential hypertension (16 sources) Hypertensive disorder; Translations: [Essential (primary) hypertension] Onset: 12-06-2016 09-20-2021 Chronic Gout and other crystal arthropathies (12 sources) Gout; Translations: [Gout, unspecified] Onset: 11-01-2020 09-20-2021 Chronic Other screening for suspected conditions (not mental disorders or infectious disease) (20 sources) Patient encounter status; Translations: [Encounter for screening for malignant neoplasm of prostate] Onset: 04-16-2021 09-20-2021 Episodic Other upper respiratory disease (11 sources) Allergic rhinitis; Translations: [Allergic rhinitis, unspecified] Onset: 12-06-2016 09-20-2021 Chronic Residual codes; unclassified (2 sources) Obstructive sleep apnea syndrome; Translations: [Obstructive sleep apnea (adult) (pediatric)] Chronic Screening and history of mental health and substance abuse codes (1 source) Encounter for screening for depression; Translations: [Screening for depression] Onset: 04-23-2023 Episodic Past or Other Problems Problem Classification Problem Date Documented Da te Episodic/Chronic Abdominal pain (11 sources) Umbilical pain; Translations: [Periumbilical pain] Onset: 04-15-2016 04-15-2016 Episodic Other connective tissue disease (1 source) Cramp and spasm; Translations: [Muscle cramps at night] Onset: 07-10-2022 Episodic Other lower respiratory disease (11 sources) Dyspnea; Translations: [Shortness of breath] Onset: 08-09-2020 09-20-2021 Episodic Other non-traumatic joint disorders (8 sources) Shoulder pain; Translations: [Pain in left shoulder] Onset: 04-16-2021 09-20-2021 Episodic Other non-traumatic joint disorders (3 sources) Pain in left shoulder; Translations: [Pain in joint, shoulder region] Onset: 04-16-2021 09-20-2021 Episodic Spondylosis; intervertebral disc disorders; other back problems (11 sources) Low back pain; Translations: [Low back pain] Onset: 04-02-2017 09-20-2021 Episodic Urinary tract infections (11 sources) Urinary tract infectious disease; Translations: [Urinary tract infection, site not specified] Onset: 08-16-2020 09-20-2021 Episodic Viral infection (11 sources) Disease caused by 2019-nCoV; Translations: [COVID-19] Onset: 08-09-2020 09-20-2021 Episodic Results Test Name Value Interpretation Reference Range Facil ity Vital Signs Date Time Vital Sign Value Performing Clinician Faci lity 04-23-2023 08:16-0500 Body height 180.3 cm Daxa Rizzo MD Work Phone: [facility] 04-23-2023 08:16-0500 Body temperature 97.59 [degF] Daxa Rizzo MD Work Phone: [facility] 04-23-2023 08:16-0500 Body weight 122.02 kg Daxa Rizzo MD Work Phone: [facility] 04-23-2023 08:16-0500 Diastolic blood pressure 84 mm[Hg] Daxa Rizzo MD Work Phone: [facility] 04-23-2023 08:16-0500 Heart rate 76 /min Daxa Rizzo MD Work Phone: [facility] 04-23-2023 08:16-0500 Respiratory rate 18 /min Daxa Rizzo MD Work Phone: [facility] 04-23-2023 08:16-0500 SaO2% (BldA) [Mass fraction] 97 % Daxa Rizzo MD Work Phone: [facility] 04-23-2023 08:16-0500 Systolic blood pressure 136 mm[Hg] Daxa Rizzo MD Work Phone: [facility] 12-03-2021 13:41-0400 Body height 177.8 cm Daxa Rizzo MD Work Phone: [facility] 12-03-2021 13:41-0400 Body temperature 97.11 [degF] Daxa Rizzo MD Work Phone: [facility] 12-03-2021 13:41-0400 Body weight 115.39 kg Daxa Rizzo MD Work Phone: [facility] 12-03-2021 13:41-0400 Diastolic blood pressure 88 mm[Hg] Daxa Rizzo MD Work Phone: [facility] 12-03-2021 13:41-0400 Heart rate 82 /min Daxa Rizzo MD Work Phone: [facility] 12-03-2021 13:41-0400 Respiratory rate 14 /min Daxa Rizzo MD Work Phone: [facility] 12-03-2021 13:41-0400 SaO2% (BldA) [Mass fraction] 97 % Daxa Rizzo MD Work Phone: [facility] 12-03-2021 13:41-0400 Systolic blood pressure 148 mm[Hg] Daxa Rizzo MD Work Phone: [facility] 10-15-2021 09:13-0400 Body height 175.3 cm Daxa Rizzo MD Work Phone: [facility] 10-15-2021 09:13-0400 Body temperature 97.9 [degF] Daxa Rizzo MD Work Phone: [facility] 10-15-2021 09:13-0400 Body weight 116.12 kg Daxa Rizzo MD Work Phone: [facility] 10-15-2021 09:13-0400 Diastolic blood pressure 80 mm[Hg] Daxa Rizzo MD Work Phone: [facility] 10-15-2021 09:13-0400 Heart rate 86 /min Daxa Rizzo MD Work Phone: [facility] 10-15-2021 09:13-0400 Respiratory rate 18 /min Daxa Rizzo MD Work Phone: [facility] 10-15-2021 09:13-0400 SaO2% (BldA) [Mass fraction] 97 % Daxa Rizzo MD Work Phone: [facility] 10-15-2021 09:13-0400 Systolic blood pressure 128 mm[Hg] Daxa Rizzo MD Work Phone: [facility] 09-24-2021 16:51-0400 Body height 172.7 cm Daxa Rizzo MD Work Phone: [facility] 09-24-2021 16:51-0400 Body temperature 97.5 [degF] Daxa Rizzo MD Work Phone: [facility] 09-24-2021 16:51-0400 Body weight 115.85 kg Daxa Rizzo MD Work Phone: [facility] 09-24-2021 16:51-0400 Diastolic blood pressure 84 mm[Hg] Daxa Rizzo MD Work Phone: [facility] 09-24-2021 16:51-0400 Heart rate 81 /min Daxa Rizzo MD Work Phone: [facility] 09-24-2021 16:51-0400 Respiratory rate 14 /min Daxa Rizzo MD Work Phone: [facility] 09-24-2021 16:51-0400 SaO2% (BldA) [Mass fraction] 99 % Daxa Rizzo MD Work Phone: [facility] 09-24-2021 16:51-0400 Systolic blood pressure 130 mm[Hg] Daxa Rizzo MD Work Phone: [facility] 04-16-2021 09:10-0500 Body temperature 97.7 [degF] Daxa Rizzo MD Work Phone: [facility] 04-16-2021 09:10-0500 Body weight 115.78 kg Daxa Rizzo MD Work Phone: [facility] 04-16-2021 09:10-0500 Diastolic blood pressure 90 mm[Hg] Daxa Rizzo MD Work Phone: [facility] 04-16-2021 09:10-0500 Heart rate 72 /min Daxa Rizzo MD Work Phone: [facility] 04-16-2021 09:10-0500 Respiratory rate 14 /min Daxa Rizzo MD Work Phone: [facility] 04-16-2021 09:10-0500 SaO2% (BldA) [Mass fraction] 98 % Daxa Rizzo MD Work Phone: [facility] 04-16-2021 09:10-0500 Systolic blood pressure 145 mm[Hg] Daxa Rizzo MD Work Phone: [facility] Encounters Encounter Date Encounter Type Care Provider Facility Start: 04-24-2023 ambulatory Daxa Ortez MD Work Phone: [facility] Procedures Date Procedure Procedure Detail Performing Clinician Start: 10-26-2022 Lipid 1996 panel - S estelita or Plasma [facility] Provider Start: 07-20-2022 Bacteria identified in Urine by Culture Other (Hist) Work Phone: Start: 07-20-2022 Urinalysis Other (His t) Work Phone: Start: 10-15-2021 Adult depression scr eening assessment Daxa Rizzo MD Work Phone: Start: 04-21-2021 Lipid panel Daxa Rizzo MD Work Phone: Start: 02-14-2014 Colonoscopy Daxa hawley MD Work Phone: Plan of Treatment Date Care Activity Detail Author Start: 10-27-2027 Lipid panel Lipid Screening [facility] Start: 04-27-2027 L[address]ID SCREEN L[address]ID SCREEN [facility] Start: 10-20-2026 LIPID SCREEN LIPID SCREEN [facility] Start: 04-21-2026 LIPID SCREEN LIPID SCREEN [facility] Start: 08-19-2026 Diabetes Screening Diabetes Screening [facility] Start: 07-10-2025 DIABETES SCREEN DIABETES SCREEN [facility] Start: 10-20-2024 DIABETES SCREEN DIABETES SCREEN [facility] Start: 04-23-2024 Annual PCP Team Chronic Disease Visit Annual PCP Team Chronic Disease Visit [facility] Start: 02-15-[address] [facility] Start: 02-15-2024 COLORECTAL CANCER SCREENING COLORECTAL CANCER SCREENING [facility] Start: 02-15-2024 Screening for malignant neoplasm of colon [facility] Start: 10-27-2023 Hepatitis B surface antibody level LDL Cholesterol [facility] Start: 10-22-2023 Annual PCP Team Chronic Disease Visit Annual PCP Team Chronic Disease Visit [facility] Start: 07-11-2023 ANNUAL PCP TEAM CHRONIC DISEASE VISIT ANNUAL PCP TEAM CHRONIC DISEASE VISIT [facility] Start: 04-27-2023 Hepatitis B surface antibody level LDL CHOLESTEROL [facility] Start: 04-23-2023 End: 07-23-2023 CBC W Auto Differential panel - Blood CBC + DIFF Lab Routine Screening for deficiency anemia Expected: 04/23/2023, Expires: 07/23/2023 [facility] Work Phone: Payers Date Payer Category Payer Private Health Insurance [employer] PPO TPA [id number] 2022-Present [address] [place] [phone] PPO [id number] 2022 Private Health Insurance QLY [id number] 2021 Unknown [facility] PPO [employer] [id number] 2021-Present [address] [place] [address] PPO [id number] 2021 Unknown [id number] 2021 Unknown [id number] Social History Date Type Detail Facility Start: 04-15-2016 End: 10-15-2021 Tobacco smoking status NHIS Ex-smoker [facility] End: 04-15-2002 History of tobacco use Current smoker [facility] Start: 04-15-2016 End: 10-15-2021 Tobacco use and exposure Smokeless tobacco non-user 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 Start: 1970 Sex Assigned At Not on file C [facility] Start: 08-17-2021 End: 12-03-2021 Exposure to SARS-CoV-2 (event) Not sure [facility] End: 04-15-2002 History of tobacco use Cigarette Smoker [facility] Start: 04-15-2016 End: 07-10-2022 Cigarettes smoked current (pack per day) - Reported 0.5 [facility] Start: 09-24-2021 End: 04-23-2023 Alcohol intake Current drinker of alcohol (finding) [facility] Start: 09-24-2021 History SDOH Alcohol Comment occassionally [facility] Start: 09-24-[address] [facility] Start: 10-15-2021 End: 04-22-2022 History SDOH Alcohol Frequency 2 [facility] Start: 10-15-2021 End: 04-22-2022 History SDOH Alcohol Std Drinks 1 [facility] Start: 10-15-2021 End: 04-22-2022 History SDOH Social Connections Phone 5 [facility] Start: 10-15-2021 End: 04-22-2022 History SDOH Social Connections Jew 3 [facility] Start: 10-15-2021 End: 04-22-2022 History SDOH Physical Activity DPW [address] [facility] Start: 04-22-2022 End: 07-10-2022 Social connection and isolation panel [facility] Do you belong to any clubs or organizations such as episcopalian groups, unions, fraternal or athletic groups, or school groups? No [facility] Are you now , , , , never or living with a partner? [facility] How often to you hav e a drink containing alcohol? Monthly or less [facility] How many standard dr inks containing alcohol do you have on a typical day? [address] [facility] How often do you hav e 6 or more drinks on 1 occasion? Never [facility] How hard is it for y ou to pay for the very basics like food, housing, medical care, and heating Not hard at all [facility] Do you feel stress - tense, restless, nervous, or anxious, or unable to sleep at night because your mind is troubled all the time - these days [OSQ] Not at all [facility] (I/We) worried wheth er (my/our) food would run out before (I/we) got money to buy more. Never true [facility] Start: 09-24-2021 Gender identity Identifies as male gender (finding) [facility] How often to you hav e a drink containing alcohol? 2-[address] [facility] Clinical Notes 09-30-2021 to 04-23-2023 Daxa Rizzo MD - 04/23/2023 8:50 AM Amelie Siddiqui LPN - 04/23/2023 8:30 AM ESTTelephone Encounter - Amelie Justin LPN - 07/12/2022 9:36 AM Arin Justin LPN - 10/15/2021 9:12 AM EDT Note Date & Type Note Facility 04-23-2023 Note HNO ID: [id number] Author: DAXA RIZZO MD Service: ? Author Type: Physician Type: Progress Notes Filed: 04/23/2023 08:51 Note Text: Subjective Devonte Aguliar is a 52 year old male. Devonte presents today for his annual wellness visit. Review of Systems Constitutional: Negative. HENT: Negative. Eyes: Negative. Respiratory: Negative. Cardiovascular: Negative. Gastrointestinal: Negative. Endocrine: Negative. Genitourinary: Negative. Musculoskeletal: Negative. Skin: Negative. Allergic/Immunologic: Negative. Neurological: Negative. Hematological: Negative. Psychiatric/Behavioral: Negative. PAST SURGICAL HISTORY Procedure Laterality Date COLONOSCOPY FLX DX W/COLLJ SPEC WHEN PFRMD LAPAROSCOPIC APPENDECTOMY 06-20-14 LAPAROSCOPY ENTEROLYSIS SEPARATE PROCEDURE 06-20-14 LAPS COLECTOMY PRTL W/RMVL TERMINAL ILEUM 06-20-14 LAPS MOBLJ SPLENIC FLXR PFRMD W/PRTL COLECTOMY 06-20-14 PAST MEDICAL HISTORY Diagnosis Date Acute myocardial infarction of lateral wall (HCC) Allergic rhinitis Asthma Colonic diverticular abscess COVID 07/2020 Gout HTN (hypertension) Pneumonia, viral 07/2020 FAMILY HISTORY Problem Relation Age of Onset other (Bone Cancer) Father bone Asthma Son Social History Tobacco Use Smoking status: Former Packs/day: .5 Types: Cigarettes Quit date: 04/15/2002 Years since quittin.0 Smokeless tobacco: Never Vaping Use Vaping Use: Never used Substance Use Topics Alcohol use: Yes Alcohol/week: 1.0 standard drink of alcohol Types: 1 Glasses of Wine (5oz) per week Comment: occassionally Drug use: Not Currently ALLERGIES No Known Allergies MEDICATIONS: atorvastatin (LIPITOR) 80 mg tablet Take 80 mg by mouth once daily. amLODIPine (NORVASC) 5 mg tablet Take 5 mg by mouth once daily. allopurinol (ZYLOPRIM) 300 mg tablet Take 1 tablet by mouth once daily. aspirin, enteric coated (ASPIRIN, ENTERIC COATED) 81 mg EC tablet Take 1 tablet by mouth once daily. lisinopril (ZESTRIL) 10 mg tablet Take 1 tablet by mouth once daily. albuterol HFA (PROVENTIL HFA, VENTOLIN HFA) 90 mcg/actuation inhaler Inhale 2 Puffs as instructed every 4 hours as needed for wheezing/shortness of breath. Allergies, past surgical history, family history and past medical history were reviewed per this encounter. Medications were reviewed and verified. Objective BP 136/84 (BP Site: Left Arm, BP Position: Sitting, BP Cuff Size: Regular Adult) Pulse 76 Temp 36.4 ?C (97.6 ?F) (Temporal) Resp 18 Ht 180.3 cm (5' 11 ) Wt 122 kg (269 lb) SpO2 97% BMI 37.52 kg/m? Physical Exam Vitals reviewed. Constitutional: Appearance: Normal appearance. HENT: Head: Normocephalic and atraumatic. Nose: Nose normal. Eyes: Extraocular Movements: Extraocular movements intact. Pupils: Pupils are equal, round, and reactive to light. Cardiovascular: Rate and Rhythm: Normal rate and regular rhythm. Pulmonary: Effort: Pulmonary effort is normal. Breath sounds: Normal breath sounds. Abdominal: General: Bowel sounds are normal. Palpations: Abdomen is soft. Musculoskeletal: General: Normal range of motion. Cervical back: Normal range of motion and neck supple. Skin: General: Skin is warm and dry. Capillary Refill: Capillary refill takes less than 2 seconds. Neurological: General: No focal deficit present. Mental Status: He is alert and oriented to person, place, and time. Mental status is at baseline. Psychiatric: Mood and Affect: Mood normal. Behavior: Behavior normal. Assessment and Plan Encounter Diagnosis ICD-10-CM 1. Wellness examination Z00.00 2. Screening for depression Z13.31 DEPRESSION SCREENING/ASSESSMENT 3. Hypertension, essential I10 COMP METABOLIC PANEL 4. Pure hypercholesterolemia E78.00 COMP METABOLIC PANEL LIPID PANEL BASIC 5. Screening PSA (prostate specific antigen) Z12.5 PSA/PROSTSPECAG SCRN 6. Screening for deficiency anemia Z13.0 CBC + DIFF 7. Screening for colon cancer Z12.11 CONSULT TO GENERAL SURGERY All open preventative health maintenance topics discussed with patient in detail. This includes risks and benefits regarding vaccines, cancer screening, healthy life style, and diet. Daxa Rizzo MD [facility] 04-23-2023 Note HNO ID: [id number] Author: AMELIE JUSTIN LPN Service: ? Author Type: LICENSED NURSE Type: Progress Notes Filed: 04/23/2023 08:51 Note Text: Patient in the office today for an annual Wellness exam. Health Maintenance Due: Hepatitis B Vaccine(1 of 3 - 3-dose series) declined Covid-19 Vaccine(1) declined Spirometry declined Hepatitis C Screening declined HIV Screening declined DTaP,Tdap,Td Vaccine(1 - Tdap) declined Shingrix Vaccine(1 of 2) declined Influenza Vaccine(1)declined BP Controlled (<130/80) Amelie Justin LPN April 23, 2023 8:16 AM [facility] 04-23-2023 History of Presen t illness Narrative Subjective Devonte Aguilar is a 52 year old male. Devonte presents today for his annual wellness visit. Review of Systems Constitutional: Negative. HENT: Negative. Eyes: Negative. Respiratory: Negative. Cardiovascular: Negative. Gastrointestinal: Negative. Endocrine: Negative. Genitourinary: Negative. Musculoskeletal: Negative. Skin: Negative. Allergic/Immunologic: Negative. Neurological: Negative. Hematological: Negative. Psychiatric/Behavioral: Negative. PAST SURGICAL HISTORY Procedure Laterality Date COLONOSCOPY FLX DX W/COLLJ SPEC WHEN PFRMD LAPAROSCOPIC APPENDECTOMY 06-20-14 LAPAROSCOPY ENTEROLYSIS SEPARATE PROCEDURE 06-20-14 LAPS COLECTOMY PRTL W/RMVL TERMINAL ILEUM 06-20-14 LAPS MOBLJ SPLENIC FLXR PFRMD W/PRTL COLECTOMY 06-20-14 PAST MEDICAL HISTORY Diagnosis Date Acute myocardial infarction of lateral wall (HCC) Allergic rhinitis Asthma Colonic diverticular abscess COVID 07/2020 Gout HTN (hypertension) Pneumonia, viral 07/2020 FAMILY HISTORY Problem Relation Age of Onset other (Bone Cancer) Father bone Asthma Son Social History Tobacco Use Smoking status: Former Packs/day: .5 Types: Cigarettes Quit date: 04/15/2002 Years since quittin.0 Smokeless tobacco: Never Vaping Use Vaping Use: Never used Substance Use Topics Alcohol use: Yes Alcohol/week: 1.0 standard drink of alcohol Types: 1 Glasses of Wine (5oz) per week Comment: occassionally Drug use: Not Currently ALLERGIES No Known Allergies MEDICATIONS: atorvastatin (LIPITOR) 80 mg tablet Take 80 mg by mouth once daily. amLODIPine (NORVASC) 5 mg tablet Take 5 mg by mouth once daily. allopurinol (ZYLOPRIM) 300 mg tablet Take 1 tablet by mouth once daily. aspirin, enteric coated (ASPIRIN, ENTERIC COATED) 81 mg EC tablet Take 1 tablet by mouth once daily. lisinopril (ZESTRIL) 10 mg tablet Take 1 tablet by mouth once daily. albuterol HFA (PROVENTIL HFA, VENTOLIN HFA) 90 mcg/actuation inhaler Inhale 2 Puffs as instructed every 4 hours as needed for wheezing/shortness of breath. Allergies, past surgical history, family history and past medical history were reviewed per this encounter. Medications were reviewed and verified. Objective BP 136/84 (BP Site: Left Arm, BP Position: Sitting, BP Cuff Size: Regular Adult) Pulse 76 Temp 36.4 C (97.6 F) (Temporal) Resp 18 Ht 180.3 cm (5' 11 ) Wt 122 kg (269 lb) SpO2 97% BMI 37.52 kg/m Physical Exam Vitals reviewed. Constitutional: Appearance: Normal appearance. HENT: Head: Normocephalic and atraumatic. Nose: Nose normal. Eyes: Extraocular Movements: Extraocular movements intact. Pupils: Pupils are equal, round, and reactive to light. Cardiovascular: Rate and Rhythm: Normal rate and regular rhythm. Pulmonary: Effort: Pulmonary effort is normal. Breath sounds: Normal breath sounds. Abdominal: General: Bowel sounds are normal. Palpations: Abdomen is soft. Musculoskeletal: General: Normal range of motion. Cervical back: Normal range of motion and neck supple. Skin: General: Skin is warm and dry. Capillary Refill: Capillary refill takes less than 2 seconds. Neurological: General: No focal deficit present. Mental Status: He is alert and oriented to person, place, and time. Mental status is at baseline. Psychiatric: Mood and Affect: Mood normal. Behavior: Behavior normal. Assessment and Plan Encounter Diagnosis ICD-10-CM 1. Wellness examination Z00.00 2. Screening for depression Z13.31 DEPRESSION SCREENING/ASSESSMENT 3. Hypertension, essential I10 COMP METABOLIC PANEL 4. Pure hypercholesterolemia E78.00 COMP METABOLIC PANEL LIPID PANEL BASIC 5. Screening PSA (prostate specific antigen) Z12.5 PSA/PROSTSPECAG SCRN 6. Screening for deficiency anemia Z13.0 CBC + DIFF 7. Screening for colon cancer Z12.11 CONSULT TO GENERAL SURGERY All open preventative health maintenance topics discussed with patient in detail. This includes risks and benefits regarding vaccines, cancer screening, healthy life style, and diet. Daxa Rizzo MD Patient in the office today for an annual Wellness exam. Health Maintenance Due: Hepatitis B Vaccine(1 of 3 - 3-dose series) declined Covid-19 Vaccine(1) declined Spirometry declined Hepatitis C Screening declined HIV Screening declined DTaP,Tdap,Td Vaccine(1 - Tdap) declined Shingrix Vaccine(1 of 2) declined Influenza Vaccine(1)declined BP Controlled (<130/80) Amelie Justin LPN April 23, 2023 8:16 AM documented in this encounter [facility] 10-21-2022 Note HNO ID: [id number] Author: Daxa Rizzo MD Service: ? Author Type: Physician Type: Progress Notes Filed: 10/21/2022 8:31 AM Note Text: This note was created using Poweredriter. Subjective Devonte Aguilar is a 52 year old male.Patient presents today for follow-up for multiple medical problems. See list. His chronic medical problems been stable. He is compliant with his medications. He has no new complaints today. He denies any chest pain or shortness of breath. His blood pressure is under excellent control. He is compliant with his medications. Review of Systems Constitutional: Negative. HENT: Negative. Eyes: Negative. Respiratory: Negative. Cardiovascular: Negative. Gastrointestinal: Negative. Endocrine: Negative. Genitourinary: Negative. Musculoskeletal: Negative. Skin: Negative. Allergic/Immunologic: Negative. Neurological: Negative. Hematological: Negative. Psychiatric/Behavioral: Negative. Objective BP 122/84 (BP Site: Left Arm, BP Position: Sitting, BP Cuff Size: Regular Adult) Pulse 73 Temp 36.1 ?C (97 ?F) (Temporal) Resp 18 Ht 180.3 cm (5' 11 ) Wt 116.2 kg (256 lb 3.2 oz) SpO2 98% BMI 35.73 kg/m? Physical Exam Vitals reviewed. Constitutional: Appearance: Normal appearance. HENT: Head: Normocephalic and atraumatic. Nose: Nose normal. Eyes: Extraocular Movements: Extraocular movements intact. Pupils: Pupils are equal, round, and reactive to light. Cardiovascular: Rate and Rhythm: Normal rate and regular rhythm. Pulmonary: Effort: Pulmonary effort is normal. Breath sounds: Normal breath sounds. Abdominal: General: Bowel sounds are normal. Palpations: Abdomen is soft. Musculoskeletal: General: Normal range of motion. Cervical back: Normal range of motion and neck supple. Skin: General: Skin is warm and dry. Capillary Refill: Capillary refill takes less than 2 seconds. Neurological: General: No focal deficit present. Mental Status: He is alert and oriented to person, place, and time. Mental status is at baseline. Psychiatric: Mood and Affect: Mood normal. Behavior: Behavior normal. Assessment and Plan Encounter Diagnosis ICD-10-CM 1. Hypertension, essential I10 COMP METABOLIC PANEL 2. Pure hypercholesterolemia E78.00 LIPID PANEL BASIC COMP METABOLIC PANEL 3. Atherosclerosis of [place] coronary artery of [place] heart without angina pectoris I25.10 New present medications. Check labs as above. Follow-up in 6 months for wellness visit. Daxa Rizzo MD [facility] 10-21-2022 Note HNO ID: [id number] Author: Amelie Justin LPN Service: ? Author Type: LICENSED NURSE Type: Progress Notes Filed: 10/21/2022 8:31 AM Note Text: Patient is in office today for 6 month exam. No current complaints or concerns. No refills needed Amelie Justin LPN October 21, 2022 8:19 AM [facility] 07-12-2022 Miscellaneous Notes Patient notified of result information on My Chart. Notification will be sent to this nurse if message has not been read within 2 days. Patient will be contacted by another form of communication if notification of not reading My Chart message is received. Amelie Justin LPN July 12, 2022 9:36 AM ----- Message from Daxa Rizzo MD sent at 07/11/2022 3:27 PM EDT ----- Electrolytes normal documented in this encounter [facility] 07-11-2022 Note HNO ID: [id number] Author: Daxa Rizzo MD Service: ? Author Type: Physician Type: Progress Notes Filed: 07/11/2022 11:51 AM Note Text: This note was created using Poweredriter. Subjective Devonte Aguilar is a 52 year old male. Olga presents today for occasionally having leg cramps in his left leg. This occurs usually at nighttime in bed. They last a couple of minutes and then resolved. Review of Systems Constitutional: Negative. HENT: Negative. Eyes: Negative. Respiratory: Negative. Cardiovascular: Negative. Gastrointestinal: Negative. Endocrine: Negative. Genitourinary: Negative. Musculoskeletal: Negative. Skin: Negative. Allergic/Immunologic: Negative. Neurological: Negative. Hematological: Negative. Psychiatric/Behavioral: Negative. Objective BP 130/84 (BP Site: Left Arm, BP Position: Sitting) Pulse 83 Temp 36.8 ?C (98.3 ?F) (Temporal) Resp 14 Ht 177.8 cm (5' 10 ) Wt 113.7 kg (250 lb 9.6 oz) SpO2 99% BMI 35.96 kg/m? Physical Exam Vitals reviewed. Constitutional: Appearance: Normal appearance. HENT: Head: Normocephalic and atraumatic. Nose: Nose normal. Eyes: Extraocular Movements: Extraocular movements intact. Pupils: Pupils are equal, round, and reactive to light. Cardiovascular: Rate and Rhythm: Normal rate and regular rhythm. Pulmonary: Effort: Pulmonary effort is normal. Breath sounds: Normal breath sounds. Abdominal: General: Bowel sounds are normal. Palpations: Abdomen is soft. Musculoskeletal: General: Normal range of motion. Cervical back: Normal range of motion and neck supple. Skin: General: Skin is warm and dry. Capillary Refill: Capillary refill takes less than 2 seconds. Neurological: General: No focal deficit present. Mental Status: He is alert and oriented to person, place, and time. Mental status is at baseline. Psychiatric: Mood and Affect: Mood normal. Behavior: Behavior normal. Assessment and Plan Encounter Diagnosis ICD-10-CM 1. Muscle cramps at night R25.2 COMP METABOLIC PANEL 2. Primary hypertension I10 COMP METABOLIC PANEL Check CMP. Encourage patient to maintain good fluid hydration. Daxa Rizzo MD [facility] 07-10-2022 Note HNO ID: [id number] Author: Rachel Pruett LPN Service: ? Author Type: LICENSED NURSE Type: Progress Notes Filed: 07/11/2022 11:51 AM Note Text: Devonte has been getting left leg cramps/spams and pain for approximately 2 months They usually last 5 minutes or so He usually has to wait until it lets ,up a little bit and then he gets a warm moist towel and puts it on there which does help Rachel Pruett LPN July 10, 2022 2:43 PM [facility] 12-03-2021 History of Presen t illness Narrative This note was created using Poweredriter. Subjective Devonte Aguilar is a 51 year old male. Who presents today for follow-up for his sleep study. Sleep study did show hypopneas. Sleep study was abnormal. Patient has not followed up with sleep lab regarding results. Review of Systems Constitutional: Negative. HENT: Negative. Eyes: Negative. Respiratory: Negative. Cardiovascular: Negative. Gastrointestinal: Negative. Endocrine: Negative. Genitourinary: Negative. Musculoskeletal: Negative. Skin: Negative. Allergic/Immunologic: Negative. Neurological: Negative. Hematological: Negative. Psychiatric/Behavioral: Negative. Objective BP 148/88 (BP Site: Right Arm, BP Cuff Size: Large Adult) Pulse 82 Temp 36.2 C (97.1 F) (Temporal) Resp 14 Ht 177.8 cm (5' 10 ) Wt 115.4 kg (254 lb 6.4 oz) SpO2 97% BMI 36.50 kg/m Physical Exam Vitals reviewed. Constitutional: Appearance: Normal appearance. HENT: Head: Normocephalic and atraumatic. Nose: Nose normal. Eyes: Extraocular Movements: Extraocular movements intact. Pupils: Pupils are equal, round, and reactive to light. Cardiovascular: Rate and Rhythm: Normal rate and regular rhythm. Pulmonary: Effort: Pulmonary effort is normal. Breath sounds: Normal breath sounds. Abdominal: General: Bowel sounds are normal. Palpations: Abdomen is soft. Musculoskeletal: General: Normal range of motion. Cervical back: Normal range of motion and neck supple. Skin: General: Skin is warm and dry. Capillary Refill: Capillary refill takes less than 2 seconds. Neurological: General: No focal deficit present. Mental Status: He is alert and oriented to person, place, and time. Mental status is at baseline. Psychiatric: Mood and Affect: Mood normal. Behavior: Behavior normal. Assessment and Plan Devonte was seen today for follow up. Diagnoses and all orders for this visit: KYLAH (obstructive sleep apnea) - CONSULT TO SLEEP MEDICINE - ADULT documented in this encounter [facility] 12-03-2021 Nurse Note Pt is here today for results of sleep study that occurred in October documented in this encounter [facility] 11-05-2021 Miscellaneous Notes F/u with sleep lab for treatment. Patients brought to attention of office that results from sleep study should be in computer. Scanned document of results are in chart, not sure if you were sent them individually or not. Requesting for results to be read and recommendations Amelie Justin LPN November 02, 2021 12:33 PM documented in this encounter [facility] 10-15-2021 History of Presen t illness Narrative This note was created using Vapore. Subjective Devonte Aguilar is a 51 year old male. Olga presents today for follow-up for multiple medical problems. See list. His chronic medical problems are improved and stable. His blood pressure remains under good control on his current regimen. His gout is also well controlled with allopurinol. His cholesterol is improved with Lipitor. He has no new complaints today. He is feeling well. Review of Systems Constitutional: Negative. HENT: Negative. Eyes: Negative. Respiratory: Negative. Cardiovascular: Negative. Gastrointestinal: Negative. Endocrine: Negative. Genitourinary: Negative. Musculoskeletal: Negative. Skin: Negative. Allergic/Immunologic: Negative. Neurological: Negative. Hematological: Negative. Psychiatric/Behavioral: Negative. Objective BP 128/80 (BP Site: Left Arm, BP Position: Sitting, BP Cuff Size: Large Adult) Pulse 86 Temp 36.6 C (97.9 F) (Temporal) Resp 18 Ht 175.3 cm (5' 9 ) Wt 116.1 kg (256 lb) SpO2 97% BMI 37.80 kg/m Physical Exam Vitals reviewed. Constitutional: Appearance: Normal appearance. HENT: Head: Normocephalic and atraumatic. Nose: Nose normal. Eyes: Extraocular Movements: Extraocular movements intact. Pupils: Pupils are equal, round, and reactive to light. Cardiovascular: Rate and Rhythm: Normal rate and regular rhythm. Pulmonary: Effort: Pulmonary effort is normal. Breath sounds: Normal breath sounds. Abdominal: General: Bowel sounds are normal. Palpations: Abdomen is soft. Musculoskeletal: General: Normal range of motion. Cervical back: Normal range of motion and neck supple. Skin: General: Skin is warm and dry. Capillary Refill: Capillary refill takes less than 2 seconds. Neurological: General: No focal deficit present. Mental Status: He is alert and oriented to person, place, and time. Mental status is at baseline. Psychiatric: Mood and Affect: Mood normal. Behavior: Behavior normal. Assessment and Plan Devonte was seen today for 6 month exam. Diagnoses and all orders for this visit: Primary hypertension - COMP METABOLIC PANEL; Future Mixed hyperlipidemia - COMP METABOLIC PANEL; Future - LIPID PANEL BASIC; Future Idiopathic gout, unspecified chronicity, unspecified site - URIC ACID BLOOD; Future Atherosclerosis of [place] coronary artery of [place] heart without angina pectoris Mild intermittent asthma without complication documented in this encounter [facility] 10-15-2021 Nurse Note 6 month follow up, complaint of lower back pain that has been occurring for 1.5 years Amelie Justin LPN October 15, 2021 9:12 AM documented in this encounter [facility] 09-30-2021 History of Presen t illness Narrative This note was created using Vapore. Subjective Devonte Aguilar is a 51 year old male. HPI Review of Systems Constitutional: Negative. HENT: Negative. Eyes: Negative. Respiratory: Negative. Cardiovascular: Negative. Gastrointestinal: Negative. Endocrine: Negative. Genitourinary: Negative. Musculoskeletal: Negative. Skin: Negative. Allergic/Immunologic: Negative. Neurological: Negative. Hematological: Negative. Psychiatric/Behavioral: Negative. Objective BP 130/84 (BP Site: Left Arm, BP Position: Sitting) Pulse 81 Temp 36.4 C (97.5 F) (Temporal) Resp 14 Ht 172.7 cm (5' 8 ) Wt 115.8 kg (255 lb 6.4 oz) SpO2 99% BMI 38.83 kg/m Physical Exam Vitals reviewed. Constitutional: Appearance: Normal appearance. HENT: Head: Normocephalic and atraumatic. Nose: Nose normal. Eyes: Extraocular Movements: Extraocular movements intact. Pupils: Pupils are equal, round, and reactive to light. Cardiovascular: Rate and Rhythm: Normal rate and regular rhythm. Pulmonary: Effort: Pulmonary effort is normal. Breath sounds: Normal breath sounds. Abdominal: General: Bowel sounds are normal. Palpations: Abdomen is soft. Musculoskeletal: General: Normal range of motion. Cervical back: Normal range of motion and neck supple. Skin: General: Skin is warm and dry. Capillary Refill: Capillary refill takes less than 2 seconds. Neurological: General: No focal deficit present. Mental Status: He is alert and oriented to person, place, and time. Mental status is at baseline. Psychiatric: Mood and Affect: Mood normal. Behavior: Behavior normal. Assessment and Plan Devonte was seen today for follow up. Diagnoses and all orders for this visit: KYLAH (obstructive sleep apnea) - POLYSOMNOGRAM (PSG) This note was created using Vapore. Subjective Devonte Aguilar is a 51 year old male. He has history of loud snoring, daytime somnolence, and apneic episodes. Review of Systems Objective BP 130/84 (BP Site: Left Arm, BP Position: Sitting) Pulse 81 Temp 36.4 C (97.5 F) (Temporal) Resp 14 Ht 172.7 cm (5' 8 ) Wt 115.8 kg (255 lb 6.4 oz) SpO2 99% BMI 38.83 kg/m Physical Exam Assessment and Plan documented in this encounter [facility] Primary hypertension- Primary Unspecified essential hypertension Mixed hyperlipidemia Idiopathic gout, unspecified chronicity, unspecified site Atherosclerosis of [place] coronary artery of [place] heart without angina pectoris Mild intermittent asthma without complication Unspecified asthma [facility] Diagnosis KYLAH (obstructive sleep apnea)- Primary Obstructive sleep apnea (adult) (pediatric) [facility] Wellness examination- Primary Screening for depression Hypertension, essential Unspecified essential hypertension Pure hypercholesterolemia Screening PSA (prostate specific antigen) Special screening for malignant neoplasm of prostate Screening for deficiency anemia Screening for other and unspecified deficiency anemia Screening for colon cancer Special screening for malignant neoplasms, colon documented in this encounter [facility] Summary Purpose Family History No Family History Records FoundNo Family History Records FoundNo Family History Records Found Advance Directives No Advanced Directives Records FoundNo Advanced Directives Records FoundNo Advanced Directives Records Found Reason for Referral Specialty Diagnoses / Procedures Referred By Contac t Referred To Contact Diagnoses KYLAH (obstructive sleep apnea) Procedures CONSULT TO SLEEP MEDICINE - ADULT OFFICE/OUTPATIENT [facility] 60-74 MINUTES Daxa Rizzo MD [address] [place] [address] Referral ID Status Reason Start Date Expiration Date Visits Requested Visits Authorized [id number] Pending Review PCP Requested Referral 12/03/2021 12/03/2022 1 1 Specialty Diagnoses / Procedures Referred By Contac t Referred To Contact General Surgery Diagnoses Screening for colon cancer Procedures CONSULT TO GENERAL SURGERY OFFICE/OUTPATIENT [facility] 60 MINUTES Daxa Rizzo MD [address] [place] [address] Referral ID Status Reason Start Date Expiration Date Visits Requested Visits Authorized [id number] Authorized PCP Requested Referral 04/23/2023 04/22/2024 1 1 Additional Source Comments (unrecognized sect ion and content) No Status Records FoundNo Status Records FoundNo Status Records Found INFORMATION SOURCE (unrecogn ized section and content) DATE CREATED AUTHOR AUTHOR'S ORGANIZ ATION 10/27/2022 [facility] DATE CREATED AUTHOR AUTHOR'S ORGANIZ ATION 04/24/2023 [facility] Source Comments (unrecognize d section and content) In the event this informatio n is protected by the Federal Confidentiality of Alcohol and Drug Abuse Patient Records regulations: The Federal rules restrict any use of the information to criminally investigate or prosecute any alcohol or drug abuse patient.[facility] event this information is protected by the Federal Confidentiality of Alcohol and Drug Abuse Patient Records regulations: The Federal rules restrict any use of the information to criminally investigate or prosecute any alcohol or drug abuse patient.[facility] the event this information is protected by the Federal Confidentiality of Alcohol and Drug Abuse Patient Records regulations: The Federal rules restrict any use of the information to criminally investigate or prosecute any alcohol or drug abuse patient.[facility] the event this information is protected by the Federal Confidentiality of Alcohol and Drug Abuse Patient Records regulations: The Federal rules restrict any use of the information to criminally investigate or prosecute any alcohol or drug abuse patient.[facility] the event this information is protected by the Federal Confidentiality of Alcohol and Drug Abuse Patient Records regulations: The Federal rules restrict any use of the information to criminally investigate or prosecute any alcohol or drug abuse patient.[facility] the event this information is protected by the Federal Confidentiality of Alcohol and Drug Abuse Patient Records regulations: The Federal rules restrict any use of the information to criminally investigate or prosecute any alcohol or drug abuse patient.[facility] the event this information is protected by the Federal Confidentiality of Alcohol and Drug Abuse Patient Records regulations: The Federal rules restrict any use of the information to criminally investigate or prosecute any alcohol or drug abuse patient.[facility] the event this information is protected by the Federal Confidentiality of Alcohol and Drug Abuse Patient Records regulations: The Federal rules restrict any use of the information to criminally investigate or prosecute any alcohol or drug abuse patient.[facility] the event this information is protected by the Federal Confidentiality of Alcohol and Drug Abuse Patient Records regulations: The Federal rules restrict any use of the information to criminally investigate or prosecute any alcohol or drug abuse patient.[facility] the event this information is protected by the Federal Confidentiality of Alcohol and Drug Abuse Patient Records regulations: The Federal rules restrict any use of the information to criminally investigate or prosecute any alcohol or drug abuse patient.[facility] the event this information is protected by the Federal Confidentiality of Alcohol and Drug Abuse Patient Records regulations: The Federal rules restrict any use of the information to criminally investigate or prosecute any alcohol or drug abuse patient.[facility] Care Teams (unrecognized sec tion and content) [employer] Relationship Specialty Start Date End Date Daxa Rizzo MD PCP - General Family Practice 06/18/13 [employer] Relationship Specialty Start Date End Date Daxa Rizzo MD PCP - General Family Practice 06/18/13 [employer] Relationship Specialty Start Date End Date Daxa Rizzo MD PCP - General Family Practice 06/18/13 [employer] Relationship Specialty Start Date End Date Daxa Rizzo MD PCP - General Family Practice 06/18/13 [employer] Relationship Specialty Start Date End Date Daxa Rizzo MD PCP - General Family Medicine 06/18/13 [employer] Relationship Specialty Start Date End Date Daxa Rizzo MD PCP - General Family Medicine 06/18/13 [employer] Relationship Specialty Start Date End Date Daxa Rizzo MD PCP - General Family Medicine 06/18/13 [employer] Relationship Specialty Start Date End Date Daxa Rizzo MD PCP - General Family Medicine 06/18/13 [employer] Relationship Specialty Start Date End Date Daxa Rizzo MD PCP - General Family Medicine 06/18/13 [employer] Relationship Specialty Start Date End Date Daxa Rizzo MD PCP - General Family Medicine 06/18/13 Reason for Visit (unrecogniz ed section and content) Reason Comments 6 Month Exam Reason Comments Results Reason Comments Follow Up Sleep study results Reason Comments Wellness FOR RECORDS PERTAINING TO PATIENTS WHO ARE OR HAVE BEEN ENROLLED IN A CHEMICAL DEPENDENCY/SUBSTANCEABUSE PROGRAM, SOME INFORMATION MAY BE OMITTED. This clinical summary was aggregated from multiple sources. Caution should be exercised in using it in the provision of clinical care. This summary normalizes information from multiple sources, and as a consequence, information in this document may materially change the coding, format and clinical context of patient data. In addition, data may be omitted in some cases. CLINICAL DECISIONS SHOULD BE BASED ON THE PRIMARY CLINICAL RECORDS. [employer] provides no warranty or guarantee of the accuracy or completeness of information in this document.
== END | disposition home or self-care (01) ==
LOC: SL 20:01
PROVIDERS: Referring Provider Nurse Practitioner Acute Care; Visit Provider Nurse Practitioner Acute Care
DX: G47.33 Obstructive sleep apnea (adult) (pediatric) (principal)
CPT/HCPCS: 95810

== ENCOUNTER → 2023-07-18 | Outpatient (CLI) | payer OTHER, SELFPAY | END | disposition home or self-care (01) | LOC: SL 20:40 | PROVIDERS: Referring Provider Nurse Practitioner Acute Care; Visit Provider Nurse Practitioner Acute Care | DX: G47.33 Obstructive sleep apnea (adult) (pediatric) (principal) | CPT/HCPCS: 95811 ==

== ENCOUNTER → 2023-08-18 | Outpatient (CLI) | payer OTHER, SELFPAY | END | disposition home or self-care (01) | LOC: SL 14:38 | PROVIDERS: Referring Provider Nurse Practitioner Acute Care; Visit Provider Nurse Practitioner Acute Care | DX: G47.33 Obstructive sleep apnea (adult) (pediatric) (principal) ==

== ENCOUNTER → 2023-08-30 | Outpatient (CLI) | payer OTHER, SELFPAY ==
[2023-08-30 08:41] LABS: Anion Gap 5 (5-15); BUN 22 mg/dL (7-18); BUN/Creat Ratio 19.5 RATIO (10-20); Calcium,Total 8.7 mg/dL (8.5-10.1); Chloride 110 mmol/L (98-107); Creatinine, Serum 1.13 mg/dL (0.70-1.30); EST Glomerular Filtration Rate 73 mL/min (>60); Est Glom Filt Rate - Afr Amer 88 mL/min (>60); Glucose 94 mg/dL (74-106); Sodium Level 138 mmol/L (136-145)
== END | disposition home or self-care (01) ==
PROVIDERS: PCP Family Medicine; Referring Provider Nurse Practitioner Family; Visit Provider Nurse Practitioner Family
DX: Z51.81 Encounter for therapeutic drug level monitoring (principal); Z79.899 Other long term (current) drug therapy
CPT/HCPCS: 36415; 80048

== ENCOUNTER 2024-12-29 14:59 | Emergency (ER) | payer OTHER, SELFPAY ==
[2024-12-29 15:00] VITALS: BP 142/96; PULSE 108; RESP 16; TEMP 37; O2SAT 99; BMI 30.4
--- NOTE | 2024-12-29 16:14 | NURSING ---
pt states he is currently not having any sx with his eyes
[2024-12-29 17:00] VITALS: BP 140/36; PULSE 100; RESP 16; TEMP 36.6; O2SAT 100
--- NOTE | 2024-12-29 17:22 | CT_ITS ---
PROCEDURE: CTA HEAD AND NECK W/ CONTRAST 12/29/2024 REASON FOR EXAM: VISION CHANGES/HEADACHE TECHNIQUE: Procedure Code: CTCTA.HDNCK Modality: CT Procedure: CTA HEAD AND NECK W/ CONTRAST Multiplanar Sagittal and Coronal images were obtained. 3D post processing was performed. CONTRAST: Isovue-300 VOLUME: 93 mL One or more dose reduction techniques were used (e.g., Automated exposure control, adjustment of the mA and/or kV according to patient size, use of iterative reconstruction technique). RADIATION DOSE SUMMARY: DLP: 1598.39 mGycm COMPARISON: None. FINDINGS: CTA HEAD: Patent intracranial arterial vasculature. No large vessel occlusion, significant stenosis, saccular aneurysm, or vascular malformation. Patent ophthalmic arteries. Dural venous sinuses appear patent. CTA NECK: Conventional aortic arch branching. Bilateral cervical carotid and codominant vertebral arteries are patent, normal in course and caliber. No aneurysm or dissection. NONCONTRAST CT HEAD: No acute intracranial hemorrhage, extra-axial collection, mass effect or evidence of acute infarct. Ventricles and subarachnoid spaces are normal in size. Orbital contents are unremarkable. Intact skull base and calvarium. Clear paranasal sinuses and mastoid air cells. CT/CTA Head AND Neck W/ Contrast IMPRESSION: No acute intracranial abnormality. Normal CTA of the head and neck. Reading Location: [id number]
--- NOTE | 2024-12-29 17:23 | EX.ED.VIS.EY ---
HPI History of Present Illness Chief Complaint: Eye Problem Informant: patient Narrative Narrative: 54-year-old male presenting to the emergency room with a chief complaint of vision changes. Patient states over the past several weeks a couple times a week he gets a black spot in both eyes in his field of vision. It is not necessarily in the same spot each time. It is not associated with headache though he did have an occipital headache after his symptoms resolved today. He saw ophthalmology yesterday and is set up for an outpatient blood work echocardiogram and carotid duplex. He experience the symptoms again today so he called into the office and they recommend he come to emergency. He went home was able to take a shower after his symptoms resolved and he developed a headache which is subsequently resolved as well. He is treated for hypertension as well as gout. He is on a baby aspirin. He denies any arm or leg symptomology during the events. No speech difficulty. He does state he feels numbness in the left infraorbital region during the event. [facility] Medical History Dysuria Essential (primary) hypertension Hyperlipidemia Nonocclusive coronary atherosclerosis of [place] coronary artery Right bundle branch block Vasospastic angina Fatty liver Chronic back pain Gout Diverticulitis Non-STEMI (non-ST elevated myocardial infarction) (07/31/17) Obesity (BMI 30.0-34.9) Home Medications ?Medication ?Instructions ?Recorded ?Last Taken ?Type aspirin 81 mg chewable tablet 81 mg PO DAILY@0800 #90 tabs 04/22/19 Unknown Rx albuterol sulfate 90 mcg/actuation 1 - 2 puff inhalation Q4H PRN PRN 03/06/21 Unknown Rx aerosol inhaler (Ventolin HFA) Wheezing ##1 Oral appliance #1 ea 12/20/21 Unknown Rx allopurinol 100 mg tablet 300 mg PO DAILYCM gout 10/14/23 Unknown History atorvastatin 80 mg tablet 80 mg PO QHS #90 tabs 11/11/23 Unknown Rx amlodipine 5 mg tablet 5 mg PO BID #180 tabs 09/13/24 Unknown Rx lisinopril 20 mg tablet 20 mg PO DAILY #90 tabs 09/13/24 Unknown Rx Allergy/AdvReac Type Severity Reaction Status Date / Time No Known Allergies Allergy Verified 12/29/24 15:03 Family History Mother Heart disease Myocardial infarction CA at age 35 Father Diabetes Surgical History History of bowel resection History of left heart catheterization (08/01/17) Social History household members: spouse Smoking Status: Former smoker how long ago did patient quit smoking: Patient quit cigarette tobacco you approximately 17 years prior. alcohol intake: current alcohol intake frequency: a few times a week Alcohol type: wine substance use type: does not use ROS ROS ED Constitutional Constitutional ED: Denies chills, fever(s) or weight loss Eyes Eyes: Reports change in vision; Denies diplopia ENT ENT ED: Denies ear pain, rhinorrhea or sore throat Cardiovascular Cardiovascular: Denies chest pain, orthopnea, palpitations or racing heartbeat Respiratory/Chest Respiratory/Chest: Denies cough, dyspnea or orthopnea Gastrointestinal Gastrointestinal: Denies abdominal pain, diarrhea, nausea or vomiting Genitourinary Genitourinary ED: Denies dysuria, hematuria or urinary frequency Musculoskeletal Musculoskeletal: Denies arthralgias or myalgias Integumentary Denies abscess or rash Neurologic Neurologic: Reports paresthesias; Denies headache(s) or weakness Psychiatric Psychiatric: Denies anxiety, depression, suicidal ideation or suicidal thoughts Endocrine Endocrinology: Denies polydipsia, polyphagia or polyuria Allergic/Immunologic Allergic/Immunologic ED: Denies mouth swelling, tongue swelling or urticaria EXAM Physical Exam Const Vital Signs: 12/29/24 15:00 Temperature 98.6 F Temperature Source Oral Pulse Rate 108 H Respiratory Rate 16 Blood Pressure 142/96 H Blood Pressure Mean 111 Pulse Ox 99 Oxygen Delivery Method Room Air Positive well nourished and well developed General Appearance ED: well developed and NAD HEENT Reports normocephalic, head/scalp atraumatic and moist mucous membranes Eyes PERRL and EOMs intact bilaterally Neck no lymphadenopathy, supple and no JVD Resp normal respiratory effort and clear to auscultation bilaterally Cardio regular rate, regular rhythm and no murmurs GI normal to inspection, nondistended, normoactive bowel sounds and non-tender Palpation: soft Back/Spine no CVA tenderness and normal ROM Extremity normal to inspection General Extremety ED: Negative for edema General Extremity: Negative for edema Neuro oriented x3, CN's II-XII intact bilaterally, moves all extremities and no sensory deficits noted Sensorium / Orientation: alert Motor Exam: strength 5/5 throughout Psych mental status grossly normal Mood & Affect: Negative for depressed or tearful Skin no rashes or lesions noted and no wounds MDM MDM MDM Narrative Medical decision making narrative: Differential diagnosis includes but not limited to stroke ocular migraine retinal detachment/floaters dissection mass Patient on the symptomology and the fact that his headache recent ophthalmology examination who recommended evaluation here in the ED a CTA of his head and neck was obtained which was negative. Basic blood work is negative. Patient will follow-up with ophthalmology within the week as well as continue with his outpatient plan of an echocardiogram. History & Record Review Discussion w/independent historian: Patient and Family Lab Data Attestation: I reviewed the patient's lab results. Lab results narrative: Laboratory Last Values WBC 6.3 K/mm3 (4.4-11.0) 12/29/24 17:38 RBC 4.46 M/mm3 (4.6-6.2) L 12/29/24 17:38 Hgb 14.0 g/dL (13.0-16.5) 12/29/24 17:38 Hct 41.0 % (40-54) 12/29/24 17:38 MCV 91.9 fL (80-94) 12/29/24 17:38 MCH 31.4 pg (27.0-32.0) 12/29/24 17:38 MCHC 34.1 g/dL (32-36) 12/29/24 17:38 RDW Std Deviation 44.3 fl (35.1-43.9) H 12/29/24 17:38 RDW Coeff of Coleman 13.2 % (11.6-14.6) 12/29/24 17:38 Plt Count 283 K/mm3 (150-450) 12/29/24 17:38 MPV 10.2 fl (6.2-12.0) 12/29/24 17:38 Immature Gran % (Auto) 0.500 % (0.0-0.9) 12/29/24 17:38 Neut % (Auto) 61.0 % (47-70) 12/29/24 17:38 Lymph % (Auto) 24.9 % (19-41) 12/29/24 17:38 [place] % (Auto) 9.6 % (0-10) 12/29/24 17:38 Eos % (Auto) 2.9 % (0-5) 12/29/24 17:38 Baso % (Auto) 1.1 % (0-1) H 12/29/24 17:38 Absolute Neuts (auto) 3.8 X10^3/uL (2.0-7.7) 12/29/24 17:38 Absolute Lymphs (auto) 1.56 X10^3/uL (0.83-4.51) 12/29/24 17:38 Nucleated RBC % 0 % (0-5) 12/29/24 17:38 Sodium 139 mmol/L (133-145) 12/29/24 17:38 Potassium 4.1 mmol/L (3.3-5.1) 12/29/24 17:38 Chloride 105 mmol/L (98-108) 12/29/24 17:38 Carbon Dioxide 21.6 mmol/L (21.0-32.0) 12/29/24 17:38 Anion Gap 13 (5-15) 12/29/24 17:38 BUN 11 mg/dL (4-19) 12/29/24 17:38 Creatinine 0.95 mg/dL (0.70-1.20) 12/29/24 17:38 Estim Creat Clear Calc 105.95 ml/min (50-250) 12/29/24 17:38 Est GFR (MDRD) Non-Af 96 (>60) 12/29/24 17:38 BUN/Creatinine Ratio 12.0 RATIO (10-20) 12/29/24 17:38 Glucose 100 mg/dL (70-99) H 12/29/24 17:38 Calcium 9.2 mg/dL (7.6-11.0) 12/29/24 17:38 Radiography Diagnostic Testing: Clinical Impression(s) from Imaging Studies Head/Neck CTA 12/29/24 17:22 IMPRESSION: No acute intracranial abnormality. Normal CTA of the head and neck. Reading Location: [id number] Discharge Plan Triage Chief Complaint: Eye Problem ED Provider: Philip Vazquez Dx/Rx/DC Orders Clinical Impression: Alteration in vision Instructions: Understanding Vision Problems Prescriptions: No Action aspirin 81 mg tablet,chewable 81 mg PO DAILY@0800 Qty: 90 5RF (DME) Oral appliance See Rx Instructions .ROUTE .MEDSUPPLY Qty: 1 0RF Rx Instructions: As directed allopurinol 100 mg tablet 300 mg PO DAILYCM albuterol sulfate [Ventolin HFA] 1 INHALER inhaler 1 - 2 puff inhalation Q4H PRN PRN (Reason: Wheezing) Qty: 1 0RF atorvastatin 80 mg tablet 80 mg PO QHS Qty: 90 3RF lisinopril 20 mg tablet 20 mg PO DAILY Qty: 90 3RF amlodipine 5 mg tablet 5 mg PO BID Qty: 180 3RF Primary Care Provider: Eddie Hughes Referrals: Eddie Hughes MD [Primary Care Provider, Family Practice] - 1 Week Beltran Iverson MD [Med Staff - Active Staff, Opthamology] - Keep Denzel appointment Print Language: Paraguayan Disposition Disposition: Home, Self Care Discharge Date/Time: 12/29/24 19:30 NIHSS NIHSS 1a. Level of Consciousness: 0 - Alert; keenly responsive 1b. LOC Questions: 0 - Answers BOTH questions correctly 1c. LOC Commands: 0 - Performs BOTH tasks correctly 2. Best Gaze: 0 - Normal 3. Visual: 0 - No visual loss 4. Facial Palsy: 0 - Normal symmetrical movements 5a. Left Arm: 0 - No drift; arm holds 90 (or 45) degrees for full 10 seconds 5b. Right Arm: 0 - No drift; arm holds 90 (or 45) degrees for full 10 seconds 6a. Left Le - No drift; leg holds 30-degree position for full 5 seconds 6b. Right Le - No drift; leg holds 30-degree position for full 5 seconds 7. Limb Ataxia: 0 - Absent 8. Sensory: 0 - Normal; no sensory loss 9. Best Language: 0 - No aphasia; normal 10. Dysarthria: 0 - Normal 11. Extinction and Inattention: 0 - No abnormality Total: 0
[2024-12-29 18:28] LABS: Anion Gap 13 (5-15); BUN 11 mg/dL (4-19); BUN/Creat Ratio 12.0 RATIO (10-20); Calcium,Total 9.2 mg/dL (7.6-11.0); Carbon Dioxide 21.6 mmol/L (21.0-32.0); Chloride 105 mmol/L (98-108); Estimated Creatinine Clearance 105.95 ml/min (50-250); Glucose 100 mg/dL (70-99); Potassium 4.1 mmol/L (3.3-5.1)
[2024-12-29 19:08] LABS: Hematocrit 41.0 % (40-54); Hemoglobin 14.0 g/dL (13.0-16.5); Immature Granulocytes Count 0.030 X10^3/uL (0.0-0.0); Mean Corp Hgb Conc 34.1 g/dL (32-36); Mean Corpuscular Volume 91.9 fL (80-94); Mean Platelet Vol. 10.2 fl (6.2-12.0); NRBC Flagged by Analyzer 0 % (0-5); Platelet Count 283 K/mm3 (150-450); RBC Distribution Width CV 13.2 % (11.6-14.6); RBC Distribution Width SD 44.3 fl (35.1-43.9); Red Blood Count 4.46 M/mm3 (4.6-6.2); White Blood Count 6.3 K/mm3 (4.4-11.0)
== END 2024-12-29 19:30 | disposition home or self-care (01) ==
PROVIDERS: Emergency Provider Emergency Medicine; PCP Family Medicine; Visit Provider Emergency Medicine
DX: H53.8 Other visual disturbances (principal); I10 Essential (primary) hypertension; M10.9 Gout, unspecified; Z79.82 Long term (current) use of aspirin; E78.5 Hyperlipidemia, unspecified; Z87.891 Personal history of nicotine dependence; I25.10 Atherosclerotic heart disease of native coronary artery without angina pectoris; Z79.899 Other long term (current) drug therapy
CPT/HCPCS: 70496; 70498; 80048; 85025; 99282; Q9967

== ENCOUNTER 2025-01-03 16:00 | Outpatient (RCR) | payer OTHER, SELFPAY ==
--- NOTE | 2024-11-01 17:27 | HP.PTEVAL ---
Patient's Visit Information Visit Information Visit Information: ANA CAIN is a 54 year old M referred to Physical Therapy by ROLAND Barragan with a diagnosis of RADICULOPATHY LUMBAR ,DDD LUMBAR ,BILATERAL PRIMARY OSTEOARTHRITIS OF KNEE. Date of Evaluation: 11/01/24 Physical Therapist: Ze Amos, PT, Cert MDT, OCS Visit Plan Frequency: 2x /Week Duration: 4 Weeks Plan: PT INTERVENTIONS DLS ,POSTURAL EX'S ,LE FLEXABILITY ,STRENGTHENING QUADS/HAMS/HIP ,FUNCTIONAL STRENGTHENING ,ACTIVITY MODIFICATION AND MODALTIES PRN Subjective Subjective: This 54 y/o male presents to physical therapy with lumbar radiculopathy and bilateral knee pain . Rajeev had had lumbar radiculopathy to feet for 8 years. Patient seen Stanton Ball did x-rays showed how a lumbosacral transitional vertebrae on the left and mild disc height loss at L5-S1. No instability. . Prescribed meloxicam . Recommended pain management. Patient has had PT in past and currently sees chiropractor. Recommended MRI but needs PT . . Location symmetrical to hamstrings calf- foot . Described s sharp pain. Aggravated factors walking/standing 5mins .Alleviating factors sitting and resting . Coughing/sneezing-. Bowel/tingling. Denies paresthesia/tingling . Sleeping good. Location of knee medial pain as ache. X-rays right knee Cmtwnqce-dm-cxrrvw osteoarthrosis. ,left knee Guitotdm-pp-ayzhek degenerative change medial compartment of the knee joint. Aggravating factors kneeling /squatting ,stairs adn standing. Alleviating rest copper brace. Patient had cortisone injection knee helped. Patient has bilateral knee pain 8 years . No h/o of trauma . Patient condition affects QOL and function. Patient goals to have less pain. VOACTION: [employer] 12-13 HRS SOCIAL:SINGLE HOBBIES : Fishing Pain Bilateral Back: Pain Intensity (Out of 10): 0 Pain Intensity Range: 8 Bilateral Knee: Pain Intensity (Out of 10): 0 Pain Intensity Range: 10 Objective Objective: POSTURE : genu varum PALAPTION: unremarkable EDEMA: unremarkable GAIT: ambulates with mild forward posture genu valgum AROM: supine knee flexion 0-130 degrees MMT: ( peak force) quads 17.2 left ,right 18.2 ,hamstrings right 19.1 ,left 18.3,hip flexion right 16.0 ,left 17.1,hip abd right 19.9 ,left 19.4 ,ankle 4/5 LUMBAR ROM : flexion WNL ,extension mod/severe, side glides mod loss FLEXABILITY: hamstrings min tight STAIRS: one steps at a time Special Tests L/S Slump test left side: Negative L/S Slump test right side: Negative L/S Left Straight Leg Raise: Negative L/S Right Straight Leg Raise: Negative Lumbar Standing: Flexion - Mechanical Response: No effect Lumbar Standing: Flexion - Symptoms During Testing: No effect Lumbar Standing: Flexion - Symptoms After Testing: No effect Lumbar Standing: Extension - Mechanical Response: No effect Lumbar Standing: Extension - Symptoms During Testing: Increases Lumbar Standing: Extension - Symptoms After Testing: No worse Lumbar Standing: Right Side Glides - Mechanical Response: No effect Lumbar Standing: Right Side [place] - Symptoms During Testing: No effect Lumbar Standing: Right Side [place] - Symptoms After Testing: No effect Lumbar Standing: Left Side [place] - Mechanical Response: No effect Lumbar Standing: Left Side [place] - Symptoms During Testing: No effect Lumbar Standing: Left Side [place] - Symptoms After Testing: No effect Lumbar Lying: Flexion - Mechanical Response: No effect Lumbar Lying: Flexion - Symptoms During Testing: No effect Lumbar Lying: Flexion - Symptoms After Testing: No effect Lumbar Lying: Extension - Symptoms After Testing: No better R Knee Valgus - MCL: Negative R Knee Varus - LCL: Negative Balance/Special Test Scores Oswestry Low Back Score: 27 Goals Goal 1:: Patient to be I with HEP for knee and lumbar Goal Time Frame: 4-6 Weeks Goal 2:: Patient to improve lumbar ROM for function of recovery for DLS and job deamnds Goal Time Frame: 4-6 Weeks Goal 3:: Patient to improve peak force of quads/hams/hip by 5-10 # to improve function and QOL Goal Time Frame: 4-6 Weeks Goal 4:: Patient to improve back oswestry score by 5 points to improve QOL. Goal Time Frame: 4-6 Weeks Goal 5:: Patient to demonstrate 50% improvement with less pain and improved function. Goal Time Frame: 4-6 Weeks Rehabilitation Potential Physical Therapy Diagnosis: This patient has lumbar pain possible disc issue derangement below knee as well as od /severe DJD with pain with positioning and motion testing ,wosre in knee s with squatting/kneeling stairs along with weakness thus benefit from skilled PT Rehabilitation Potential: Good Anticipated Interventions Patient/Client Instruction: Educate patient on: Condition and Plan of Care For the Purpose of:: To decrease pain, To increase ROM, To improve muscle performance and motor function, To increase tolerance to activity/condition/position, To improve ability of physical actions for home/community/work/leisure, To improve health of tissue, To decrease soft tissue restriction, To increase flexibility/ROM, To prevent re-injury and To improve tolerance to ADL's Therapeutic Exercise to Include: Strength training, Endurance training, Postural training, Flexibilty training, Active ROM and Dynamic Lumbar Stabilization Comment: QUADS/HAMS/HIP For the Purpose of:: To decrease pain, To increase ROM, To improve muscle performance and motor function, To improve ability to perform ADL's, To increase tolerance to activity/condition/position, To improve ability of physical actions for home/community/work/leisure, To improve health of tissue, To decrease soft tissue restriction, To increase flexibility/ROM, To reduce risk of recurrence and To improve ability to perform tasks related to life management TENS: Yes IF ES: Yes Cryotherapy (ice pack, ice massage): Yes Thermo therapy (hot pack): Yes Ultrasound (thermal/non thermal): Yes For the Purpose of:: To decrease pain, To increase ROM, To improve nutrient delivery to tissue, To increase oxygenation perfusion, To improve health of tissue, To decrease soft tissue restriction and To increase flexibility/ROM Text: Thank you for the opportunity to evaluate your patient. For Medicare and Medicare HMO plans, please review the plan of care and approve it. It will need to be FAXED BACK to us at [phone] for Medicare purposes. For Medicare only, by signing this I certify the plan of care. Please let me know if there are questions or concerns regarding this plan of care. Physician Signature: Date:
--- NOTE | 2025-01-03 16:33 | HP.PTDCSUM ---
Discharge Summary D/C summary: It has been my pleasure to treat ANA CAIN referred by ROLAND Barragan, with the diagnosis of RADICULOPATHY LUMBAR ,DDD LUMBAR ,BILATERAL PRIMARY OSTEOARTHRITIS OF KNEE for a total of 13 visit(s). Discharge Date: 01/03/25 Please see the following information for a summary of their discharge status. Subjective Subjective: Plan to get euflexxa in knees this Friday for knee pain Lumbar pain and lateral side Pain Bilateral Back: Pain Intensity (Out of 10): 2 Bilateral Knee: Pain Intensity (Out of 10): 2 R hip: Pain Intensity (Out of 10): 2 Overall Improvement % Improvement: 30 Objective Objective/Function: POSTURE : genu varum PALAPTION: unremarkable EDEMA: unremarkable GAIT: ambulates with mild forward posture genu valgum AROM: supine knee flexion 0-130 degrees MMT: ( peak force) quads 27.3l left ,right 28.6 ,hamstrings right 29.8 ,left 28.7 ,hip flexion right 26.9 ,left 19.4,hip abd right 21.9 ,left 19.4 ,ankle 4/5 LUMBAR ROM : flexion WNL ,extension mod/, side glides min loss FLEXABILITY: hamstrings min tight STAIRS: one steps at a time Goals Goal 1:: Patient to be I with HEP for knee and lumbar Goal Progress: Goal Met Goal 2:: Patient to improve lumbar ROM for function of recovery for DLS and job deamnds Goal Progress: Goal Met Goal 3:: Patient to improve peak force of quads/hams/hip by 5-10 # to improve function and QOL( NEW GOAL) Goal Progress: Goal Met Goal 4:: Patient to improve back oswestry score by 5 points to improve QOL. Goal Progress: Goal Met Goal 5:: Patient to demonstrate 50% improvement with less pain and improved function. Goal Progress: Progressing Plan Plan: d/c to hep D/C Information Discharge Comments: hep d/c sentence: If there are questions or concerns regarding this patient's physical therapy, please feel free to call me at [phone]. Thank you for the referral of this patient. Sincerely, Ze Amos, PT, Cert MDT, OCS Balance/Gait/Functional tests Balance/Special Test Scores Oswestry Low Back Score: 9 Improvement % Improvement: 30
== END 2025-01-03 19:00 | disposition home or self-care (01) ==
LOC: PT 16:00
PROVIDERS: PCP Family Medicine; Visit Provider Student in an Organized Health Care Education/Training Program
DX: M54.16 Radiculopathy, lumbar region (principal); M51.362 Other intervertebral disc degeneration, lumbar region with discogenic back pain and lower extremity pain
CPT/HCPCS: 97110; 97162; 97530

== ENCOUNTER → 2025-01-20 | Outpatient (CLI) | payer OTHER, SELFPAY ==
--- NOTE | 2025-01-20 12:29 | CDU_ITS ---
Reason For Study Reason For Study: Amaurosis fugax Rt. Velocities/BP Lt. Velocities/BP Prox CCA 93.7/18.8 cm/sec. Prox CCA 92.5/23.7 cm/sec. Mid CCA 104.7/20 cm/sec. Mid CCA 108.4/22.5 cm/sec. Dist CCA 92.5/23.7 cm/sec. Dist CCA 90/22.5 cm/sec. Prox ICA 88.8/33.5 cm/sec. Prox ICA 55.6/18.8 cm/sec. Mid ICA 83.9/32.3 cm/sec. Mid ICA 74.6/32.4 cm/sec. Dist ICA 94.9/33.5 cm/sec. Dist ICA 75.3/28.6 cm/sec. Rt. ICA/CCA = 0.91. Lt. ICA/CCA = 0.69. Prox ECA 113.3/18.8 cm/sec. Prox ECA 64.2/11.4 cm/sec. Rt. Vert. 47/12.6 cm/sec. Lt. Vert. 66.7/23.7 cm/sec. Right Extracranial There is intimal thickening but no significant atherosclerotic plaque noted in the right common carotid artery. There is intimal thickening but no significant atherosclerotic plaque noted in the right internal carotid artery. There is intimal thickening but no significant atherosclerotic plaque noted in the right external carotid artery. Antegrade flow is noted in the right vertebral artery. Left Extracranial There is intimal thickening but no significant atherosclerotic plaque noted in the left common carotid artery. There is intimal thickening but no significant atherosclerotic plaque noted in the left internal carotid artery. There is intimal thickening but no significant atherosclerotic plaque noted in the left external carotid artery. Antegrade flow is noted in the left vertebral artery. Procedure This is a Carotid Duplex examination using B-mode, color flow and specral Doppler. Carotid Duplex [id number]. Exam performed in department. VL/Carotid Duplex Ultrasound Interpretation Summary No significant atherosclerotic plaque or stenosis noted in the internal carotid arteries bilaterally. Flow within the vertebral arteries is antegrade bilaterally. Ordering Physician: Beltran Iverson Referring Physician: Eddie Hughes Performed By: Krystal Calvo RVT
--- NOTE | 2025-01-20 12:29 | ECHOCS_ITS ---
Reason For Study Reason For Study: Amaurosis Fugax Procedure This was a 2D Doppler, Color Flow transthoracic echocardiogram. Contrast injection was performed. Exam performed in department. Left Ventricle Normal LV size. The estimated ejection fraction is 60 %. No evidence for diastolic dysfunction. No regional wall motion abnormalities noted. Right Ventricle Normal RV size. Normal systolic function. Atria The left and right atria are normal. Bubble contrast study is negative for PFO/ASD. Mitral Valve There is no mitral valve stenosis. Trivial mitral valve insufficiency. Tricuspid Valve There is no tricuspid stenosis. Trivial tricuspid valve insufficiency. Pulmonary artery systolic pressure is 25 mmHg. Aortic Valve Trisinus/trileaflet aortic valve. There is no aortic stenosis. No aortic valve insufficiency. Pulmonic Valve There is no pulmonic valvular stenosis. Trivial pulmonic valve insufficiency. Great Vessels Normal sized aortic root. Pericardium/Pleural No pericardial effusion. Medication 22 gauge I.V. with prn adaptor inserted into left arm. Diluted definity 2ml given slow IV push to enhance endocardial definition. Performed a rapid injection of agitated mix of 9 cc saline and 1cc air to assess for atrial septal defect. MMode/2D Measurements & Calculations LVIDd: 5.4 cm IVSd: 1.3 cm Ao root diam: 3.5 cm LVIDs: 3.5 cm LVPWd: 1.1 cm RVDd: 3.7 cm FS: 34.4 % LAV(MOD-bp): 36.9 ml LVAd ap4: 33.6 cm2 SV(MOD-sp4): 63.2 ml LAV(MOD-bp) Indexed: 16.1 ml/m2 LVLd ap4: 8.3 cm SI(MOD-sp4): 27.6 ml/m2 LAV(MOD-sp2): 35.4 ml EDV(MOD-sp4): 110.0 ml LAV(MOD-sp4): 34.5 ml EDV(sp4-el): 115.0 ml LVAs ap4: 19.4 cm2 LVLs ap4: 6.6 cm ESV(MOD-sp4): 46.8 ml ESV(sp4-el): 48.0 ml EF(MOD-sp4): 57.4 % EF(sp4-el): 58.2 % SV(sp4-el): 67.0 ml LA A4 area: 15.4 cm2 LA dimension(2D): 4.6 cm RA A4 area: 15.9 cm2 TAPSE: 2.3 cm Time Measurements MV dec time: 0.24 sec Doppler Measurements & Calculations MV E max timothy: 76.5 cm/sec Lat Peak E' Timothy: 12.1 cm/sec Med Peak E' Timothy: 11.2 cm/sec MV A max timothy: 86.5 cm/sec E/E' lat: 6.3 E/E' med: 6.8 MV E/A: 0.88 MV V2 max: 89.7 cm/sec MV P1/2t max timothy: 75.9 cm/sec Ao V2 max: 159.9 cm/sec MV max P.2 mmHg MV P1/2t: 71.1 msec Ao max P.2 mmHg MV V2 mean: 45.3 cm/sec MV dec slope: 312.8 cm/sec2 Ao V2 mean: 102.6 cm/sec MV mean P.00 mmHg MVA(P1/2t): 3.1 cm2 Ao mean P.0 mmHg MV V2 VTI: 29.6 cm Ao V2 VTI: 29.8 cm AV (velocity ratio): 0.97 LV V1 max: 141.9 cm/sec PA V2 max: 114.3 cm/sec TR max timothy: 220.4 cm/sec LV V1 max P.1 mmHg TR max P.4 mmHg LV V1 mean P.6 mmHg LV V1 mean: 101.6 cm/sec LV V1 VTI: 28.8 cm ECHO/Echo Complete W/ Contrast Interpretation Summary The estimated ejection fraction is 60 %. No evidence for diastolic dysfunction. Ordering Physician: Beltran Iverson Referring Physician: Beltran Iverson Performed By: Leobardo Kelley RCS
== END | disposition home or self-care (01) ==
LOC: CVS 12:26
PROVIDERS: PCP Family Medicine; Referring Provider Ophthalmology; Visit Provider Ophthalmology
DX: G45.3 Amaurosis fugax (principal)
CPT/HCPCS: 93306; 93880; Q9957; A4216; C8929